=== PATIENT | female | born 1950 | race Caucasian/White ===

== ENCOUNTER → 2018-11-21 08:20 | Outpatient (CLI) | payer MEDICARE, SELFPAY ==
[2018-11-21 08:53] LABS: Influenza A and B by PCR Rapid Negative (Negative)
== END ==
PROVIDERS: Visit Provider Physician Assistant
DX: R68.89 Other general symptoms and signs (principal)
CPT/HCPCS: 87400

== ENCOUNTER → 2019-01-09 07:21 | Outpatient (CLI) | payer MEDICARE, SELFPAY ==
[2019-01-09 08:49] LABS: Blood Urea Nitrogen 15 mg/dL (7-17); Calcium 9.3 mg/dL (8.4-10.2); Carbon Dioxide 28 mmol/L (22-32); Chloride 103 mmol/L (98-107); Cholesterol 232 mg/dL (140-199); Estimated Glomerular Filt Rate > 60.0 mL/min (>60); Glucose 85 mg/dL (80-110); HDL Cholesterol 66 mg/dL (40-60); HEMOLYSIS < 15 (0-50); LDL Cholesterol Calculated 155 mg/dL (<100); Potassium 4.5 mmol/L (3.4-5.1); Sodium 138 mmol/L (137-145); Triglycerides 56 mg/dL (35-150)
== END ==
PROVIDERS: PCP Internal Medicine; Visit Provider Internal Medicine
DX: I10 Essential (primary) hypertension (principal); E78.5 Hyperlipidemia, unspecified
CPT/HCPCS: 36415; 80048; 80061

== ENCOUNTER → 2019-08-04 07:10 | Outpatient (CLI) | payer MEDICARE, SELFPAY ==
[2019-08-04 08:57] LABS: BUN Creatinine Ratio 17.1 (6-22); Blood Urea Nitrogen 12 mg/dL (7-17); Calcium 9.4 mg/dL (8.4-10.2); Carbon Dioxide 29 mmol/L (22-32); Chloride 104 mmol/L (98-107); Cholesterol 162 mg/dL (140-199); Estimated Glomerular Filt Rate > 60.0 mL/min (>60); Glucose 94 mg/dL (80-110); HDL Cholesterol 57 mg/dL (40-60); HEMOLYSIS < 15 (0-50); LDL Cholesterol Calculated 98 mg/dL (<100); Potassium 4.2 mmol/L (3.4-5.1); Sodium 140 mmol/L (137-145); Triglycerides 36 mg/dL (35-150)
== END ==
PROVIDERS: PCP Internal Medicine; Visit Provider Internal Medicine
DX: I10 Essential (primary) hypertension (principal); E78.5 Hyperlipidemia, unspecified
CPT/HCPCS: 36415; 80048; 80061

== ENCOUNTER → 2020-06-19 07:12 | Outpatient (CLI) | payer MEDICARE, SELFPAY ==
[2020-06-19 08:47] LABS: Alanine Aminotransferase 30 IU/L (<35); Albumin 3.9 g/dL (3.5-5.0); Albumin Globulin Ratio 1.7 (1.0-2.8); Alkaline Phosphatase 84 U/L (38-126); Aspartate Aminotransferase 30 IU/L (14-36); BUN Creatinine Ratio 25.4 (6-22); Bilirubin Total 0.7 mg/dL (0.2-1.3); Blood Urea Nitrogen 15 mg/dL (7-17); Calcium 9.2 mg/dL (8.4-10.2); Carbon Dioxide 29 mmol/L (22-32); Chloride 105 mmol/L (98-107); Cholesterol 172 mg/dL (140-199); Estimated Glomerular Filt Rate > 60.0 mL/min (>60); Globulin 2.3 g/dL (1.7-4.1); Glucose 88 mg/dL (80-110); HDL Cholesterol 60 mg/dL (40-60); HEMOLYSIS < 15 (0-50); LDL Cholesterol Calculated 99 mg/dL (<100); Potassium 4.4 mmol/L (3.4-5.1); Sodium 140 mmol/L (137-145); Total Protein 6.2 g/dL (6.3-8.2); Triglycerides 64 mg/dL (35-150)
== END ==
PROVIDERS: PCP Internal Medicine; Referring Provider Internal Medicine; Visit Provider Internal Medicine
DX: I10 Essential (primary) hypertension (principal); E78.5 Hyperlipidemia, unspecified
CPT/HCPCS: 36415; 80053; 80061

== ENCOUNTER → 2020-08-19 08:26 | Outpatient (CLI) | payer MEDICARE, SELFPAY ==
[2020-08-19 09:56] LABS: COVID19 -Nasal RAPID Negative (Negative)
== END ==
PROVIDERS: PCP Internal Medicine; Visit Provider Physician Assistant
DX: Z01.812 Encounter for preprocedural laboratory examination (principal); Z20.828 Contact with and (suspected) exposure to other viral communicable diseases
CPT/HCPCS: 87635; C9803

== ENCOUNTER 2020-08-21 07:49 | Day surgery (SDC) | payer MEDICARE, SELFPAY ==
--- NOTE | 2020-08-21 | PATH_ITS ---
[facility] Accession Number: [id number] . 01 Material submitted: . colon - RANDOM COLON . 02 Diagnosis: Random Colon, Biopsy: Lymphocytic colitis. Negative for granulomas, dysplasia or malignancy. MRV 08/26/2020 1215 Local . 02 Electronically signed: . Viviana Abreu MD, Pathologist NPI- [id number] . 01 Gross description: . RANDOM COLON: Received in formalin are 9 fragment(s) of millan, soft tissue measuring 0.2 x 0.2 x 0.1 cm to 0.1 x 0.1 x 0.1 cm submitted entirely in 1 cassette(s) /QBJ 08/22/2020 0814 Local . 02 Pathologist provided ICD-10: R19.7, K52.89 . 02 CPT . 675814 Performed at: 01 [facility] [address], [place], [place] [id number] MD Carl Hartman MD Phone: [phone] Performed at: 02 [facility] [address] [place], [place] [id number] MD Viviana Abreu MD Phone: [phone]
[2020-08-21] MEDS: SODIUM CHLORIDE 0.9% 1,000 ML 70 ML IV (08:10)
[2020-08-21 08:11] VITALS: BP 134/72; PULSE 71; RESP 16; TEMP 36.6; O2SAT 96; BMI 28.3
--- NOTE | 2020-08-21 09:09 | PM.HP.1 ---
History of Present Illness History of Present Illness Date Patient Seen: 08/21/20 Time Patient Seen: 09:05 Chief complaint: DX COLONOSCOPY Narrative: The patient is a very pleasant 69-year-old female who presented for colonoscopy. She was last evaluated by video visit on July 23, 2020 for diarrhea. Since that time her diarrhea has improved but she still has significant concerns with the cause of the diarrhea. Patient History Medical History Anxiety History of diarrhea Hyperlipidemia Hypertension Ovarian cyst Surgical History H/O ovarian cystectomy (~2007) H/O repair of rotator cuff (~2016) History of open reduction and internal fixation (ORIF) procedure (~2016) History of total hip arthroplasty (~2013) Family & Social History Social History: household members none Tobacco & Substance use: Smoking Status Never smoker alcohol intake current alcohol intake frequency 0-2 drinks per day Substance Use Type does not use Meds Home Medications and Allergies Home Medications Medication Instructions Recorded Confirmed Type amlodipine [Norvasc] 5 mg PO QDAY #0 11/08/16 08/21/20 History cholecalciferol (vitamin D3) 2,000 unit PO WEEKLY #0 11/08/16 08/21/20 History [Vitamin D3] atorvastatin 10 mg PO DAILY 08/21/20 08/21/20 History Allergies Allergy/AdvReac Type Severity Reaction Status Date / Time No Known Allergies Allergy Uncoded 08/21/20 08:19 Review of Systems Review of Systems ROS: Yes All systems reviewed with the patient and are negative except as otherwise documented Exam Vital Signs (past 8 hours): - 08/21/20 08:11 Temperature 97.8 F Pulse Rate 71 Respiratory Rate 16 Blood Pressure 134/72 Pulse Oximetry 96 Oxygen Delivery Method Room Air Const General: cooperative, healthy appearing, comfortable and well developed Nutritional Appearance: average body habitus HENMT Head: normocephalic and atraumatic Resp Effort & Inspection: normal respiratory effort and able to speak in complete sentences Auscultation: clear to auscultation bilaterally Cardio Rate: regular rate Rhythm: regular rhythm Heart Sounds: S1 normal and S2 normal GI Palpation: soft Auscultation: normal bowel sounds Extrem Right lower extremity: no edema Left lower extremity: no edema Assessment & Plan Assessment & Plan narrative: 1. Diarrhea 2. No prior colonosocpy Colonoscopy today, further recommendations to follow
[2020-08-21] MEDS: ONDANSETRON 4 MG/2 ML INJ IV (09:10)
[2020-08-21] MEDS: fentaNYL 250 MCG/5 ML INJ IV (09:17)
[2020-08-21] MEDS: MIDAZOLAM 5 MG/5 ML VIAL IV (09:17)
[2020-08-21 09:39] VITALS: BP 124/67; PULSE 71; RESP 16; TEMP 36.3; O2SAT 95
--- NOTE | 2020-08-21 09:40 | PM.OP.ENDO ---
Operative Date/Time/Diagnoses Date of procedure: 08/21/20 Time of procedure: 09:13 Procedure Notes Procedure in detail: Surgeon: Haylee Christianson DO Procedure: Colonoscopy with biopsy Preoperative diagnosis: 1. Diarrhea 2. No prior colonoscopy Postoperative diagnosis: 1. Normal-appearing colon mucosa, biopsy to rule out microscopic colitis 2. Normal-appearing terminal ileum 3. Scattered sigmoid diverticulosis 4. Grade 1 internal hemorrhoids Medications: Conscious sedation using 5 mg IV of Midazolam and 125 mcg IV of Fentanyl Preanesthesia Assessment An H and P was performed/updated and the Px?s ASA class is 2. The procedure was discussed in detail with the patient. The potential risks and complications including infection, bleeding, missed lesions, perforation, need for surgery in case of perforation, prolonged hospital stay, and were explained. A brief question and answer period was allotted and once all questions were answered, informed consent was obtained. The patient was brought back to the procedure room and placed on standard monitoring. The patient?s vital signs were monitored continuously throughout the entire procedure. Prior to starting, a timeout was performed to confirm the patient?s identity, allergies, medications, and procedure. Procedure in detail The patient was placed in left lateral decubitus position and once adequate sedation was obtained a DIOMEDES was performed. The digital rectal examination did not reveal any palpable lesions. The tip of the colonoscope was placed in the anal canal and advanced without difficulty all the way to the terminal ileum which was unremarkable. The cecum was identified by the appendiceal orifice and the ileocecal valve. Careful examination of all oliver of the colon was performed with irrigation of any residual stool. A 2nd pass in the ascending colon was completed. Colon mucosa was unremarkable, random biopsies were completed to rule out microscopic colitis Grade 1 internal hemorrhoids were noted on retroflexion The patient tolerated the procedure well and will be brought back to the recovery area to be discharged once criteria are met. The prep was judged to be adequate to identify polyps less than 5 mm. The withdrawal time was 9min. The total physician intraservice time was 18min. Complications There were no complications and estimated blood loss was minimal. Recommendations: Resume previous diet Continue outPx medications Follow up pathology results Repeat colonoscopy for screening in 10 years, however at that time age would be over 78 recommend office visit 1st to determine if surveillance is warranted. Office follow up if persistent symptoms An emergency contact number was given to the patient for any complications related to the procedure
[2020-08-21 09:44] VITALS: BP 124/70; PULSE 74; RESP 16; O2SAT 95
[2020-08-21 09:49] VITALS: BP 113/72; PULSE 72; RESP 12; O2SAT 97
[2020-08-21 09:54] VITALS: BP 113/61; PULSE 66; RESP 16; TEMP 36.2; O2SAT 97
== END 2020-08-21 10:08 | disposition home or self-care (01) ==
PROVIDERS: PCP Internal Medicine; Referring Provider Student in an Organized Health Care Education/Training Program; Visit Provider Student in an Organized Health Care Education/Training Program
PROC: 0DJD8ZZ Inspection of Lower Intestinal Tract, Via Natural or Artificial Opening Endoscopic (ICD-10-PCS; CPT 45378; principal; 2020-08-21 09:00)
DX: K52.832 Lymphocytic colitis (principal); K57.20 Diverticulitis of large intestine with perforation and abscess without bleeding; K64.0 First degree hemorrhoids; I10 Essential (primary) hypertension; E78.5 Hyperlipidemia, unspecified
CPT/HCPCS: 45380; J2250; J2405; J3010

== ENCOUNTER → 2020-09-10 10:15 | Outpatient (CLI) | payer OTHER, SELFPAY ==
--- NOTE | 2020-09-10 10:17 | DI.MRI.S_ITS ---
PROCEDURE: MR KNEE RT W CON INDICATIONS: INTERNAL DERANGEMENT OF RIGHT KNEE TECHNIQUE: After the administration of 50 mL of dilute intra-articular Gadolinium contrast, sagittal T1 spin echo with fat saturation and PD fast spin echo with fat saturation, coronal T1 spin echo with and without fat saturation, coronal T2 fast spin echo with fat saturation, axial PD fast spin echo with fat saturation through the knee. COMPARISON: [facility], RF, [place] KNEE INJECTION MR/CT RT, 09/10/2020, 11:29. [facility] [place], CR, XR KNEE ARTHRITIC SERIES RT, 08/26/2020, 9:23. FINDINGS: Image quality: Excellent. Menisci: The posterior horn and the body of the medial meniscus are truncated and demonstrate heterogeneous signal, consistent with prior meniscal tear and meniscectomy. The lateral meniscus demonstrates normal morphology and internal signal. The meniscal root ligaments appear intact. Cruciate ligaments: The anterior and posterior cruciate ligaments appear intact. Medial structures: The medial collateral ligament appears intact. The semimembranosus tendon insertions, oblique popliteal ligament, and meniscocapsular junction appear intact. Visualized portions of the pes anserinus tendons appear normal. No abnormal bursal fluid. Lateral structures: The lateral collateral ligament and the biceps femoris tendon appear intact. The popliteus tendon appears normal. Iliotibial band appears normal. Anterior structures: The quadriceps and patellar tendons appear intact. Patellar alignment is normal. No femoral trochlear dysplasia or ventral trochlear prominence. No edema in the infrapatellar fat pad. Bone and cartilage: No bone marrow contusions or fractures. There is chondral malacia, most pronounced in the medial femorotibial compartment. Joint space: A moderate to large sized Hollingsworth's cyst is noted. Normal appearing synovial plicae are incidentally noted. No intra-articular bodies. IMPRESSION: 1. The posterior horn and body of the medial meniscus are truncated and heterogeneous in signal consistent with prior meniscal injury and meniscectomy. 2. 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 3. A moderate to large-sized Hollingsworth's cyst. Dictated by: Amanda Gomez M.D. on 09/10/2020 at 12:54 Approved by: Amanda Gomez M.D. on 09/10/2020 at 13:02
--- NOTE | 2020-09-10 10:17 | DI.RAD.S_ITS ---
PROCEDURE: FL KNEE INJECTION MR/CT RT INDICATIONS: INTERNAL DERANGEMENT OF RIGHT KNEE COMPARISON: [facility] [place], CR, XR KNEE ARTHRITIC SERIES RT, 08/26/2020, 9:23. TECHNIQUE: The indications, alternatives, benefits, risks, and complications of the procedure were explained to the patient. Written informed consent was obtained and placed in the chart. The knee was examined fluoroscopically, and a site chosen for knee joint injection. The skin was prepped and draped in a sterile fashion, and 1% Lidocaine infiltrated from the skin down to the articular surface. A hypodermic needle was then introduced into the joint and iodinated contrast media was instilled to confirm the intra-articular needle tip placement. This was followed by approximately 50 mL dilute solution of a gadolinium containing MR contrast agent. The needle was removed and a bandage was applied. An Abram wrap was then applied around the knee joint to keep the contrast from collecting in the suprapatellar recess. The patient experienced no complications throughout the procedure and left the fluoroscopic suite in no apparent distress. FINDINGS: Single fluoroscopic spot image demonstrates intra-articular location to injected iodinated contrast. IMPRESSION: Successful fluoroscopically guided administration of dilute Gadolinium solution into the knee joint for MR arthrogram. Dictated by: Amanda Gomez M.D. on 09/10/2020 at 11:14 Approved by: Amanda Gomez M.D. on 09/10/2020 at 11:14
== END ==
PROVIDERS: PCP Internal Medicine; Referring Provider Orthopaedic Surgery; Visit Provider Orthopaedic Surgery
DX: M23.91 Unspecified internal derangement of right knee (principal); M71.21 Synovial cyst of popliteal space [Baker], right knee; M94.261 Chondromalacia, right knee
CPT/HCPCS: 27369; 73722; 77002

== ENCOUNTER 2021-03-21 07:18 | Emergency (ER) | payer OTHER, SELFPAY ==
[2021-03-21 07:30] VITALS: BP 141/89; PULSE 71; RESP 18; TEMP 36.8; O2SAT 96; BMI 28.8
--- NOTE | 2021-03-21 07:30 | DI.RAD.S_ITS ---
PROCEDURE: XR WRIST RT MIN 3V INDICATIONS: fall TECHNIQUE: 4 views of the wrist were acquired. COMPARISON: [facility], CR, XR HAND 3+ VIEWS RIGHT, 04/17/2020, 7:22. FINDINGS: Bones: There is a subtle minimally displaced intra-articular fracture at the distal radial aspect of the radius involving the radial styloid. No suspicious bony lesions. Degenerative changes are seen at the 1st metacarpophalangeal, 1st carpometacarpal, and triscaphe joints. Scaphoid view: Intact scaphoid. Soft tissues: No suspicious soft tissue calcifications. Soft tissue edema is seen surrounding the wrist. IMPRESSION: Minimally displaced intra-articular fracture of the radial styloid. Dictated by: Camron De Leon M.D. on 03/21/2021 at 8:53 Approved by: Camron De Leon M.D. on 03/21/2021 at 8:57
--- NOTE | 2021-03-21 07:39 | DI.RAD.S_ITS ---
PROCEDURE: XR RIBS RT MIN 3V W CXR 1V INDICATIONS: fall TECHNIQUE: 2 views of the right ribs were acquired, along with a single view chest. COMPARISON: None. FINDINGS: Surgical changes and devices: None. Bones and chest wall: Mild contour irregularity of the anterolateral aspect of the right 7th rib could represent a minimally displaced fracture. No suspicious bony lesions. Overlying soft tissues appear unremarkable. There is dextroconvex curvature of the thoracic spine with multilevel degenerative changes. Lungs and pleura: No pleural effusions or pneumothorax. Lungs appear clear. Mediastinum: Mediastinal contours appear normal. Heart size is normal. Mild aortic atherosclerotic calcifications. IMPRESSION: Mild cortical irregularity at the anterolateral aspect of the right 7th rib could represent a minimally displaced fracture. Recommend correlation with point tenderness. No pneumothorax. Dictated by: Camron De Leon M.D. on 03/21/2021 at 8:48 Approved by: Camron De Leon M.D. on 03/21/2021 at 8:53
--- NOTE | 2021-03-21 08:10 | ED.GENADULT ---
HPI - General Adult General Chief complaint: Extremity Injury, Upper Stated complaint: fell Wednesday and hurt right wrist, still painful Time Seen by Provider: 03/21/21 07:32 Source: patient Mode of arrival: Family Vehicle Limitations: no limitations History of Present Illness HPI narrative: Patient is a 70-year-old female who earlier this week was guiding a lawn cart down a hill when she states that it ?got away from me ?she tried to stop it and she tripped and fell on her right side. She did hit her head. There was no loss of consciousness. Sustained an abrasion to her right knee. Got her right arm caught under her. Has had swelling in her right arm since then. Has been taking ibuprofen and also icing the area however over the past 24 hours she has developed some bruising in increased discomfort. She also has some discomfort in her right ribs. No coughing. No problems breathing. No neck pain. On anticoagulation Related Data Home Medications Medication Instructions Recorded Confirmed amlodipine 5 mg tablet (Norvasc) 5 mg PO QDAY #0 11/08/16 08/21/20 cholecalciferol (vitamin D3) 50 2,000 unit PO WEEKLY #0 11/08/16 08/21/20 mcg (2,000 unit) capsule (Vitamin D3) atorvastatin 10 mg tablet 10 mg PO DAILY 08/21/20 08/21/20 Allergies Allergy/AdvReac Type Severity Reaction Status Date / Time No Known Allergies Allergy Uncoded 03/21/21 07:35 Review of Systems Constitutional Constitutional: Denies fever(s) and Denies headache(s) Eyes Eyes: Denies change in vision ENT Ears, Nose, Mouth, and Throat: Denies dental pain, Denies headache(s) and Denies sore throat Cardiovascular Cardiovascular: Denies chest pain and Denies dyspnea Respiratory Respiratory: Denies dyspnea Gastrointestinal Gastrointestinal: Denies abdominal pain Genitourinary Genitourinary: Reports system reviewed and no additional complaints, except as documented Musculoskeletal Musculoskeletal: Reports as per HPI Integumentary/Breasts Comments: Bruising to right wrist Neurologic Neurologic: Denies headache(s) Psychiatric Psychiatric: Reports system reviewed and no additional complaints, except as documented Endocrine Endocrine: Reports system reviewed and no additional complaints, except as documented Hematologic/Lymphatic On Anticoagulants: No Allergic/Immunologic Allergic/Immunologic: Reports system reviewed and no additional complaints, except as documented Patient History Medical History Anxiety History of diarrhea Hyperlipidemia Hypertension Ovarian cyst Surgical History H/O ovarian cystectomy (~2007) H/O repair of rotator cuff (~2016) History of open reduction and internal fixation (ORIF) procedure (~2016) History of total hip arthroplasty (~2013) Social History household members: none Smoking Status: Never smoker alcohol intake: current Smoking Status: Never smoker alcohol intake frequency: 0-2 drinks per day Alcohol type: wine Substance Use Type: does not use Exam Initial Vital Signs Initial Vital Signs: Vital Signs Temperature 98.2 F 03/21/21 07:30 Pulse Rate 71 03/21/21 07:30 Respiratory Rate 18 03/21/21 07:30 Blood Pressure 141/89 H 03/21/21 07:30 Pulse Oximetry 96 03/21/21 07:30 Const General: cooperative and comfortable HENMT Head: normal to inspection and normocephalic Mouth: oral mucosae normal Eyes General: appearance normal, both eyes and all related structures Chest Other: Tenderness to palpation right lower chest without crepitus Resp Effort & Inspection: normal respiratory effort Auscultation: clear to auscultation bilaterally Cardio Rate: regular rate GI Inspection: normal to inspection Palpation: soft and No tender Back/Spine/Pelvis Cervical Spine: No cervical spinal tenderness Thoracic/Lumbar Spine: No thoracic spinal tenderness and No lumbar spinal tenderness Skin Other: Bruising around right wrist. Superficial abrasion to right anterior knee. Neuro General: patient alert, patient awake, patient oriented x3 and moves all extremities Extrem Other: Bilateral lower extremities unremarkable. Shoulder is unremarkable. Elbows unremarkable. Does have discomfort with flexion extension and limited range of motion of her right wrist. Her right hand is unremarkable. Can pronate and supinate but has discomfort. Psych Appearance: grossly normal and well kempt Procedures Orthopedic Splinting/Casting Injury #1: Side: right Upper Extremity Injury Location: wrist Upper Extremity Immobilizer: sugar tong splint Post splinting neuro exam: no change Post splinting vascular exam: no change Placed by: Provider Course Orders Ordered: ED Orders 03/21/21 07:30 XR wrist RT min 3V Stat 03/21/21 07:39 XR ribs RT min 3V w CXR1V Stat Vital Signs Vital signs: Vital Signs - 8 hr 03/21/21 07:30 Temperature 98.2 F Pulse Rate 71 Respiratory Rate 18 Blood Pressure 141/89 H Pulse Oximetry 96 Medical Decision Making Imaging Data Rib x-ray: Radiologist's Impression: [address] [id number] ReportSigned Patient: Christi VargasR#: [id number]: 9Acct:[id number]/Sex: 70 / FDate of Service: 03/21/21Loc: EDAccession Number: [id number] Procedure: XR ribs RT min 3V w CXR1V Ordering Provider: Yoel Beckford D.O. PROCEDURE: XR RIBS RT MIN 3V W CXR 1V INDICATIONS: fall TECHNIQUE: 2 views of the right ribs were acquired, along with a single view chest. COMPARISON: None. FINDINGS: Surgical changes and devices: None. Bones and chest wall: Mild contour irregularity of the anterolateral aspect of the right 7th rib could represent a minimally displaced fracture. No suspicious bony lesions. Overlying soft tissues appear unremarkable. There is dextroconvex curvature of the thoracic spine with multilevel degenerative changes. Lungs and pleura: No pleural effusions or pneumothorax. Lungs appear clear. Mediastinum: Mediastinal contours appear normal. Heart size is normal. Mild aortic atherosclerotic calcifications. IMPRESSION: Mild cortical irregularity at the anterolateral aspect of the right 7th rib could represent a minimally displaced fracture. Recommend correlation with point tenderness. No pneumothorax. Dictated by: Camron De Leon M.D. on 03/21/2021 at 8:48 Approved by: Camron De Leon M.D. on 03/21/2021 at 8:53 Extremity x-ray #1: Radiologist's Impression: [address] [id number] ReportSigned Patient: Christi VargasIrvin#: [id number]: 9Acct:[id number]/Sex: 70 / FDate of Service: 03/21/21Loc: EDAccession Number: [id number] Procedure: XR wrist RT min 3V Ordering Provider: Yoel Beckford D.O. PROCEDURE: XR WRIST RT MIN 3V INDICATIONS: fall TECHNIQUE: 4 views of the wrist were acquired. COMPARISON: [facility], CR, XR HAND 3+ VIEWS RIGHT, 04/17/2020, 7:22. FINDINGS: Bones: There is a subtle minimally displaced intra-articular fracture at the distal radial aspect of the radius involving the radial styloid. No suspicious bony lesions. Degenerative changes are seen at the 1st metacarpophalangeal, 1st carpometacarpal, and triscaphe joints. Scaphoid view: Intact scaphoid. Soft tissues: No suspicious soft tissue calcifications. Soft tissue edema is seen surrounding the wrist. IMPRESSION: Minimally displaced intra-articular fracture of the radial styloid. Dictated by: Camron De Leon M.D. on 03/21/2021 at 8:53 Approved by: Camron De Leon M.D. on 03/21/2021 at 8:57 MDM Narrative Medical decision making narrative: This was a mechanical fall. X-rays do show a rib fracture over the area where she is most tender. She is not in respiratory distress. The underlying lung is unremarkable. I did discuss this with her. She was given incentive spirometry training she is given return precautions with regard to this. She expressed understanding. She also has a distal radius fracture. A splint was placed as described above. She was given care instructions and return precautions. She expressed understanding and agreement. Discharge Plan Departure Patient Disposition: Home Clinical Impression: Fracture of wrist, Closed rib fracture, Abrasion of skin, Fall Instructions: DI for Rib Fracture, DI for Wrist Fracture, How to Take Care of Your Splint Activity Restrictions/Additional Instructions: Please use the incentive spirometer like you were instructed today. If you start to develop fevers or shortness of breath please return to the emergency department. The splint needs to stay on and stay clean and stay dry. You need to treat it like a cast. Recommend that today you contact the [facility] group at [phone] for a follow-up next week. Also contact your primary provider for follow-up. Prescriptions: No Action amlodipine [Norvasc] 5 MG tablet 5 mg PO QDAY Qty: 0 RF: 0 cholecalciferol (vitamin D3) [Vitamin D3] 2,000 UNIT capsule 2,000 unit PO WEEKLY Qty: 0 RF: 0 atorvastatin 10 mg Tablet 10 mg PO DAILY RF: 0 Referrals: Yosvany Mejia MD [Physician] - Jessica Brooks MD [Primary Care Provider] -
[2021-03-21 09:35] VITALS: O2SAT 99
[2021-03-21 09:50] VITALS: BP 142/74; PULSE 64; RESP 16; O2SAT 95
== END 2021-03-21 09:50 | disposition home or self-care (01) ==
PROVIDERS: Emergency Provider Emergency Medicine; PCP Internal Medicine
DX: S52.501A Unspecified fracture of the lower end of right radius, initial encounter for closed fracture (principal); S22.31XA Fracture of one rib, right side, initial encounter for closed fracture; S80.211A Abrasion, right knee, initial encounter; W19.XXXA Unspecified fall, initial encounter
CPT/HCPCS: 29125; 71101; 73110; 99283

== ENCOUNTER → 2022-05-05 09:09 | Outpatient (CLI) | payer MEDICARE, SELFPAY ==
--- NOTE | 2022-05-05 09:58 | DI.MRI.S_ITS ---
PROCEDURE: MR KNEE RT WO CON INDICATIONS: Pain in right knee TECHNIQUE: Noncontrast sagittal PD fast spin echo and T2 fast spin echo with fat saturation, sagittal 3-D FLASH with fat saturation; coronal T1 spin echo and PD fast spin echo with fat saturation, and axial PD fast spin echo with fat saturation through the knee. COMPARISON: None. FINDINGS: Image quality: Excellent. Menisci: Complex tear involving posterior horn of medial meniscus is seen extending to both superior and inferior articulating surfaces with adjacent 5 mm Marine meniscal cyst. Lateral meniscus is intact. Peripheral displacement of medial meniscus bowing medial collateral ligament is also seen. The meniscal root ligaments appear intact. Cruciate ligaments: The anterior and posterior cruciate ligaments appear intact. Medial structures: There is low-grade medial collateral ligament sprain.. The posterior oblique ligament, semimembranosus tendon insertions, oblique popliteal ligament, and meniscocapsular junction appear intact. Visualized portions of the pes anserinus tendons appear normal. No abnormal bursal fluid. Lateral structures: The lateral collateral ligament, long and short heads of the biceps femoris tendon appear intact. The popliteus tendon appears normal; the popliteofibular ligament appears intact. Iliotibial band appears normal. Anterior structures: Distal quadriceps tendinosis and low-grade partial-thickness tear at its superior patellar insertion is seen. The patellar tendon appears intact. Patellar alignment is normal. No femoral trochlear dysplasia or ventral trochlear prominence. No edema in the infrapatellar fat pad. Bones and cartilage: No bone marrow contusions or fractures. [id number] tricompartmental osteoarthritis and chondromalacia is noted most prominent in medial femoral tibial compartment. Joint space: There is small knee joint fluid. No Hollingsworth's cyst. Normal appearing synovial plicae are incidentally noted. IMPRESSION: 1. [id number]-[id number] tricompartmental osteoarthritis and chondromalacia more prominent in medial femoral tibial compartment. Small joint effusion. No gross loose bodies. 2. Complex tear involving posterior horn of medial meniscus extending to both superior and inferior articulating surfaces with adjacent 5 mm Marine meniscal cyst. Lateral meniscus is intact. 3. Cruciate ligaments are intact. Low-grade MCL sprain. 4. Distal quadriceps tendinosis and low-grade partial-thickness tear. Patellar tendon is intact. Dictated by: Filemon Hawkins M.D. on 05/05/2022 at 10:56 Approved by: Filemon Hawkins M.D. on 05/05/2022 at 10:58
== END ==
PROVIDERS: PCP Internal Medicine; Referring Provider Student in an Organized Health Care Education/Training Program; Visit Provider Student in an Organized Health Care Education/Training Program
DX: S83.241A Other tear of medial meniscus, current injury, right knee, initial encounter (principal); M25.561 Pain in right knee; M17.11 Unilateral primary osteoarthritis, right knee; M94.261 Chondromalacia, right knee; S83.411A Sprain of medial collateral ligament of right knee, initial encounter; S76.111A Strain of right quadriceps muscle, fascia and tendon, initial encounter
CPT/HCPCS: 73721

== ENCOUNTER 2022-10-15 10:30 | Outpatient (RCR) | payer OTHER, SELFPAY ==
--- NOTE | 2022-07-21 11:15 | PT.OIE ---
Current Diagnoses Pain in right knee (07/21/22) Encounter for other preprocedural examination (07/21/22) Past Medical History (Last Reviewed 03/21/21 @ 08:12 by Yoel Beckford DO) Anxiety History of diarrhea Hyperlipidemia Hypertension Ovarian cyst Past Surgical History (Last Reviewed 08/21/20 @ 09:09 by Haylee Christianson DO) H/O ovarian cystectomy (~2007) H/O repair of rotator cuff (~2016) History of open reduction and internal fixation (ORIF) procedure (~2017) History of total hip arthroplasty (~2013) Visit Care Team Role Provider Type Jude Vann MD Family Provider Physician Primary Care Provider Specialty: Internal Medicine Address: [address] [place] [address], [id number] Email: Xavi Galvan MD Attending Provider Non-Staff Referring Provider Specialty: Orthopedic Surgery Address: [address] [place], [place] [address], [place], [address] Fax: Email: Physical Therapy Initial Evaluation PT-OP-A Visit Information Start: 07/21/22 08:57 Freq: Status: Active Protocol: Document 07/21/22 10:38 [facility] (Rec: 07/21/22 17:25 [facility] [id number]) Out-Patient Physical Therapy Visit Information Visit Information Visit Type Initial Evaluation Visit Start Time 10:35 Visit Stop Time 11:15 Total Visit Minutes 40 Visit Number 1 Evaluation Information Evaluation Date 07/21/22 PT-OP-B Current Condition Start: 07/21/22 08:57 Freq: Status: Active Protocol: Document 07/21/22 10:38 [facility] (Rec: 07/21/22 11:06 [facility] [id number]) Current Condition History of Current Condition Onset Date 2017 Current Complaints right knee pain in the distal lateral pole of the patella, pain is constant History of Current Condition pt had a fall in 2017 landing on her right knee on asphpalt 2 inches thick she tore her L rotator cuff and broke her left ankle. She also aggravated her right knee and has had pain since this time. She is scheduled for arthorscopic Surgery tomorrow 07/22/[address] [facility] Dr Galvan will be doing surgery. At this time she cant be on her feet for long on a hard surface, unable to garden due to pain. She does not have stairs at home and her son is taking her home. She does live alone. Prior Treatments and Tests hx of left hip replacement in 2014 Treatment Goals Patient/Caregiver Goals Goals are to eliminate knee pain and to be able to be active again she feels very limited in what she can do due to pain Prior Functional Status Baseline Function- ADL's Independent Baseline Function- Mobility Independent Current Functional Impairments (Reported) Functional Limitations- ADL's pain with anything that requires kneeling, pain with knee flexion activities Functional Limitations- Mobility/Gait pain walking on uneven ground and standing on hard surfaces PT-OP-C Subjective Start: 07/21/22 08:57 Freq: Status: Active Protocol: Document 07/21/22 10:35 [facility] (Rec: 07/22/22 09:35 [facility] [id number]) Patient Questionnaires Lower Extremity Functional Scale LEFS Score 42 LEFS Impairment 40 to 59% Impaired (Score 32- 47) OP-PT Pain Assessment Pain Assessment Grid Paper Pain Assessment Grid Completed Yes Location right knee Pain Location Details inferior pole of the patella on the lateral side Intensity 5 Scale Used Numeric (0 - 10) Description Aching Frequency Constant PT-OP-F Manual Assessment Start: 07/21/22 08:57 Freq: Status: Active Protocol: Document 07/21/22 10:35 [facility] (Rec: 07/22/22 09:35 [facility] [id number]) Manual Assessments Soft Tissue Assessment Soft Tissue Mobility Assessment tightness of the right ITB with tenderness up into her lateral hip Joint Mobility Assessment Joint Mobility Assessment able to mobilize the patella but point tenderness at the inferior pole lateral side of patella, as pt flexes her knee there is a visual pop on the lateral patella femoral side of the joint pt rests her knee in hyperextension PT-OP-G Mobility & Gait Start: 07/21/22 08:57 Freq: Status: Active Protocol: Document 07/21/22 10:35 [facility] (Rec: 07/22/22 09:35 [facility] [id number]) OP Gait Assessment Gait Gait Assistance Required: Independent Able to Maintain Weight Bearing Status Yes During Gait Assistive Devices Assistive Device None Orthotic/Prosthetic Devices or Brace: No Gait Deviations General Gait Pattern Antalgic,Decreased Stride Length Comments Gait Comments pt was trainined with SPC today but advised to supervisor fertilizer a walker for post surgery as she will be home alone PT-OP-J Posture/Palpation/Skin Start: 07/21/22 08:57 Freq: Status: Active Protocol: Document 07/21/22 10:35 [facility] (Rec: 07/22/22 09:35 [facility] [id number]) Palpation Assessment Location right patella Palpation Location pain at the inferior lateral pole of the patella Palpation Findings Tenderness PT-OP-K Range of Motion Start: 07/21/22 08:57 Freq: Status: Active Protocol: Document 07/21/22 10:35 [facility] (Rec: 07/22/22 09:35 [facility] [id number]) Knee Goniometric Range of Motion Knee Right Knee ROM WFL No Patient Position Supine Flexion Active (degrees) 122 Comments pt rests her knee in 2 degrees hyperextension B, she has increased pain with knee flexion Knee ROM Limitations Knee ROM Limitations Soft Tissue Tightness,Pain Comments pain with knee flexion PT-OP-M Strength Start: 07/21/22 08:57 Freq: Status: Active Protocol: Document 07/21/22 10:35 [facility] (Rec: 07/22/22 09:35 [facility] [id number]) Knee Strength Knee Manual Muscle Testing Right Flexion (S2) 4 Good Extension (L3) 4 Good Comments able to perform a quad set with towel under knee, pain with ASLR attempt PT-OP-Q Treatments Start: 07/21/22 08:57 Freq: Status: Active Protocol: Document 07/21/22 10:35 [facility] (Rec: 07/22/22 09:35 [facility] [id number]) Therapeutic Exercises Supine Exercises quad sets Reps/Minutes x 10 reps hold 5 sec 1-2 times per day Comments towel under right knee ankle pumps Reps/Minutes 2 x 10 2-3 times per day Comments pt advised to elevate her leg and perform ankle pumps post op supine heel slides Reps/Minutes 2 x 10 reps 2-3 xms per day PT-OP-T Assessment and Plan Start: 07/21/22 08:57 Freq: Status: Active Protocol: Document 07/21/22 10:35 [facility] (Rec: 07/22/22 09:35 [facility] [id number]) Physical Therapy Assessment Rehab Potential Rehabilitation Potential Excellent Evaluation Complexity Number of Personal Factors/Comorbidities 0 Number of Body Systems Impaired 1-2 Clinical Presentation at Evaluation Stable Impairments Impairments Activity Tolerance,Functional Activities,Functional Mobility ,Gait,ROM,Soft Tissue Mobility ,Strength,Tone Goals 3 Impairment pain in the right knee with gait and pt is limited in walking distance to more than a few blocks due to increased pain. 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/ 10 Care Home Goal (LTG) Shelley presents with improved walking distance without increased pain and her overall pain levels have dropped from 5/10 to 0-2/10 LTG Duration 12 weeks 2 Impairment Pain with R knee flexion and flexion limited to 122 Short Term Goal (STG) Shelley is able to return to full knee ROM without c/o pain STG Duration 6 weeks 1 Impairment pt lacks a home program for post arthroscopic Right knee surgery 07/22/22 Short Term Goal (STG) Shelley is educated on a HEP for post surgical prosedure STG Duration 1 day Assessment Summary Assessment Shelley is a 71 year old female who fell in 2017 landing on her right knee and tearing her rotator cuff on the left. She has had pain since this time but dealt with her other injury first. She undergoes arthroscopic surgery on 07/22/22 and is here today for her pre-op visit. Shelley feels very limited in her daily activities due to pain. Walking on hard surfance increases pain, she is limited in gardening and activities that require knee flexion. With exam today her pain is specifically at the inferior lateral pole of the patella. There is a visual and audible click when she flexes her knee and pain increases with knee flexion. She has 122 degrees knee flexion today and her knee rests in 2 degrees hyperextension. She was educated in knee ROM exercises post surgery and gait training was performed today with a cane. I did advise a fww for post surgery as she has a painful gait at this point and is limping. Her sone will be taking her home but she does live alone. She was educated on LE elevation and ice and has her ice packs ready at home to use. Shelley is set up for post surgery PT appointments. She is a good candidate for PT Physical Therapy Plan Frequency and Duration Frequency of Treatment 2x/Week Duration of treatment (weeks) 12 Plan of Care Start Date 07/21/22 Plan of Care End Date 10/21/22 Therapeutic Interventions Therapeutic Interventions Aquatic Therapy,Home Exercise Program,Manual Therapy, Neuromuscular Re-education, Patient/Caregiver Education, Self-Care/Home Management,Soft Tissue Mobilization, Therapeutic Exercises Modalities Cold Pack/Ice Massage Next Visit Focus/Plan Next Note Type Re-Evaluation Next Visit Plan re-eval post surgery and assess what was found during surgery, knee ROM and strength , gait training.
--- NOTE | 2022-07-22 09:36 | PT.OPPOC ---
Physical, Occupational & Speech Therapy At [facility] Current Diagnoses Pain in right knee (07/21/22) Encounter for other preprocedural examination (07/21/22) Visit Care Team Role Provider Type Jude Vann MD Family Provider Physician Primary Care Provider Specialty: Internal Medicine Address: [address] [place] [address], [id number] Email: Xavi Galvan MD Attending Provider Non-Staff Referring Provider Specialty: Orthopedic Surgery Address: [address] [place] [address] , [place], [address] Fax: Email: Plan Of Care PT-OP-T Assessment and Plan Start: 07/21/22 08:57 Freq: Status: Active Protocol: Document 07/21/22 10:35 [facility] (Rec: 07/22/22 09:35 [facility] [id number]) Physical Therapy Assessment Rehab Potential Rehabilitation Potential Excellent Evaluation Complexity Number of Personal Factors/Comorbidities 0 Number of Body Systems Impaired 1-2 Clinical Presentation at Evaluation Stable Impairments Impairments Activity Tolerance,Functional Activities,Functional Mobility ,Gait,ROM,Soft Tissue Mobility ,Strength,Tone Goals 3 Impairment pain in the right knee with gait and pt is limited in walking distance to more than a few blocks due to increased pain. 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/ 10 Care Home Goal (LTG) Shelley presents with improved walking distance without increased pain and her overall pain levels have dropped from 5/10 to 0-2/10 LTG Duration 12 weeks 2 Impairment Pain with R knee flexion and flexion limited to 122 Short Term Goal (STG) Shelley is able to return to full knee ROM without c/o pain STG Duration 6 weeks 1 Impairment pt lacks a home program for post arthroscopic Right knee surgery 07/22/22 Short Term Goal (STG) Shelley is educated on a HEP for post surgical procedure STG Duration 1 day Assessment Summary Assessment Shelley is a 71 year old female who fell in 2017 landing on her right knee and tearing her rotator cuff on the left. She has had pain since this time but dealt with her other injury first. She undergoes arthroscopic surgery on 07/22/22 and is here today for her pre-op visit. Shelley feels very limited in her daily activities due to pain. Walking on hard surface increases pain, she is limited in gardening and activities that require knee flexion. With exam today her pain is specifically at the inferior lateral pole of the patella. There is a visual and audible click when she flexes her knee and pain increases with knee flexion. She has 122 degrees knee flexion today and her knee rests in 2 degrees hyperextension. She was educated in knee ROM exercises post surgery and gait training was performed today with a cane. I did advise a fww for post surgery as she has a painful gait at this point and is limping. Her son will be taking her home but she does live alone. She was educated on LE elevation and ice and has her ice packs ready at home to use. Shelley is set up for post surgery PT appointments. She is a good candidate for PT Physical Therapy Plan Frequency and Duration Frequency of Treatment 2x/Week Duration of treatment (weeks) 12 Plan of Care Start Date 07/21/22 Plan of Care End Date 10/21/22 Therapeutic Interventions Therapeutic Interventions Aquatic Therapy,Home Exercise Program,Manual Therapy, Neuromuscular Re-education, Patient/Caregiver Education, Self-Care/Home Management,Soft Tissue Mobilization, Therapeutic Exercises Modalities Cold Pack/Ice Massage Next Visit Focus/Plan Next Note Type Re-Evaluation Next Visit Plan re-eval post surgery and assess what was found during surgery, knee ROM and strength , gait training. Plan of Care Dates Plan of Care Start Date 07/21/22 Plan of Care End Date 10/21/22 Electronically Signed by: May Bhatia, PT 07/22/22 0936 If you are in agreement with this Plan of Care, please return a signed and dated copy. I have reviewed this Plan of Care and certify that the skilled therapy services above are required to meet the patient?s needs. Physician Signature Date Printed Name and Credentials Clinical Instructor Signature Printed Name and Credentials
--- NOTE | 2022-07-28 17:28 | PT.OTRE ---
Current Diagnoses Pain in right knee (07/28/22) Encounter for other preprocedural examination (07/28/22) Past Medical History (Last Reviewed 03/21/21 @ 08:12 by Yoel Beckford DO) Anxiety History of diarrhea Hyperlipidemia Hypertension Ovarian cyst Surgical History (Last Reviewed 08/21/20 @ 09:09 by Haylee Christianson DO) H/O ovarian cystectomy (~2007) H/O repair of rotator cuff (~2017) History of open reduction and internal fixation (ORIF) procedure (~2017) History of total hip arthroplasty (~2013) Visit Care Team Role Provider Type Jude Vann MD Family Provider Physician Primary Care Provider Specialty: Internal Medicine Address: [address] [place] [address], [address] Email: Xavi Galvan MD Attending Provider Non-Staff Referring Provider Specialty: Orthopedic Surgery Address: [address] [place], [place] [address], [place], [address] Fax: Email: Physical Therapy Re-Evaluation PT-OP-A Visit Information Start: 07/21/22 08:57 Freq: Status: Active Protocol: Document 07/28/22 11:15 [facility] (Rec: 07/28/22 12:11 [facility] [id number]) Out-Patient Physical Therapy Visit Information Visit Information Visit Type Re-Evaluation Visit Start Time 11:15 Visit Stop Time 12:00 Total Visit Minutes 45 Visit Number 2 Evaluation Information Evaluation Date 07/21/22 PT-OP-B Current Condition Start: 07/21/22 08:57 Freq: Status: Active Protocol: Document 07/21/22 10:38 [facility] (Rec: 07/21/22 11:06 [facility] [id number]) Current Condition History of Current Condition Onset Date 2017 Current Complaints right knee pain in the distal lateral pole of the patella, pain is constant History of Current Condition pt had a fall in 2017 landing on her right knee on asphpalt 2 inches thick she tore her L rotator cuff and broke her left ankle. She also aggravated her right knee and has had pain since this time. She is scheduled for arthorscopic Surgery tomorrow 07/22/[address] [facility] Galvan will be doing surgery. At this time she cant be on her feet for long on a hard surface, unable to garden due to pain. She does not have stairs at home and her son is taking her home. She does live alone. Prior Treatments and Tests hx of left hip replacement in 2014 Treatment Goals Patient/Caregiver Goals Goals are to eliminate knee pain and to be able to be active again she feels very limited in what she can do due to pain Prior Functional Status Baseline Function- ADL's Independent Baseline Function- Mobility Independent Current Functional Impairments (Reported) Functional Limitations- ADL's pain with anything that requires kneeling, pain with knee flexion activities Functional Limitations- Mobility/Gait pain walking on uneven ground and standing on hard surfaces PT-OP-C Subjective Start: 07/21/22 08:57 Freq: Status: Active Protocol: Document 07/28/22 11:15 [facility] (Rec: 07/28/22 11:26 [facility] [id number]) OP-PT Subjective Patient Comments Patient Comments pt is post op arthroscpic knee surgery 07/22/22 her lateral meniscus was torn and scar tissue was built up from her 2019 meniscual repair of the medial meniscus repair . pt has a bandage on she is supposed to wear until she has her stitches out on . She comes into without a assistive device. She used crutches until Sat and then had a cane for a day. She uses her cane for longer distances. She has no complaints of pain and describes just a dull ache PT-OP-F Manual Assessment Start: 07/21/22 08:57 Freq: Status: Active Protocol: Document 07/21/22 10:35 [facility] (Rec: 07/22/22 09:35 [facility] [id number]) Manual Assessments Soft Tissue Assessment Soft Tissue Mobility Assessment tightness of the right ITB with tenderness up into her lateral hip Joint Mobility Assessment Joint Mobility Assessment able to mobilize the patella but point tenderness at the inferior pole lateral side of patella, as pt flexes her knee there is a visual pop on the lateral patella femoral side of the joint pt rests her knee in hyperextension PT-OP-G Mobility & Gait Start: 07/21/22 08:57 Freq: Status: Active Protocol: Document 07/21/22 10:35 [facility] (Rec: 07/22/22 09:35 [facility] [id number]) OP Gait Assessment Gait Gait Assistance Required: Independent Able to Maintain Weight Bearing Status Yes During Gait Assistive Devices Assistive Device None Orthotic/Prosthetic Devices or Brace: No Gait Deviations General Gait Pattern Antalgic,Decreased Stride Length Comments Gait Comments pt was trainined with SPC today but advised to tow picker a walker for post surgery as she will be home alone PT-OP-J Posture/Palpation/Skin Start: 07/21/22 08:57 Freq: Status: Active Protocol: Document 07/21/22 10:35 [facility] (Rec: 07/22/22 09:35 [facility] [id number]) Palpation Assessment Location right patella Palpation Location pain at the inferior lateral pole of the patella Palpation Findings Tenderness PT-OP-K Range of Motion Start: 07/21/22 08:57 Freq: Status: Active Protocol: Document 07/28/22 11:26 [facility] (Rec: 07/28/22 12:11 [facility] [id number]) Knee Goniometric Range of Motion Knee Measured in Degrees Right Knee ROM WFL No Patient Position Supine Flexion Active (degrees) 60 Extension Active (degrees) 0 Comments pt has instructions to keep her bandage on until this 07/30/22. ROM partially limited due to banadage and to c/o tightness Knee ROM Limitations Knee ROM Limitations Soft Tissue Tightness,Pain, Swelling Comments pt is limited with knee flexion due to s/p meniscus repair, bandages, and pain PT-OP-M Strength Start: 07/21/22 08:57 Freq: Status: Active Protocol: Document 07/21/22 10:35 [facility] (Rec: 07/22/22 09:35 [facility] [id number]) Knee Strength Knee Manual Muscle Testing Right Flexion (S2) 4 Good Extension (L3) 4 Good Comments able to perform a quad set with towel under knee, pain with ASLR attempt PT-OP-Q Treatments Start: 07/21/22 08:57 Freq: Status: Active Protocol: Document 07/28/22 11:15 [facility] (Rec: 07/28/22 12:13 [facility] [id number]) Cardio Equipment Recumbent Elliptical (BiodCuponomia) Duration (Minutes) 8 Resistance 0 Therapeutic Exercises Supine Exercises quad sets Reps/Minutes x 10 reps hold 5 sec 1-2 times per day Comments towel under right knee ankle pumps Reps/Minutes 2 x 10 2-3 times per day Comments pt advised to elevate her leg and perform ankle pumps post op supine heel slides Reps/Minutes 2 x 10 reps 2-3 xms per day PT-OP-T Assessment and Plan Start: 07/21/22 08:57 Freq: Status: Active Protocol: Document 07/28/22 11:15 [facility] (Rec: 07/28/22 12:11 [facility] [id number]) Physical Therapy Assessment Goals 3 Impairment pain in the right knee with gait and pt is limited in walking distance to more than a few blocks due to increased pain. 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/ 10 [facility] Goal (LTG) Shelley presents with improved walking distance without increased pain and her overall pain levels have dropped from 5/10 to 0-2/10 LTG Duration 12 weeks 2 Impairment Pain with R knee flexion and flexion limited to 122 Short Term Goal (STG) Shelley is able to return to full knee ROM without c/o pain STG Duration 6 weeks 1 Impairment pt lacks a home program for post arthroscopic Right knee surgery 07/22/22 Short Term Goal (STG) Shelley is educated on a HEP for post surgical prosedure STG Duration 1 day Assessment Summary Assessment Shelley returns to PT 6 days s /p right knee arthroscopic surgery with repair of the right lateral meniscus. She describes mild ache only at this point. Pt used crutches for the first few days post surgery and then a cane for a few days. She came today without a assistive device. I did encourage her to use her cane as she has a antalgic gait. She was instructed to leave her bandages on until this 07/30/22. Her knee ROM today was limited to 70 degrees AROM and full knee extension. She was able to perform a quad set with pillow under her knee. We started her on the biodex and she tolerated this well. Pt has been icing 2-3 times per day and I encouraged her to continue with this. I rewrapped her vu bandage today as it had come down to her ankles. She felt more secure with her vu wrap when she left and tolerated treatment well today. Physical Therapy Plan Frequency and Duration Frequency of Treatment 2x/Week Duration of treatment (weeks) 12 Plan of Care Start Date 07/28/22 Plan of Care End Date 10/28/21 Therapeutic Interventions Therapeutic Interventions Aquatic Therapy,Home Exercise Program,Manual Therapy, Neuromuscular Re-education, Patient/Caregiver Education, Self-Care/Home Management,Soft Tissue Mobilization, Therapeutic Exercises Modalities Cold Pack/Ice Massage Next Visit Focus/Plan Next Note Type Treatment Note Next Visit Plan begin with biodex for warm up, knee ROM exercises, isometric strengthening exercises, ice and IFC
--- NOTE | 2022-07-28 17:28 | PT.OPPOC ---
Physical, Occupational & Speech Therapy At [facility] Current Diagnoses Pain in right knee (07/28/22) Encounter for other preprocedural examination (07/28/22) Visit Care Team Role Provider Type Jude Vann MD Family Provider Physician Primary Care Provider Specialty: Internal Medicine Address: [address] [place] [address], [id number] Email: Xavi Galvan MD Attending Provider Non-Staff Referring Provider Specialty: Orthopedic Surgery Address: [address] [place] [address] , [place], [address] Fax: Email: Plan Of Care PT-OP-T Assessment and Plan Start: 07/21/22 08:57 Freq: Status: Active Protocol: Document 07/28/22 11:15 [facility] (Rec: 07/28/22 12:11 [facility] [id number]) Physical Therapy Assessment Goals 3 Impairment pain in the right knee with gait and pt is limited in walking distance to more than a few blocks due to increased pain. 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/ 10 Director Phone Goal (LTG) Shelley presents with improved walking distance without increased pain and her overall pain levels have dropped from 5/10 to 0-2/10 LTG Duration 12 weeks 2 Impairment Pain with R knee flexion and flexion limited to 122 Short Term Goal (STG) Shelley is able to return to full knee ROM without c/o pain STG Duration 6 weeks 1 Impairment pt lacks a home program for post arthroscopic Right knee surgery 07/22/22 Short Term Goal (STG) Shelley is educated on a HEP for post surgical procedure STG Duration 1 day Assessment Summary Assessment Shelley returns to PT 6 days s /p right knee arthroscopic surgery with repair of the right lateral meniscus. She describes mild ache only at this point. Pt used crutches for the first few days post surgery and then a cane for a few days. She came today without a assistive device. I did encourage her to use her cane as she has a antalgic gait. She was instructed to leave her bandages on until this 07/30/22. Her knee ROM today was limited to 70 degrees AROM and full knee extension. She was able to perform a quad set with pillow under her knee. We started her on the biodex and she tolerated this well. Pt has been icing 2-3 times per day and I encouraged her to continue with this. I rewrapped her vu bandage today as it had come down to her ankles. She felt more secure with her vu wrap when she left and tolerated treatment well today. Physical Therapy Plan Frequency and Duration Frequency of Treatment 2x/Week Duration of treatment (weeks) 12 Plan of Care Start Date 07/28/22 Plan of Care End Date 10/28/21 Therapeutic Interventions Therapeutic Interventions Aquatic Therapy,Home Exercise Program,Manual Therapy, Neuromuscular Re-education, Patient/Caregiver Education, Self-Care/Home Management,Soft Tissue Mobilization, Therapeutic Exercises Modalities Cold Pack/Ice Massage Next Visit Focus/Plan Next Note Type Treatment Note Next Visit Plan begin with biodex for warm up, knee ROM exercises, isometric strengthening exercises, ice and IFC Plan of Care Dates Plan of Care Start Date 07/28/22 Plan of Care End Date 10/28/21 Electronically Signed by: May Bhatia, PT 07/28/22 7975 If you are in agreement with this Plan of Care, please return a signed and dated copy. I have reviewed this Plan of Care and certify that the skilled therapy services above are required to meet the patient?s needs. Physician Signature Date Printed Name and Credentials Clinical Instructor Signature Printed Name and Credentials
--- NOTE | 2022-08-04 17:24 | PT.OTN ---
Current Diagnoses Pain in right knee (08/04/22) Encounter for other preprocedural examination (08/04/22) Physical Therapy Treatment Note PT-OP-A Visit Information Start: 07/21/22 08:57 Freq: Status: Active Protocol: Document 08/04/22 10:33 [facility] (Rec: 08/04/22 11:16 [facility] [id number]) Out-Patient Physical Therapy Visit Information Visit Information Visit Type Treatment Note Visit Start Time 10:33 Visit Stop Time 11:15 Total Visit Minutes 42 Visit Number 3 PT-OP-B Current Condition Start: 07/21/22 08:57 Freq: Status: Active Protocol: Document 07/21/22 10:38 [facility] (Rec: 07/21/22 11:06 [facility] [id number]) Current Condition History of Current Condition Onset Date 2016 Current Complaints right knee pain in the distal lateral pole of the patella, pain is constant History of Current Condition pt had a fall in 2016 landing on her right knee on asphpalt 2 inches thick she tore her L rotator cuff and broke her left ankle. She also aggravated her right knee and has had pain since this time. She is scheduled for arthorscopic Surgery tomorrow 07/22/[address] [facility]. Dr Galvan will be doing surgery. At this time she cant be on her feet for long on a hard surface, unable to garden due to pain. She does not have stairs at home and her son is taking her home. She does live alone. Prior Treatments and Tests hx of left hip replacement in 2013 Treatment Goals Patient/Caregiver Goals Goals are to eliminate knee pain and to be able to be active again she feels very limited in what she can do due to pain Prior Functional Status Baseline Function- ADL's Independent Baseline Function- Mobility Independent Current Functional Impairments (Reported) Functional Limitations- ADL's pain with anything that requires kneeling, pain with knee flexion activities Functional Limitations- Mobility/Gait pain walking on uneven ground and standing on hard surfaces PT-OP-C Subjective Start: 07/21/22 08:57 Freq: Status: Active Protocol: Document 08/04/22 10:33 [facility] (Rec: 08/04/22 11:16 [facility] [id number]) OP-PT Subjective Patient Comments Patient Comments pt was able to take off her bandage and shower on . She notes her knee is achey by the incision only. She gets her stitches out on wednesday Pt has been able to walk to her mailbox 2 times this past week and she is happy with her progress Patient Reported Progress Improving PT-OP-F Manual Assessment Start: 07/21/22 08:57 Freq: Status: Active Protocol: Document 07/21/22 10:35 [facility] (Rec: 07/22/22 09:35 [facility] [id number]) Manual Assessments Soft Tissue Assessment Soft Tissue Mobility Assessment tightness of the right ITB with tenderness up into her lateral hip Joint Mobility Assessment Joint Mobility Assessment able to mobilize the patella but point tenderness at the inferior pole lateral side of patella, as pt flexes her knee there is a visual pop on the lateral patella femoral side of the joint pt rests her knee in hyperextension PT-OP-G Mobility & Gait Start: 07/21/22 08:57 Freq: Status: Active Protocol: Document 07/21/22 10:35 [facility] (Rec: 07/22/22 09:35 [facility] [id number]) OP Gait Assessment Gait Gait Assistance Required: Independent Able to Maintain Weight Bearing Status Yes During Gait Assistive Devices Assistive Device None Orthotic/Prosthetic Devices or Brace: No Gait Deviations General Gait Pattern Antalgic,Decreased Stride Length Comments Gait Comments pt was trainined with SPC today but 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 post surgery as she will be home alone PT-OP-J Posture/Palpation/Skin Start: 07/21/22 08:57 Freq: Status: Active Protocol: Document 07/21/22 10:35 [facility] (Rec: 07/22/22 09:35 [facility] [id number]) Palpation Assessment Location right patella Palpation Location pain at the inferior lateral pole of the patella Palpation Findings Tenderness PT-OP-K Range of Motion Start: 07/21/22 08:57 Freq: Status: Active Protocol: Document 07/28/22 11:26 [facility] (Rec: 07/28/22 12:11 [facility] [id number]) Knee Goniometric Range of Motion Knee Right Knee ROM WFL No Patient Position Supine Flexion Active (degrees) 60 Extension Active (degrees) 0 Comments pt has instructions to keep her bandage on until this 07/30/22. ROM partially limited due to banadage and to c/o tightness Knee ROM Limitations Knee ROM Limitations Soft Tissue Tightness,Pain, Swelling Comments pt is limited with knee flexion due to s/p meniscus repair, bandages, and pain PT-OP-M Strength Start: 07/21/22 08:57 Freq: Status: Active Protocol: Document 07/21/22 10:35 [facility] (Rec: 07/22/22 09:35 [facility] [id number]) Knee Strength Knee Manual Muscle Testing Right Flexion (S2) 4 Good Extension (L3) 4 Good Comments able to perform a quad set with towel under knee, pain with ASLR attempt PT-OP-Q Treatments Start: 07/21/22 08:57 Freq: Status: Active Protocol: Document 08/04/22 10:33 [facility] (Rec: 08/04/22 11:16 [facility] [id number]) Cardio Equipment Recumbent Elliptical (uMentioned) Duration (Minutes) 8 Resistance 3 Gym Equipment Shuttle Recovery Bilateral Squats Resistance 32# Shuttle Recovery Platform Stable Reps/Time 3 x 10 reps Therapeutic Exercises Supine Exercises bridges Reps/Minutes x 15 reps supine SLR Reps/Minutes x 15 reps quad sets Reps/Minutes x 10 reps hold 5 sec 1-2 times per day Comments towel under right knee supine heel slides Reps/Minutes 2 x 10 reps 2-3 xms per day Standing Exercises standing squats Reps/Minutes x 10 Comments worked on picking up small balls off the floor to simulate pinecones sit-stand Reps/Minutes x 10 Comments pt is able to perform sit- stand without hand use Manual Therapy Treatment Soft Tissue Mobilization scar tissue massage Body Location distal patella, patella tendon , distal patella incisions Comments good tolerance for gentle scar tissue mobilization Joint Mobilizations patella mobilizations Joint patella Comments lateral and superior inferior patella mobs PT-OP-T Assessment and Plan Start: 07/21/22 08:57 Freq: Status: Active Protocol: Document 08/04/22 10:33 [facility] (Rec: 08/04/22 15:54 [facility] [id number]) Physical Therapy Assessment Goals 3 Impairment pain in the right knee with gait and pt is limited in walking distance to more than a few blocks due to increased pain. 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 Goal (LTG) Shelley presents with improved walking distance without increased pain and her overall pain levels have dropped from 5/10 to 0-2/10 LTG Duration 12 weeks 2 Impairment Pain with R knee flexion and flexion limited to 122 Short Term Goal (STG) Shelley is able to return to full knee ROM without c/o pain STG Duration 6 weeks 1 Impairment pt lacks a home program for post arthroscopic Right knee surgery 07/22/22 Short Term Goal (STG) Shelley is educated on a HEP for post surgical prosedure STG Duration 1 day Assessment Summary Assessment Shelley has been seen x 2 visits s/p her right knee arthroscopic repair of right lateral meniscus. She is walking with a SPC and has c/o acheyness only at the incisions. She is not currently taking any pain meds . Her ROM is doing better today with 115 degrees flexion today and full extension. She has been able to walk in her driveway 2 times to get her mail. She wanted to know if she was okay to squat to machine operator picker pinecones in her driveway which is flat. We worked on this today and she was able to maintain balance with a squat while picking up objects off the floor. Physical Therapy Plan Frequency and Duration Frequency of Treatment 2x/Week Duration of treatment (weeks) 12 Plan of Care Start Date 07/28/22 Plan of Care End Date 10/28/21 Therapeutic Interventions Therapeutic Interventions Aquatic Therapy,Home Exercise Program,Manual Therapy, Neuromuscular Re-education, Patient/Caregiver Education, Self-Care/Home Management,Soft Tissue Mobilization, Therapeutic Exercises Next Visit Focus/Plan Next Note Type Treatment Note Next Visit Plan continue with EasyPropertyex for warm up, R knee strengthening exercises, ROM ex, gait training, manual scar tissue work and patella mobs.
--- NOTE | 2022-08-11 11:36 | PT.OTN ---
Current Diagnoses Pain in right knee (08/11/22) Encounter for other preprocedural examination (08/11/22) Physical Therapy Treatment Note PT-OP-A Visit Information Start: 07/21/22 08:57 Freq: Status: Active Protocol: Document 08/11/22 10:32 [facility] (Rec: 08/11/22 11:17 [facility] [id number]) Out-Patient Physical Therapy Visit Information Visit Information Visit Type Treatment Note Visit Start Time 10:30 Visit Stop Time 11:15 Total Visit Minutes 45 Visit Number 4 PT-OP-B Current Condition Start: 07/21/22 08:57 Freq: Status: Active Protocol: Document 07/21/22 10:38 [facility] (Rec: 07/21/22 11:06 [facility] [id number]) Current Condition History of Current Condition Onset Date 2016 Current Complaints right knee pain in the distal lateral pole of the patella, pain is constant History of Current Condition pt had a fall in 2016 landing on her right knee on asphpalt 2 inches thick she tore her L rotator cuff and broke her left ankle. She also aggravated her right knee and has had pain since this time. She is scheduled for arthorscopic Surgery tomorrow 07/22/[address] [facility] Galvan will be doing surgery. At this time she cant be on her feet for long on a hard surface, unable to garden due to pain. She does not have stairs at home and her son is taking her home. She does live alone. Prior Treatments and Tests hx of left hip replacement in 2013 Treatment Goals Patient/Caregiver Goals Goals are to eliminate knee pain and to be able to be active again she feels very limited in what she can do due to pain Prior Functional Status Baseline Function- ADL's Independent Baseline Function- Mobility Independent Current Functional Impairments (Reported) Functional Limitations- ADL's pain with anything that requires kneeling, pain with knee flexion activities Functional Limitations- Mobility/Gait pain walking on uneven ground and standing on hard surfaces PT-OP-C Subjective Start: 07/21/22 08:57 Freq: Status: Active Protocol: Document 08/11/22 10:32 [facility] (Rec: 08/11/22 11:17 [facility] [id number]) OP-PT Subjective Patient Comments Patient Comments pt has been able to drive and had her dr appointment wednesday, her stitches were taken out. Shelley reports a dull ache only around the incision. She has been able to go to the grocery store and walk down her driveway picking up greenery. [place] and had to walk off up a incline. She was sore in the back of her legs but able to do it. Patient Reported Progress Improving PT-OP-F Manual Assessment Start: 07/21/22 08:57 Freq: Status: Active Protocol: Document 07/21/22 10:35 [facility] (Rec: 07/22/22 09:35 [facility] [id number]) Manual Assessments Soft Tissue Assessment Soft Tissue Mobility Assessment tightness of the right ITB with tenderness up into her lateral hip Joint Mobility Assessment Joint Mobility Assessment able to mobilize the patella but point tenderness at the inferior pole lateral side of patella, as pt flexes her knee there is a visual pop on the lateral patella femoral side of the joint pt rests her knee in hyperextension PT-OP-G Mobility & Gait Start: 07/21/22 08:57 Freq: Status: Active Protocol: Document 07/21/22 10:35 [facility] (Rec: 07/22/22 09:35 [facility] [id number]) OP Gait Assessment Gait Gait Assistance Required: Independent Able to Maintain Weight Bearing Status Yes During Gait Assistive Devices Assistive Device None Orthotic/Prosthetic Devices or Brace: No Gait Deviations General Gait Pattern Antalgic,Decreased Stride Length Comments Gait Comments pt was trainined with SPC today but advised to pick up man a walker for post surgery as she will be home alone PT-OP-J Posture/Palpation/Skin Start: 07/21/22 08:57 Freq: Status: Active Protocol: Document 07/21/22 10:35 [facility] (Rec: 07/22/22 09:35 [facility] [id number]) Palpation Assessment Location right patella Palpation Location pain at the inferior lateral pole of the patella Palpation Findings Tenderness PT-OP-K Range of Motion Start: 07/21/22 08:57 Freq: Status: Active Protocol: Document 07/28/22 11:26 [facility] (Rec: 07/28/22 12:11 [facility] [id number]) Knee Goniometric Range of Motion Knee Right Knee ROM WFL No Patient Position Supine Flexion Active (degrees) 60 Extension Active (degrees) 0 Comments pt has instructions to keep her bandage on until this 07/30/22. ROM partially limited due to banadage and to c/o tightness Knee ROM Limitations Knee ROM Limitations Soft Tissue Tightness,Pain, Swelling Comments pt is limited with knee flexion due to s/p meniscus repair, bandages, and pain PT-OP-M Strength Start: 07/21/22 08:57 Freq: Status: Active Protocol: Document 07/21/22 10:35 [facility] (Rec: 07/22/22 09:35 [facility] [id number]) Knee Strength Knee Manual Muscle Testing Right Flexion (S2) 4 Good Extension (L3) 4 Good Comments able to perform a quad set with towel under knee, pain with ASLR attempt PT-OP-Q Treatments Start: 07/21/22 08:57 Freq: Status: Active Protocol: Document 08/11/22 10:32 [facility] (Rec: 08/11/22 11:17 [facility] [id number]) Cardio Equipment Recumbent Elliptical (BiodVivoText) Duration (Minutes) 5 Resistance 4 Gym Equipment Shuttle Recovery Bilateral Squats Resistance 32# Shuttle Recovery Platform Stable Reps/Time 3 x 10 reps Therapeutic Exercises Supine Exercises supine TKE Reps/Minutes x 30 Comments bolster under the knee supine ball rolls Reps/Minutes x 20 bridges Reps/Minutes x 15 reps supine SLR Reps/Minutes x 15 reps quad sets Reps/Minutes x 10 reps hold 5 sec 1-2 times per day Comments towel under right knee supine heel slides Reps/Minutes 2 x 10 reps 2-3 xms per day Standing Exercises standing [id number] calf stretch Reps/Minutes calf stretch static hold then dynamic rocking PT-OP-R Modalities Start: 07/21/22 08:57 Freq: Status: Active Protocol: Document 08/11/22 10:32 [facility] (Rec: 08/11/22 11:35 [facility] [id number]) Hot Pack/Cold Pack Treatment Ice Massage Location distal patella over incisions/ patella tendon Patient Position Supine Treatment Duration (minutes) 4 Patient Tolerance Good PT-OP-T Assessment and Plan Start: 07/21/22 08:57 Freq: Status: Active Protocol: Document 08/11/22 10:32 [facility] (Rec: 08/11/22 11:17 [facility] [id number]) Physical Therapy Assessment Goals 3 Impairment pain in the right knee with gait and pt is limited in walking distance to more than a few blocks due to increased pain. 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 Her functional mobility is improving as she is now driving and able to go to the grocery store. She describes her pain as a dull ache. Knee ROM is 120 flexion and full knee extension now. Ice massage was used today at the patella tendon and pt shown how to ice massage at home Physical Therapy Plan Frequency and Duration Frequency of Treatment 2x/Week Duration of treatment (weeks) 12 Plan of Care Start Date 07/28/22 Plan of Care End Date 10/28/21 Therapeutic Interventions Therapeutic Interventions Aquatic Therapy,Home Exercise Program,Manual Therapy, Neuromuscular Re-education, Patient/Caregiver Education, Self-Care/Home Management,Soft Tissue Mobilization, Therapeutic Exercises Next Visit Focus/Plan Next Note Type Treatment Note Next Visit Plan try recumbent bike next visit as pt has one at home, R knee strengthening exercises, ROM ex, gait training, manual scar tissue work and patella mobs.
--- NOTE | 2022-08-18 18:06 | PT.OTN ---
Current Diagnoses Pain in right knee (08/18/22) Encounter for other preprocedural examination (08/18/22) Physical Therapy Treatment Note PT-OP-A Visit Information Start: 07/21/22 08:57 Freq: Status: Active Protocol: Document 08/18/22 13:48 [facility] (Rec: 08/18/22 14:32 [facility] [id number]) Out-Patient Physical Therapy Visit Information Visit Information Visit Type Treatment Note Visit Start Time 13:45 Visit Stop Time 14:30 Total Visit Minutes 45 Visit Number 5 PT-OP-B Current Condition Start: 07/21/22 08:57 Freq: Status: Active Protocol: Document 07/21/22 10:38 [facility] (Rec: 07/21/22 11:06 [facility] [id number]) Current Condition History of Current Condition Onset Date 2016 Current Complaints right knee pain in the distal lateral pole of the patella, pain is constant History of Current Condition pt had a fall in 2017 landing on her right knee on asphpalt 2 inches thick she tore her L rotator cuff and broke her left ankle. She also aggravated her right knee and has had pain since this time. She is scheduled for arthorscopic Surgery tomorrow 07/22/22 [address] [facility]. Dr Galvan will be doing surgery. At this time she cant be on her feet for long on a hard surface, unable to garden due to pain. She does not have stairs at home and her son is taking her home. She does live alone. Prior Treatments and Tests hx of left hip replacement in 2013 Treatment Goals Patient/Caregiver Goals Goals are to eliminate knee pain and to be able to be active again she feels very limited in what she can do due to pain Prior Functional Status Baseline Function- ADL's Independent Baseline Function- Mobility Independent Current Functional Impairments (Reported) Functional Limitations- ADL's pain with anything that requires kneeling, pain with knee flexion activities Functional Limitations- Mobility/Gait pain walking on uneven ground and standing on hard surfaces PT-OP-C Subjective Start: 07/21/22 08:57 Freq: Status: Active Protocol: Document 08/18/22 13:48 [facility] (Rec: 08/18/22 14:32 [facility] [id number]) OP-PT Subjective Patient Comments Patient Comments Shelley reports her knee is feeling better overall, she still has some aching where her incisions are, it feels good to elevate her leg. She was able to ride her recumbant bike 1 xm as well at home Patient Reported Progress Improving PT-OP-F Manual Assessment Start: 07/21/22 08:57 Freq: Status: Active Protocol: Document 07/21/22 10:35 [facility] (Rec: 07/22/22 09:35 [facility] [id number]) Manual Assessments Soft Tissue Assessment Soft Tissue Mobility Assessment tightness of the right ITB with tenderness up into her lateral hip Joint Mobility Assessment Joint Mobility Assessment able to mobilize the patella but point tenderness at the inferior pole lateral side of patella, as pt flexes her knee there is a visual pop on the lateral patella femoral side of the joint pt rests her knee in hyperextension PT-OP-G Mobility & Gait Start: 07/21/22 08:57 Freq: Status: Active Protocol: Document 07/21/22 10:35 [facility] (Rec: 07/22/22 09:35 [facility] [id number]) OP Gait Assessment Gait Gait Assistance Required: Independent Able to Maintain Weight Bearing Status Yes During Gait Assistive Devices Assistive Device None Orthotic/Prosthetic Devices or Brace: No Gait Deviations General Gait Pattern Antalgic,Decreased Stride Length Comments Gait Comments pt was trainined with SPC today but advised to cook pickled meat a walker for post surgery as she will be home alone PT-OP-J Posture/Palpation/Skin Start: 07/21/22 08:57 Freq: Status: Active Protocol: Document 07/21/22 10:35 [facility] (Rec: 07/22/22 09:35 [facility] [id number]) Palpation Assessment Location right patella Palpation Location pain at the inferior lateral pole of the patella Palpation Findings Tenderness PT-OP-K Range of Motion Start: 07/21/22 08:57 Freq: Status: Active Protocol: Document 07/28/22 11:26 [facility] (Rec: 07/28/22 12:11 [facility] [id number]) Knee Goniometric Range of Motion Knee Right Knee ROM WFL No Patient Position Supine Flexion Active (degrees) 60 Extension Active (degrees) 0 Comments pt has instructions to keep her bandage on until this 07/30/22. ROM partially limited due to banadage and to c/o tightness Knee ROM Limitations Knee ROM Limitations Soft Tissue Tightness,Pain, Swelling Comments pt is limited with knee flexion due to s/p meniscus repair, bandages, and pain PT-OP-M Strength Start: 07/21/22 08:57 Freq: Status: Active Protocol: Document 07/21/22 10:35 [facility] (Rec: 07/22/22 09:35 [facility] [id number]) Knee Strength Knee Manual Muscle Testing Right Flexion (S2) 4 Good Extension (L3) 4 Good Comments able to perform a quad set with towel under knee, pain with ASLR attempt PT-OP-Q Treatments Start: 07/21/22 08:57 Freq: Status: Active Protocol: Document 08/18/22 13:48 [facility] (Rec: 08/18/22 14:32 [facility] [id number]) Cardio Equipment Recumbent Elliptical ([email or web address]) Duration (Minutes) 7 Resistance 4 Gym Equipment Shuttle Recovery Bilateral Squats Resistance 50# Shuttle Recovery Platform Stable Reps/Time 3 x 10 reps Therapeutic Exercises Supine Exercises supine TKE Reps/Minutes x 30 Comments bolster under the knee supine ball rolls Reps/Minutes x 20 supine SLR Reps/Minutes x 20 reps Standing Exercises side steps Reps/Minutes x 2 min Comments left and right side steps single leg balance Reps/Minutes 30 sec x 4 each leg standing ZUHAIR calf stretch Reps/Minutes calf stretch static hold then dynamic rocking standing squats Reps/Minutes x 10 Comments worked on picking up small balls off the floor to simulate pinecones Manual Therapy Treatment Soft Tissue Mobilization scar tissue massage Body Location distal patella, patella tendon , distal patella incisions Comments good tolerance for gentle scar tissue mobilization Joint Mobilizations patella mobilizations Joint patella Comments lateral and superior inferior patella mobs PT-OP-R Modalities Start: 07/21/22 08:57 Freq: Status: Active Protocol: Document 08/11/22 10:32 [facility] (Rec: 08/11/22 11:35 [facility] [id number]) Hot Pack/Cold Pack Treatment Ice Massage Location distal patella over incisions/ patella tendon Patient Position Supine Treatment Duration (minutes) 4 Patient Tolerance Good PT-OP-T Assessment and Plan Start: 07/21/22 08:57 Freq: Status: Active Protocol: Document 08/18/22 13:48 [facility] (Rec: 08/18/22 14:32 [facility] [id number]) Physical Therapy Assessment Assessment Summary Assessment Shelley is making really good progress with PT s/p her menincus repair for her right knee. Her pain levels are decreased overall and she just has acheyness over her incisions. I started single leg balance and lateral sidesteps today. I did have her use one finger for support to avoid any twisting at her knee and she tolerated this well. Her knee ROM is now WFL . Her incisions are looking really good and patella mobility is improved Physical Therapy Plan Frequency and Duration Frequency of Treatment 2x/Week Duration of treatment (weeks) 12 Plan of Care Start Date 07/28/22 Plan of Care End Date 10/28/21 Therapeutic Interventions Therapeutic Interventions Aquatic Therapy,Home Exercise Program,Manual Therapy, Neuromuscular Re-education, Patient/Caregiver Education, Self-Care/Home Management,Soft Tissue Mobilization, Therapeutic Exercises Next Visit Focus/Plan Next Note Type Treatment Note Next Visit Plan try recumbent bike next visit as pt has one at home, R knee strengthening exercises, gait and balance training, manual scar tissue work and patella mobs.
--- NOTE | 2022-08-25 12:53 | PT-OP ANOTE ---
cancelled due to snow
--- NOTE | 2022-08-27 14:02 | PT.OTN ---
Current Diagnoses Pain in right knee (08/27/22) Encounter for other preprocedural examination (08/27/22) Physical Therapy Treatment Note PT-OP-A Visit Information Start: 07/21/22 08:57 Freq: Status: Active Protocol: Document 08/27/22 12:59 [facility] (Rec: 08/27/22 13:46 [facility] [id number]) Out-Patient Physical Therapy Visit Information Visit Information Visit Type Treatment Note Visit Start Time 13:00 Visit Stop Time 13:45 Total Visit Minutes 45 Visit Number 6 PT-OP-B Current Condition Start: 07/21/22 08:57 Freq: Status: Active Protocol: Document 07/21/22 10:38 [facility] (Rec: 07/21/22 11:06 [facility] [id number]) Current Condition History of Current Condition Onset Date 2016 Current Complaints right knee pain in the distal lateral pole of the patella, pain is constant History of Current Condition pt had a fall in 2017 landing on her right knee on asphpalt 2 inches thick she tore her L rotator cuff and broke her left ankle. She also aggravated her right knee and has had pain since this time. She is scheduled for arthorscopic Surgery tomorrow 07/22/22 at [facility]. Dr Galvan will be doing surgery. At this time she cant be on her feet for long on a hard surface, unable to garden due to pain. She does not have stairs at home and her son is taking her home. She does live alone. Prior Treatments and Tests hx of left hip replacement in 2013 Treatment Goals Patient/Caregiver Goals Goals are to eliminate knee pain and to be able to be active again she feels very limited in what she can do due to pain Prior Functional Status Baseline Function- ADL's Independent Baseline Function- Mobility Independent Current Functional Impairments (Reported) Functional Limitations- ADL's pain with anything that requires kneeling, pain with knee flexion activities Functional Limitations- Mobility/Gait pain walking on uneven ground and standing on hard surfaces PT-OP-C Subjective Start: 07/21/22 08:57 Freq: Status: Active Protocol: Document 08/27/22 12:59 [facility] (Rec: 08/27/22 13:46 [facility] [id number]) OP-PT Subjective Patient Comments Patient Comments Has used her recumbant ex bike at home 2x for 5 min, knee feels achy, has been icing 2x/ day Patient Reported Progress Improving PT-OP-F Manual Assessment Start: 07/21/22 08:57 Freq: Status: Active Protocol: Document 07/21/22 10:35 [facility] (Rec: 07/22/22 09:35 [facility] [id number]) Manual Assessments Soft Tissue Assessment Soft Tissue Mobility Assessment tightness of the right ITB with tenderness up into her lateral hip Joint Mobility Assessment Joint Mobility Assessment able to mobilize the patella but point tenderness at the inferior pole lateral side of patella, as pt flexes her knee there is a visual pop on the lateral patella femoral side of the joint pt rests her knee in hyperextension PT-OP-G Mobility & Gait Start: 07/21/22 08:57 Freq: Status: Active Protocol: Document 07/21/22 10:35 [facility] (Rec: 07/22/22 09:35 [facility] [id number]) OP Gait Assessment Gait Gait Assistance Required: Independent Able to Maintain Weight Bearing Status Yes During Gait Assistive Devices Assistive Device None Orthotic/Prosthetic Devices or Brace: No Gait Deviations General Gait Pattern Antalgic,Decreased Stride Length Comments Gait Comments pt was trainined with SPC today but 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 as she will be home alone PT-OP-J Posture/Palpation/Skin Start: 07/21/22 08:57 Freq: Status: Active Protocol: Document 07/21/22 10:35 [facility] (Rec: 07/22/22 09:35 [facility] [id number]) Palpation Assessment Location right patella Palpation Location pain at the inferior lateral pole of the patella Palpation Findings Tenderness PT-OP-K Range of Motion Start: 07/21/22 08:57 Freq: Status: Active Protocol: Document 07/28/22 11:26 [facility] (Rec: 07/28/22 12:11 [facility] [id number]) Knee Goniometric Range of Motion Knee Right Knee ROM WFL No Patient Position Supine Flexion Active (degrees) 60 Extension Active (degrees) 0 Comments pt has instructions to keep her bandage on until this 07/30/22. ROM partially limited due to banadage and to c/o tightness Knee ROM Limitations Knee ROM Limitations Soft Tissue Tightness,Pain, Swelling Comments pt is limited with knee flexion due to s/p meniscus repair, bandages, and pain PT-OP-M Strength Start: 07/21/22 08:57 Freq: Status: Active Protocol: Document 07/21/22 10:35 [facility] (Rec: 07/22/22 09:35 [facility] [id number]) Knee Strength Knee Manual Muscle Testing Right Flexion (S2) 4 Good Extension (L3) 4 Good Comments able to perform a quad set with towel under knee, pain with ASLR attempt PT-OP-Q Treatments Start: 07/21/22 08:57 Freq: Status: Active Protocol: Document 08/27/22 12:59 [facility] (Rec: 08/27/22 13:46 [facility] [id number]) Cardio Equipment Recumbent Bicycle Duration (Minutes) 8 Resistance 1 Seat Position 2 Gym Equipment Shuttle Recovery Unilateral Squats Resistance 25# Shuttle Recovery Platform Stable Reps/Time 2 x 10 Bilateral Squats Resistance 50# Shuttle Recovery Platform Stable Reps/Time 3 x 10 reps Therapeutic Exercises Supine Exercises supine TKE Resistance 1# Reps/Minutes x 30 Comments bolster under the knee supine ball rolls Reps/Minutes x 20 supine SLR Resistance 1# Reps/Minutes x 20 reps Standing Exercises side steps Reps/Minutes x 2 min Comments left and right side steps single leg balance Reps/Minutes 30 sec x 4 each leg standing ZUHAIR calf stretch Reps/Minutes calf stretch static hold then dynamic rocking Comments also foot against wall Gait Training Gait Activity 1 Description focus on dec compensation Device Used none Level of Assistance vc Surface firm Distance/Duration 10'x4 Treatment Focus symmetry, dec limp/ compensation Manual Therapy Treatment Soft Tissue Mobilization scar tissue massage Body Location distal patella, patella tendon , distal patella incisions Comments good tolerance for gentle scar tissue mobilization Joint Mobilizations patella mobilizations Joint patella Comments lateral and superior inferior patella mobs PT-OP-R Modalities Start: 07/21/22 08:57 Freq: Status: Active Protocol: Document 08/11/22 10:32 [facility] (Rec: 08/11/22 11:35 [facility] [id number]) Hot Pack/Cold Pack Treatment Ice Massage Location distal patella over incisions/ patella tendon Patient Position Supine Treatment Duration (minutes) 4 Patient Tolerance Good PT-OP-T Assessment and Plan Start: 07/21/22 08:57 Freq: Status: Active Protocol: Document 08/27/22 12:59 [facility] (Rec: 08/27/22 13:46 [facility] [id number]) Physical Therapy Assessment Goals 3 Impairment pain in the right knee with gait and pt is limited in walking distance to more than a few blocks due to increased pain. 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 Improved gait with use of mirror for visual feedback. Able to use recumbant ex at home 2x and at clinic today. Should be able to tolerate some resistance next session. Tolerated addition of 1# rosenda LE's for SAQ and SLR Physical Therapy Plan Frequency and Duration Frequency of Treatment 2x/Week Duration of treatment (weeks) 12 Plan of Care Start Date 07/28/22 Plan of Care End Date 10/28/21 Therapeutic Interventions Therapeutic Interventions Aquatic Therapy,Home Exercise Program,Manual Therapy, Neuromuscular Re-education, Patient/Caregiver Education, Self-Care/Home Management,Soft Tissue Mobilization, Therapeutic Exercises Next Visit Focus/Plan Next Note Type Treatment Note Next Visit Plan Add light resistance to recumbant ex bike, consider resistance for gait with either Sport Cord or bands around ankles.
--- NOTE | 2022-09-08 10:52 | PT.OTN ---
Current Diagnoses Pain in right knee (09/08/22) Encounter for other preprocedural examination (09/08/22) Physical Therapy Treatment Note PT-OP-A Visit Information Start: 07/21/22 08:57 Freq: Status: Active Protocol: Document 09/08/22 09:00 [facility] (Rec: 09/08/22 09:50 [facility] [id number]) Out-Patient Physical Therapy Visit Information Visit Information Visit Type Treatment Note Visit Start Time 09:00 Visit Stop Time 09:45 Total Visit Minutes 45 Visit Number 7 PT-OP-B Current Condition Start: 07/21/22 08:57 Freq: Status: Active Protocol: Document 07/21/22 10:38 [facility] (Rec: 07/21/22 11:06 [facility] [id number]) Current Condition History of Current Condition Onset Date 2016 Current Complaints right knee pain in the distal lateral pole of the patella, pain is constant History of Current Condition pt had a fall in 2017 landing on her right knee on asphpalt 2 inches thick she tore her L rotator cuff and broke her left ankle. She also aggravated her right knee and has had pain since this time. She is scheduled for arthorscopic Surgery tomorrow 07/22/22 at [facility]. Dr Galvan will be doing surgery. At this time she cant be on her feet for long on a hard surface, unable to garden due to pain. She does not have stairs at home and her son is taking her home. She does live alone. Prior Treatments and Tests hx of left hip replacement in 2013 Treatment Goals Patient/Caregiver Goals Goals are to eliminate knee pain and to be able to be active again she feels very limited in what she can do due to pain Prior Functional Status Baseline Function- ADL's Independent Baseline Function- Mobility Independent Current Functional Impairments (Reported) Functional Limitations- ADL's pain with anything that requires kneeling, pain with knee flexion activities Functional Limitations- Mobility/Gait pain walking on uneven ground and standing on hard surfaces PT-OP-C Subjective Start: 07/21/22 08:57 Freq: Status: Active Protocol: Document 09/08/22 09:00 [facility] (Rec: 09/08/22 09:50 [facility] [id number]) OP-PT Subjective Patient Comments Patient Comments pt notes she has been concentrating on not limping, she notes she has only been home x 2 days since Pk so hasn't had a chance to do all her exercises. She was able to work in her yard x 2 hours and it felt really good to be able to do that. She did notice tightness following and today feels a little soreness into her right hip and knee. She travels to [place] in Oct and wants to make sure she is strong before she goes Patient Reported Progress Improving PT-OP-F Manual Assessment Start: 07/21/22 08:57 Freq: Status: Active Protocol: Document 07/21/22 10:35 [facility] (Rec: 07/22/22 09:35 [facility] [id number]) Manual Assessments Soft Tissue Assessment Soft Tissue Mobility Assessment tightness of the right ITB with tenderness up into her lateral hip Joint Mobility Assessment Joint Mobility Assessment able to mobilize the patella but point tenderness at the inferior pole lateral side of patella, as pt flexes her knee there is a visual pop on the lateral patella femoral side of the joint pt rests her knee in hyperextension PT-OP-G Mobility & Gait Start: 07/21/22 08:57 Freq: Status: Active Protocol: Document 07/21/22 10:35 [facility] (Rec: 07/22/22 09:35 [facility] [id number]) OP Gait Assessment Gait Gait Assistance Required: Independent Able to Maintain Weight Bearing Status Yes During Gait Assistive Devices Assistive Device None Orthotic/Prosthetic Devices or Brace: No Gait Deviations General Gait Pattern Antalgic,Decreased Stride Length Comments Gait Comments pt was trainined with SPC today 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 PT-OP-J Posture/Palpation/Skin Start: 07/21/22 08:57 Freq: Status: Active Protocol: Document 07/21/22 10:35 [facility] (Rec: 07/22/22 09:35 [facility] [id number]) Palpation Assessment Location right patella Palpation Location pain at the inferior lateral pole of the patella Palpation Findings Tenderness PT-OP-K Range of Motion Start: 07/21/22 08:57 Freq: Status: Active Protocol: Document 07/28/22 11:26 [facility] (Rec: 07/28/22 12:11 [facility] [id number]) Knee Goniometric Range of Motion Knee Right Knee ROM WFL No Patient Position Supine Flexion Active (degrees) 60 Extension Active (degrees) 0 Comments pt has instructions to keep her bandage on until this 07/30/22. ROM partially limited due to banadage and to c/o tightness Knee ROM Limitations Knee ROM Limitations Soft Tissue Tightness,Pain, Swelling Comments pt is limited with knee flexion due to s/p meniscus repair, bandages, and pain PT-OP-M Strength Start: 07/21/22 08:57 Freq: Status: Active Protocol: Document 07/21/22 10:35 [facility] (Rec: 07/22/22 09:35 [facility] [id number]) Knee Strength Knee Manual Muscle Testing Right Flexion (S2) 4 Good Extension (L3) 4 Good Comments able to perform a quad set with towel under knee, pain with ASLR attempt PT-OP-Q Treatments Start: 07/21/22 08:57 Freq: Status: Active Protocol: Document 09/08/22 09:00 [facility] (Rec: 09/08/22 09:50 [facility] [id number]) Cardio Equipment Recumbent Bicycle Duration (Minutes) 8 Resistance 3 Seat Position 2 Gym Equipment Shuttle Recovery Unilateral Squats Resistance 25# Shuttle Recovery Platform Stable Reps/Time 2 x 10 Bilateral Squats Resistance 50# Shuttle Recovery Platform Stable Reps/Time 3 x 10 reps Therapeutic Exercises Supine Exercises supine ball rolls Reps/Minutes x 20 Manual Therapy Treatment Soft Tissue Mobilization scar tissue massage Body Location distal patella, patella tendon , distal patella incisions Comments good tolerance for gentle scar tissue mobilization Joint Mobilizations patella mobilizations Joint patella Comments lateral and superior inferior patella mobs Manual Techniques manual iliopsoas stretch Comments in cornel test position working on stretching the quads, pt was able to ease into the stretch but her quads are tight PT-OP-R Modalities Start: 07/21/22 08:57 Freq: Status: Active Protocol: Document 08/11/22 10:32 [facility] (Rec: 08/11/22 11:35 [facility] [id number]) Hot Pack/Cold Pack Treatment Ice Massage Location distal patella over incisions/ patella tendon Patient Position Supine Treatment Duration (minutes) 4 Patient Tolerance Good PT-OP-T Assessment and Plan Start: 07/21/22 08:57 Freq: Status: Active Protocol: Document 09/08/22 09:00 [facility] (Rec: 09/08/22 10:49 [facility] [id number]) Physical Therapy Assessment Assessment Summary Assessment pt is progressing well and has been able to work in her yard . She still has some residual pain and can get stiff into her hip. Her exercises were reviewed today and she will schedule one final recheck in 3-4 weeks for a follow up. Physical Therapy Plan Frequency and Duration Frequency of Treatment 2x/Week Duration of treatment (weeks) 12 Plan of Care Start Date 07/28/22 Plan of Care End Date 10/28/21 Therapeutic Interventions Therapeutic Interventions Aquatic Therapy,Home Exercise Program,Manual Therapy, Neuromuscular Re-education, Patient/Caregiver Education, Self-Care/Home Management,Soft Tissue Mobilization, Therapeutic Exercises Next Visit Focus/Plan Next Note Type Treatment Note Next Visit Plan review all established exercises and modify HEP if needed
--- NOTE | 2022-10-15 17:10 | PT.OTN ---
Current Diagnoses Pain in right knee (10/15/22) Encounter for other preprocedural examination (10/15/22) Physical Therapy Treatment Note PT-OP-A Visit Information Start: 07/21/22 08:57 Freq: Status: Active Protocol: Document 10/15/22 10:30 [facility] (Rec: 10/15/22 13:03 [facility] [id number]) Out-Patient Physical Therapy Visit Information Visit Information Visit Type Progress Note Visit Start Time 10:30 Visit Stop Time 11:15 Total Visit Minutes 45 Visit Number 8 PT-OP-B Current Condition Start: 07/21/22 08:57 Freq: Status: Active Protocol: Document 07/21/22 10:38 [facility] (Rec: 07/21/22 11:06 [facility] [id number]) Current Condition History of Current Condition Onset Date 2016 Current Complaints right knee pain in the distal lateral pole of the patella, pain is constant History of Current Condition pt had a fall in 2017 landing on her right knee on asphpalt 2 inches thick she tore her L rotator cuff and broke her left ankle. She also aggravated her right knee and has had pain since this time. She is scheduled for arthorscopic Surgery tomorrow 07/22/[facility] [address] [facility] Galvan will be doing surgery. At this time she cant be on her feet for long on a hard surface, unable to garden due to pain. She does not have stairs at home and her son is taking her home. She does live alone. Prior Treatments and Tests hx of left hip replacement in 2013 Treatment Goals Patient/Caregiver Goals Goals are to eliminate knee pain and to be able to be active again she feels very limited in what she can do due to pain Prior Functional Status Baseline Function- ADL's Independent Baseline Function- Mobility Independent Current Functional Impairments (Reported) Functional Limitations- ADL's pain with anything that requires kneeling, pain with knee flexion activities Functional Limitations- Mobility/Gait pain walking on uneven ground and standing on hard surfaces PT-OP-C Subjective Start: 07/21/22 08:57 Freq: Status: Active Protocol: Document 10/15/22 10:30 [facility] (Rec: 10/15/22 11:15 [facility] [id number]) OP-PT Subjective Patient Comments Patient Comments Shelley reports she has been really well. 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 She notes she is happy with progress but she still feels some discomfort with kneeling to garden. She does have a coushin but it is still really difficult Patient Reported Progress Improving PT-OP-F Manual Assessment Start: 07/21/22 08:57 Freq: Status: Active Protocol: Document 07/21/22 10:35 [facility] (Rec: 07/22/22 09:35 [facility] [id number]) Manual Assessments Soft Tissue Assessment Soft Tissue Mobility Assessment tightness of the right ITB with tenderness up into her lateral hip Joint Mobility Assessment Joint Mobility Assessment able to mobilize the patella but point tenderness at the inferior pole lateral side of patella, as pt flexes her knee there is a visual pop on the lateral patella femoral side of the joint pt rests her knee in hyperextension PT-OP-G Mobility & Gait Start: 07/21/22 08:57 Freq: Status: Active Protocol: Document 07/21/22 10:35 [facility] (Rec: 07/22/22 09:35 [facility] [id number]) OP Gait Assessment Gait Gait Assistance Required: Independent Able to Maintain Weight Bearing Status Yes During Gait Assistive Devices Assistive Device None Orthotic/Prosthetic Devices or Brace: No Gait Deviations General Gait Pattern Antalgic,Decreased Stride Length Comments Gait Comments pt was trainined with SPC today but advised to turkey picker a walker for post surgery as she will be home alone PT-OP-J Posture/Palpation/Skin Start: 07/21/22 08:57 Freq: Status: Active Protocol: Document 07/21/22 10:35 [facility] (Rec: 07/22/22 09:35 [facility] [id number]) Palpation Assessment Location right patella Palpation Location pain at the inferior lateral pole of the patella Palpation Findings Tenderness PT-OP-K Range of Motion Start: 07/21/22 08:57 Freq: Status: Active Protocol: Document 07/28/22 11:26 [facility] (Rec: 07/28/22 12:11 [facility] [id number]) Knee Goniometric Range of Motion Knee Right Knee ROM WFL No Patient Position Supine Flexion Active (degrees) 60 Extension Active (degrees) 0 Comments pt has instructions to keep her bandage on until this 07/30/22. ROM partially limited due to banadage and to c/o tightness Knee ROM Limitations Knee ROM Limitations Soft Tissue Tightness,Pain, Swelling Comments pt is limited with knee flexion due to s/p meniscus repair, bandages, and pain PT-OP-M Strength Start: 07/21/22 08:57 Freq: Status: Active Protocol: Document 07/21/22 10:35 [facility] (Rec: 07/22/22 09:35 [facility] [id number]) Knee Strength Knee Manual Muscle Testing Right Flexion (S2) 4 Good Extension (L3) 4 Good Comments able to perform a quad set with towel under knee, pain with ASLR attempt PT-OP-Q Treatments Start: 07/21/22 08:57 Freq: Status: Active Protocol: Document 10/15/22 10:30 [facility] (Rec: 10/15/22 13:05 [facility] [id number]) Cardio Equipment Recumbent Elliptical (Biodex) Duration (Minutes) 7 Resistance 4 Therapeutic Exercises Supine Exercises bridges Reps/Minutes x 15 reps Manual Therapy Treatment Joint Mobilizations patella mobilizations Joint patella Comments lateral and superior inferior patella mobs Manual Techniques manual quad MFR Comments quad MFR and cupping on the distal quad. Pt had good tolerance for cupping. self release with rolling pin Comments pt educated in self massage to her quadricep with rolling pin reassess ROM of the Right knee Comments 120 degrees R 125 deg L manual iliopsoas stretch Comments in cornel test position working on stretching the quads, pt was able to ease into the stretch but her quads are tight PT-OP-R Modalities Start: 07/21/22 08:57 Freq: Status: Active Protocol: Document 08/11/22 10:32 [facility] (Rec: 08/11/22 11:35 [facility] [id number]) Hot Pack/Cold Pack Treatment Ice Massage Location distal patella over incisions/ patella tendon Patient Position Supine Treatment Duration (minutes) 4 Patient Tolerance Good PT-OP-T Assessment and Plan Start: 07/21/22 08:57 Freq: Status: Active Protocol: Document 10/15/22 10:30 [facility] (Rec: 10/15/22 11:15 [facility] [id number]) Physical Therapy Assessment Goals 4 Impairment discomfort over the left knee with kneeling to garden Skilled Nursing Goal (LTG) Sulema is able to increase her knee ROM to 125 to assist with greater ease of kneeling LTG Duration 8 weeks 3 Impairment pain in the right knee with gait and pt is limited in walking distance to more than a few blocks due to increased pain. 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/ 10 Patient Accounts Specialist Goal (LTG) Shelley presents with improved walking distance without increased pain and her overall pain levels have dropped from 5/10 to 0-2/10 LTG Duration 12 weeks 2 Impairment Pain with R knee flexion and flexion limited to 122 Short Term Goal (STG) Shelley is able to return to full knee ROM without c/o pain Right knee 120 deg flexion left knee 125 deg flexion STG Duration 6 weeks 1 Impairment pt lacks a home program for post arthroscopic Right knee surgery 07/22/22 Short Term Goal (STG) Shelley is educated on a HEP for post surgical prosedure GOAL MET STG Duration 1 day Assessment Summary Assessment Shelley continues to demonstrate good progress with her knee. Circumference measurements are equal and she does not have tenderness to palpation at the medial knee now. Her ROM is knee flexion 120 R and 125 L. She is tight in her quadriceps so we reviewed her stretches and I added in self massage for her with rolling pin. She tolerated this well and will schedule another recheck after her trip to [place]. Physical Therapy Plan Frequency and Duration Frequency of Treatment Every Other Week Duration of treatment (weeks) 8 Plan of Care Start Date 10/15/22 Plan of Care End Date 12/10/22 Therapeutic Interventions Therapeutic Interventions Aquatic Therapy,Home Exercise Program,Manual Therapy, Neuromuscular Re-education, Patient/Caregiver Education, Self-Care/Home Management,Soft Tissue Mobilization, Therapeutic Exercises Next Visit Focus/Plan Next Note Type Treatment Note Next Visit Plan review all established exercises and modify HEP if needed. Measure knee ROM
--- NOTE | 2022-10-15 17:11 | PT.OPPOC ---
Physical, Occupational & Speech Therapy At [facility] Current Diagnoses Pain in right knee (10/15/22) Encounter for other preprocedural examination (10/15/22) Visit Care Team Role Provider Type Jude Vann MD Family Provider Physician Primary Care Provider Specialty: Internal Medicine Address: [address] [place] [address], [id number] Email: Xavi Galvan MD Attending Provider Non-Staff Referring Provider Specialty: Orthopedic Surgery Address: [address] [place] [address] , [place], [address] Fax: Email: Plan Of Care PT-OP-T Assessment and Plan Start: 07/21/22 08:57 Freq: Status: Active Protocol: Document 10/15/22 10:30 [facility] (Rec: 10/15/22 11:15 [facility] [id number]) Physical Therapy Assessment Goals 4 Impairment discomfort over the left knee with kneeling to [place] Mcc Goal (LTG) Sulema is able to increase her knee ROM to 125 to assist with greater ease of kneeling LTG Duration 8 weeks 3 Impairment pain in the right knee with gait and pt is limited in walking distance to more than a few blocks due to increased pain. 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/ 10 Mcc Goal (LTG) Shelley presents with improved walking distance without increased pain and her overall pain levels have dropped from 5/10 to 0-2/10 LTG Duration 12 weeks 2 Impairment Pain with R knee flexion and flexion limited to 122 Short Term Goal (STG) Shelley is able to return to full knee ROM without c/o pain Right knee 120 deg flexion left knee 125 deg flexion STG Duration 6 weeks 1 Impairment pt lacks a home program for post arthroscopic Right knee surgery 07/22/22 Short Term Goal (STG) Shelley is educated on a HEP for post surgical prosedure GOAL MET STG Duration 1 day Assessment Summary Assessment Shelley continues to demonstrate good progress with her knee. Circumference measurements are equal and she does not have tenderness to palpation at the medial knee now. Her ROM is knee flexion 120 R and 125 L. She is tight in her quadriceps so we reviewed her stretches and I added in self massage for her with rolling pin. She tolerated this well and will schedule another recheck after her trip to [place]. Physical Therapy Plan Frequency and Duration Frequency of Treatment Every Other Week Duration of treatment (weeks) 8 Plan of Care Start Date 10/15/22 Plan of Care End Date 12/10/22 Therapeutic Interventions Therapeutic Interventions Aquatic Therapy,Home Exercise Program,Manual Therapy, Neuromuscular Re-education, Patient/Caregiver Education, Self-Care/Home Management,Soft Tissue Mobilization, Therapeutic Exercises Next Visit Focus/Plan Next Note Type Treatment Note Next Visit Plan review all established exercises and modify HEP if needed. Measure knee ROM Plan of Care Dates Plan of Care Start Date 10/15/22 Plan of Care End Date 12/10/22 Electronically Signed by: May Bhatia, PT 10/15/22 3855 If you are in agreement with this Plan of Care, please return a signed and dated copy. I have reviewed this Plan of Care and certify that the skilled therapy services above are required to meet the patient?s needs. Physician Signature Date Printed Name and Credentials Clinical Instructor Signature Printed Name and Credentials
--- NOTE | 2022-12-15 09:20 | PT.OPDS ---
Current Diagnoses Pain in right knee (10/15/22) Encounter for other preprocedural examination (10/15/22) Visit Care Team Role Provider Type Jude Vann MD Family Provider Physician Primary Care Provider Specialty: Internal Medicine Address: [address] [place] [address], [address] Email: Xavi Galvan MD Attending Provider Non-Staff Referring Provider Specialty: Orthopedic Surgery Address: [address] [place] [address] , [place], [address] Fax: Email: Visit Number Visit Number 8 Discharge Summary PT-OP-B Current Condition Start: 07/21/22 08:57 Freq: Status: Active Protocol: Document 07/21/22 10:38 [facility] (Rec: 07/21/22 11:06 [facility] [id number]) Current Condition History of Current Condition Onset Date 2016 Current Complaints right knee pain in the distal lateral pole of the patella, pain is constant History of Current Condition pt had a fall in 2017 landing on her right knee on asphpalt 2 inches thick she tore her L rotator cuff and broke her left ankle. She also aggravated her right knee and has had pain since this time. She is scheduled for arthorscopic Surgery tomorrow 07/22/22 [address] [facility] Dr Galvan will be doing surgery. At this time she cant be on her feet for long on a hard surface, unable to garden due to pain. She does not have stairs at home and her son is taking her home. She does live alone. Prior Treatments and Tests hx of left hip replacement in 2013 Treatment Goals Patient/Caregiver Goals Goals are to eliminate knee pain and to be able to be active again she feels very limited in what she can do due to pain Prior Functional Status Baseline Function- ADL's Independent Baseline Function- Mobility Independent Current Functional Impairments (Reported) Functional Limitations- ADL's pain with anything that requires kneeling, pain with knee flexion activities Functional Limitations- Mobility/Gait pain walking on uneven ground and standing on hard surfaces PT-OP-C Subjective Start: 07/21/22 08:57 Freq: Status: Active Protocol: Document 10/15/22 10:30 [facility] (Rec: 10/15/22 11:15 [facility] [id number]) OP-PT Subjective Patient Comments Patient Comments Shelley reports she has been really well. 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 She notes she is happy with progress but she still feels some discomfort with kneeling to garden. She does have a coushin but it is still really difficult Patient Reported Progress Improving PT-OP-F Manual Assessment Start: 07/21/22 08:57 Freq: Status: Active Protocol: Document 07/21/22 10:35 [facility] (Rec: 07/22/22 09:35 [facility] [id number]) Manual Assessments Soft Tissue Assessment Soft Tissue Mobility Assessment tightness of the right ITB with tenderness up into her lateral hip Joint Mobility Assessment Joint Mobility Assessment able to mobilize the patella but point tenderness at the inferior pole lateral side of patella, as pt flexes her knee there is a visual pop on the lateral patella femoral side of the joint pt rests her knee in hyperextension PT-OP-G Mobility & Gait Start: 07/21/22 08:57 Freq: Status: Active Protocol: Document 07/21/22 10:35 [facility] (Rec: 07/22/22 09:35 [facility] [id number]) OP Gait Assessment Gait Gait Assistance Required: Independent Able to Maintain Weight Bearing Status Yes During Gait Assistive Devices Assistive Device None Orthotic/Prosthetic Devices or Brace: No Gait Deviations General Gait Pattern Antalgic,Decreased Stride Length Comments Gait Comments pt was trainined with SPC today but 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 pump 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 for post surgery as she will be home alone PT-OP-J Posture/Palpation/Skin Start: 07/21/22 08:57 Freq: Status: Active Protocol: Document 07/21/22 10:35 [facility] (Rec: 07/22/22 09:35 [facility] [id number]) Palpation Assessment Location right patella Palpation Location pain at the inferior lateral pole of the patella Palpation Findings Tenderness PT-OP-K Range of Motion Start: 07/21/22 08:57 Freq: Status: Active Protocol: Document 07/28/22 11:26 [facility] (Rec: 07/28/22 12:11 [facility] [id number]) Knee Goniometric Range of Motion Knee Right Knee ROM WFL No Patient Position Supine Flexion Active (degrees) 60 Extension Active (degrees) 0 Comments pt has instructions to keep her bandage on until this 07/30/22. ROM partially limited due to banadage and to c/o tightness Knee ROM Limitations Knee ROM Limitations Soft Tissue Tightness,Pain, Swelling Comments pt is limited with knee flexion due to s/p meniscus repair, bandages, and pain PT-OP-M Strength Start: 07/21/22 08:57 Freq: Status: Active Protocol: Document 07/21/22 10:35 [facility] (Rec: 07/22/22 09:35 [facility] [id number]) Knee Strength Knee Manual Muscle Testing Right Flexion (S2) 4 Good Extension (L3) 4 Good Comments able to perform a quad set with towel under knee, pain with ASLR attempt PT-OP-T Assessment and Plan Start: 07/21/22 08:57 Freq: Status: Active Protocol: Document 12/15/22 09:18 [facility] (Rec: 12/15/22 09:20 [facility] [id number]) Physical Therapy Assessment Goals 4 Impairment discomfort over the left knee with kneeling to [place] Engagement Specialist Goal (LTG) Sulema is able to increase her knee ROM to 125 to assist with greater ease of kneeling excellent progress LTG Duration 8 weeks 3 Impairment pain in the right knee with gait and pt is limited in walking distance to more than a few blocks due to increased pain. 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/ 10 Engagement Specialist Goal (LTG) Shelley presents with improved walking distance without increased pain and her overall pain levels have dropped from 5/10 to 0-2/10 GOAL MET LTG Duration 12 weeks 2 Impairment Pain with R knee flexion and flexion limited to 122 Short Term Goal (STG) Shelley is able to return to full knee ROM without c/o pain Right knee 120 deg flexion left knee 125 deg flexion excellent progress, was not present for last 2 visits to for measurements STG Duration 6 weeks 1 Impairment pt lacks a home program for post arthroscopic Right knee surgery 07/22/22 Short Term Goal (STG) Shelley is educated on a HEP for post surgical procedure GOAL MET STG Duration 1 day Assessment Summary Assessment Shelley has failed to show up for her last two PT appointments. At the time of her last appt she would doing better overall and continued to make good progress. At this point she will be discharged from PT Physical Therapy Plan Discharge Physical Therapy Discharge Reasons No Longer Attending PT
== END 2023-02-12 11:53 | disposition home or self-care (01) ==
LOC: PHYS 10:30
PROVIDERS: Absent Provider Internal Medicine; Family Provider Internal Medicine; PCP Internal Medicine; Referring Provider Student in an Organized Health Care Education/Training Program; Visit Provider Student in an Organized Health Care Education/Training Program
DX: Z01.818 Encounter for other preprocedural examination (principal); M25.561 Pain in right knee
CPT/HCPCS: 97110; 97140; 97161; 97164

== ENCOUNTER → 2022-11-20 14:46 | Outpatient (CLI) | payer OTHER, SELFPAY ==
--- NOTE | 2022-11-20 14:47 | DI.RAD.S_ITS ---
Bone Density Report Name: JASMINE MORENO Age: 72 Sex: Female Ethnicity: White Date of : 1950 Indication: postmenopausal; screening for osteoporosis; Referring Provider: MICKI RILEY Study: Bone densitometry was performed. Exam Date: November 20, 2022 Accession number: [id number] Bone Density: Region BMD T-score Z-score Classification AP Spine(L1-L4) 1.163 1.1 3.4 Normal Femoral Neck (Right) 0.784 -0.6 1.4 Normal Total Hip (Right) 0.849 -0.8 1.0 Normal Total Forearm (Left) 0.555 -0.4 1.9 Normal 1/3 Forearm (Left) 0.678 -0.3 2.2 Normal UD Forearm (Left) 0.423 -0.3 1.4 Normal World Health Organization criteria for BMD impression classify patients as: Normal (T-score at or above -1.0), Osteopenia (T-score between -1.0 and -2.5), or Osteoporosis (T-score at or below -2.5). 10-year Fracture Risk: FRAX not reported because: All T-scores for Spine Total, Hip Total, Femoral Neck at or above -1.0 Impression: The patient has normal bone mass. Discussion: BONE DENSITY IS ABOVE THE MINIMUM DESIRABLE LEVEL AT ALL SKELETAL SITES TESTED. This patient's bone mineral density is above the minimum desirable level (T-score -1.0 or better) at all sites measured. The patient should follow a healthful lifestyle (good nutrition with adequate calcium and vitamin D, and appropriate weight-bearing exercise). Follow-Up: Consider repeating this study in 5 years or sooner if there is some new clinical indication. Reported by: CHARLEE WICK M.D. on 11/20/2022 3:08:00 PM.
== END ==
PROVIDERS: Family Provider Internal Medicine; PCP Student in an Organized Health Care Education/Training Program; Referring Provider Student in an Organized Health Care Education/Training Program; Visit Provider Student in an Organized Health Care Education/Training Program
DX: Z78.0 Asymptomatic menopausal state (principal); Z13.820 Encounter for screening for osteoporosis
CPT/HCPCS: 77080

== ENCOUNTER → 2023-04-30 07:56 | Outpatient (CLI) | payer OTHER, SELFPAY ==
--- NOTE | 2023-04-30 | DI.ECHO.S_ITS ---
[facility]---------+ [facility] +---------+ : : [address] : : : : [id number] : : : : Phone: [phone]+ Echocardiogram Report + + :Name: JASMINE MORENO Study Date: 04/30/2023 Height: 64 in : :[facility] ReadingLocation: Weight: 165 lb : : Gender: Female BSA: 1.8 m2 : :: 1950 Age: 72 yrs BP: 139/84 mmHg: :Reason For Study: Follow-up Tortuous Aorta : :Ordering Physician: OSVALDO, : :MICKI Performed By: Shani Laws : :Referring: MICKI RILEY : + + Interpretation Summary The left ventricle is normal in size and wall thickness. The left ventricular ejection fraction is normal. The ejection fraction is estimated to be 60-65%. MV E/A: 1.1 Med Peak E' John: 6.1 cm/sec E/E' med: 17.9. Suspect elevated LV filling pressure. The right ventricle is normal in size and function. No significant valvular pathology seen. The IVC is of normal diameter and collapses greater than 50% with a sniff. This suggests a low right atrial pressure of 3 mm Hg. Procedure: A two-dimensional transthoracic echocardiogram with color flow and Doppler was performed. The study quality was technically adequate. There is no prior echocardiogram noted for this patient. The patient was in normal sinus rhythm during the exam. Left Ventricle: The left ventricle is normal in size and wall thickness. There is no thrombus. The left ventricular ejection fraction is normal. The ejection fraction is estimated to be 60-65%. There are no focal wall motion abnormalities. MV E/A: 1.1 Med Peak E' John: 6.1 cm/sec E/E' med: 17.9. Suspect elevated LV filling pressure. Right Ventricle: The right ventricle is normal in size and function. Atria: The left atrial size is normal. Right atrial size is normal. There is no Doppler evidence for an interatrial shunt. Mitral Valve: There is mild mitral annular calcification. There is no mitral valve stenosis. There is trace mitral regurgitation. Aortic Valve: The aortic valve is not well visualized. The aortic valve is grossly normal. There is no aortic valve stenosis. There is trace aortic regurgitation. Tricuspid Valve: The tricuspid valve is normal. There is no tricuspid stenosis. There is trace tricuspid regurgitation. The right ventricular systolic pressure is estimated to be at least 23 mmHg based on an estimated right atrial pressure of 3 mm Hg. Pulmonic Valve: The pulmonic valve is not well seen, but is grossly normal. There is trace pulmonic regurgitation. Great Vessels: The aortic root is normal size. The ascending aorta is normal in size. The pulmonary artery is normal size. The IVC is of normal diameter and collapses greater than 50% with a sniff. This suggests a low right atrial pressure of 3 mm Hg. Pericardium/ Pleura There is a trivial pericardial effusion noted. There are no echocardiographic indications of cardiac tamponade. There is no pleural effusion. MMode/2D Measurements & Calculations LVIDd: 4.6 cm LVOT diam: 1.9 cm LVIDs: 2.8 cm Ao root diam: 2.8 cm FS: 39.1 % asc Aorta Diam: 3.3 cm EPSS: 0.60 cm IVSd: 0.90 cm LVPWd: 0.90 cm LV roy. diameter/BSA (cm/m^2): 2.6 LV sys. diameter/BSA (cm/m^2): 1.6 LA A2 area: 17.4 cm2 RA long axis: 5.2 cm LA A4 area: 17.9 cm2 RA area: 15.0 cm2 LA length (vol): 5.6 cm RA vol: 37.0 ml LA vol: 47.5 ml RA : 20.5 ml/m2 LA vol index: 26.3 ml/m2 RVD1 (basal): 3.2 cm LVLs ap4: 6.8 cm LVLd ap2: 7.3 cm TAPSE_phl: 2.1 cm LVLs ap2: 6.5 cm Doppler Measurements & Calculations Ao V2 max: 119.8 cm/sec LVOT Max John: 98.8 cm/sec Ao V2 mean: 83.0 cm/sec LV V1 max P.9 mmHg Ao max P.0 mmHg LV V1 VTI: 22.7 cm Ao mean P.0 mmHg JAQUELINE(I,D): 2.2 cm2 Ao V2 VTI: 28.8 cm JAQUELINE(V,D): 2.3 cm2 sev ratio: 0.79 JAQUELINE indexed to BSA (cm^2/m^2): 1.2 MV E max john: 109.0 cm/sec TR max john: 225.5 cm/sec MV A max john: 98.1 cm/sec TR max P.3 mmHg MV E/A: 1.1 PA V2 max: 76.9 cm/sec Med Peak E' John: 6.1 cm/sec PA V2 mean: 55.6 cm/sec E/E' med: 17.9 PA mean P.0 mmHg Lat Peak E' John: 10.6 cm/sec PA pr(Accel): 16.0 mmHg E/E' lat: 10.3 E/e' average: 14.1 MV dec time: 0.19 sec SV(LVOT): 64.4 ml AV VR_phl: 0.82 JAQUELINE(VTI)/BSA_phl: 1.2 Reading Physician:11:32 AM
== END ==
PROVIDERS: Family Provider Internal Medicine; PCP Student in an Organized Health Care Education/Training Program; Referring Provider Student in an Organized Health Care Education/Training Program; Visit Provider Student in an Organized Health Care Education/Training Program
DX: I77.1 Stricture of artery (principal); I34.81 Nonrheumatic mitral (valve) annulus calcification
CPT/HCPCS: 93306

== ENCOUNTER → 2024-04-11 07:55 | Outpatient (CLI) | payer MEDICARE, SELFPAY ==
--- NOTE | 2024-04-11 07:56 | DI.MRI.S_ITS ---
PROCEDURE: MR WRIST LT WO/W CON INDICATIONS: SOFT TISSUE MASS, WRIST, LEFT TECHNIQUE: Noncontrast coronal proton density fast spin echo and T2 fast spin echo with fat saturation; coronal 3-D gradient echo, axial T1 spin echo and T2 fast spin echo with fat saturation, axial T1 spin echo with fat saturation, sagittal T1 spin echo through the wrist. Post-contrast axial, coronal, and sagittal T1 spin echo with fat saturation through the wrist. COMPARISON: [facility], CR, XR HAND 3+ VIEWS LEFT, 03/08/2024, 13:57. FINDINGS: Image quality: Excellent. Bones and cartilage: Multifocal degenerative change of the intercarpal joint in the carpometacarpal joints, most pronounced and severe at the triscaphe joint, where there is extensive subchondral cystic changes and associated marrow edema. Additional moderate degenerative change of the 1st carpometacarpal joint. No acute fracture. Moderate amount of fluid within the the intercarpal joint. 5 mm ganglion cyst volar to the base of the 2nd metacarpal, 7 mm ganglion cyst volar to the base of the 4th metacarpal. No suspicious enhancing mass. Carpal ligaments: The scapholunate and lunotriquetral ligaments appear intact. In the absence of intra-articular contrast, the extrinsic carpal ligaments are not well identified. On sagittal images, the pisohamate ligament appears intact. Triangular fibrocartilage complex: Central disc perforation (series 7, image 36). The foveal attachment in the ulnar styloid attachment is unremarkable. Tendons and soft tissues: No suspicious soft tissue enhancement. The carpal tunnel structures appear normal, including the median nerve. The ulnar nerve appears normal within Guyon's canal. All six extensor tendon compartments demonstrate normal morphology, without pathologic tendon sheath fluid. No soft tissue ganglion cysts. IMPRESSION: 1. 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 Additional moderate degenerative changes of the 1st carpometacarpal joint. 2. Two subcentimeter ganglion cysts volar to the base of the metacarpals. 3. Central disc perforation of the triangular fibrocartilage. 4. No suspicious enhancing mass. Dictated by: Shonna Clinton M.D. on 04/11/2024 at 12:16 Approved by: Shonna Clinton M.D. on 04/11/2024 at 12:27
== END ==
PROVIDERS: Family Provider Internal Medicine; PCP Student in an Organized Health Care Education/Training Program; Referring Provider Orthopaedic Surgery; Visit Provider Orthopaedic Surgery
DX: M18.12 Unilateral primary osteoarthritis of first carpometacarpal joint, left hand (principal); M19.032 Primary osteoarthritis, left wrist; R22.32 Localized swelling, mass and lump, left upper limb; M67.432 Ganglion, left wrist; M24.132 Other articular cartilage disorders, left wrist
CPT/HCPCS: 73223; A9579

== ENCOUNTER 2024-08-16 08:15 | Outpatient (RCR) | payer MEDICARE, SELFPAY ==
--- NOTE | 2024-05-19 16:47 | PT-OP ANOTE ---
PT called clinic to get clinic notes and protocol but unable to reach office >10 minutes. Will re-attempt Wednesday for pt evaluation
--- NOTE | 2024-05-22 15:50 | PT.OIE ---
Current Diagnoses Pain in right knee (05/22/24) Stiffness of right knee, not elsewhere classified (05/22/24) Other lack of coordination (05/22/24) Weakness (05/22/24) Past Medical History (Last Reviewed 03/21/21 @ 08:12 by Yoel Beckford DO) Anxiety History of diarrhea Hyperlipidemia Hypertension Ovarian cyst Past Surgical History (Last Reviewed 08/21/20 @ 09:09 by Haylee Christianson DO) H/O ovarian cystectomy (~2007) H/O repair of rotator cuff (~2016) History of open reduction and internal fixation (ORIF) procedure (~2016) History of total hip arthroplasty (~2013) Visit Care Team Role Provider Type Padmini Maharaj PA-C Primary Care Provider Physician 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 Director Specialty: Medical Address: [place], [address] Email: [email or web address] Jude Vann MD Family Provider Physician Specialty: Internal Medicine Address: [address] [place] [address], [id number] Email: Xavi Galvan MD Attending Provider Non-Staff Referring Provider Specialty: Orthopedic Surgery Address: [facility] [place], [address] Email: Physical Therapy Initial Evaluation PT-OP-A Visit Information Start: 05/22/24 11:16 Freq: Status: Active Protocol: Document 05/22/24 11:17 NM (Rec: 05/22/24 12:25 NM [id number]) Out-Patient Physical Therapy Visit Information Visit Information Visit Type Initial Evaluation Visit Start Time 11:18 Visit Stop Time 12:00 Visit Number 1 Evaluation Information Evaluation Date 05/22/24 Precautions Precautions s/p R knee arthroscopy ( meniscal repair) DOS 05/15/24 limit knee flex PT-OP-B Current Condition Start: 05/22/24 11:16 Freq: Status: Active Protocol: Document 05/22/24 11:17 NM (Rec: 05/22/24 12:25 NM [id number]) Current Condition History of Current Condition Onset Date DOS 05/15/24 Current Complaints pain, limited mobility, balance History of Current Condition Pt report that she had meniscus surgery on R knee 05/15 . Pt is not using any AD, states used crutches on Wednesday and a cane on Wednesday. She lives in a single story home. Reports no difficulty with balance. She gets her stitches out on 05/30. She saw Xavi Galvan MD. Pt reports no restrictions, no hot tub for a month. She reports that she was having pain in her leg since 2016 following a fall while walking and fell on her L side. She reports that she had a repair in 2022, then had another MRI after increased pain following 8 months leading to a new repair of the medial meniscus. Pt also reports that she was having lateral knee pain prior to surgery, reports that the ligament is soft. She also has arthritis. Pt also reports R hip and rump pain. No complications during surgery. Pt just removed bandages this morning; reports that she can shower now and reports that she is leaving her stitches uncovered. No stairs except to get into garage, rail; does not go in that way. Lives alone Prior Treatments and Tests PT Sep-December/2022 for same condition with good results Treatment Goals Patient/Caregiver Goals stronger, no pain or discomfort Prior Functional Status Baseline Function- Gait walk 3-5 mi day, 4x/week on unstable surface on her property Baseline Function- Other personal consultant every Wednesday (Ansley Araujo): gentle and balance, core Current Functional Impairments (Reported) Functional Limitations- Other personal consultant on hold right now PT-OP-C Subjective Start: 05/22/24 11:16 Freq: Status: Active Protocol: Document 05/22/24 11:17 NM (Rec: 05/22/24 12:25 NM [id number]) OP-PT Subjective Patient Comments Patient Comments pt agrees to participate in evaluation Patient Questionnaires Lower Extremity Functional Scale LEFS Score 40/80 OP-PT Pain Assessment Location R knee Pain Location Details joint line, LCL, subpatellar in dimple laterally Intensity 4 Scale Used Numeric (0 - 10) Description Aching,Dull Frequency Frequent Pain Aggravating Factors ADL's,Standing,Walking Pain Alleviating Factors Cold,Medication PT-OP-D Balance Start: 05/22/24 11:16 Freq: Status: Active Protocol: Document 05/22/24 11:17 NM (Rec: 05/22/24 12:25 NM [id number]) Balance Tests Romberg Romberg 30 sec Single Limb Standing Single Limb- Right 2 sec Single Limb- Left 10 sec Tandem Tandem Standing 8 sec PT-OP-E Functional Tests Start: 05/22/24 11:16 Freq: Status: Active Protocol: Document 05/22/24 11:17 NM (Rec: 05/22/24 12:25 NM [id number]) Functional Tests Five Times Sit to Stand Test Score 16 seconds Comments no pain; no UE assist PT-OP-F Manual Assessment Start: 05/22/24 11:16 Freq: Status: Active Protocol: Document 05/22/24 11:17 NM (Rec: 05/22/24 12:25 NM [id number]) Manual Assessments Soft Tissue Assessment Soft Tissue Mobility Assessment Tightness of R heel cords, hamstrings Joint Mobility Assessment Joint Mobility Assessment Mild R knee hyperextension, decreased ankle mobility PT-OP-G Mobility & Gait Start: 05/22/24 11:16 Freq: Status: Active Protocol: Document 05/22/24 11:17 NM (Rec: 05/22/24 12:25 NM [id number]) OP Gait Assessment Gait Gait Assistance Required: Standby Assistance Distance (Feet) 150 Assistive Devices Assistive Device None Gait Deviations General Gait Pattern Antalgic Factors Limiting Gait Function Factors Limiting Gait Function Decreased Activity Tolerance, Decreased Strength,Limited Range of Motion,Pain Comments Gait Comments Toe in at R hip. Demos decrease in quad strength with slight trunk/hip flex with R stance PT-OP-H Neuro Start: 05/22/24 11:16 Freq: Status: Active Protocol: Document 05/22/24 11:17 NM (Rec: 05/22/24 12:25 NM [id number]) Sensation Evaluation Comments Summary Comments BLE intact to light touch sensation; no numbness or decreased sensation reported PT-OP-J Posture/Palpation/Skin Start: 05/22/24 11:16 Freq: Status: Active Protocol: Document 05/22/24 11:17 NM (Rec: 05/22/24 12:25 NM [id number]) Posture Evaluation Position Standing Head/C-Spine Posture Forward Head T-Spine Posture Increased Kyphosis L-Spine Posture Fixed Scoliosis on (L) Hip Posture (L) Internally Rotated,(R) Internally Rotated Patellar Posture (L) Superior,(R) Superior Comments Posture Comments mild hyperextension of R knee Palpation Assessment Location R knee Palpation Details Tenderness along posterior knee near hamstrings, lateral joint line No tenderness along patella, quad, hip flexors, lateral hip , medial joint line Skin Assessment Circumference Measurement R knee Location patellar: 38 cm; calf 33 cm Incisional Assessment Incision Appearance/Comments Stitches intact. Over lateral incision, pt has small opening but no discharge or bleeding. Pt reports that was present when she took off wrappings this morning PT-OP-K Range of Motion Start: 05/22/24 11:16 Freq: Status: Active Protocol: Document 05/22/24 11:17 NM (Rec: 05/22/24 12:25 NM [id number]) Knee Goniometric Range of Motion Knee Right Flexion Active (degrees) 85 Extension Active (degrees) 1 Left Flexion Active (degrees) 123 Extension Active (degrees) 1 PT-OP-M Strength Start: 05/22/24 11:16 Freq: Status: Active Protocol: Document 05/22/24 11:17 NM (Rec: 05/22/24 12:25 NM [id number]) Hip Strength Hip Manual Muscle Testing Right Flexion (L2) 4- Good- Extension (S1) 3+ Fair+ Abduction 3+ Fair+ Adduction 4- Good- Left Flexion (L2) 4 Good Extension (S1) 4 Good Abduction 4 Good Adduction 4 Good Knee Strength Knee Manual Muscle Testing Right Flexion (S2) 3 Fair Extension (L3) 3 Fair Comments not formally tested due to surgical repair, but able to perform seated against gravity without resistance Left Flexion (S2) 4 Good Extension (L3) 4 Good Ankle/Foot Strength Ankle and Foot Manual Muscle Testing Right Dorsiflexion (L4) 4 Good Plantarflexion (S1) 4 Good Comments tested in sitting Left Dorsiflexion (L4) 4 Good Plantarflexion (S1) 4 Good Comments tested in sitting PT-OP-Q Treatments Start: 05/22/24 11:16 Freq: Status: Active Protocol: Document 05/22/24 11:17 NM (Rec: 05/22/24 12:25 NM [id number]) Therapeutic Exercises Supine Exercises ankle pumps Side right Reps/Minutes 10 Comments for swelling management and to prevent DVT SAQ Side right Equipment Used pillow under thigh Reps/Minutes 10 w/ 2 hold Comments small ROM; pain free quad set Side right Equipment Used towel roll under knee Reps/Minutes 15x3 Comments cued for form heel slides Side right Reps/Minutes 10 Comments mandrel puller stitches; cued pain free range Self-Care/Home Management Treatment Education Patient Education Joint Protection,Safety Other Education Educated to follow up with surgeon regarding incision. Educated on signs/symptoms of infection with clear education to go to ED and also alert surgeon if occurs. Recommended use of AD temporarily for community ambulation and safety until quad stronger PT-OP-T Assessment and Plan Start: 05/22/24 11:16 Freq: Status: Active Protocol: Document 05/22/24 11:17 NM (Rec: 05/22/24 12:25 NM [id number]) Physical Therapy Assessment Rehab Potential Rehabilitation Potential Good Evaluation Complexity Number of Personal Factors/Comorbidities 1-2 Number of Body Systems Impaired 1-2 Clinical Presentation at Evaluation Stable Impairments Impairments Activity Tolerance,Balance, Edema,Functional Activities, Functional Mobility,Gait, Integument,Pain,Posture,ROM, Sensation,Soft Tissue Mobility ,Strength,Transfers Other Concerns Barriers to Rehabilitation Pt has had similar surgery on same leg one year prior. PMH of L LAURE, arthritis Goals 5 Impairment currently not performing an HEP; will need to return to exercise w/ hop strainer Short Term Goal (STG) Pt will report compliance with HEP 3x/wk in order to maximize progression with PT and promote independence with exercise STG Duration 3 weeks Residential Goal (LTG) Pt will report compliance with HEP at least 3x/wk for maintenance program and/or will be able to return to weekly exercise with hop strainer if appropriate LTG Duration 12 weeks 4 Impairment LEFS 40/80 Residential Goal (LTG) Pt will improve LEFS >50/80 (1 MCID) in order to demonstrate improvements in symptom management and activity tolerance LTG Duration 12 weeks 3 Impairment ambulation Short Term Goal (STG) Pt will normalize gait mechanics for community distances during 6 MWT in order to demonstrate improvements in R knee/hip strength and ROM STG Duration 6 weeks [employer] Goal (LTG) Pt will report that she is able to ambulate on unstable surfaces around her property for at least 1 mile without increase in R knee pain in order to demonstrate improvements in gait, pain management and activity tolerance LTG Duration 12 weeks 2 Impairment strength R hip 3+ to 4-/5 and knee 3/5 Short Term Goal (STG) Pt will improve R hip and knee strength to at least 4/5 in order to demonstrate increased strength required for ambulation and ADLs STG Duration 8 weeks Residential Goal (LTG) Pt will improve R hip and knee strength to at least 4+/5 in order to demonstrate increased strength required for ambulation and ADLs LTG Duration 12 weeks 1 Impairment R knee flexion ROM 85 deg flex to 1 deg ext Short Term Goal (STG) Pt will improve R knee flexion AROM to at least 100 deg in order to demonstrate improved flexion ROM for gait, stairs, and transfers STG Duration 6 weeks Residential Goal (LTG) Pt will improve R knee flexion AROM to at least 120 deg and maintain 1 deg of extension or less in order to demonstrate improved ROM for gait, stairs, and transfers LTG Duration 12 weeks Assessment Summary Assessment Pt is a 73 y.o. female presenting 1 week s/p R knee arthroscopy with medial meniscus repair. She has Pt's pain is well managed. She is not using an AD for mobility currently and has not used one since day 3 post-op. Pt's R knee ROM is most limited, and she has full extension. She recently removed dressings prior to visit; pt stitches intact but slight opening at lateral scar. PT recommended pt get opening assessed by referring provider and educated on monitoring for infection. Pt's R knee strength not formally assessed due to precautions; however, she demonstrates good quad activation but lacks TKE. Right hip strength is more limited than L. Able to perform transfers with minimal limitations from elevated surface. PT educated pt on exam findings and plan of care , recommending continued use of AD temporarily for balance and safety during community ambulation. Pt would benefit from skilled PT for progressive R knee mobility and strengthening in order to improve functional mobility during gait and transfers, balance, and activity tolerance. Physical Therapy Plan Frequency and Duration Frequency of Treatment 1-2x/wk Duration of treatment (weeks) 12 Plan of Care Start Date 05/22/24 Plan of Care End Date 08/18/24 Therapeutic Interventions Therapeutic Interventions Balance Training,Gait Training ,Home Exercise Program,Joint Mobilizations,Manual Therapy, Neuromuscular Re-education, Orthotic/Prosthetic Management ,Patient/Caregiver Education, Self-Care/Home Management, Sensory Integration,Soft Tissue Mobilization,Taping, Therapeutic Activities, Therapeutic Exercises Modalities Cold Pack/Ice Massage,Electric Stimulation,Hot Packs, Ultrasound Next Visit Focus/Plan Next Note Type Treatment Note Next Visit Plan Review HEP. Heel slides w/i tolerance and precautions, quad set, SAQ > LAQ, gentle HS stretch, trial minisquat with hand support ( limit depth), clam vs sidelying abd Gait training w/ AD or w/o AD: hurdles, stance time, TKE
--- NOTE | 2024-05-23 08:40 | PT-OP ANOTE ---
PT called referring provider's office yesterday at 1600 to request clinic and surgical notes. Also informed assistant front office manager at referring provider's office that lateral incision possible open with stitches intact, present at start of evaluation since pt just removed dressing yesterday prior to visit. PT had informed pt to follow up with surgeon's office and to monitor for symptoms of infection at evaluation yesterday
--- NOTE | 2024-05-29 13:01 | PT.OTN ---
Current Diagnoses Pain in right knee (05/29/24) Stiffness of right knee, not elsewhere classified (05/29/24) Other lack of coordination (05/29/24) Weakness (05/29/24) Physical Therapy Treatment Note PT-OP-A Visit Information Start: 05/22/24 11:16 Freq: Status: Active Protocol: Document 05/29/24 08:07 AB (Rec: 05/29/24 10:20 AB [id number]) Out-Patient Physical Therapy Visit Information Visit Information Visit Type Treatment Note Visit Start Time 09:02 Visit Stop Time 09:48 Visit Number 2 Number of PATIENT COORDINATOR FRONT DESK Visits 1 Evaluation Information Evaluation Date 05/22/24 Precautions Precautions s/p R knee arthroscopy ( meniscal repair) DOS 05/15/24 limit knee flex PT-OP-B Current Condition Start: 05/22/24 11:16 Freq: Status: Active Protocol: Document 05/22/24 11:17 NM (Rec: 05/22/24 12:25 NM [id number]) Current Condition History of Current Condition Onset Date DOS 05/15/24 Current Complaints pain, limited mobility, balance History of Current Condition Pt report that she had meniscus surgery on R knee 05/15 . Pt is not using any AD, states used crutches on Wednesday and a cane on Wednesday. She lives in a single story home. Reports no difficulty with balance. She gets her stitches out on 05/30. She saw Xavi Galvan MD. Pt reports no restrictions, no hot tub for a month. She reports that she was having pain in her leg since 2016 following a fall while walking and fell on her L side. She reports that she had a repair in 2022, then had another MRI after increased pain following 8 months leading to a new repair of the medial meniscus. Pt also reports that she was having lateral knee pain prior to surgery, reports that the ligament is soft. She also has arthritis. Pt also reports R hip and rump pain. No complications during surgery. Pt just removed bandages this morning; reports that she can shower now and reports that she is leaving her stitches uncovered. No stairs except to get into garage, rail; does not go in that way. Lives alone Prior Treatments and Tests PT Sep-December/2022 for same condition with good results Treatment Goals Patient/Caregiver Goals stronger, no pain or discomfort Prior Functional Status Baseline Function- Gait walk 3-5 mi day, 4x/week on unstable surface on her property Baseline Function- Other personal computer specialist every Wednesday (Ansleycherry SanabriaGayle): gentle and balance, core Current Functional Impairments (Reported) Functional Limitations- Other personal computer specialist on hold right now PT-OP-C Subjective Start: 05/22/24 11:16 Freq: Status: Active Protocol: Document 05/29/24 08:07 AB (Rec: 05/29/24 10:20 AB [id number]) OP-PT Subjective Patient Comments Patient Comments Patient reports the knee is achy, not pain. Patient transfers sit to stand with adequate right knee flexion with UE use. Patient reports feeling sore post exercise, comments she hasn't done ( what she describes as the quad set ) Patient reports she only used the crutches one day , cane one day and is not taking pain medication. AROM right knee lacking 3 deg ext to 87 deg flexion start of session. PT-OP-D Balance Start: 05/22/24 11:16 Freq: Status: Active Protocol: Document 05/22/24 11:17 NM (Rec: 05/22/24 12:25 NM [id number]) Balance Tests Romberg Romberg 30 sec Single Limb Standing Single Limb- Right 2 sec Single Limb- Left 10 sec Tandem Tandem Standing 8 sec PT-OP-E Functional Tests Start: 05/22/24 11:16 Freq: Status: Active Protocol: Document 05/22/24 11:17 NM (Rec: 05/22/24 12:25 NM [id number]) Functional Tests Five Times Sit to Stand Test Score 16 seconds Comments no pain; no UE assist PT-OP-F Manual Assessment Start: 05/22/24 11:16 Freq: Status: Active Protocol: Document 05/22/24 11:17 NM (Rec: 05/22/24 12:25 NM [id number]) Manual Assessments Soft Tissue Assessment Soft Tissue Mobility Assessment Tightness of R heel cords, hamstrings Joint Mobility Assessment Joint Mobility Assessment Mild R knee hyperextension, decreased ankle mobility PT-OP-G Mobility & Gait Start: 05/22/24 11:16 Freq: Status: Active Protocol: Document 05/22/24 11:17 NM (Rec: 05/22/24 12:25 NM [id number]) OP Gait Assessment Gait Gait Assistance Required: Standby Assistance Distance (Feet) 150 Assistive Devices Assistive Device None Gait Deviations General Gait Pattern Antalgic Factors Limiting Gait Function Factors Limiting Gait Function Decreased Activity Tolerance, Decreased Strength,Limited Range of Motion,Pain Comments Gait Comments Toe in at R hip. Demos decrease in quad strength with slight trunk/hip flex with R stance PT-OP-H Neuro Start: 05/22/24 11:16 Freq: Status: Active Protocol: Document 05/22/24 11:17 NM (Rec: 05/22/24 12:25 NM [id number]) Sensation Evaluation Comments Summary Comments BLE intact to light touch sensation; no numbness or decreased sensation reported PT-OP-J Posture/Palpation/Skin Start: 05/22/24 11:16 Freq: Status: Active Protocol: Document 05/22/24 11:17 NM (Rec: 05/22/24 12:25 NM [id number]) Posture Evaluation Position Standing Head/C-Spine Posture Forward Head T-Spine Posture Increased Kyphosis L-Spine Posture Fixed Scoliosis on (L) Hip Posture (L) Internally Rotated,(R) Internally Rotated Patellar Posture (L) Superior,(R) Superior Comments Posture Comments mild hyperextension of R knee Palpation Assessment Location R knee Palpation Details Tenderness along posterior knee near hamstrings, lateral joint line No tenderness along patella, quad, hip flexors, lateral hip , medial joint line Skin Assessment Circumference Measurement R knee Location patellar: 38 cm; calf 33 cm Incisional Assessment Incision Appearance/Comments Stitches intact. Over lateral incision, pt has small opening but no discharge or bleeding. Pt reports that was present when she took off wrappings this morning PT-OP-K Range of Motion Start: 05/22/24 11:16 Freq: Status: Active Protocol: Document 05/22/24 11:17 NM (Rec: 05/22/24 12:25 NM [id number]) Knee Goniometric Range of Motion Knee Right Flexion Active (degrees) 85 Extension Active (degrees) 1 Left Flexion Active (degrees) 123 Extension Active (degrees) 1 PT-OP-M Strength Start: 05/22/24 11:16 Freq: Status: Active Protocol: Document 05/22/24 11:17 NM (Rec: 05/22/24 12:25 NM [id number]) Hip Strength Hip Manual Muscle Testing Right Flexion (L2) 4- Good- Extension (S1) 3+ Fair+ Abduction 3+ Fair+ Adduction 4- Good- Left Flexion (L2) 4 Good Extension (S1) 4 Good Abduction 4 Good Adduction 4 Good Knee Strength Knee Manual Muscle Testing Right Flexion (S2) 3 Fair Extension (L3) 3 Fair Comments not formally tested due to surgical repair, but able to perform seated against gravity without resistance Left Flexion (S2) 4 Good Extension (L3) 4 Good Ankle/Foot Strength Ankle and Foot Manual Muscle Testing Right Dorsiflexion (L4) 4 Good Plantarflexion (S1) 4 Good Comments tested in sitting Left Dorsiflexion (L4) 4 Good Plantarflexion (S1) 4 Good Comments tested in sitting PT-OP-Q Treatments Start: 05/22/24 11:16 Freq: Status: Active Protocol: Document 05/29/24 08:07 AB (Rec: 05/29/24 10:20 AB [id number]) Therapeutic Exercises Supine Exercises hamstring stretch Supine Exercise Name from hooklying Side right Reps/Minutes 60 sec X 2 Comments verbal cues SAQ Side right Equipment Used foam roller under LE Reps/Minutes 10 w/ 2 hold quad set Side right Equipment Used towel roll under knee Reps/Minutes X10 Comments post manual and HS stretch heel slides Side right Reps/Minutes 10 Comments machine puller over stitches; cued pain free range Sidelying Exercises clamshell Side right Reps/Minutes X10 X 2 Comments Verbal cues for trunk position , then to back to wall Sitting Exercises seated hip abduction with band Side bilateral Resistance level 3 [place] band Reps/Minutes one min X 1 seated quad set Reps/Minutes X10 Comments monitored for pain, verbal and visual cues Manual Therapy Treatment Consent Patient gave verbal consent for manual Yes treatment Soft Tissue Mobilization right knee Body Location HS, quad, med and lat knee areas of increased tissue density, dec tissue mo Mobilization Type Cross-Friction,Rolling,Other Intensity/Depth Moderate Body Position Hooklying PT-OP-T Assessment and Plan Start: 05/22/24 11:16 Freq: Status: Active Protocol: Document 05/29/24 08:07 AB (Rec: 05/29/24 10:20 AB [id number]) Physical Therapy Assessment Goals 5 Impairment currently not performing an HEP; will need to return to exercise w/ certified athletic trainer Short Term Goal (STG) Pt will report compliance with HEP 3x/wk in order to maximize progression with PT and promote independence with exercise STG Duration 3 weeks Jail Goal (LTG) Pt will report compliance with HEP at least 3x/wk for maintenance program and/or will be able to return to weekly exercise with certified athletic trainer if appropriate LTG Duration 12 weeks 4 Impairment LEFS 40/80 Impairment discomfort over the left knee with kneeling to garden Admissions Nurse Goal (LTG) Pt will improve LEFS >50/80 (1 MCID) in order to demonstrate improvements in symptom management and activity tolerance LTG Duration 12 weeks 3 Impairment ambulation Impairment pain in the right knee with gait and pt is limited in walking distance to more than a few blocks due to increased pain. 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/ 10 Short Term Goal (STG) Pt will normalize gait mechanics for community distances during 6 MWT in order to demonstrate improvements in R knee/hip strength and ROM STG Duration 6 weeks Admissions Nurse Goal (LTG) Pt will report that she is able to ambulate on unstable surfaces around her property for at least 1 mile without increase in R knee pain in order to demonstrate improvements in gait, pain management and activity tolerance LTG Duration 12 weeks 2 Impairment strength R hip 3+ to 4-/5 and knee 3/5 Impairment Pain with R knee flexion and flexion limited to 122 Short Term Goal (STG) Pt will improve R hip and knee strength to at least 4/5 in order to demonstrate increased strength required for ambulation and ADLs STG Duration 8 weeks Jail Goal (LTG) Pt will improve R hip and knee strength to at least 4+/5 in order to demonstrate increased strength required for ambulation and ADLs LTG Duration 12 weeks 1 Impairment R knee flexion ROM 85 deg flex to 1 deg ext Impairment pt lacks a home program for post arthroscopic Right knee surgery 07/22/22 Short Term Goal (STG) Pt will improve R knee flexion AROM to at least 100 deg in order to demonstrate improved flexion ROM for gait, stairs, and transfers STG Duration 6 weeks Jail Goal (LTG) Pt will improve R knee flexion AROM to at least 120 deg and maintain 1 deg of extension or less in order to demonstrate improved ROM for gait, stairs, and transfers LTG Duration 12 weeks Assessment Summary Assessment AROM 0 to 92 deg AROM right knee end of session, rating pain 6/10 end of session ambulating out of session without device Physical Therapy Plan Frequency and Duration Frequency of Treatment 1-2x/wk Duration of treatment (weeks) 12 Plan of Care Start Date 05/22/24 Plan of Care End Date 08/18/24 Next Visit Focus/Plan Next Note Type Treatment Note Next Visit Plan Review HEP. Heel slides w/i tolerance and precautions, quad set, SAQ > LAQ, trial minisquat with hand support (limit depth), Gait training w/ AD or w/o AD: hurdles, stance time, TKE, Focus on balance next session.
--- NOTE | 2024-06-02 09:03 | PT.OTN ---
Current Diagnoses Pain in right knee (06/02/24) Stiffness of right knee, not elsewhere classified (06/02/24) Other lack of coordination (06/02/24) Weakness (06/02/24) Physical Therapy Treatment Note PT-OP-A Visit Information Start: 05/22/24 11:16 Freq: Status: Active Protocol: Document 06/02/24 08:16 NM (Rec: 06/02/24 09:02 NM [id number]) Out-Patient Physical Therapy Visit Information Visit Information Visit Type Treatment Note Visit Start Time 08:18 Visit Stop Time 08:58 Visit Number 3 Evaluation Information Evaluation Date 05/22/24 Precautions Precautions s/p R knee arthroscopy ( meniscal repair) DOS 05/15/24 limit knee flex PT-OP-B Current Condition Start: 05/22/24 11:16 Freq: Status: Active Protocol: Document 05/22/24 11:17 NM (Rec: 05/22/24 12:25 NM [id number]) Current Condition History of Current Condition Onset Date DOS 05/15/24 Current Complaints pain, limited mobility, balance History of Current Condition Pt report that she had meniscus surgery on R knee 05/15 . Pt is not using any AD, states used crutches on Wednesday and a cane on Wednesday. She lives in a single story home. Reports no difficulty with balance. She gets her stitches out on 05/30. She saw Xavi Galvan MD. Pt reports no restrictions, no hot tub for a month. She reports that she was having pain in her leg since 2016 following a fall while walking and fell on her L side. She reports that she had a repair in 2022, then had another MRI after increased pain following 8 months leading to a new repair of the medial meniscus. Pt also reports that she was having lateral knee pain prior to surgery, reports that the ligament is soft. She also has arthritis. Pt also reports R hip and rump pain. No complications during surgery. Pt just removed bandages this morning; reports that she can shower now and reports that she is leaving her stitches uncovered. No stairs except to get into garage, rail; does not go in that way. Lives alone Prior Treatments and Tests PT Sep-December/2022 for same condition with good results Treatment Goals Patient/Caregiver Goals stronger, no pain or discomfort Prior Functional Status Baseline Function- Gait walk 3-5 mi day, 4x/week on unstable surface on her property Baseline Function- Other personal financial planner every Wednesday (Ansley Araujo): gentle and balance, core Current Functional Impairments (Reported) Functional Limitations- Other personal financial planner on hold right now PT-OP-C Subjective Start: 05/22/24 11:16 Freq: Status: Active Protocol: Document 06/02/24 08:16 NM (Rec: 06/02/24 09:02 NM [id number]) OP-PT Subjective Patient Comments Patient Comments Pt reports knee is achy but denies pain. States that exercises are going well and feel like everything is working. Reports that the do cause aching in anterior knee and lateral knee. She got her stitches out on Wednesday, reports that PA said everything looks good. [place] good after last session, especially with manual therapy . After evaluation, pt was sweeping her driveway, she felt a lot of pain following picking up her sweepings. States starting at 6/10 pain PT-OP-D Balance Start: 05/22/24 11:16 Freq: Status: Active Protocol: Document 05/22/24 11:17 NM (Rec: 05/22/24 12:25 NM [id number]) Balance Tests Romberg Romberg 30 sec Single Limb Standing Single Limb- Right 2 sec Single Limb- Left 10 sec Tandem Tandem Standing 8 sec PT-OP-E Functional Tests Start: 05/22/24 11:16 Freq: Status: Active Protocol: Document 05/22/24 11:17 NM (Rec: 05/22/24 12:25 NM [id number]) Functional Tests Five Times Sit to Stand Test Score 16 seconds Comments no pain; no UE assist PT-OP-F Manual Assessment Start: 05/22/24 11:16 Freq: Status: Active Protocol: Document 05/22/24 11:17 NM (Rec: 05/22/24 12:25 NM [id number]) Manual Assessments Soft Tissue Assessment Soft Tissue Mobility Assessment Tightness of R heel cords, hamstrings Joint Mobility Assessment Joint Mobility Assessment Mild R knee hyperextension, decreased ankle mobility PT-OP-G Mobility & Gait Start: 05/22/24 11:16 Freq: Status: Active Protocol: Document 05/22/24 11:17 NM (Rec: 05/22/24 12:25 NM [id number]) OP Gait Assessment Gait Gait Assistance Required: Standby Assistance Distance (Feet) 150 Assistive Devices Assistive Device None Gait Deviations General Gait Pattern Antalgic Factors Limiting Gait Function Factors Limiting Gait Function Decreased Activity Tolerance, Decreased Strength,Limited Range of Motion,Pain Comments Gait Comments Toe in at R hip. Demos decrease in quad strength with slight trunk/hip flex with R stance PT-OP-H Neuro Start: 05/22/24 11:16 Freq: Status: Active Protocol: Document 05/22/24 11:17 NM (Rec: 05/22/24 12:25 NM [id number]) Sensation Evaluation Comments Summary Comments BLE intact to light touch sensation; no numbness or decreased sensation reported PT-OP-J Posture/Palpation/Skin Start: 05/22/24 11:16 Freq: Status: Active Protocol: Document 05/22/24 11:17 NM (Rec: 05/22/24 12:25 NM [id number]) Posture Evaluation Position Standing Head/C-Spine Posture Forward Head T-Spine Posture Increased Kyphosis L-Spine Posture Fixed Scoliosis on (L) Hip Posture (L) Internally Rotated,(R) Internally Rotated Patellar Posture (L) Superior,(R) Superior Comments Posture Comments mild hyperextension of R knee Palpation Assessment Location R knee Palpation Details Tenderness along posterior knee near hamstrings, lateral joint line No tenderness along patella, quad, hip flexors, lateral hip , medial joint line Skin Assessment Circumference Measurement R knee Location patellar: 38 cm; calf 33 cm Incisional Assessment Incision Appearance/Comments Stitches intact. Over lateral incision, pt has small opening but no discharge or bleeding. Pt reports that was present when she took off wrappings this morning PT-OP-K Range of Motion Start: 05/22/24 11:16 Freq: Status: Active Protocol: Document 05/22/24 11:17 NM (Rec: 05/22/24 12:25 NM [id number]) Knee Goniometric Range of Motion Knee Right Flexion Active (degrees) 85 Extension Active (degrees) 1 Left Flexion Active (degrees) 123 Extension Active (degrees) 1 PT-OP-M Strength Start: 05/22/24 11:16 Freq: Status: Active Protocol: Document 05/22/24 11:17 NM (Rec: 05/22/24 12:25 NM [id number]) Hip Strength Hip Manual Muscle Testing Right Flexion (L2) 4- Good- Extension (S1) 3+ Fair+ Abduction 3+ Fair+ Adduction 4- Good- Left Flexion (L2) 4 Good Extension (S1) 4 Good Abduction 4 Good Adduction 4 Good Knee Strength Knee Manual Muscle Testing Right Flexion (S2) 3 Fair Extension (L3) 3 Fair Comments not formally tested due to surgical repair, but able to perform seated against gravity without resistance Left Flexion (S2) 4 Good Extension (L3) 4 Good Ankle/Foot Strength Ankle and Foot Manual Muscle Testing Right Dorsiflexion (L4) 4 Good Plantarflexion (S1) 4 Good Comments tested in sitting Left Dorsiflexion (L4) 4 Good Plantarflexion (S1) 4 Good Comments tested in sitting PT-OP-Q Treatments Start: 05/22/24 11:16 Freq: Status: Active Protocol: Document 06/02/24 08:16 NM (Rec: 06/02/24 09:02 NM [id number]) Therapeutic Exercises Supine Exercises SLR Supine Exercise Name trialed Side right Comments limited ROM; good quad act but challenging, small lag SAQ Side right Equipment Used foam roller under LE Reps/Minutes 15x2 hold Comments reports mild lateral knee ache over scar heel slides Supine Exercise Name on orange sammarinese ball Side right Equipment Used L assist R Reps/Minutes 10 Comments limited ROM, reports pulling over lateral incision Sidelying Exercises hip abduction Side right Reps/Minutes 2x10 Comments cued for for clamshell Side right Reps/Minutes 5 Comments challenged with maintaining neutral hip Sitting Exercises LAQ Side right Reps/Minutes 2x10 x2 Comments full ROM Standing Exercises squat Standing Exercise Name minisquat Side bilateral Equipment Used chair behind pt for target Reps/Minutes 2x10 Comments minimal depth to protect healing repair Manual Therapy Treatment Consent Patient gave verbal consent for manual Yes treatment Soft Tissue Mobilization right knee Body Location HS, quad, med and lat knee areas of increased tissue density, dec tissue mo Mobilization Type Cross-Friction,Rolling,Other Intensity/Depth Moderate Body Position Hooklying Comments Avoiding healing scar tissue. Tenderness along R lateral knee near incision but reduced with superficial mobilization along area. Moderate for all other locations, increased restriction of hamstrings PT-OP-T Assessment and Plan Start: 05/22/24 11:16 Freq: Status: Active Protocol: Document 06/02/24 08:16 NM (Rec: 06/02/24 09:02 NM [id number]) Physical Therapy Assessment Goals 5 Impairment currently not performing an HEP; will need to return to exercise w/ job trainer Short Term Goal (STG) Pt will report compliance with HEP 3x/wk in order to maximize progression with PT and promote independence with exercise STG Duration 3 weeks Penitentiary Goal (LTG) Pt will report compliance with HEP at least 3x/wk for maintenance program and/or will be able to return to weekly exercise with job trainer if appropriate LTG Duration 12 weeks 4 Impairment LEFS 40/80 Impairment . Penitentiary Goal (LTG) Pt will improve LEFS >50/80 (1 MCID) in order to demonstrate improvements in symptom management and activity tolerance LTG Duration 12 weeks 3 Impairment ambulation Impairment . Short Term Goal (STG) Pt will normalize gait mechanics for community distances during 6 MWT in order to demonstrate improvements in R knee/hip strength and ROM STG Duration 6 weeks Elevator Troubleshooter Goal (LTG) Pt will report that she is able to ambulate on unstable surfaces around her property for at least 1 mile without increase in R knee pain in order to demonstrate improvements in gait, pain management and activity tolerance LTG Duration 12 weeks 2 Impairment strength R hip 3+ to 4-/5 and knee 3/5 Impairment . Short Term Goal (STG) Pt will improve R hip and knee strength to at least 4/5 in order to demonstrate increased strength required for ambulation and ADLs STG Duration 8 weeks Elevator Troubleshooter Goal (LTG) Pt will improve R hip and knee strength to at least 4+/5 in order to demonstrate increased strength required for ambulation and ADLs LTG Duration 12 weeks 1 Impairment R knee flexion ROM 85 deg flex to 1 deg ext Impairment . Short Term Goal (STG) Pt will improve R knee flexion AROM to at least 100 deg in order to demonstrate improved flexion ROM for gait, stairs, and transfers STG Duration 6 weeks Elevator Troubleshooter Goal (LTG) Pt will improve R knee flexion AROM to at least 120 deg and maintain 1 deg of extension or less in order to demonstrate improved ROM for gait, stairs, and transfers LTG Duration 12 weeks Assessment Summary Assessment Pt is currently 2 weeks and 4 days post op. Her ROM is lacking lacking 2 deg extension and 103 deg flexion of R knee. Trialed SLR but pt still has small extensor lag. Able to progress to LAQ, full ROM without resistance; when pt sits more forward on plinth , she does not have any anterior knee pain by incision . Most limited in R knee flexion, partially due to precautions following repair. Limited for both heels slides on ball and with minisquats. Moderate cueing required for squats and hip abduction; pt requires fewer cues for form with hip abduction vs clams. Pt reports 3/10 R knee pain at end of session, a reduction from 6/10. Pt would benefit from skilled PT for R knee mobility and strengthening per protocol in order to improve gait, activity tolerance, and ability to perform ADLs. Physical Therapy Plan Frequency and Duration Frequency of Treatment 1-2x/wk Duration of treatment (weeks) 12 Plan of Care Start Date 05/22/24 Plan of Care End Date 08/18/24 Therapeutic Interventions Therapeutic Interventions Balance Training,Gait Training ,Home Exercise Program,Joint Mobilizations,Manual Therapy, Neuromuscular Re-education, Orthotic/Prosthetic Management ,Patient/Caregiver Education, Self-Care/Home Management, Sensory Integration,Soft Tissue Mobilization,Taping, Therapeutic Activities, Therapeutic Exercises Modalities Cold Pack/Ice Massage,Electric Stimulation,Hot Packs, Ultrasound Next Visit Focus/Plan Next Note Type Treatment Note Next Visit Plan Review HEP. Normalize gait mechanics. Heel slides w/i tolerance and precautions vs minisquat, LAQ. Retrial SLR, sidelying hip abduction vs clam, prone HSC. hurdles, stance time, TKE, Focus on balance next session.
--- NOTE | 2024-06-05 16:38 | PT.OTN ---
Current Diagnoses Pain in right knee (06/05/24) Stiffness of right knee, not elsewhere classified (06/05/24) Other lack of coordination (06/05/24) Weakness (06/05/24) Physical Therapy Treatment Note PT-OP-A Visit Information Start: 05/22/24 11:16 Freq: Status: Active Protocol: Document 06/05/24 08:10 AB (Rec: 06/05/24 09:02 AB [id number]) Out-Patient Physical Therapy Visit Information Visit Information Visit Type Treatment Note Visit Start Time 08:16 Visit Stop Time 09:00 Visit Number 4 Number of CARE MANAGEMENT ASSISTANT Visits 1 Evaluation Information Evaluation Date 05/22/24 Precautions Precautions s/p R knee arthroscopy ( meniscal repair) DOS 05/15/24 limit knee flex PT-OP-B Current Condition Start: 05/22/24 11:16 Freq: Status: Active Protocol: Document 05/22/24 11:17 NM (Rec: 05/22/24 12:25 NM [id number]) Current Condition History of Current Condition Onset Date DOS 05/15/24 Current Complaints pain, limited mobility, balance History of Current Condition Pt report that she had meniscus surgery on R knee 05/15 . Pt is not using any AD, states used crutches on Wednesday and a cane on Wednesday. She lives in a single story home. Reports no difficulty with balance. She gets her stitches out on 05/30. She saw Xavi Galvan MD. Pt reports no restrictions, no hot tub for a month. She reports that she was having pain in her leg since 2016 following a fall while walking and fell on her L side. She reports that she had a repair in 2022, then had another MRI after increased pain following 8 months leading to a new repair of the medial meniscus. Pt also reports that she was having lateral knee pain prior to surgery, reports that the ligament is soft. She also has arthritis. Pt also reports R hip and rump pain. No complications during surgery. Pt just removed bandages this morning; reports that she can shower now and reports that she is leaving her stitches uncovered. No stairs except to get into garage, rail; does not go in that way. Lives alone Prior Treatments and Tests PT Sep-December/2022 for same condition with good results Treatment Goals Patient/Caregiver Goals stronger, no pain or discomfort Prior Functional Status Baseline Function- Gait walk 3-5 mi day, 4x/week on unstable surface on her property Baseline Function- Other personal financial counselor every Wednesday (Ansley Araujo): gentle and balance, core Current Functional Impairments (Reported) Functional Limitations- Other personal financial counselor on hold right now PT-OP-C Subjective Start: 05/22/24 11:16 Freq: Status: Active Protocol: Document 06/05/24 08:10 AB (Rec: 06/05/24 09:02 AB [id number]) OP-PT Subjective Patient Comments Patient Comments Patient rates ache 4/10 [place]ilene patellar area right knee, ambulates into session without device antalgic pattern. Patient reports no pain with mini squat exercises at home. AROM 0 ( at rest with ankle supported) to 109 deg right knee. SLS right LE without UE use 6 sec PT-OP-D Balance Start: 05/22/24 11:16 Freq: Status: Active Protocol: Document 05/22/24 11:17 NM (Rec: 05/22/24 12:25 NM [id number]) Balance Tests Romberg Romberg 30 sec Single Limb Standing Single Limb- Right 2 sec Single Limb- Left 10 sec Tandem Tandem Standing 8 sec PT-OP-E Functional Tests Start: 05/22/24 11:16 Freq: Status: Active Protocol: Document 05/22/24 11:17 NM (Rec: 05/22/24 12:25 NM [id number]) Functional Tests Five Times Sit to Stand Test Score 16 seconds Comments no pain; no UE assist PT-OP-F Manual Assessment Start: 05/22/24 11:16 Freq: Status: Active Protocol: Document 05/22/24 11:17 NM (Rec: 05/22/24 12:25 NM [id number]) Manual Assessments Soft Tissue Assessment Soft Tissue Mobility Assessment Tightness of R heel cords, hamstrings Joint Mobility Assessment Joint Mobility Assessment Mild R knee hyperextension, decreased ankle mobility PT-OP-G Mobility & Gait Start: 05/22/24 11:16 Freq: Status: Active Protocol: Document 05/22/24 11:17 NM (Rec: 05/22/24 12:25 NM [id number]) OP Gait Assessment Gait Gait Assistance Required: Standby Assistance Distance (Feet) 150 Assistive Devices Assistive Device None Gait Deviations General Gait Pattern Antalgic Factors Limiting Gait Function Factors Limiting Gait Function Decreased Activity Tolerance, Decreased Strength,Limited Range of Motion,Pain Comments Gait Comments Toe in at R hip. Demos decrease in quad strength with slight trunk/hip flex with R stance PT-OP-H Neuro Start: 05/22/24 11:16 Freq: Status: Active Protocol: Document 05/22/24 11:17 NM (Rec: 05/22/24 12:25 NM [id number]) Sensation Evaluation Comments Summary Comments BLE intact to light touch sensation; no numbness or decreased sensation reported PT-OP-J Posture/Palpation/Skin Start: 05/22/24 11:16 Freq: Status: Active Protocol: Document 05/22/24 11:17 NM (Rec: 05/22/24 12:25 NM [id number]) Posture Evaluation Position Standing Head/C-Spine Posture Forward Head T-Spine Posture Increased Kyphosis L-Spine Posture Fixed Scoliosis on (L) Hip Posture (L) Internally Rotated,(R) Internally Rotated Patellar Posture (L) Superior,(R) Superior Comments Posture Comments mild hyperextension of R knee Palpation Assessment Location R knee Palpation Details Tenderness along posterior knee near hamstrings, lateral joint line No tenderness along patella, quad, hip flexors, lateral hip , medial joint line Skin Assessment Circumference Measurement R knee Location patellar: 38 cm; calf 33 cm Incisional Assessment Incision Appearance/Comments Stitches intact. Over lateral incision, pt has small opening but no discharge or bleeding. Pt reports that was present when she took off wrappings this morning PT-OP-K Range of Motion Start: 05/22/24 11:16 Freq: Status: Active Protocol: Document 05/22/24 11:17 NM (Rec: 05/22/24 12:25 NM [id number]) Knee Goniometric Range of Motion Knee Right Flexion Active (degrees) 85 Extension Active (degrees) 1 Left Flexion Active (degrees) 123 Extension Active (degrees) 1 PT-OP-M Strength Start: 05/22/24 11:16 Freq: Status: Active Protocol: Document 05/22/24 11:17 NM (Rec: 05/22/24 12:25 NM [id number]) Hip Strength Hip Manual Muscle Testing Right Flexion (L2) 4- Good- Extension (S1) 3+ Fair+ Abduction 3+ Fair+ Adduction 4- Good- Left Flexion (L2) 4 Good Extension (S1) 4 Good Abduction 4 Good Adduction 4 Good Knee Strength Knee Manual Muscle Testing Right Flexion (S2) 3 Fair Extension (L3) 3 Fair Comments not formally tested due to surgical repair, but able to perform seated against gravity without resistance Left Flexion (S2) 4 Good Extension (L3) 4 Good Ankle/Foot Strength Ankle and Foot Manual Muscle Testing Right Dorsiflexion (L4) 4 Good Plantarflexion (S1) 4 Good Comments tested in sitting Left Dorsiflexion (L4) 4 Good Plantarflexion (S1) 4 Good Comments tested in sitting PT-OP-Q Treatments Start: 05/22/24 11:16 Freq: Status: Active Protocol: Document 06/05/24 08:10 AB (Rec: 06/05/24 09:02 AB [id number]) Therapeutic Exercises Supine Exercises SLR Side right Reps/Minutes X10 Comments slight quad lag heel slides Supine Exercise Name 1. on green austrian ball 2.AROM HS Side right Reps/Minutes X2 min then X 10 AROM Comments VC to perform in pain free range Sidelying Exercises hip abduction Side right Reps/Minutes 2x10 Comments cued for for Sitting Exercises seated hip abduction with band Side bilateral Resistance level 4 blue band to HEP Reps/Minutes one min X 1 Standing Exercises squat Standing Exercise Name minisquat, VC and mirror to avoid hip add, estela for pain Side bilateral Equipment Used chair behind pt for target Reps/Minutes 2x10 Comments minimal depth to protect healing repair Manual Therapy Treatment Soft Tissue Mobilization right knee Body Location quad, lat and med knee, Mobilization Type Cross-Friction,Myofascial Release,Rolling,Other Body Position Hooklying Comments Avoiding healing scar tissue, also Superficial Neuro Re-Education Treatment Balance Activities step up taps Equipment from foam to 6 inch step Reps/Duration X10 Comments CGA hands above bars Tandem stepping Reps/Duration 10 ft X 6 CGA Comments hands above bars Hurdles Reps/Duration X3 10 feet Comments CGA SLS Details CGA right Reps/Duration X2 PT-OP-T Assessment and Plan Start: 05/22/24 11:16 Freq: Status: Active Protocol: Document 06/05/24 08:10 AB (Rec: 06/05/24 09:02 AB [id number]) Physical Therapy Assessment Goals 5 Impairment currently not performing an HEP; will need to return to exercise w/ sales trainer Short Term Goal (STG) Pt will report compliance with HEP 3x/wk in order to maximize progression with PT and promote independence with exercise STG Duration 3 weeks Care Home Goal (LTG) Pt will report compliance with HEP at least 3x/wk for maintenance program and/or will be able to return to weekly exercise with sales trainer if appropriate LTG Duration 12 weeks 4 Impairment LEFS 40/80 Impairment . Fire Safety Director Goal (LTG) Pt will improve LEFS >50/80 (1 MCID) in order to demonstrate improvements in symptom management and activity tolerance LTG Duration 12 weeks 3 Impairment ambulation Impairment . Short Term Goal (STG) Pt will normalize gait mechanics for community distances during 6 MWT in order to demonstrate improvements in R knee/hip strength and ROM STG Duration 6 weeks Care Home Goal (LTG) Pt will report that she is able to ambulate on unstable surfaces around her property for at least 1 mile without increase in R knee pain in order to demonstrate improvements in gait, pain management and activity tolerance LTG Duration 12 weeks 2 Impairment strength R hip 3+ to 4-/5 and knee 3/5 Impairment . Short Term Goal (STG) Pt will improve R hip and knee strength to at least 4/5 in order to demonstrate increased strength required for ambulation and ADLs STG Duration 8 weeks Fire Safety Director Goal (LTG) Pt will improve R hip and knee strength to at least 4+/5 in order to demonstrate increased strength required for ambulation and ADLs LTG Duration 12 weeks 1 Impairment R knee flexion ROM 85 deg flex to 1 deg ext Impairment . Short Term Goal (STG) Pt will improve R knee flexion AROM to at least 100 deg in order to demonstrate improved flexion ROM for gait, stairs, and transfers STG Duration 6 weeks Care Home Goal (LTG) Pt will improve R knee flexion AROM to at least 120 deg and maintain 1 deg of extension or less in order to demonstrate improved ROM for gait, stairs, and transfers LTG Duration 12 weeks Assessment Summary Assessment SLS right LE 15 seconds without UE use post glute med activation. Patient rates pain 3-4/10 end of session right knee. AROM right knee 108 deg post heel slide and manual therapy. Physical Therapy Plan Frequency and Duration Frequency of Treatment 1-2x/wk Duration of treatment (weeks) 12 Plan of Care Start Date 05/22/24 Plan of Care End Date 08/18/24 Therapeutic Interventions Therapeutic Interventions Balance Training,Gait Training ,Home Exercise Program,Joint Mobilizations,Manual Therapy, Neuromuscular Re-education, Orthotic/Prosthetic Management ,Patient/Caregiver Education, Self-Care/Home Management, Sensory Integration,Soft Tissue Mobilization,Taping, Therapeutic Activities, Therapeutic Exercises Modalities Cold Pack/Ice Massage,Electric Stimulation,Hot Packs, Ultrasound Next Visit Focus/Plan Next Note Type Treatment Note Next Visit Plan Review HEP. Normalize gait mechanics. Heel slides w/i tolerance and precautions vs minisquat, LAQ. Retrial sidelying hip abduction vs clam, prone HSC. hurdles, stance time, TKE, Focus on balance next session.
--- NOTE | 2024-06-09 10:27 | PT.OTN ---
Current Diagnoses Pain in right knee (06/09/24) Stiffness of right knee, not elsewhere classified (06/09/24) Other lack of coordination (06/09/24) Weakness (06/09/24) Physical Therapy Treatment Note PT-OP-A Visit Information Start: 05/22/24 11:16 Freq: Status: Active Protocol: Document 06/09/24 08:10 NM (Rec: 06/09/24 09:02 NM [id number]) Out-Patient Physical Therapy Visit Information Visit Information Visit Type Treatment Note Visit Start Time 08:17 Visit Stop Time 09:00 Visit Number 5 Evaluation Information Evaluation Date 05/22/24 Precautions Precautions s/p R knee arthroscopy ( meniscal repair) DOS 05/15/24 limit knee flex PT-OP-B Current Condition Start: 05/22/24 11:16 Freq: Status: Active Protocol: Document 05/22/24 11:17 NM (Rec: 05/22/24 12:25 NM [id number]) Current Condition History of Current Condition Onset Date DOS 05/15/24 Current Complaints pain, limited mobility, balance History of Current Condition Pt report that she had meniscus surgery on R knee 05/15 . Pt is not using any AD, states used crutches on Wednesday and a cane on Wednesday. She lives in a single story home. Reports no difficulty with balance. She gets her stitches out on 05/30. She saw Xavi Galvan MD. Pt reports no restrictions, no hot tub for a month. She reports that she was having pain in her leg since 2016 following a fall while walking and fell on her L side. She reports that she had a repair in 2022, then had another MRI after increased pain following 8 months leading to a new repair of the medial meniscus. Pt also reports that she was having lateral knee pain prior to surgery, reports that the ligament is soft. She also has arthritis. Pt also reports R hip and rump pain. No complications during surgery. Pt just removed bandages this morning; reports that she can shower now and reports that she is leaving her stitches uncovered. No stairs except to get into garage, rail; does not go in that way. Lives alone Prior Treatments and Tests PT Sep-December/2022 for same condition with good results Treatment Goals Patient/Caregiver Goals stronger, no pain or discomfort Prior Functional Status Baseline Function- Gait walk 3-5 mi day, 4x/week on unstable surface on her property Baseline Function- Other personal banking assistant every Wednesday (Ansley Araujo): gentle and balance, core Current Functional Impairments (Reported) Functional Limitations- Other personal banking assistant on hold right now PT-OP-C Subjective Start: 05/22/24 11:16 Freq: Status: Active Protocol: Document 06/09/24 08:10 NM (Rec: 06/09/24 09:02 NM [id number]) OP-PT Subjective Patient Comments Patient Comments Pt reports 5/10 R knee pain, per-patellar and subpatellar discomfort, especially along outside. 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 PT-OP-D Balance Start: 05/22/24 11:16 Freq: Status: Active Protocol: Document 05/22/24 11:17 NM (Rec: 05/22/24 12:25 NM [id number]) Balance Tests Romberg Romberg 30 sec Single Limb Standing Single Limb- Right 2 sec Single Limb- Left 10 sec Tandem Tandem Standing 8 sec PT-OP-E Functional Tests Start: 05/22/24 11:16 Freq: Status: Active Protocol: Document 05/22/24 11:17 NM (Rec: 05/22/24 12:25 NM [id number]) Functional Tests Five Times Sit to Stand Test Score 16 seconds Comments no pain; no UE assist PT-OP-F Manual Assessment Start: 05/22/24 11:16 Freq: Status: Active Protocol: Document 05/22/24 11:17 NM (Rec: 05/22/24 12:25 NM [id number]) Manual Assessments Soft Tissue Assessment Soft Tissue Mobility Assessment Tightness of R heel cords, hamstrings Joint Mobility Assessment Joint Mobility Assessment Mild R knee hyperextension, decreased ankle mobility PT-OP-G Mobility & Gait Start: 05/22/24 11:16 Freq: Status: Active Protocol: Document 05/22/24 11:17 NM (Rec: 05/22/24 12:25 NM [id number]) OP Gait Assessment Gait Gait Assistance Required: Standby Assistance Distance (Feet) 150 Assistive Devices Assistive Device None Gait Deviations General Gait Pattern Antalgic Factors Limiting Gait Function Factors Limiting Gait Function Decreased Activity Tolerance, Decreased Strength,Limited Range of Motion,Pain Comments Gait Comments Toe in at R hip. Demos decrease in quad strength with slight trunk/hip flex with R stance PT-OP-H Neuro Start: 05/22/24 11:16 Freq: Status: Active Protocol: Document 05/22/24 11:17 NM (Rec: 05/22/24 12:25 NM [id number]) Sensation Evaluation Comments Summary Comments BLE intact to light touch sensation; no numbness or decreased sensation reported PT-OP-J Posture/Palpation/Skin Start: 05/22/24 11:16 Freq: Status: Active Protocol: Document 05/22/24 11:17 NM (Rec: 05/22/24 12:25 NM [id number]) Posture Evaluation Position Standing Head/C-Spine Posture Forward Head T-Spine Posture Increased Kyphosis L-Spine Posture Fixed Scoliosis on (L) Hip Posture (L) Internally Rotated,(R) Internally Rotated Patellar Posture (L) Superior,(R) Superior Comments Posture Comments mild hyperextension of R knee Palpation Assessment Location R knee Palpation Details Tenderness along posterior knee near hamstrings, lateral joint line No tenderness along patella, quad, hip flexors, lateral hip , medial joint line Skin Assessment Circumference Measurement R knee Location patellar: 38 cm; calf 33 cm Incisional Assessment Incision Appearance/Comments Stitches intact. Over lateral incision, pt has small opening but no discharge or bleeding. Pt reports that was present when she took off wrappings this morning PT-OP-K Range of Motion Start: 05/22/24 11:16 Freq: Status: Active Protocol: Document 05/22/24 11:17 NM (Rec: 05/22/24 12:25 NM [id number]) Knee Goniometric Range of Motion Knee Right Flexion Active (degrees) 85 Extension Active (degrees) 1 Left Flexion Active (degrees) 123 Extension Active (degrees) 1 PT-OP-M Strength Start: 05/22/24 11:16 Freq: Status: Active Protocol: Document 05/22/24 11:17 NM (Rec: 05/22/24 12:25 NM [id number]) Hip Strength Hip Manual Muscle Testing Right Flexion (L2) 4- Good- Extension (S1) 3+ Fair+ Abduction 3+ Fair+ Adduction 4- Good- Left Flexion (L2) 4 Good Extension (S1) 4 Good Abduction 4 Good Adduction 4 Good Knee Strength Knee Manual Muscle Testing Right Flexion (S2) 3 Fair Extension (L3) 3 Fair Comments not formally tested due to surgical repair, but able to perform seated against gravity without resistance Left Flexion (S2) 4 Good Extension (L3) 4 Good Ankle/Foot Strength Ankle and Foot Manual Muscle Testing Right Dorsiflexion (L4) 4 Good Plantarflexion (S1) 4 Good Comments tested in sitting Left Dorsiflexion (L4) 4 Good Plantarflexion (S1) 4 Good Comments tested in sitting PT-OP-Q Treatments Start: 05/22/24 11:16 Freq: Status: Active Protocol: Document 06/09/24 08:10 NM (Rec: 06/09/24 09:02 NM [id number]) Therapeutic Exercises Supine Exercises SLR Side right Reps/Minutes 2x10 Comments slight quad lag w/ return until cue to hold until rest; improved ROM heel slides Supine Exercise Name AROM HS Side right Reps/Minutes 10 Comments post manual Sitting Exercises LAQ Side right Reps/Minutes 2x10 x2 Comments full ROM Standing Exercises heel raise Side bilateral Equipment Used B hand support Reps/Minutes 30 step up Standing Exercise Name 4 step Side right Equipment Used no hand support Reps/Minutes 10 ea Comments cued for form initially, pelvic stability squat Standing Exercise Name minisquat, VC and mirror to avoid hip add, estela for pain Side bilateral Resistance level 2 band at thighs Equipment Used chair behind pt for target Reps/Minutes 2x10 Comments minimal depth to protect healing repair; cued hip hinge Gait Training Gait Activity gait mechanics Device Used none Level of Assistance close SBA Treatment Focus normalize mechanics, heel>toe, TKE, knee flex w/ swing Comments Demos stiffness with heel strike, still has shorter L stance phase but more equal with mirror for feedback. Hits with L midfoot, cued to trial heel toe pattern which reduces overal antalgic patterning. demos knee flex but min hip flex with swing, cued DF for foot clearance x180 ft w/ verbal feedback 4x25 ft w/ visual and verbal feedback hurdles Device Used none Level of Assistance close SBA with prn CGA Surface stable Treatment Focus mechanics, heel > toe, propulsion, WB, stance and TKE , knee/hip flex swing Comments 1. fwd R stepping over 1 juan ramon for knee flex/heel strike 2. fwd R stepping 1st 3 sets x 6 hurdles for knee flex/heel strike/TKE 3. fwd reciprocal pattern Manual Therapy Treatment Consent Patient gave verbal consent for manual Yes treatment Soft Tissue Mobilization right knee Body Location quad, lat and med knee, HS Mobilization Type Cross-Friction,Myofascial Release,Rolling,Other Body Position Hooklying Comments Tightness of hamstring, more restricted than quad, also tender. Monitored for pain Pre-mob: 0 deg ext, 103 deg> 115 deg post manual Joint Mobilizations R knee Joint tibiofemoral, patellar Direction AP, sup/inf/lat/med Grade II Body Position Supine Reps/Duration 10 ea Comments Monitored for pain, tightness reported at anterior knee. For pain reduction, not improved mobility although demos pain relief PT-OP-T Assessment and Plan Start: 05/22/24 11:16 Freq: Status: Active Protocol: Document 06/09/24 08:10 NM (Rec: 06/09/24 09:02 NM [id number]) Physical Therapy Assessment Goals 5 Impairment currently not performing an HEP; will need to return to exercise w/ resident athletic trainer Short Term Goal (STG) Pt will report compliance with HEP 3x/wk in order to maximize progression with PT and promote independence with exercise STG Duration 3 weeks Half-Way Goal (LTG) Pt will report compliance with HEP at least 3x/wk for maintenance program and/or will be able to return to weekly exercise with resident athletic trainer if appropriate LTG Duration 12 weeks 4 Impairment LEFS 40/80 Impairment . Railroad Detective Goal (LTG) Pt will improve LEFS >50/80 (1 MCID) in order to demonstrate improvements in symptom management and activity tolerance LTG Duration 12 weeks 3 Impairment ambulation Impairment . Short Term Goal (STG) Pt will normalize gait mechanics for community distances during 6 MWT in order to demonstrate improvements in R knee/hip strength and ROM 06/09/24: progressing with gait mechanics on hurdles and on level surfaces STG Duration 6 weeks Railroad Detective Goal (LTG) Pt will report that she is able to ambulate on unstable surfaces around her property for at least 1 mile without increase in R knee pain in order to demonstrate improvements in gait, pain management and activity tolerance LTG Duration 12 weeks 2 Impairment strength R hip 3+ to 4-/5 and knee 3/5 Impairment . Short Term Goal (STG) Pt will improve R hip and knee strength to at least 4/5 in order to demonstrate increased strength required for ambulation and ADLs STG Duration 8 weeks Half-Way Goal (LTG) Pt will improve R hip and knee strength to at least 4+/5 in order to demonstrate increased strength required for ambulation and ADLs LTG Duration 12 weeks 1 Impairment R knee flexion ROM 85 deg flex to 1 deg ext Impairment . Short Term Goal (STG) Pt will improve R knee flexion AROM to at least 100 deg in order to demonstrate improved flexion ROM for gait, stairs, and transfers 06/09/24: 103 deg flexion pre manual , 115 deg post manual STG Duration 6 weeks PROGRESSING Railroad Detective Goal (LTG) Pt will improve R knee flexion AROM to at least 120 deg and maintain 1 deg of extension or less in order to demonstrate improved ROM for gait, stairs, and transfers LTG Duration 12 weeks Assessment Summary Assessment Pt is currently 3 weeks post op s/p R meniscectomy. She has 0 deg R knee extension; R knee flexion 103 deg at start of session 115 deg at end of session. Emphasis on normalizing gait mechanics and reducing antalgic gait. Pt demos longer R stance time toward end of session; however , still has decreased hip/knee flexion during swing phase and decreased TKE during stance. Improved with visual and verbal cues. Trialed step ups on 4 step, no knee pain; cued for knee alignment. Band added to minisquat to improved abductor activation and promote more equal WB. Cued midline to limit L trunk lean and for hip hinge to promote more glute/limit max knee flexion. Pt would benefit from skilled PT for R knee flexibility and strengthening in order to improve gait, balance, and ability to participate in ADLs without limitation. Physical Therapy Plan Frequency and Duration Frequency of Treatment 1-2x/wk Duration of treatment (weeks) 12 Plan of Care Start Date 05/22/24 Plan of Care End Date 08/18/24 Therapeutic Interventions Therapeutic Interventions Balance Training,Gait Training ,Home Exercise Program,Joint Mobilizations,Manual Therapy, Neuromuscular Re-education, Orthotic/Prosthetic Management ,Patient/Caregiver Education, Self-Care/Home Management, Sensory Integration,Soft Tissue Mobilization,Taping, Therapeutic Activities, Therapeutic Exercises Modalities Cold Pack/Ice Massage,Electric Stimulation,Hot Packs, Ultrasound Next Visit Focus/Plan Next Note Type Treatment Note Next Visit Plan Normalize gait mechanics with hurdles, stance time Heel slides w/i tolerance. Cont add step up 4>6 depending on tolerance, Trial leg press over minisquat, add wt to LAQ if tole. cont sidelying hip abduction vs side step if not knee twist, prone HSC.. hurdles, stance time, TKE. Manual therapy to improve knee flex Balance and proprioception
--- NOTE | 2024-06-12 10:34 | PT.OTN ---
Current Diagnoses Pain in right knee (06/12/24) Stiffness of right knee, not elsewhere classified (06/12/24) Other lack of coordination (06/12/24) Weakness (06/12/24) Physical Therapy Treatment Note PT-OP-A Visit Information Start: 05/22/24 11:16 Freq: Status: Active Protocol: Document 06/12/24 08:53 AB (Rec: 06/12/24 10:33 AB [id number]) Out-Patient Physical Therapy Visit Information Visit Information Visit Type Treatment Note Visit Note Access Code [email or web address] Visit Start Time 09:46 Visit Stop Time 10:30 Visit Number 6 Number of TOUR ACTOR Visits 1 Evaluation Information Evaluation Date 05/22/24 Precautions Precautions s/p R knee arthroscopy ( meniscal repair) DOS 05/15/24 limit knee flex PT-OP-B Current Condition Start: 05/22/24 11:16 Freq: Status: Active Protocol: Document 05/22/24 11:17 NM (Rec: 05/22/24 12:25 NM [id number]) Current Condition History of Current Condition Onset Date DOS 05/15/24 Current Complaints pain, limited mobility, balance History of Current Condition Pt report that she had meniscus surgery on R knee 05/15 . Pt is not using any AD, states used crutches on Wednesday and a cane on Wednesday. She lives in a single story home. Reports no difficulty with balance. She gets her stitches out on 05/30. She saw Xavi Galvan MD. Pt reports no restrictions, no hot tub for a month. She reports that she was having pain in her leg since 2016 following a fall while walking and fell on her L side. She reports that she had a repair in 2022, then had another MRI after increased pain following 8 months leading to a new repair of the medial meniscus. Pt also reports that she was having lateral knee pain prior to surgery, reports that the ligament is soft. She also has arthritis. Pt also reports R hip and rump pain. No complications during surgery. Pt just removed bandages this morning; reports that she can shower now and reports that she is leaving her stitches uncovered. No stairs except to get into garage, rail; does not go in that way. Lives alone Prior Treatments and Tests PT Sep-December/2022 for same condition with good results Treatment Goals Patient/Caregiver Goals stronger, no pain or discomfort Prior Functional Status Baseline Function- Gait walk 3-5 mi day, 4x/week on unstable surface on her property Baseline Function- Other personal banking assistant every Wednesday (Ansley Gayle): gentle and balance, core Current Functional Impairments (Reported) Functional Limitations- Other personal banking assistant on hold right now PT-OP-C Subjective Start: 05/22/24 11:16 Freq: Status: Active Protocol: Document 06/12/24 08:53 AB (Rec: 06/12/24 10:33 AB [id number]) OP-PT Subjective Patient Comments Patient Comments Paitent rates knee pain an ache 2-310 ambulating into session without device. AROM right knee 0 to 109 flexion. PT-OP-D Balance Start: 05/22/24 11:16 Freq: Status: Active Protocol: Document 05/22/24 11:17 NM (Rec: 05/22/24 12:25 NM [id number]) Balance Tests Romberg Romberg 30 sec Single Limb Standing Single Limb- Right 2 sec Single Limb- Left 10 sec Tandem Tandem Standing 8 sec PT-OP-E Functional Tests Start: 05/22/24 11:16 Freq: Status: Active Protocol: Document 05/22/24 11:17 NM (Rec: 05/22/24 12:25 NM [id number]) Functional Tests Five Times Sit to Stand Test Score 16 seconds Comments no pain; no UE assist PT-OP-F Manual Assessment Start: 05/22/24 11:16 Freq: Status: Active Protocol: Document 05/22/24 11:17 NM (Rec: 05/22/24 12:25 NM [id number]) Manual Assessments Soft Tissue Assessment Soft Tissue Mobility Assessment Tightness of R heel cords, hamstrings Joint Mobility Assessment Joint Mobility Assessment Mild R knee hyperextension, decreased ankle mobility PT-OP-G Mobility & Gait Start: 05/22/24 11:16 Freq: Status: Active Protocol: Document 05/22/24 11:17 NM (Rec: 05/22/24 12:25 NM [id number]) OP Gait Assessment Gait Gait Assistance Required: Standby Assistance Distance (Feet) 150 Assistive Devices Assistive Device None Gait Deviations General Gait Pattern Antalgic Factors Limiting Gait Function Factors Limiting Gait Function Decreased Activity Tolerance, Decreased Strength,Limited Range of Motion,Pain Comments Gait Comments Toe in at R hip. Demos decrease in quad strength with slight trunk/hip flex with R stance PT-OP-H Neuro Start: 05/22/24 11:16 Freq: Status: Active Protocol: Document 05/22/24 11:17 NM (Rec: 05/22/24 12:25 NM [id number]) Sensation Evaluation Comments Summary Comments BLE intact to light touch sensation; no numbness or decreased sensation reported PT-OP-J Posture/Palpation/Skin Start: 05/22/24 11:16 Freq: Status: Active Protocol: Document 05/22/24 11:17 NM (Rec: 05/22/24 12:25 NM [id number]) Posture Evaluation Position Standing Head/C-Spine Posture Forward Head T-Spine Posture Increased Kyphosis L-Spine Posture Fixed Scoliosis on (L) Hip Posture (L) Internally Rotated,(R) Internally Rotated Patellar Posture (L) Superior,(R) Superior Comments Posture Comments mild hyperextension of R knee Palpation Assessment Location R knee Palpation Details Tenderness along posterior knee near hamstrings, lateral joint line No tenderness along patella, quad, hip flexors, lateral hip , medial joint line Skin Assessment Circumference Measurement R knee Location patellar: 38 cm; calf 33 cm Incisional Assessment Incision Appearance/Comments Stitches intact. Over lateral incision, pt has small opening but no discharge or bleeding. Pt reports that was present when she took off wrappings this morning PT-OP-K Range of Motion Start: 05/22/24 11:16 Freq: Status: Active Protocol: Document 05/22/24 11:17 NM (Rec: 05/22/24 12:25 NM [id number]) Knee Goniometric Range of Motion Knee Right Flexion Active (degrees) 85 Extension Active (degrees) 1 Left Flexion Active (degrees) 123 Extension Active (degrees) 1 PT-OP-M Strength Start: 05/22/24 11:16 Freq: Status: Active Protocol: Document 05/22/24 11:17 NM (Rec: 05/22/24 12:25 NM [id number]) Hip Strength Hip Manual Muscle Testing Right Flexion (L2) 4- Good- Extension (S1) 3+ Fair+ Abduction 3+ Fair+ Adduction 4- Good- Left Flexion (L2) 4 Good Extension (S1) 4 Good Abduction 4 Good Adduction 4 Good Knee Strength Knee Manual Muscle Testing Right Flexion (S2) 3 Fair Extension (L3) 3 Fair Comments not formally tested due to surgical repair, but able to perform seated against gravity without resistance Left Flexion (S2) 4 Good Extension (L3) 4 Good Ankle/Foot Strength Ankle and Foot Manual Muscle Testing Right Dorsiflexion (L4) 4 Good Plantarflexion (S1) 4 Good Comments tested in sitting Left Dorsiflexion (L4) 4 Good Plantarflexion (S1) 4 Good Comments tested in sitting PT-OP-Q Treatments Start: 05/22/24 11:16 Freq: Status: Active Protocol: Document 06/12/24 08:53 AB (Rec: 06/12/24 10:33 AB [id number]) Gym Equipment Shuttle Recovery Bilateral Squats Resistance 50# Shuttle Recovery Platform Stable Reps/Time 3 x 10 reps Therapeutic Exercises Supine Exercises SLR Side right Reps/Minutes X15 Comments Verbal cues to rest a moment between reps heel slides Supine Exercise Name 1. on green kenyan ball 2. AROM HS Side bilateral Comments 1. 2 min 2. X15 Sidelying Exercises clamshell Side right Resistance level one light blue band (HEP ) Reps/Minutes 10 Comments challenged with maintaining neutral hip Sitting Exercises LAQ Sitting Exercise Name HEP Side right Resistance light blue band Reps/Minutes X15X 2 Comments full ROM seated hip abduction with band Side bilateral Resistance level 4 blue band to HEP Reps/Minutes one min X 1 Standing Exercises HS curl Standing Exercise Name HEP Side bilateral Resistance level one band Reps/Minutes x15 Comments verbal and visual cues Manual Therapy Treatment Consent Patient gave verbal consent for manual Yes treatment Soft Tissue Mobilization right knee Body Location quad, lat and med knee Mobilization Type Cross-Friction,Myofascial Release,Rolling,Other Body Position Hooklying Comments areas of increased tissue density lateral knee and quad, decreased but not eliminated with manual therapy PT-OP-T Assessment and Plan Start: 05/22/24 11:16 Freq: Status: Active Protocol: Document 06/12/24 08:53 AB (Rec: 06/12/24 10:33 AB [id number]) Physical Therapy Assessment Goals 5 Impairment currently not performing an HEP; will need to return to exercise w/ whale trainer Short Term Goal (STG) Pt will report compliance with HEP 3x/wk in order to maximize progression with PT and promote independence with exercise STG Duration 3 weeks Detention Goal (LTG) Pt will report compliance with HEP at least 3x/wk for maintenance program and/or will be able to return to weekly exercise with whale trainer if appropriate LTG Duration 12 weeks 4 Impairment LEFS 40/80 Impairment . Detention Goal (LTG) Pt will improve LEFS >50/80 (1 MCID) in order to demonstrate improvements in symptom management and activity tolerance LTG Duration 12 weeks 3 Impairment ambulation Impairment . Short Term Goal (STG) Pt will normalize gait mechanics for community distances during 6 MWT in order to demonstrate improvements in R knee/hip strength and ROM 06/09/24: progressing with gait mechanics on hurdles and on level surfaces STG Duration 6 weeks Detention Goal (LTG) Pt will report that she is able to ambulate on unstable surfaces around her property for at least 1 mile without increase in R knee pain in order to demonstrate improvements in gait, pain management and activity tolerance LTG Duration 12 weeks 2 Impairment strength R hip 3+ to 4-/5 and knee 3/5 Impairment . Short Term Goal (STG) Pt will improve R hip and knee strength to at least 4/5 in order to demonstrate increased strength required for ambulation and ADLs STG Duration 8 weeks Fur Glosser Goal (LTG) Pt will improve R hip and knee strength to at least 4+/5 in order to demonstrate increased strength required for ambulation and ADLs LTG Duration 12 weeks 1 Impairment R knee flexion ROM 85 deg flex to 1 deg ext Impairment . Short Term Goal (STG) Pt will improve R knee flexion AROM to at least 100 deg in order to demonstrate improved flexion ROM for gait, stairs, and transfers 06/09/24: 103 deg flexion pre manual , 115 deg post manual STG Duration 6 weeks PROGRESSING Detention Goal (LTG) Pt will improve R knee flexion AROM to at least 120 deg and maintain 1 deg of extension or less in order to demonstrate improved ROM for gait, stairs, and transfers LTG Duration 12 weeks Assessment Summary Assessment 122 deg AROM right knee flexion post manual therapy and exercise. Patient comments she can feel it in the hip end of session. Physical Therapy Plan Frequency and Duration Frequency of Treatment 1-2x/wk Duration of treatment (weeks) 12 Plan of Care Start Date 05/22/24 Plan of Care End Date 08/18/24 Next Visit Focus/Plan Next Note Type Treatment Note Next Visit Plan Next session: recumbent bike Normalize gait mechanics with hurdles, stance time Heel slides w/i tolerance. Cont add step up 4>6 depending on tolerance, Trial leg press over minisquat, cont sidelying hip abduction vs side step if not knee twist, prone HSC.. hurdles, stance time, TKE. Manual therapy to improve knee flex Balance and proprioception
--- NOTE | 2024-06-12 15:34 | PT-OP ANOTE ---
PT called referring provider and asked for clarification regarding any knee flexion ROM precautions related to surgery as PT has not received any protocol or clarification from surgeon's office other than discharge information
--- NOTE | 2024-06-14 10:36 | PT.OTN ---
Current Diagnoses Pain in right knee (06/14/24) Stiffness of right knee, not elsewhere classified (06/14/24) Other lack of coordination (06/14/24) Weakness (06/14/24) Physical Therapy Treatment Note PT-OP-A Visit Information Start: 05/22/24 11:16 Freq: Status: Active Protocol: Document 06/14/24 08:04 AB (Rec: 06/14/24 10:35 AB [id number]) Out-Patient Physical Therapy Visit Information Visit Information Visit Type Treatment Note Visit Note Access Code [id number] Visit Start Time 09:46 Visit Stop Time 10:30 Visit Number 7 Number of PATTERN KEEPER Visits 1 Evaluation Information Evaluation Date 05/22/24 Precautions Precautions s/p R knee arthroscopy ( meniscal repair) DOS 05/15/24 limit knee flex PT-OP-B Current Condition Start: 05/22/24 11:16 Freq: Status: Active Protocol: Document 05/22/24 11:17 NM (Rec: 05/22/24 12:25 NM [id number]) Current Condition History of Current Condition Onset Date DOS 05/15/24 Current Complaints pain, limited mobility, balance History of Current Condition Pt report that she had meniscus surgery on R knee 05/15 . Pt is not using any AD, states used crutches on Wednesday and a cane on Wednesday. She lives in a single story home. Reports no difficulty with balance. She gets her stitches out on 05/30. She saw Xavi Galvan MD. Pt reports no restrictions, no hot tub for a month. She reports that she was having pain in her leg since 2016 following a fall while walking and fell on her L side. She reports that she had a repair in 2022, then had another MRI after increased pain following 8 months leading to a new repair of the medial meniscus. Pt also reports that she was having lateral knee pain prior to surgery, reports that the ligament is soft. She also has arthritis. Pt also reports R hip and rump pain. No complications during surgery. Pt just removed bandages this morning; reports that she can shower now and reports that she is leaving her stitches uncovered. No stairs except to get into garage, rail; does not go in that way. Lives alone Prior Treatments and Tests PT Sep-December/2022 for same condition with good results Treatment Goals Patient/Caregiver Goals stronger, no pain or discomfort Prior Functional Status Baseline Function- Gait walk 3-5 mi day, 4x/week on unstable surface on her property Baseline Function- Other net trainer every Wednesday (Ansley Araujo): gentle and balance, core Current Functional Impairments (Reported) Functional Limitations- Other net trainer on hold right now PT-OP-C Subjective Start: 05/22/24 11:16 Freq: Status: Active Protocol: Document 06/14/24 08:04 AB (Rec: 06/14/24 10:35 AB [id number]) OP-PT Subjective Patient Comments Patient Comments Pt rates right knee pain 0/10 end of session. AROM right knee 0 to 120. Patient report she was too busy to do all exercises due to houseguests. PT-OP-D Balance Start: 05/22/24 11:16 Freq: Status: Active Protocol: Document 05/22/24 11:17 NM (Rec: 05/22/24 12:25 NM [id number]) Balance Tests Romberg Romberg 30 sec Single Limb Standing Single Limb- Right 2 sec Single Limb- Left 10 sec Tandem Tandem Standing 8 sec PT-OP-E Functional Tests Start: 05/22/24 11:16 Freq: Status: Active Protocol: Document 05/22/24 11:17 NM (Rec: 05/22/24 12:25 NM [id number]) Functional Tests Five Times Sit to Stand Test Score 16 seconds Comments no pain; no UE assist PT-OP-F Manual Assessment Start: 05/22/24 11:16 Freq: Status: Active Protocol: Document 05/22/24 11:17 NM (Rec: 05/22/24 12:25 NM [id number]) Manual Assessments Soft Tissue Assessment Soft Tissue Mobility Assessment Tightness of R heel cords, hamstrings Joint Mobility Assessment Joint Mobility Assessment Mild R knee hyperextension, decreased ankle mobility PT-OP-G Mobility & Gait Start: 05/22/24 11:16 Freq: Status: Active Protocol: Document 05/22/24 11:17 NM (Rec: 05/22/24 12:25 NM [id number]) OP Gait Assessment Gait Gait Assistance Required: Standby Assistance Distance (Feet) 150 Assistive Devices Assistive Device None Gait Deviations General Gait Pattern Antalgic Factors Limiting Gait Function Factors Limiting Gait Function Decreased Activity Tolerance, Decreased Strength,Limited Range of Motion,Pain Comments Gait Comments Toe in at R hip. Demos decrease in quad strength with slight trunk/hip flex with R stance PT-OP-H Neuro Start: 05/22/24 11:16 Freq: Status: Active Protocol: Document 05/22/24 11:17 NM (Rec: 05/22/24 12:25 NM [id number]) Sensation Evaluation Comments Summary Comments BLE intact to light touch sensation; no numbness or decreased sensation reported PT-OP-J Posture/Palpation/Skin Start: 05/22/24 11:16 Freq: Status: Active Protocol: Document 05/22/24 11:17 NM (Rec: 05/22/24 12:25 NM [id number]) Posture Evaluation Position Standing Head/C-Spine Posture Forward Head T-Spine Posture Increased Kyphosis L-Spine Posture Fixed Scoliosis on (L) Hip Posture (L) Internally Rotated,(R) Internally Rotated Patellar Posture (L) Superior,(R) Superior Comments Posture Comments mild hyperextension of R knee Palpation Assessment Location R knee Palpation Details Tenderness along posterior knee near hamstrings, lateral joint line No tenderness along patella, quad, hip flexors, lateral hip , medial joint line Skin Assessment Circumference Measurement R knee Location patellar: 38 cm; calf 33 cm Incisional Assessment Incision Appearance/Comments Stitches intact. Over lateral incision, pt has small opening but no discharge or bleeding. Pt reports that was present when she took off wrappings this morning PT-OP-K Range of Motion Start: 05/22/24 11:16 Freq: Status: Active Protocol: Document 05/22/24 11:17 NM (Rec: 05/22/24 12:25 NM [id number]) Knee Goniometric Range of Motion Knee Right Flexion Active (degrees) 85 Extension Active (degrees) 1 Left Flexion Active (degrees) 123 Extension Active (degrees) 1 PT-OP-M Strength Start: 05/22/24 11:16 Freq: Status: Active Protocol: Document 05/22/24 11:17 NM (Rec: 05/22/24 12:25 NM [id number]) Hip Strength Hip Manual Muscle Testing Right Flexion (L2) 4- Good- Extension (S1) 3+ Fair+ Abduction 3+ Fair+ Adduction 4- Good- Left Flexion (L2) 4 Good Extension (S1) 4 Good Abduction 4 Good Adduction 4 Good Knee Strength Knee Manual Muscle Testing Right Flexion (S2) 3 Fair Extension (L3) 3 Fair Comments not formally tested due to surgical repair, but able to perform seated against gravity without resistance Left Flexion (S2) 4 Good Extension (L3) 4 Good Ankle/Foot Strength Ankle and Foot Manual Muscle Testing Right Dorsiflexion (L4) 4 Good Plantarflexion (S1) 4 Good Comments tested in sitting Left Dorsiflexion (L4) 4 Good Plantarflexion (S1) 4 Good Comments tested in sitting PT-OP-Q Treatments Start: 05/22/24 11:16 Freq: Status: Active Protocol: Document 06/14/24 08:04 AB (Rec: 06/14/24 10:35 AB [id number]) Cardio Equipment Recumbent Bicycle Duration (Minutes) 5 Resistance 0 Seat Position 2 Gym Equipment Shuttle Balance red Details normal LETICIA, stagger Reps/Duration 3 min Comments with and without visual scanning and head turns CGA Sport Cord green Exercise Details CGA amb without device Cord/Resistance green Reps/Duration X6 each fwd retro side step right Comments left side stepping limited to X 2 due to pain lateral right knee Therapeutic Exercises Supine Exercises heel slides Supine Exercise Name 1. on green ecuadorean ball 2. AROM HS Side bilateral Comments 1. 2 min 2. X15 Sidelying Exercises clamshell Side right Resistance level one light blue band (HEP ) Reps/Minutes 10 Comments challenged with maintaining neutral hip Sitting Exercises seated hip abduction with band Side bilateral Resistance level 4 blue band to HEP Reps/Minutes one min X 1 Manual Therapy Treatment Soft Tissue Mobilization right knee Body Location quad, lat and med knee Mobilization Type Cross-Friction,Myofascial Release,Rolling,Other Body Position Hooklying Comments areas of increased tissue density lateral knee and quad, decreased but not eliminated with manual therapy Neuro Re-Education Treatment Balance Activities SLS Details CGA right Surface floor and air ex Reps/Duration X7 PT-OP-T Assessment and Plan Start: 05/22/24 11:16 Freq: Status: Active Protocol: Document 06/14/24 08:04 AB (Rec: 06/14/24 10:35 AB [id number]) Physical Therapy Assessment Goals 5 Impairment currently not performing an HEP; will need to return to exercise w/ marine mammal trainer Short Term Goal (STG) Pt will report compliance with HEP 3x/wk in order to maximize progression with PT and promote independence with exercise STG Duration 3 weeks Half-Way Goal (LTG) Pt will report compliance with HEP at least 3x/wk for maintenance program and/or will be able to return to weekly exercise with marine mammal trainer if appropriate LTG Duration 12 weeks 4 Impairment LEFS 40/80 Impairment . Half-Way Goal (LTG) Pt will improve LEFS >50/80 (1 MCID) in order to demonstrate improvements in symptom management and activity tolerance LTG Duration 12 weeks 3 Impairment ambulation Impairment . Short Term Goal (STG) Pt will normalize gait mechanics for community distances during 6 MWT in order to demonstrate improvements in R knee/hip strength and ROM 06/09/24: progressing with gait mechanics on hurdles and on level surfaces STG Duration 6 weeks Half-Way Goal (LTG) Pt will report that she is able to ambulate on unstable surfaces around her property for at least 1 mile without increase in R knee pain in order to demonstrate improvements in gait, pain management and activity tolerance LTG Duration 12 weeks 2 Impairment strength R hip 3+ to 4-/5 and knee 3/5 Impairment . Short Term Goal (STG) Pt will improve R hip and knee strength to at least 4/5 in order to demonstrate increased strength required for ambulation and ADLs STG Duration 8 weeks Half-Way Goal (LTG) Pt will improve R hip and knee strength to at least 4+/5 in order to demonstrate increased strength required for ambulation and ADLs LTG Duration 12 weeks 1 Impairment R knee flexion ROM 85 deg flex to 1 deg ext Impairment . Short Term Goal (STG) Pt will improve R knee flexion AROM to at least 100 deg in order to demonstrate improved flexion ROM for gait, stairs, and transfers 06/09/24: 103 deg flexion pre manual , 115 deg post manual STG Duration 6 weeks PROGRESSING Half-Way Goal (LTG) Pt will improve R knee flexion AROM to at least 120 deg and maintain 1 deg of extension or less in order to demonstrate improved ROM for gait, stairs, and transfers LTG Duration 12 weeks Assessment Summary Assessment Patient rates right knee pain 09/15 end of session, side stepping left (band on right ) limited by pain. SLS 7 seconds without UE use right LE pre and post glute med activation. Physical Therapy Plan Frequency and Duration Frequency of Treatment 1-2x/wk Duration of treatment (weeks) 12 Plan of Care Start Date 05/22/24 Plan of Care End Date 08/18/24 Next Visit Focus/Plan Next Note Type Progress Note Next Visit Plan Next session: recumbent bike Normalize gait mechanics with hurdles, stance time Heel slides w/i tolerance. Cont add step up 4>6 depending on tolerance, Trial leg press over minisquat, cont sidelying hip abduction vs side step if not knee twist, prone HSC.. hurdles, stance time, TKE. Manual therapy to improve knee flex Balance and proprioception
--- NOTE | 2024-06-19 12:53 | PT.OTN ---
Current Diagnoses Pain in right knee (06/19/24) Stiffness of right knee, not elsewhere classified (06/19/24) Other lack of coordination (06/19/24) Weakness (06/19/24) Physical Therapy Treatment Note PT-OP-A Visit Information Start: 05/22/24 11:16 Freq: Status: Active Protocol: Document 06/19/24 08:19 NM (Rec: 06/19/24 09:04 NM [id number]) Out-Patient Physical Therapy Visit Information Visit Information Visit Type Progress Note Visit Start Time 08:19 Visit Stop Time 08:59 Visit Number 8 Evaluation Information Evaluation Date 05/22/24 Precautions Precautions s/p R knee arthroscopy ( meniscal repair) DOS 05/15/24 limit knee flex PT-OP-B Current Condition Start: 05/22/24 11:16 Freq: Status: Active Protocol: Document 05/22/24 11:17 NM (Rec: 05/22/24 12:25 NM [id number]) Current Condition History of Current Condition Onset Date DOS 05/15/24 Current Complaints pain, limited mobility, balance History of Current Condition Pt report that she had meniscus surgery on R knee 05/15 . Pt is not using any AD, states used crutches on Wednesday and a cane on Wednesday. She lives in a single story home. Reports no difficulty with balance. She gets her stitches out on 05/30. She saw Xavi Galvan MD. Pt reports no restrictions, no hot tub for a month. She reports that she was having pain in her leg since 2016 following a fall while walking and fell on her L side. She reports that she had a repair in 2022, then had another MRI after increased pain following 8 months leading to a new repair of the medial meniscus. Pt also reports that she was having lateral knee pain prior to surgery, reports that the ligament is soft. She also has arthritis. Pt also reports R hip and rump pain. No complications during surgery. Pt just removed bandages this morning; reports that she can shower now and reports that she is leaving her stitches uncovered. No stairs except to get into garage, rail; does not go in that way. Lives alone Prior Treatments and Tests PT Sep-December/2022 for same condition with good results Treatment Goals Patient/Caregiver Goals stronger, no pain or discomfort Prior Functional Status Baseline Function- Gait walk 3-5 mi day, 4x/week on unstable surface on her property Baseline Function- Other personalized living manager every Wednesday (Ansley Araujo): gentle and balance, core Current Functional Impairments (Reported) Functional Limitations- Other personalized living manager on hold right now PT-OP-C Subjective Start: 05/22/24 11:16 Freq: Status: Active Protocol: Document 06/19/24 08:19 NM (Rec: 06/19/24 09:04 NM [id number]) OP-PT Subjective Patient Comments Patient Comments Pt planning on going out of town over rest of June. Reports that her R knee very sore after last session due to manual, reports that lasted until Wednesday. Had to ice several times to feel better. States that exercises are slow, reports does not do all due to pain. Today, states that she had R sided buttock pain when woke up, no hx of back pain. States 4/10 R knee pain. Reports that has improved since starting PT. However, still lacking strength, pain with ambulation . PT-OP-D Balance Start: 05/22/24 11:16 Freq: Status: Active Protocol: Document 05/22/24 11:17 NM (Rec: 05/22/24 12:25 NM [id number]) Balance Tests Romberg Romberg 30 sec Single Limb Standing Single Limb- Right 2 sec Single Limb- Left 10 sec Tandem Tandem Standing 8 sec PT-OP-E Functional Tests Start: 05/22/24 11:16 Freq: Status: Active Protocol: Document 05/22/24 11:17 NM (Rec: 05/22/24 12:25 NM [id number]) Functional Tests Five Times Sit to Stand Test Score 16 seconds Comments no pain; no UE assist PT-OP-F Manual Assessment Start: 05/22/24 11:16 Freq: Status: Active Protocol: Document 05/22/24 11:17 NM (Rec: 05/22/24 12:25 NM [id number]) Manual Assessments Soft Tissue Assessment Soft Tissue Mobility Assessment Tightness of R heel cords, hamstrings Joint Mobility Assessment Joint Mobility Assessment Mild R knee hyperextension, decreased ankle mobility PT-OP-G Mobility & Gait Start: 05/22/24 11:16 Freq: Status: Active Protocol: Document 05/22/24 11:17 NM (Rec: 05/22/24 12:25 NM [id number]) OP Gait Assessment Gait Gait Assistance Required: Standby Assistance Distance (Feet) 150 Assistive Devices Assistive Device None Gait Deviations General Gait Pattern Antalgic Factors Limiting Gait Function Factors Limiting Gait Function Decreased Activity Tolerance, Decreased Strength,Limited Range of Motion,Pain Comments Gait Comments Toe in at R hip. Demos decrease in quad strength with slight trunk/hip flex with R stance PT-OP-H Neuro Start: 05/22/24 11:16 Freq: Status: Active Protocol: Document 05/22/24 11:17 NM (Rec: 05/22/24 12:25 NM [id number]) Sensation Evaluation Comments Summary Comments BLE intact to light touch sensation; no numbness or decreased sensation reported PT-OP-J Posture/Palpation/Skin Start: 05/22/24 11:16 Freq: Status: Active Protocol: Document 05/22/24 11:17 NM (Rec: 05/22/24 12:25 NM [id number]) Posture Evaluation Position Standing Head/C-Spine Posture Forward Head T-Spine Posture Increased Kyphosis L-Spine Posture Fixed Scoliosis on (L) Hip Posture (L) Internally Rotated,(R) Internally Rotated Patellar Posture (L) Superior,(R) Superior Comments Posture Comments mild hyperextension of R knee Palpation Assessment Location R knee Palpation Details Tenderness along posterior knee near hamstrings, lateral joint line No tenderness along patella, quad, hip flexors, lateral hip , medial joint line Skin Assessment Circumference Measurement R knee Location patellar: 38 cm; calf 33 cm Incisional Assessment Incision Appearance/Comments Stitches intact. Over lateral incision, pt has small opening but no discharge or bleeding. Pt reports that was present when she took off wrappings this morning PT-OP-K Range of Motion Start: 05/22/24 11:16 Freq: Status: Active Protocol: Document 06/19/24 08:19 NM (Rec: 06/19/24 09:04 NM [id number]) Knee Goniometric Range of Motion Knee Right Flexion Active (degrees) 117 Extension Active (degrees) 0 Comments IE: 85 deg flex to 1 deg ext 06/19/23: 117 deg flex, 0 deg ext PT-OP-M Strength Start: 05/22/24 11:16 Freq: Status: Active Protocol: Document 06/19/24 08:19 NM (Rec: 06/19/24 09:04 NM [id number]) Hip Strength Hip Manual Muscle Testing Right Flexion (L2) 4 Good Extension (S1) 4- Good- Abduction 4- Good- Adduction 4 Good Left Flexion (L2) 4 Good Extension (S1) 4 Good Abduction 4 Good Adduction 4 Good Knee Strength Knee Manual Muscle Testing Right Flexion (S2) 4- Good- Extension (L3) 4- Good- Comments not formally tested due to surgical repair, but able to perform seated against gravity without resistance\ 06/19/24: 06/19/24: 4-/5 knee flex/ext; pain free Left Flexion (S2) 4 Good Extension (L3) 4 Good PT-OP-Q Treatments Start: 05/22/24 11:16 Freq: Status: Active Protocol: Document 06/19/24 08:19 NM (Rec: 06/19/24 09:04 NM [id number]) Therapeutic Exercises Supine Exercises bridge Supine Exercise Name d/t hip pain Side bilateral Resistance level 2 band at thighs Reps/Minutes 20 Sidelying Exercises clamshell Side right Resistance level two band (HEP review) Reps/Minutes 2x10 Comments better neutral hip Sitting Exercises sit to stand Sitting Exercise Name buttock taps Side bilateral Resistance level 2 band at thighs Reps/Minutes 10 Comments cued weight over mid foot LAQ Sitting Exercise Name HEP review Side right Resistance light blue band at ankles > Reps/Minutes 15 Comments full ROM Standing Exercises HS curl Standing Exercise Name HEP review Side bilateral Resistance level one band Reps/Minutes 2x15 ea Comments verbal and visual cues Gait Training Gait Activity gait mechanics Surface stable Distance/Duration 500 ft Treatment Focus normalized mechanics Comments Unable to complete 6 MWT due to R hip pain/SIJ pain Demos more antalgic gait as fatigues, related both to R knee achiness and R hip pain. Improved heel strike and toe off but demos mild fwd trunk lean with R stance due to quad weakness and decreased weight acceptance hurdles Device Used none Level of Assistance close SBA with prn CGA Surface stable Treatment Focus mechanics, heel > toe, propulsion, WB, stance and TKE , knee/hip flex swing Comments 1. fwd R stepping over 1 juan ramon for knee flex/heel strike 2. fwd R stepping 1st 3 sets x 6 hurdles for knee flex/heel strike/TKE 3. fwd reciprocal pattern Manual Therapy Treatment Consent Patient gave verbal consent for manual Yes treatment Soft Tissue Mobilization right knee Body Location quad, lat and med knee, TFL, distal HS Mobilization Type Cross-Friction,Myofascial Release,Rolling,Other Body Position Hooklying Comments Tenderness over TFL and quad, reduced with soft tissue mobilization. Areas of increased tissue density lateral knee and quad, decreased but not eliminated with manual therapy PT-OP-T Assessment and Plan Start: 05/22/24 11:16 Freq: Status: Active Protocol: Document 06/19/24 08:19 NM (Rec: 06/19/24 09:04 NM [id number]) Physical Therapy Assessment Goals 5 Impairment currently not performing an HEP; will need to return to exercise w/ senior trainer Short Term Goal (STG) Pt will report compliance with HEP 3x/wk in order to maximize progression with PT and promote independence with exercise 06/19/24: perfroming HEP everyday STG Duration 3 weeks Sample Prep Technician Goal (LTG) Pt will report compliance with HEP at least 3x/wk for maintenance program and/or will be able to return to weekly exercise with senior trainer if appropriate LTG Duration 12 weeks 4 Impairment LEFS 40/80 Impairment . Sample Prep Technician Goal (LTG) Pt will improve LEFS >50/80 (1 MCID) in order to demonstrate improvements in symptom management and activity tolerance LTG Duration 12 weeks 3 Impairment ambulation Impairment . Short Term Goal (STG) Pt will normalize gait mechanics for community distances during 6 MWT in order to demonstrate improvements in R knee/hip strength and ROM 06/09/24: progressing with gait mechanics on hurdles and on level surfaces 06/19/24: unable to complete 6 MWT due to R hip pain, ambulates 500 ft; still demos antalgic gait pattern, less stance on R foot STG Duration 6 weeks PROGRESSING Retirement Goal (LTG) Pt will report that she is able to ambulate on unstable surfaces around her property for at least 1 mile without increase in R knee pain in order to demonstrate improvements in gait, pain management and activity tolerance LTG Duration 12 weeks 2 Impairment strength R hip 3+ to 4-/5 and knee 3/5 Impairment . Short Term Goal (STG) Pt will improve R hip and knee strength to at least 4/5 in order to demonstrate increased strength required for ambulation and ADLs 06/19/24: 4-/5 knee flex/ext, 4/5 hip flex/add and 4-/5 hip ext/abd STG Duration 8 weeks PROGRESSING Retirement Goal (LTG) Pt will improve R hip and knee strength to at least 4+/5 in order to demonstrate increased strength required for ambulation and ADLs LTG Duration 12 weeks 1 Impairment R knee flexion ROM 85 deg flex to 1 deg ext Impairment . Short Term Goal (STG) Pt will improve R knee flexion AROM to at least 100 deg in order to demonstrate improved flexion ROM for gait, stairs, and transfers 06/09/24: 103 deg flexion pre manual , 115 deg post manual 06/19/24: 117 deg flexion pre manual STG Duration 6 weeks MET Sample Prep Technician Goal (LTG) Pt will improve R knee flexion AROM to at least 120 deg and maintain 1 deg of extension or less in order to demonstrate improved ROM for gait, stairs, and transfers LTG Duration 12 weeks Progress Towards Goals Progress Towards Goals Progressing Toward Goals Assessment Summary Assessment Pt tolerated session fair, decreased tolerance for standing activities today due to R posterior hip/SIJ pain. Pt continues to have increased soft tissue restrictions at R lateral knee near scar, likely scar tissue. PT educated pt on gentle soft tissue mobilization of scar area to reduce tenderness and decrease adhesions. Attempted 6 MWT but stopped due to R hip pain. Pt still demos antalgic gait, worse with fatigue and decreased R stance time with mild trunk lean with R stance. Remainder of session emphasizing quad/hamstring strength and promoting more normalized gait mechanics. Physical Therapy Plan Frequency and Duration Frequency of Treatment 1-2x/wk Duration of treatment (weeks) 12 Plan of Care Start Date 05/22/24 Plan of Care End Date 08/18/24 Therapeutic Interventions Therapeutic Interventions Balance Training,Gait Training ,Home Exercise Program,Joint Mobilizations,Manual Therapy, Neuromuscular Re-education, Orthotic/Prosthetic Management ,Patient/Caregiver Education, Self-Care/Home Management, Sensory Integration,Soft Tissue Mobilization,Taping, Therapeutic Activities, Therapeutic Exercises Modalities Cold Pack/Ice Massage,Electric Stimulation,Hot Packs, Ultrasound Next Visit Focus/Plan Next Note Type Treatment Note Next Visit Plan Next session: recumbent bike for flexion prn, Normalize gait mechanics with hurdles, stance time and quad strength leg press, step up 4>6 depending on tolerance, Trial leg press over minisquat, sidelying hip abduction vs side step if not knee twist, standing HSC, progress LAQ; add hip 3 way, heel raise, calf stretch. update HEP Manual therapy to improve knee flex, scar tissue along lateral knee Balance and proprioception
--- NOTE | 2024-06-26 11:27 | PT.OTN ---
Current Diagnoses Pain in right knee (06/26/24) Stiffness of right knee, not elsewhere classified (06/26/24) Other lack of coordination (06/26/24) Weakness (06/26/24) Physical Therapy Treatment Note PT-OP-A Visit Information Start: 05/22/24 11:16 Freq: Status: Active Protocol: Document 06/26/24 10:47 SP (Rec: 06/26/24 11:33 SP [id number]) Out-Patient Physical Therapy Visit Information Visit Information Visit Type Treatment Note Visit Note 10/16 after PN Visit Start Time 10:47 Visit Stop Time 11:27 Visit Number 9 Number of FOUNDATION RELATIONS DIRECTOR Visits 1 Evaluation Information Evaluation Date 05/22/24 Precautions Precautions s/p R knee arthroscopy ( meniscal repair) DOS 05/15/24 limit knee flex PT-OP-B Current Condition Start: 05/22/24 11:16 Freq: Status: Active Protocol: Document 05/22/24 11:17 NM (Rec: 05/22/24 12:25 NM [id number]) Current Condition History of Current Condition Onset Date DOS 05/15/24 Current Complaints pain, limited mobility, balance History of Current Condition Pt report that she had meniscus surgery on R knee 05/15 . Pt is not using any AD, states used crutches on Wednesday and a cane on Wednesday. She lives in a single story home. Reports no difficulty with balance. She gets her stitches out on 05/30. She saw Xavi Galvan MD. Pt reports no restrictions, no hot tub for a month. She reports that she was having pain in her leg since 2016 following a fall while walking and fell on her L side. She reports that she had a repair in 2022, then had another MRI after increased pain following 8 months leading to a new repair of the medial meniscus. Pt also reports that she was having lateral knee pain prior to surgery, reports that the ligament is soft. She also has arthritis. Pt also reports R hip and rump pain. No complications during surgery. Pt just removed bandages this morning; reports that she can shower now and reports that she is leaving her stitches uncovered. No stairs except to get into garage, rail; does not go in that way. Lives alone Prior Treatments and Tests PT Sep-December/2022 for same condition with good results Treatment Goals Patient/Caregiver Goals stronger, no pain or discomfort Prior Functional Status Baseline Function- Gait walk 3-5 mi day, 4x/week on unstable surface on her property Baseline Function- Other personal care attendant every Wednesday (Ansley Araujo): gentle and balance, core Current Functional Impairments (Reported) Functional Limitations- Other personal care attendant on hold right now PT-OP-C Subjective Start: 05/22/24 11:16 Freq: Status: Active Protocol: Document 06/26/24 10:47 SP (Rec: 06/26/24 11:33 SP [id number]) OP-PT Subjective Patient Comments Patient Comments Pt reports her R knee is achy most of the time 2-11/13 just to letting her know it's there , is self massaging as instructed and then is sore distal ITB/lateral knee jt line where indentation is. PT-OP-D Balance Start: 05/22/24 11:16 Freq: Status: Active Protocol: Document 05/22/24 11:17 NM (Rec: 05/22/24 12:25 NM [id number]) Balance Tests Romberg Romberg 30 sec Single Limb Standing Single Limb- Right 2 sec Single Limb- Left 10 sec Tandem Tandem Standing 8 sec PT-OP-E Functional Tests Start: 05/22/24 11:16 Freq: Status: Active Protocol: Document 05/22/24 11:17 NM (Rec: 05/22/24 12:25 NM [id number]) Functional Tests Five Times Sit to Stand Test Score 16 seconds Comments no pain; no UE assist PT-OP-F Manual Assessment Start: 05/22/24 11:16 Freq: Status: Active Protocol: Document 05/22/24 11:17 NM (Rec: 05/22/24 12:25 NM [id number]) Manual Assessments Soft Tissue Assessment Soft Tissue Mobility Assessment Tightness of R heel cords, hamstrings Joint Mobility Assessment Joint Mobility Assessment Mild R knee hyperextension, decreased ankle mobility PT-OP-G Mobility & Gait Start: 05/22/24 11:16 Freq: Status: Active Protocol: Document 05/22/24 11:17 NM (Rec: 05/22/24 12:25 NM [id number]) OP Gait Assessment Gait Gait Assistance Required: Standby Assistance Distance (Feet) 150 Assistive Devices Assistive Device None Gait Deviations General Gait Pattern Antalgic Factors Limiting Gait Function Factors Limiting Gait Function Decreased Activity Tolerance, Decreased Strength,Limited Range of Motion,Pain Comments Gait Comments Toe in at R hip. Demos decrease in quad strength with slight trunk/hip flex with R stance PT-OP-H Neuro Start: 05/22/24 11:16 Freq: Status: Active Protocol: Document 05/22/24 11:17 NM (Rec: 05/22/24 12:25 NM [id number]) Sensation Evaluation Comments Summary Comments BLE intact to light touch sensation; no numbness or decreased sensation reported PT-OP-J Posture/Palpation/Skin Start: 05/22/24 11:16 Freq: Status: Active Protocol: Document 05/22/24 11:17 NM (Rec: 05/22/24 12:25 NM [id number]) Posture Evaluation Position Standing Head/C-Spine Posture Forward Head T-Spine Posture Increased Kyphosis L-Spine Posture Fixed Scoliosis on (L) Hip Posture (L) Internally Rotated,(R) Internally Rotated Patellar Posture (L) Superior,(R) Superior Comments Posture Comments mild hyperextension of R knee Palpation Assessment Location R knee Palpation Details Tenderness along posterior knee near hamstrings, lateral joint line No tenderness along patella, quad, hip flexors, lateral hip , medial joint line Skin Assessment Circumference Measurement R knee Location patellar: 38 cm; calf 33 cm Incisional Assessment Incision Appearance/Comments Stitches intact. Over lateral incision, pt has small opening but no discharge or bleeding. Pt reports that was present when she took off wrappings this morning PT-OP-K Range of Motion Start: 05/22/24 11:16 Freq: Status: Active Protocol: Document 06/26/24 10:47 SP (Rec: 06/26/24 11:33 SP [id number]) Knee Goniometric Range of Motion Knee Right Flexion Active (degrees) 135 Extension Active (degrees) 0 Comments IE: 85 deg flex to 1 deg ext 06/19/23: 117 deg flex- 18 deg gain AROM R knee flexion AROM 135 deg 06/26/24 PT-OP-M Strength Start: 05/22/24 11:16 Freq: Status: Active Protocol: Document 06/19/24 08:19 NM (Rec: 06/19/24 09:04 NM [id number]) Hip Strength Hip Manual Muscle Testing Right Flexion (L2) 4 Good Extension (S1) 4- Good- Abduction 4- Good- Adduction 4 Good Left Flexion (L2) 4 Good Extension (S1) 4 Good Abduction 4 Good Adduction 4 Good Knee Strength Knee Manual Muscle Testing Right Flexion (S2) 4- Good- Extension (L3) 4- Good- Comments not formally tested due to surgical repair, but able to perform seated against gravity without resistance\ 06/19/24: 06/19/24: 4-/5 knee flex/ext; pain free Left Flexion (S2) 4 Good Extension (L3) 4 Good PT-OP-Q Treatments Start: 05/22/24 11:16 Freq: Status: Active Protocol: Document 06/26/24 10:47 SP (Rec: 06/26/24 11:33 SP [id number]) Gym Equipment Shuttle Recovery Unilateral Squats Details R Resistance 37# (1 navWOWash) Shuttle Recovery Platform Stable Reps/Time 2x15 Therapeutic Exercises Sidelying Exercises clamshell Side right Resistance level two band (HEP review) Reps/Minutes 2x10 Comments better neutral hip Sitting Exercises LAQ Sitting Exercise Name HEP review Side right Resistance light blue band at ankles & under opp foot Reps/Minutes 2x 15 Comments full ROM, good tiring Quad Standing Exercises HS curl Standing Exercise Name HEP review Side bilateral Resistance level one band over ankle R, under L foot Equipment Used contact counter bal support Reps/Minutes 2x15 ea Comments verbal and visual cues step up Standing Exercise Name 6 step- declined HO for home HEP Side right Equipment Used light to no UE support Reps/Minutes 15 ea Comments cued for slower ascend/descend - light finger if needed for stability Manual Therapy Treatment Consent Patient gave verbal consent for manual Yes treatment Soft Tissue Mobilization right knee Body Location quad, lat and med knee, TFL, distal HS Mobilization Type Cross-Friction,Myofascial Release,Rolling,Other Body Position Hooklying Comments Tenderness over Vastue Lateralis, ITB reduced with soft tissue mobilization. Areas of increased tissue density lateral knee and quad, decreased but not eliminated with manual therapy Joint Mobilizations R knee Joint tibiofemoral, patellar, tibfib proximal Direction AP, sup/inf/lat/med Grade II Body Position Supine Reps/Duration 10 ea Comments Monitored for pain, tightness reported at lateral R knee. no pain Neuro Re-Education Treatment Balance Activities uneven obstacle course Details pods, foam, disc /c mat over, 4 hurdles on top Reps/Duration 3 laps Comments CG-5%A as needed Hurdles Details receiprocal stepping Equipment 6 hurdles, foam, pods Reps/Duration X3 10 feet Comments CGA PT-OP-T Assessment and Plan Start: 05/22/24 11:16 Freq: Status: Active Protocol: Document 06/26/24 10:47 SP (Rec: 06/26/24 11:33 SP [id number]) Physical Therapy Assessment Goals 5 Impairment currently not performing an HEP; will need to return to exercise w/ technology trainer Short Term Goal (STG) Pt will report compliance with HEP 3x/wk in order to maximize progression with PT and promote independence with exercise 06/19/24: perfroming HEP everyday STG Duration 3 weeks Measurement Department Chief Clerk Goal (LTG) Pt will report compliance with HEP at least 3x/wk for maintenance program and/or will be able to return to weekly exercise with technology trainer if appropriate LTG Duration 12 weeks 4 Impairment LEFS 40/80 Impairment . Halfway Goal (LTG) Pt will improve LEFS >50/80 (1 MCID) in order to demonstrate improvements in symptom management and activity tolerance LTG Duration 12 weeks 3 Impairment ambulation Impairment . Short Term Goal (STG) Pt will normalize gait mechanics for community distances during 6 MWT in order to demonstrate improvements in R knee/hip strength and ROM 06/09/24: progressing with gait mechanics on hurdles and on level surfaces 06/19/24: unable to complete 6 MWT due to R hip pain, ambulates 500 ft; still demos antalgic gait pattern, less stance on R foot STG Duration 6 weeks PROGRESSING Halfway Goal (LTG) Pt will report that she is able to ambulate on unstable surfaces around her property for at least 1 mile without increase in R knee pain in order to demonstrate improvements in gait, pain management and activity tolerance LTG Duration 12 weeks 2 Impairment strength R hip 3+ to 4-/5 and knee 3/5 Impairment . Short Term Goal (STG) Pt will improve R hip and knee strength to at least 4/5 in order to demonstrate increased strength required for ambulation and ADLs 06/19/24: 4-/5 knee flex/ext, 4/5 hip flex/add and 4-/5 hip ext/abd STG Duration 8 weeks PROGRESSING Halfway Goal (LTG) Pt will improve R hip and knee strength to at least 4+/5 in order to demonstrate increased strength required for ambulation and ADLs LTG Duration 12 weeks 1 Impairment R knee flexion ROM 85 deg flex to 1 deg ext Impairment . Short Term Goal (STG) Pt will improve R knee flexion AROM to at least 100 deg in order to demonstrate improved flexion ROM for gait, stairs, and transfers 06/09/24: 103 deg flexion pre manual , 115 deg post manual 06/19/24: 117 deg flexion pre manual STG Duration 6 weeks MET Halfway Goal (LTG) Pt will improve R knee flexion AROM to at least 120 deg and maintain 1 deg of extension or less in order to demonstrate improved ROM for gait, stairs, and transfers 06/26/24: GOAL MET 135 deg AROM R knee flexion, 0 deg ext . LTG Duration 12 weeks GOAL MET 06/26/24 Progress Towards Goals Progress Towards Goals Progressing Toward Goals Progress Comments MET LTG #1 IE: 85 deg flex to 1 deg ext 06/19/23: 117 deg flex- 18 deg gain AROM R knee flexion AROM 135 deg 06/26/24 Assessment Summary Assessment Pt improved R knee AROM 135 deg post manual, pnfree. Progressed Le strengthening shuttle recovery tolerated increased resistance end of tx . She was able to perform repeated steps for HEP light rail contact for stability support needed, cues lessen momentum. Good tolerance to increased sets of resisted ther ex today with no adverse affects. Was ableto progress uneven stepping hurdles with no UE support and uneven obstacle course, cues for slower pacing for LE clearance and trunk wt shift midline corrections, CG 5%A x2 instances for safety recovery, activity to return to PLOF walking trails. Lack of time will progress use of recumbent bike next tx. Physical Therapy Plan Frequency and Duration Frequency of Treatment 1-2x/wk Duration of treatment (weeks) 12 Plan of Care Start Date 05/22/24 Plan of Care End Date 08/18/24 Therapeutic Interventions Therapeutic Interventions Balance Training,Gait Training ,Home Exercise Program,Joint Mobilizations,Manual Therapy, Neuromuscular Re-education, Orthotic/Prosthetic Management ,Patient/Caregiver Education, Self-Care/Home Management, Sensory Integration,Soft Tissue Mobilization,Taping, Therapeutic Activities, Therapeutic Exercises Modalities Cold Pack/Ice Massage,Electric Stimulation,Hot Packs, Ultrasound Next Visit Focus/Plan Next Note Type Treatment Note Next Visit Plan Next session: recumbent bike for flexion prn, Normalize gait mechanics with hurdles, stance time and quad strength leg press, Add lateral step up 6 depending on tolerance, Trial leg press over minisquat , sidelying hip abduction vs side step if not knee twist, standing HSC, progress LAQ; add hip 3 way, heel raise, calf stretch. update HEP Manual therapy to improve knee flex, scar tissue along lateral knee Balance and proprioception
--- NOTE | 2024-07-11 11:52 | PT.OTN ---
Current Diagnoses Pain in right knee (07/11/24) Stiffness of right knee, not elsewhere classified (07/11/24) Other lack of coordination (07/11/24) Weakness (07/11/24) Physical Therapy Treatment Note PT-OP-A Visit Information Start: 05/22/24 11:16 Freq: Status: Active Protocol: Document 07/11/24 08:09 AB (Rec: 07/11/24 11:50 AB [id number]) Out-Patient Physical Therapy Visit Information Visit Information Visit Type Treatment Note Visit Note 11/13 after PN Visit Start Time 08:17 Visit Stop Time 09:00 Visit Number 10 Number of OUTPATIENT PSYCHIATRIST Visits 2 Evaluation Information Evaluation Date 05/22/24 Precautions Precautions s/p R knee arthroscopy ( meniscal repair) DOS 05/15/24 limit knee flex PT-OP-B Current Condition Start: 05/22/24 11:16 Freq: Status: Active Protocol: Document 05/22/24 11:17 NM (Rec: 05/22/24 12:25 NM [id number]) Current Condition History of Current Condition Onset Date DOS 05/15/24 Current Complaints pain, limited mobility, balance History of Current Condition Pt report that she had meniscus surgery on R knee 05/15 . Pt is not using any AD, states used crutches on Wednesday and a cane on Wednesday. She lives in a single story home. Reports no difficulty with balance. She gets her stitches out on 05/30. She saw Xavi Galvan MD. Pt reports no restrictions, no hot tub for a month. She reports that she was having pain in her leg since 2016 following a fall while walking and fell on her L side. She reports that she had a repair in 2022, then had another MRI after increased pain following 8 months leading to a new repair of the medial meniscus. Pt also reports that she was having lateral knee pain prior to surgery, reports that the ligament is soft. She also has arthritis. Pt also reports R hip and rump pain. No complications during surgery. Pt just removed bandages this morning; reports that she can shower now and reports that she is leaving her stitches uncovered. No stairs except to get into garage, rail; does not go in that way. Lives alone Prior Treatments and Tests PT Sep-December/2022 for same condition with good results Treatment Goals Patient/Caregiver Goals stronger, no pain or discomfort Prior Functional Status Baseline Function- Gait walk 3-5 mi day, 4x/week on unstable surface on her property Baseline Function- Other personal financial advisor every Wednesday (Ansley Araujo): gentle and balance, core Current Functional Impairments (Reported) Functional Limitations- Other personal financial advisor on hold right now PT-OP-C Subjective Start: 05/22/24 11:16 Freq: Status: Active Protocol: Document 07/11/24 08:09 AB (Rec: 07/11/24 11:50 AB [id number]) OP-PT Subjective Patient Comments Patient Comments Patient reports pain 5/10 right knee start of session, attributes on to walking on concrete into session. Patient reports she saw MD last week and he cannot take out any more meniscus without arthritis being impacted negatively, and the she thinks was tendon is soft where it should be taught. 0 to 127 deg right knee AROM start of session. great toe 4.5cm from wall with knee to wall PT-OP-D Balance Start: 05/22/24 11:16 Freq: Status: Active Protocol: Document 05/22/24 11:17 NM (Rec: 05/22/24 12:25 NM [id number]) Balance Tests Romberg Romberg 30 sec Single Limb Standing Single Limb- Right 2 sec Single Limb- Left 10 sec Tandem Tandem Standing 8 sec PT-OP-E Functional Tests Start: 05/22/24 11:16 Freq: Status: Active Protocol: Document 05/22/24 11:17 NM (Rec: 05/22/24 12:25 NM [id number]) Functional Tests Five Times Sit to Stand Test Score 16 seconds Comments no pain; no UE assist PT-OP-F Manual Assessment Start: 05/22/24 11:16 Freq: Status: Active Protocol: Document 05/22/24 11:17 NM (Rec: 05/22/24 12:25 NM [id number]) Manual Assessments Soft Tissue Assessment Soft Tissue Mobility Assessment Tightness of R heel cords, hamstrings Joint Mobility Assessment Joint Mobility Assessment Mild R knee hyperextension, decreased ankle mobility PT-OP-G Mobility & Gait Start: 05/22/24 11:16 Freq: Status: Active Protocol: Document 05/22/24 11:17 NM (Rec: 05/22/24 12:25 NM [id number]) OP Gait Assessment Gait Gait Assistance Required: Standby Assistance Distance (Feet) 150 Assistive Devices Assistive Device None Gait Deviations General Gait Pattern Antalgic Factors Limiting Gait Function Factors Limiting Gait Function Decreased Activity Tolerance, Decreased Strength,Limited Range of Motion,Pain Comments Gait Comments Toe in at R hip. Demos decrease in quad strength with slight trunk/hip flex with R stance PT-OP-H Neuro Start: 05/22/24 11:16 Freq: Status: Active Protocol: Document 05/22/24 11:17 NM (Rec: 05/22/24 12:25 NM [id number]) Sensation Evaluation Comments Summary Comments BLE intact to light touch sensation; no numbness or decreased sensation reported PT-OP-J Posture/Palpation/Skin Start: 05/22/24 11:16 Freq: Status: Active Protocol: Document 05/22/24 11:17 NM (Rec: 05/22/24 12:25 NM [id number]) Posture Evaluation Position Standing Head/C-Spine Posture Forward Head T-Spine Posture Increased Kyphosis L-Spine Posture Fixed Scoliosis on (L) Hip Posture (L) Internally Rotated,(R) Internally Rotated Patellar Posture (L) Superior,(R) Superior Comments Posture Comments mild hyperextension of R knee Palpation Assessment Location R knee Palpation Details Tenderness along posterior knee near hamstrings, lateral joint line No tenderness along patella, quad, hip flexors, lateral hip , medial joint line Skin Assessment Circumference Measurement R knee Location patellar: 38 cm; calf 33 cm Incisional Assessment Incision Appearance/Comments Stitches intact. Over lateral incision, pt has small opening but no discharge or bleeding. Pt reports that was present when she took off wrappings this morning PT-OP-K Range of Motion Start: 05/22/24 11:16 Freq: Status: Active Protocol: Document 06/26/24 10:47 SP (Rec: 06/26/24 11:33 SP [id number]) Knee Goniometric Range of Motion Knee Right Flexion Active (degrees) 135 Extension Active (degrees) 0 Comments IE: 85 deg flex to 1 deg ext 06/19/23: 117 deg flex- 18 deg gain AROM R knee flexion AROM 135 deg 06/26/24 PT-OP-M Strength Start: 05/22/24 11:16 Freq: Status: Active Protocol: Document 06/19/24 08:19 NM (Rec: 06/19/24 09:04 NM [id number]) Hip Strength Hip Manual Muscle Testing Right Flexion (L2) 4 Good Extension (S1) 4- Good- Abduction 4- Good- Adduction 4 Good Left Flexion (L2) 4 Good Extension (S1) 4 Good Abduction 4 Good Adduction 4 Good Knee Strength Knee Manual Muscle Testing Right Flexion (S2) 4- Good- Extension (L3) 4- Good- Comments not formally tested due to surgical repair, but able to perform seated against gravity without resistance\ 06/19/24: 06/19/24: 4-/5 knee flex/ext; pain free Left Flexion (S2) 4 Good Extension (L3) 4 Good PT-OP-Q Treatments Start: 05/22/24 11:16 Freq: Status: Active Protocol: Document 07/11/24 08:09 AB (Rec: 07/11/24 11:50 AB [id number]) Therapeutic Exercises Sitting Exercises seated DF AROM Sitting Exercise Name AROM bilateral post calf stretch HEP Equipment Used HEP Reps/Minutes 1-2 min seated hip abduction with band Sitting Exercise Name HEP Side bilateral Resistance level 5 blue band to HEP Reps/Minutes one min X 1 Standing Exercises sit to stand with band Standing Exercise Name HEP Side bilateral Resistance level 5 band Reps/Minutes X3 then 2 X10 Comments Verbal cues for hip hinge/self tactile cues calf stretches Standing Exercise Name 1. at wall 2. on stairs HEP Equipment Used HEP on stairs Reps/Minutes 1. X 1 limited by knee pain 2. X 2 ruth and soleus Manual Therapy Treatment Consent Patient gave verbal consent for manual Yes treatment Soft Tissue Mobilization right knee Body Location Qaud and for swelling Mobilization Type Cross-Friction,Rolling, Strumming Body Position Hooklying Comments areas of increased tissue density, decreased tissue mobility distal quad Taping right knee Body Location I strep peripatella stretch super one med one lat and one I strip lat to me Treatment Focus unload fat pad and improve tracking medially Type of Tape kinesio Skin Inspection WNL Comments Patient ed to remove tape in 3 -5 days or immediately if skin irritation occurs PT-OP-T Assessment and Plan Start: 05/22/24 11:16 Freq: Status: Active Protocol: Document 07/11/24 08:09 AB (Rec: 07/11/24 11:50 AB [id number]) Physical Therapy Assessment Goals 5 Impairment currently not performing an HEP; will need to return to exercise w/ sharepoint trainer Short Term Goal (STG) Pt will report compliance with HEP 3x/wk in order to maximize progression with PT and promote independence with exercise 06/19/24: perfroming HEP everyday STG Duration 3 weeks News Specialist Goal (LTG) Pt will report compliance with HEP at least 3x/wk for maintenance program and/or will be able to return to weekly exercise with sharepoint trainer if appropriate LTG Duration 12 weeks 4 Impairment LEFS 40/80 Impairment . Jail Goal (LTG) Pt will improve LEFS >50/80 (1 MCID) in order to demonstrate improvements in symptom management and activity tolerance LTG Duration 12 weeks 3 Impairment ambulation Impairment . Short Term Goal (STG) Pt will normalize gait mechanics for community distances during 6 MWT in order to demonstrate improvements in R knee/hip strength and ROM 06/09/24: progressing with gait mechanics on hurdles and on level surfaces 06/19/24: unable to complete 6 MWT due to R hip pain, ambulates 500 ft; still demos antalgic gait pattern, less stance on R foot STG Duration 6 weeks PROGRESSING News Specialist Goal (LTG) Pt will report that she is able to ambulate on unstable surfaces around her property for at least 1 mile without increase in R knee pain in order to demonstrate improvements in gait, pain management and activity tolerance LTG Duration 12 weeks 2 Impairment strength R hip 3+ to 4-/5 and knee 3/5 Impairment . Short Term Goal (STG) Pt will improve R hip and knee strength to at least 4/5 in order to demonstrate increased strength required for ambulation and ADLs 06/19/24: 4-/5 knee flex/ext, 4/5 hip flex/add and 4-/5 hip ext/abd STG Duration 8 weeks PROGRESSING Jail Goal (LTG) Pt will improve R hip and knee strength to at least 4+/5 in order to demonstrate increased strength required for ambulation and ADLs LTG Duration 12 weeks Assessment Summary Assessment Shelley rates right knee pain 1-2/10 ambulating with a less antalgic pattern without device end of session. Physical Therapy Plan Frequency and Duration Frequency of Treatment 1-2x/wk Duration of treatment (weeks) 12 Plan of Care Start Date 05/22/24 Plan of Care End Date 08/18/24 Next Visit Focus/Plan Next Note Type Treatment Note Next Visit Plan Next session: recumbent bike for flexion prn, Normalize gait mechanics with hurdles, stance time and quad strength leg press, Add lateral step up 6 depending on tolerance, Trial leg press over minisquat , sidelying hip abduction vs side step if not knee twist, standing HSC, progress LAQ; add hip 3 way, heel raise, calf stretch. update HEP Manual therapy to improve knee flex, scar tissue along lateral knee Balance and proprioception
--- NOTE | 2024-07-17 10:43 | PT.OTN ---
Current Diagnoses Pain in right knee (07/17/24) Stiffness of right knee, not elsewhere classified (07/17/24) Other lack of coordination (07/17/24) Weakness (07/17/24) Physical Therapy Treatment Note PT-OP-A Visit Information Start: 05/22/24 11:16 Freq: Status: Active Protocol: Document 07/17/24 08:16 AB (Rec: 07/17/24 10:43 AB [id number]) Out-Patient Physical Therapy Visit Information Visit Information Visit Type Treatment Note Visit Note 12/14 Visit Start Time 08:16 Visit Stop Time 09:01 Visit Number 11 Number of SLIPMAN Visits 3 Evaluation Information Evaluation Date 05/22/24 PT-OP-B Current Condition Start: 05/22/24 11:16 Freq: Status: Active Protocol: Document 05/22/24 11:17 NM (Rec: 05/22/24 12:25 NM [id number]) Current Condition History of Current Condition Onset Date DOS 05/15/24 Current Complaints pain, limited mobility, balance History of Current Condition Pt report that she had meniscus surgery on R knee 05/15 . Pt is not using any AD, states used crutches on Wednesday and a cane on Wednesday. She lives in a single story home. Reports no difficulty with balance. She gets her stitches out on 05/30. She saw Xavi Galvan MD. Pt reports no restrictions, no hot tub for a month. She reports that she was having pain in her leg since 2016 following a fall while walking and fell on her L side. She reports that she had a repair in 2022, then had another MRI after increased pain following 8 months leading to a new repair of the medial meniscus. Pt also reports that she was having lateral knee pain prior to surgery, reports that the ligament is soft. She also has arthritis. Pt also reports R hip and rump pain. No complications during surgery. Pt just removed bandages this morning; reports that she can shower now and reports that she is leaving her stitches uncovered. No stairs except to get into garage, rail; does not go in that way. Lives alone Prior Treatments and Tests PT Sep-December/2022 for same condition with good results Treatment Goals Patient/Caregiver Goals stronger, no pain or discomfort Prior Functional Status Baseline Function- Gait walk 3-5 mi day, 4x/week on unstable surface on her property Baseline Function- Other representative personal service every Wednesday (Ansley Araujo): gentle and balance, core Current Functional Impairments (Reported) Functional Limitations- Other representative personal service on hold right now PT-OP-C Subjective Start: 05/22/24 11:16 Freq: Status: Active Protocol: Document 07/17/24 08:16 AB (Rec: 07/17/24 10:43 AB [id number]) OP-PT Subjective Patient Comments Patient Comments Patient reports pain right knee 2-3/[address]. Patient reports she slept good last night but not Wednesday night. AROM right knee lacking 1 deg ext to 127 deg flexion start of session. SLS right LE 4 sec pre glute med act (w/o UE use) 15+ seconds post glute med activation PT-OP-D Balance Start: 05/22/24 11:16 Freq: Status: Active Protocol: Document 05/22/24 11:17 NM (Rec: 05/22/24 12:25 NM [id number]) Balance Tests Romberg Romberg 30 sec Single Limb Standing Single Limb- Right 2 sec Single Limb- Left 10 sec Tandem Tandem Standing 8 sec PT-OP-E Functional Tests Start: 05/22/24 11:16 Freq: Status: Active Protocol: Document 05/22/24 11:17 NM (Rec: 05/22/24 12:25 NM [id number]) Functional Tests Five Times Sit to Stand Test Score 16 seconds Comments no pain; no UE assist PT-OP-F Manual Assessment Start: 05/22/24 11:16 Freq: Status: Active Protocol: Document 05/22/24 11:17 NM (Rec: 05/22/24 12:25 NM [id number]) Manual Assessments Soft Tissue Assessment Soft Tissue Mobility Assessment Tightness of R heel cords, hamstrings Joint Mobility Assessment Joint Mobility Assessment Mild R knee hyperextension, decreased ankle mobility PT-OP-G Mobility & Gait Start: 05/22/24 11:16 Freq: Status: Active Protocol: Document 05/22/24 11:17 NM (Rec: 05/22/24 12:25 NM [id number]) OP Gait Assessment Gait Gait Assistance Required: Standby Assistance Distance (Feet) 150 Assistive Devices Assistive Device None Gait Deviations General Gait Pattern Antalgic Factors Limiting Gait Function Factors Limiting Gait Function Decreased Activity Tolerance, Decreased Strength,Limited Range of Motion,Pain Comments Gait Comments Toe in at R hip. Demos decrease in quad strength with slight trunk/hip flex with R stance PT-OP-H Neuro Start: 05/22/24 11:16 Freq: Status: Active Protocol: Document 05/22/24 11:17 NM (Rec: 05/22/24 12:25 NM [id number]) Sensation Evaluation Comments Summary Comments BLE intact to light touch sensation; no numbness or decreased sensation reported PT-OP-J Posture/Palpation/Skin Start: 05/22/24 11:16 Freq: Status: Active Protocol: Document 05/22/24 11:17 NM (Rec: 05/22/24 12:25 NM [id number]) Posture Evaluation Position Standing Head/C-Spine Posture Forward Head T-Spine Posture Increased Kyphosis L-Spine Posture Fixed Scoliosis on (L) Hip Posture (L) Internally Rotated,(R) Internally Rotated Patellar Posture (L) Superior,(R) Superior Comments Posture Comments mild hyperextension of R knee Palpation Assessment Location R knee Palpation Details Tenderness along posterior knee near hamstrings, lateral joint line No tenderness along patella, quad, hip flexors, lateral hip , medial joint line Skin Assessment Circumference Measurement R knee Location patellar: 38 cm; calf 33 cm Incisional Assessment Incision Appearance/Comments Stitches intact. Over lateral incision, pt has small opening but no discharge or bleeding. Pt reports that was present when she took off wrappings this morning PT-OP-K Range of Motion Start: 05/22/24 11:16 Freq: Status: Active Protocol: Document 06/26/24 10:47 SP (Rec: 06/26/24 11:33 SP [id number]) Knee Goniometric Range of Motion Knee Right Flexion Active (degrees) 135 Extension Active (degrees) 0 Comments IE: 85 deg flex to 1 deg ext 06/19/23: 117 deg flex- 18 deg gain AROM R knee flexion AROM 135 deg 06/26/24 PT-OP-M Strength Start: 05/22/24 11:16 Freq: Status: Active Protocol: Document 06/19/24 08:19 NM (Rec: 06/19/24 09:04 NM [id number]) Hip Strength Hip Manual Muscle Testing Right Flexion (L2) 4 Good Extension (S1) 4- Good- Abduction 4- Good- Adduction 4 Good Left Flexion (L2) 4 Good Extension (S1) 4 Good Abduction 4 Good Adduction 4 Good Knee Strength Knee Manual Muscle Testing Right Flexion (S2) 4- Good- Extension (L3) 4- Good- Comments not formally tested due to surgical repair, but able to perform seated against gravity without resistance\ 06/19/24: 06/19/24: 4-/5 knee flex/ext; pain free Left Flexion (S2) 4 Good Extension (L3) 4 Good PT-OP-Q Treatments Start: 05/22/24 11:16 Freq: Status: Active Protocol: Document 07/17/24 08:16 AB (Rec: 07/17/24 10:43 AB [id number]) Cardio Equipment Recumbent Bicycle Duration (Minutes) 5 Resistance 0 Seat Position 1 Gym Equipment Shuttle Recovery Bilateral Squats Resistance 50# Shuttle Recovery Platform Stable Reps/Time X15 Therapeutic Exercises Supine Exercises SLR Side right Reps/Minutes X15 Comments Verbal cues to rest a moment between reps hamstring stretch Supine Exercise Name from hooklying Side right Reps/Minutes 60 sec X 2 Comments verbal cues heel slides Supine Exercise Name AROM HS Side bilateral Comments X15 Sitting Exercises seated hip abduction with band Sitting Exercise Name HEP Side bilateral Resistance level 5 blue band to HEP Reps/Minutes one min X 1 Comments prior to hurdles Standing Exercises calf stretches Standing Exercise Name on stairs Equipment Used HEP Reps/Minutes Prior to hurdles step up Standing Exercise Name 4 inch step without UE support Side right Equipment Used light to no UE support Reps/Minutes X2 Comments cued for slower ascend/descend - light finger if needed for stability Manual Therapy Treatment Soft Tissue Mobilization right knee Body Location Quad and HS/prox calf muscles and for swelling Mobilization Type Cross-Friction,Rolling, Strumming Intensity/Depth Superficial Body Position Hooklying Comments superficial and hamstring Joint Mobilizations R knee Joint tibiofemoral, patellar, tibfib PA and AP Direction AP, sup/inf/lat/med Grade II Body Position Supine Reps/Duration X5 X 3 each Comments Monitored for pain, tightness reported at lateral R knee. no pain Neuro Re-Education Treatment Balance Activities step up taps Equipment from foam to 6 inch step Reps/Duration X10 Comments supervisionhands above bars Tandem stepping Reps/Duration 10 ft X 4 Supervision Comments hands above bars Hurdles Details receiprocal stepping Equipment 6 hurdles, foam, pods Reps/Duration X3 10 feet Comments supers PT-OP-T Assessment and Plan Start: 05/22/24 11:16 Freq: Status: Active Protocol: Document 07/17/24 08:16 AB (Rec: 07/17/24 10:43 AB [id number]) Physical Therapy Assessment Goals 5 Impairment currently not performing an HEP; will need to return to exercise w/ head athletic trainer Short Term Goal (STG) Pt will report compliance with HEP 3x/wk in order to maximize progression with PT and promote independence with exercise 06/19/24: perfroming HEP everyday STG Duration 3 weeks Penitentiary Goal (LTG) Pt will report compliance with HEP at least 3x/wk for maintenance program and/or will be able to return to weekly exercise with head athletic trainer if appropriate LTG Duration 12 weeks 4 Impairment LEFS 40/80 Impairment . Core Placer Goal (LTG) Pt will improve LEFS >50/80 (1 MCID) in order to demonstrate improvements in symptom management and activity tolerance LTG Duration 12 weeks 3 Impairment ambulation Impairment . Short Term Goal (STG) Pt will normalize gait mechanics for community distances during 6 MWT in order to demonstrate improvements in R knee/hip strength and ROM 06/09/24: progressing with gait mechanics on hurdles and on level surfaces 06/19/24: unable to complete 6 MWT due to R hip pain, ambulates 500 ft; still demos antalgic gait pattern, less stance on R foot STG Duration 6 weeks PROGRESSING Core Placer Goal (LTG) Pt will report that she is able to ambulate on unstable surfaces around her property for at least 1 mile without increase in R knee pain in order to demonstrate improvements in gait, pain management and activity tolerance LTG Duration 12 weeks 2 Impairment strength R hip 3+ to 4-/5 and knee 3/5 Impairment . Short Term Goal (STG) Pt will improve R hip and knee strength to at least 4/5 in order to demonstrate increased strength required for ambulation and ADLs 06/19/24: 4-/5 knee flex/ext, 4/5 hip flex/add and 4-/5 hip ext/abd STG Duration 8 weeks PROGRESSING Core Placer Goal (LTG) Pt will improve R hip and knee strength to at least 4+/5 in order to demonstrate increased strength required for ambulation and ADLs LTG Duration 12 weeks Assessment Summary Assessment AROM right knee 130 deg flexion post manual therapy and exercise. Shelley rates pain 2-3/10 right knee end of session. Patient now performs balance ex with supervision vs CGA. 4 inch step ups right LE continue to be painful with pain increasing from 2/10 to 3 /10. Physical Therapy Plan Frequency and Duration Frequency of Treatment 1-2x/wk Duration of treatment (weeks) 12 Plan of Care Start Date 05/22/24 Plan of Care End Date 08/18/24 Next Visit Focus/Plan Next Note Type Treatment Note Next Visit Plan Next session: recumbent bike for flexion prn, Normalize gait mechanics with hurdles, stance time and quad strength leg press, Add lateral step up 6 depending on tolerance, Trial leg press over minisquat , sidelying hip abduction vs side step if not knee twist, standing HSC, progress LAQ; add hip 3 way, heel raise, calf stretch. update HEP Manual therapy to improve knee flex, scar tissue along lateral knee Balance and proprioception
--- NOTE | 2024-07-19 09:02 | PT.OTN ---
Current Diagnoses Pain in right knee (07/19/24) Stiffness of right knee, not elsewhere classified (07/19/24) Other lack of coordination (07/19/24) Weakness (07/19/24) Physical Therapy Treatment Note PT-OP-A Visit Information Start: 05/22/24 11:16 Freq: Status: Active Protocol: Document 07/19/24 08:10 AB (Rec: 07/19/24 09:01 AB [id number]) Out-Patient Physical Therapy Visit Information Visit Information Visit Type Treatment Note Visit Note 01/13 Visit Start Time 08:16 Visit Stop Time 09:00 Visit Number 12 Number of RECREATIONAL THERAPY AIDE Visits 4 Evaluation Information Evaluation Date 05/22/24 Precautions Precautions s/p R knee arthroscopy ( meniscal repair) DOS 05/15/24 limit knee flex PT-OP-B Current Condition Start: 05/22/24 11:16 Freq: Status: Active Protocol: Document 05/22/24 11:17 NM (Rec: 05/22/24 12:25 NM [id number]) Current Condition History of Current Condition Onset Date DOS 05/15/24 Current Complaints pain, limited mobility, balance History of Current Condition Pt report that she had meniscus surgery on R knee 05/15 . Pt is not using any AD, states used crutches on Wednesday and a cane on Wednesday. She lives in a single story home. Reports no difficulty with balance. She gets her stitches out on 05/30. She saw Xavi Galvan MD. Pt reports no restrictions, no hot tub for a month. She reports that she was having pain in her leg since 2016 following a fall while walking and fell on her L side. She reports that she had a repair in 2022, then had another MRI after increased pain following 8 months leading to a new repair of the medial meniscus. Pt also reports that she was having lateral knee pain prior to surgery, reports that the ligament is soft. She also has arthritis. Pt also reports R hip and rump pain. No complications during surgery. Pt just removed bandages this morning; reports that she can shower now and reports that she is leaving her stitches uncovered. No stairs except to get into garage, rail; does not go in that way. Lives alone Prior Treatments and Tests PT Sep-December/2022 for same condition with good results Treatment Goals Patient/Caregiver Goals stronger, no pain or discomfort Prior Functional Status Baseline Function- Gait walk 3-5 mi day, 4x/week on unstable surface on her property Baseline Function- Other personal investment adviser every Wednesday (Ansley Sanabriaman): gentle and balance, core Current Functional Impairments (Reported) Functional Limitations- Other personal investment adviser on hold right now PT-OP-C Subjective Start: 05/22/24 11:16 Freq: Status: Active Protocol: Document 07/19/24 08:10 AB (Rec: 07/19/24 09:01 AB [id number]) OP-PT Subjective Patient Comments Patient Comments Patient ambulates into session reporting having no pain, just an ache lateral right knee. Patient reports feeling better post treatment previous session. 0-126 AROM right knee start of session. PT-OP-D Balance Start: 05/22/24 11:16 Freq: Status: Active Protocol: Document 05/22/24 11:17 NM (Rec: 05/22/24 12:25 NM [id number]) Balance Tests Romberg Romberg 30 sec Single Limb Standing Single Limb- Right 2 sec Single Limb- Left 10 sec Tandem Tandem Standing 8 sec PT-OP-E Functional Tests Start: 05/22/24 11:16 Freq: Status: Active Protocol: Document 05/22/24 11:17 NM (Rec: 05/22/24 12:25 NM [id number]) Functional Tests Five Times Sit to Stand Test Score 16 seconds Comments no pain; no UE assist PT-OP-F Manual Assessment Start: 05/22/24 11:16 Freq: Status: Active Protocol: Document 05/22/24 11:17 NM (Rec: 05/22/24 12:25 NM [id number]) Manual Assessments Soft Tissue Assessment Soft Tissue Mobility Assessment Tightness of R heel cords, hamstrings Joint Mobility Assessment Joint Mobility Assessment Mild R knee hyperextension, decreased ankle mobility PT-OP-G Mobility & Gait Start: 05/22/24 11:16 Freq: Status: Active Protocol: Document 05/22/24 11:17 NM (Rec: 05/22/24 12:25 NM [id number]) OP Gait Assessment Gait Gait Assistance Required: Standby Assistance Distance (Feet) 150 Assistive Devices Assistive Device None Gait Deviations General Gait Pattern Antalgic Factors Limiting Gait Function Factors Limiting Gait Function Decreased Activity Tolerance, Decreased Strength,Limited Range of Motion,Pain Comments Gait Comments Toe in at R hip. Demos decrease in quad strength with slight trunk/hip flex with R stance PT-OP-H Neuro Start: 05/22/24 11:16 Freq: Status: Active Protocol: Document 05/22/24 11:17 NM (Rec: 05/22/24 12:25 NM [id number]) Sensation Evaluation Comments Summary Comments BLE intact to light touch sensation; no numbness or decreased sensation reported PT-OP-J Posture/Palpation/Skin Start: 05/22/24 11:16 Freq: Status: Active Protocol: Document 05/22/24 11:17 NM (Rec: 05/22/24 12:25 NM [id number]) Posture Evaluation Position Standing Head/C-Spine Posture Forward Head T-Spine Posture Increased Kyphosis L-Spine Posture Fixed Scoliosis on (L) Hip Posture (L) Internally Rotated,(R) Internally Rotated Patellar Posture (L) Superior,(R) Superior Comments Posture Comments mild hyperextension of R knee Palpation Assessment Location R knee Palpation Details Tenderness along posterior knee near hamstrings, lateral joint line No tenderness along patella, quad, hip flexors, lateral hip , medial joint line Skin Assessment Circumference Measurement R knee Location patellar: 38 cm; calf 33 cm Incisional Assessment Incision Appearance/Comments Stitches intact. Over lateral incision, pt has small opening but no discharge or bleeding. Pt reports that was present when she took off wrappings this morning PT-OP-K Range of Motion Start: 05/22/24 11:16 Freq: Status: Active Protocol: Document 06/26/24 10:47 SP (Rec: 06/26/24 11:33 SP [id number]) Knee Goniometric Range of Motion Knee Right Flexion Active (degrees) 135 Extension Active (degrees) 0 Comments IE: 85 deg flex to 1 deg ext 06/19/23: 117 deg flex- 18 deg gain AROM R knee flexion AROM 135 deg 06/26/24 PT-OP-M Strength Start: 05/22/24 11:16 Freq: Status: Active Protocol: Document 06/19/24 08:19 NM (Rec: 06/19/24 09:04 NM [id number]) Hip Strength Hip Manual Muscle Testing Right Flexion (L2) 4 Good Extension (S1) 4- Good- Abduction 4- Good- Adduction 4 Good Left Flexion (L2) 4 Good Extension (S1) 4 Good Abduction 4 Good Adduction 4 Good Knee Strength Knee Manual Muscle Testing Right Flexion (S2) 4- Good- Extension (L3) 4- Good- Comments not formally tested due to surgical repair, but able to perform seated against gravity without resistance\ 06/19/24: 06/19/24: 4-/5 knee flex/ext; pain free Left Flexion (S2) 4 Good Extension (L3) 4 Good PT-OP-Q Treatments Start: 05/22/24 11:16 Freq: Status: Active Protocol: Document 07/19/24 08:10 AB (Rec: 07/19/24 09:01 AB [id number]) Cardio Equipment Recumbent Bicycle Duration (Minutes) 3 Resistance 0 Seat Position 1 Other limited by right knee pain wtih increased flexion. Therapeutic Exercises Supine Exercises heel slides Supine Exercise Name AROM HS Side right Comments X10 X 2 Sidelying Exercises hip abduction Side bilateral Reps/Minutes x15 Comments cued for for clamshell Side bilateral Resistance level two band then level 3 band Reps/Minutes X16 then X 15 with level 3 band Comments better neutral hip Standing Exercises glute med isometric Standing Exercise Name standing at wall Side bilateral Reps/Minutes 60 sec each LE Comments Verbal and visual cues calf stretches Standing Exercise Name on stairs, soleus and gastroc Equipment Used HEP Reps/Minutes 60 sec X 2 each stretch heel raise Standing Exercise Name on step Side bilateral Equipment Used B hand support Reps/Minutes X15 with knee straight x 8 with knees bent Comments reports incre Manual Therapy Treatment Consent Patient gave verbal consent for manual Yes treatment Soft Tissue Mobilization right knee Body Location Quad and HS/prox calf muscles and for swelling Mobilization Type Cross-Friction,Rolling, Strumming Intensity/Depth Superficial Body Position Hooklying Comments and moderate and hamstring Joint Mobilizations R knee Joint tibiofemoral, patellar, tibfib PA and AP Direction AP, sup/inf/lat/med Grade II Body Position Supine Reps/Duration X10 X 2each Comments Monitored for pain, tightness reported at lateral R knee. no pain PT-OP-T Assessment and Plan Start: 05/22/24 11:16 Freq: Status: Active Protocol: Document 07/19/24 08:10 AB (Rec: 07/19/24 09:01 AB [id number]) Physical Therapy Assessment Goals 5 Impairment currently not performing an HEP; will need to return to exercise w/ program trainer Short Term Goal (STG) Pt will report compliance with HEP 3x/wk in order to maximize progression with PT and promote independence with exercise 06/19/24: perfroming HEP everyday STG Duration 3 weeks Prison Goal (LTG) Pt will report compliance with HEP at least 3x/wk for maintenance program and/or will be able to return to weekly exercise with program trainer if appropriate LTG Duration 12 weeks 4 Impairment LEFS 40/80 Impairment . General Office Clerk Goal (LTG) Pt will improve LEFS >50/80 (1 MCID) in order to demonstrate improvements in symptom management and activity tolerance LTG Duration 12 weeks 3 Impairment ambulation Impairment . Short Term Goal (STG) Pt will normalize gait mechanics for community distances during 6 MWT in order to demonstrate improvements in R knee/hip strength and ROM 06/09/24: progressing with gait mechanics on hurdles and on level surfaces 06/19/24: unable to complete 6 MWT due to R hip pain, ambulates 500 ft; still demos antalgic gait pattern, less stance on R foot STG Duration 6 weeks PROGRESSING General Office Clerk Goal (LTG) Pt will report that she is able to ambulate on unstable surfaces around her property for at least 1 mile without increase in R knee pain in order to demonstrate improvements in gait, pain management and activity tolerance LTG Duration 12 weeks 2 Impairment strength R hip 3+ to 4-/5 and knee 3/5 Impairment . Short Term Goal (STG) Pt will improve R hip and knee strength to at least 4/5 in order to demonstrate increased strength required for ambulation and ADLs 06/19/24: 4-/5 knee flex/ext, 4/5 hip flex/add and 4-/5 hip ext/abd STG Duration 8 weeks PROGRESSING Prison Goal (LTG) Pt will improve R hip and knee strength to at least 4+/5 in order to demonstrate increased strength required for ambulation and ADLs LTG Duration 12 weeks Assessment Summary Assessment AROM right knee flexion 131 deg post manual therapy and heel slides. 3/10 pain right knee end of session. Physical Therapy Plan Frequency and Duration Frequency of Treatment 1-2x/wk Duration of treatment (weeks) 12 Plan of Care Start Date 05/22/24 Plan of Care End Date 08/18/24 Next Visit Focus/Plan Next Note Type Treatment Note Next Visit Plan Next session: recumbent bike for flexion prn, Normalize gait mechanics with hurdles, stance time and quad strength leg press, Add lateral step up 6 depending on tolerance, Trial leg press over minisquat , side step with band if not knee twist, standing HSC, progress LAQ; add hip 3 way, heel raise, calf stretch. update HEP Manual therapy to improve knee flex, scar tissue along lateral knee Balance and proprioception
--- NOTE | 2024-07-24 10:31 | PT.OTN ---
Current Diagnoses Pain in right knee (07/24/24) Stiffness of right knee, not elsewhere classified (07/24/24) Other lack of coordination (07/24/24) Weakness (07/24/24) Physical Therapy Treatment Note PT-OP-A Visit Information Start: 05/22/24 11:16 Freq: Status: Active Protocol: Document 07/24/24 08:13 NM (Rec: 07/24/24 09:01 NM [id number]) Out-Patient Physical Therapy Visit Information Visit Information Visit Type Treatment Note Visit Note 02/13 Visit Start Time 08:15 Visit Stop Time 09:00 Visit Number 13 Evaluation Information Evaluation Date 05/22/24 Precautions Precautions s/p R knee arthroscopy ( meniscal repair) DOS 05/15/24 limit knee flex PT-OP-B Current Condition Start: 05/22/24 11:16 Freq: Status: Active Protocol: Document 05/22/24 11:17 NM (Rec: 05/22/24 12:25 NM [id number]) Current Condition History of Current Condition Onset Date DOS 05/15/24 Current Complaints pain, limited mobility, balance History of Current Condition Pt report that she had meniscus surgery on R knee 05/15 . Pt is not using any AD, states used crutches on Wednesday and a cane on Wednesday. She lives in a single story home. Reports no difficulty with balance. She gets her stitches out on 05/30. She saw Xavi Galvan MD. Pt reports no restrictions, no hot tub for a month. She reports that she was having pain in her leg since 2016 following a fall while walking and fell on her L side. She reports that she had a repair in 2022, then had another MRI after increased pain following 8 months leading to a new repair of the medial meniscus. Pt also reports that she was having lateral knee pain prior to surgery, reports that the ligament is soft. She also has arthritis. Pt also reports R hip and rump pain. No complications during surgery. Pt just removed bandages this morning; reports that she can shower now and reports that she is leaving her stitches uncovered. No stairs except to get into garage, rail; does not go in that way. Lives alone Prior Treatments and Tests PT Sep-December/2022 for same condition with good results Treatment Goals Patient/Caregiver Goals stronger, no pain or discomfort Prior Functional Status Baseline Function- Gait walk 3-5 mi day, 4x/week on unstable surface on her property Baseline Function- Other personal security specialist every Wednesday (Ansley Sanabriaman): gentle and balance, core Current Functional Impairments (Reported) Functional Limitations- Other personal security specialist on hold right now PT-OP-C Subjective Start: 05/22/24 11:16 Freq: Status: Active Protocol: Document 07/24/24 08:13 NM (Rec: 07/24/24 09:01 NM [id number]) OP-PT Subjective Patient Comments Patient Comments Pt saw several weeks ago, reports needs to work on strengthening. Pt still has antalgic gait. Reports improvement in 40-50% since IE ; states overall improvement in pain and management with exercise. Still icing for pain . Reports calf is shortened so stretching helps. Pt reports still unable to don sock (in hip ER), reports pulling at incision site. Did 5 min on bike Wednesday before got pain in knee. Reports 3/10 pain in R knee today PT-OP-D Balance Start: 05/22/24 11:16 Freq: Status: Active Protocol: Document 05/22/24 11:17 NM (Rec: 05/22/24 12:25 NM [id number]) Balance Tests Romberg Romberg 30 sec Single Limb Standing Single Limb- Right 2 sec Single Limb- Left 10 sec Tandem Tandem Standing 8 sec PT-OP-E Functional Tests Start: 05/22/24 11:16 Freq: Status: Active Protocol: Document 05/22/24 11:17 NM (Rec: 05/22/24 12:25 NM [id number]) Functional Tests Five Times Sit to Stand Test Score 16 seconds Comments no pain; no UE assist PT-OP-F Manual Assessment Start: 05/22/24 11:16 Freq: Status: Active Protocol: Document 05/22/24 11:17 NM (Rec: 05/22/24 12:25 NM [id number]) Manual Assessments Soft Tissue Assessment Soft Tissue Mobility Assessment Tightness of R heel cords, hamstrings Joint Mobility Assessment Joint Mobility Assessment Mild R knee hyperextension, decreased ankle mobility PT-OP-G Mobility & Gait Start: 05/22/24 11:16 Freq: Status: Active Protocol: Document 05/22/24 11:17 NM (Rec: 05/22/24 12:25 NM [id number]) OP Gait Assessment Gait Gait Assistance Required: Standby Assistance Distance (Feet) 150 Assistive Devices Assistive Device None Gait Deviations General Gait Pattern Antalgic Factors Limiting Gait Function Factors Limiting Gait Function Decreased Activity Tolerance, Decreased Strength,Limited Range of Motion,Pain Comments Gait Comments Toe in at R hip. Demos decrease in quad strength with slight trunk/hip flex with R stance PT-OP-H Neuro Start: 05/22/24 11:16 Freq: Status: Active Protocol: Document 05/22/24 11:17 NM (Rec: 05/22/24 12:25 NM [id number]) Sensation Evaluation Comments Summary Comments BLE intact to light touch sensation; no numbness or decreased sensation reported PT-OP-J Posture/Palpation/Skin Start: 05/22/24 11:16 Freq: Status: Active Protocol: Document 05/22/24 11:17 NM (Rec: 05/22/24 12:25 NM [id number]) Posture Evaluation Position Standing Head/C-Spine Posture Forward Head T-Spine Posture Increased Kyphosis L-Spine Posture Fixed Scoliosis on (L) Hip Posture (L) Internally Rotated,(R) Internally Rotated Patellar Posture (L) Superior,(R) Superior Comments Posture Comments mild hyperextension of R knee Palpation Assessment Location R knee Palpation Details Tenderness along posterior knee near hamstrings, lateral joint line No tenderness along patella, quad, hip flexors, lateral hip , medial joint line Skin Assessment Circumference Measurement R knee Location patellar: 38 cm; calf 33 cm Incisional Assessment Incision Appearance/Comments Stitches intact. Over lateral incision, pt has small opening but no discharge or bleeding. Pt reports that was present when she took off wrappings this morning PT-OP-K Range of Motion Start: 05/22/24 11:16 Freq: Status: Active Protocol: Document 07/24/24 08:13 NM (Rec: 07/24/24 09:01 NM [id number]) Knee Goniometric Range of Motion Knee Right Flexion Active (degrees) 135 Extension Active (degrees) 0 Comments IE: 85 deg flex to 1 deg ext 06/19/23: 117 deg flex- 18 deg gain AROM R knee flexion AROM 135 deg 06/26/24 07/24/24: Left Flexion Active (degrees) 123 Extension Active (degrees) 1 PT-OP-M Strength Start: 05/22/24 11:16 Freq: Status: Active Protocol: Document 07/24/24 08:13 NM (Rec: 07/24/24 09:01 NM [id number]) Hip Strength Hip Manual Muscle Testing Right Flexion (L2) 4 Good Extension (S1) 4 Good Abduction 4 Good Adduction 4 Good Comments 07/24/24: 4/5 for all Left Flexion (L2) 4 Good Extension (S1) 4 Good Abduction 4 Good Adduction 4 Good Knee Strength Knee Manual Muscle Testing Right Flexion (S2) 4 Good Extension (L3) 4 Good Comments not formally tested due to surgical repair, but able to perform seated against gravity without resistance\ 06/19/24: 06/19/24: 4-/5 knee flex/ext; pain free 07/24/24: 4/5 Left Flexion (S2) 4 Good Extension (L3) 4 Good PT-OP-Q Treatments Start: 05/22/24 11:16 Freq: Status: Active Protocol: Document 07/24/24 08:13 NM (Rec: 07/24/24 09:01 NM [id number]) Gym Equipment Shuttle Recovery Unilateral Squats Details R Resistance 50# (1 navy)- challenging 1 set, 37# 2nd set Shuttle Recovery Platform Stable Reps/Time 10 50#, 2x15 Therapeutic Exercises Supine Exercises piriformis stretch Supine Exercise Name cross body stretch Side bilateral Equipment Used towel assist Reps/Minutes 60 ea Comments pain free; reports good stretch Standing Exercises hip 3 way Standing Exercise Name hip flex, abd, ext Side bilateral Resistance level 2 band at thighs Equipment Used 1 hand support for balance Reps/Minutes 10 ea leg Comments cued not to lean on bar glute med isometric Standing Exercise Name standing at wall Side bilateral Reps/Minutes 60 sec each LE Comments Verbal and visual cues matthieu to limit trunk comp step up Standing Exercise Name HEP 6 Side right Equipment Used light to no UE support Reps/Minutes 2x10 Comments cued for slower ascend/descend - light finger if needed for stability Manual Therapy Treatment Consent Patient gave verbal consent for manual Yes treatment Soft Tissue Mobilization right knee Body Location Quad and HS/prox calf muscles and for swelling Mobilization Type Cross-Friction,Rolling, Strumming Intensity/Depth Superficial Body Position Hooklying Comments and moderate and hamstring Joint Mobilizations R knee Joint tibiofemoral, patellar, tibfib PA and AP Direction AP, sup/inf/lat/med Grade II Body Position Supine Reps/Duration 2x30 ea Comments Monitored for pain, tightness reported at lateral R knee. no pain PT-OP-T Assessment and Plan Start: 05/22/24 11:16 Freq: Status: Active Protocol: Document 07/24/24 08:13 NM (Rec: 07/24/24 09:01 NM [id number]) Physical Therapy Assessment Goals 5 Impairment currently not performing an HEP; will need to return to exercise w/ residential solar sales consultant Short Term Goal (STG) Pt will report compliance with HEP 3x/wk in order to maximize progression with PT and promote independence with exercise 06/19/24: perfroming HEP everyday STG Duration 3 weeks Half-Way Goal (LTG) Pt will report compliance with HEP at least 3x/wk for maintenance program and/or will be able to return to weekly exercise with residential solar sales consultant if appropriate 07/24/24: does every other day LTG Duration 12 weeks 4 Impairment LEFS 40/80 Impairment . Half-Way Goal (LTG) Pt will improve LEFS >50/80 (1 MCID) in order to demonstrate improvements in symptom management and activity tolerance 07/24/24: LTG Duration 12 weeks 3 Impairment ambulation Impairment . Short Term Goal (STG) Pt will normalize gait mechanics for community distances during 6 MWT in order to demonstrate improvements in R knee/hip strength and ROM 06/09/24: progressing with gait mechanics on hurdles and on level surfaces 06/19/24: unable to complete 6 MWT due to R hip pain, ambulates 500 ft; still demos antalgic gait pattern, less stance on R foot 07/24/24: following sitting, pt still demos antalgic gait STG Duration 6 weeks PROGRESSING Half-Way Goal (LTG) Pt will report that she is able to ambulate on unstable surfaces around her property for at least 1 mile without increase in R knee pain in order to demonstrate improvements in gait, pain management and activity tolerance 07/24/24: pt can ambulate for 1/4 mi on level surfaces several times ea day LTG Duration 12 weeks 2 Impairment strength R hip 3+ to 4-/5 and knee 3/5 Impairment . Short Term Goal (STG) Pt will improve R hip and knee strength to at least 4/5 in order to demonstrate increased strength required for ambulation and ADLs 06/19/24: 4-/5 knee flex/ext, 4/5 hip flex/add and 4-/5 hip ext/abd 07/24/24: 4/5 for al hip and knee strength STG Duration 8 weeks MET Half-Way Goal (LTG) Pt will improve R hip and knee strength to at least 4+/5 in order to demonstrate increased strength required for ambulation and ADLs LTG Duration 12 weeks Progress Towards Goals Progress Towards Goals Progressing Toward Goals,Slow Progress due to Activity Tolerance,Goals Met Progress Comments Pt limited by achiness/pain Assessment Summary Assessment Pt improved R knee flexion AROM from 127 deg to 135 deg at end of session. Progressed resistance on single leg squat to 50# for limited reps; very challenging for pt and moderate cueing for knee alignment to prevent valgus. Initiated hip strengthenging and single leg stability for improved stability during gait . Pt still antalgic gait but deviations decrease significantly with moderate cueing for heel-toe pattern. Intermittent cues for control with step ups on 6 step; initiated for carryover at home with single leg quad/ glute strength. Pt would continue to benefit from skilled PT for progressive R knee flexibility and strengthening in order to improve functional mobility and ADL tolerance. Pt has been seen x12 visits since evaluation s/p R meniscectomy and repair in May 2024. Pt is progressing slowly toward goals. Has R knee flexion >125 deg consistently and 0 deg ext. Pt's R knee and hip strength are slowly improving. She is limited with progression by activity tolerance and achiness/pain. Overall, pt reports significant reduction in pain levels, but still has stiffness in morning or following sitting. Pt has been compliant with HEP. Gait is still slightly antalgic. She will follow up with surgeon in August 2024. Pt would continue to benefit from skilled PT for progressive R knee flexibility and strengthening in order to improve functional mobility and ADL tolerance. Physical Therapy Plan Frequency and Duration Frequency of Treatment 1-2x/wk Duration of treatment (weeks) 12 Plan of Care Start Date 05/22/24 Plan of Care End Date 08/18/24 Therapeutic Interventions Therapeutic Interventions Balance Training,Gait Training ,Home Exercise Program,Joint Mobilizations,Manual Therapy, Neuromuscular Re-education, Orthotic/Prosthetic Management ,Patient/Caregiver Education, Self-Care/Home Management, Sensory Integration,Soft Tissue Mobilization,Taping, Therapeutic Activities, Therapeutic Exercises Modalities Cold Pack/Ice Massage,Electric Stimulation,Hot Packs, Ultrasound Next Visit Focus/Plan Next Note Type Treatment Note Next Visit Plan Trial figure 4 stretch if janiya for sock don/doff. Cont with hip matthieu glute and knee strength, 4 step up w/o hand; trial lateral step up. hip 3 way Normal flex ROM and gait mechanics. recumbent bike for flexion prn , Normalize gait mechanics with hurdles, stance time and quad strength Manual therapy to improve knee flex, scar tissue along lateral knee Balance and proprioception
--- NOTE | 2024-07-24 10:33 | PT.OTN ---
Current Diagnoses Pain in right knee (07/24/24) Stiffness of right knee, not elsewhere classified (07/24/24) Other lack of coordination (07/24/24) Weakness (07/24/24) Physical Therapy Treatment Note PT-OP-A Visit Information Start: 05/22/24 11:16 Freq: Status: Active Protocol: Document 07/24/24 08:13 NM (Rec: 07/24/24 09:01 NM [id number]) Out-Patient Physical Therapy Visit Information Visit Information Visit Type Progress Note Visit Start Time 08:15 Visit Stop Time 09:00 Visit Number 13 Evaluation Information Evaluation Date 05/22/24 Precautions Precautions s/p R knee arthroscopy ( meniscal repair) DOS 05/15/24 limit knee flex PT-OP-B Current Condition Start: 05/22/24 11:16 Freq: Status: Active Protocol: Document 05/22/24 11:17 NM (Rec: 05/22/24 12:25 NM [id number]) Current Condition History of Current Condition Onset Date DOS 05/15/24 Current Complaints pain, limited mobility, balance History of Current Condition Pt report that she had meniscus surgery on R knee 05/15 . Pt is not using any AD, states used crutches on Wednesday and a cane on Wednesday. She lives in a single story home. Reports no difficulty with balance. She gets her stitches out on 05/30. She saw Xavi Galvan MD. Pt reports no restrictions, no hot tub for a month. She reports that she was having pain in her leg since 2016 following a fall while walking and fell on her L side. She reports that she had a repair in 2022, then had another MRI after increased pain following 8 months leading to a new repair of the medial meniscus. Pt also reports that she was having lateral knee pain prior to surgery, reports that the ligament is soft. She also has arthritis. Pt also reports R hip and rump pain. No complications during surgery. Pt just removed bandages this morning; reports that she can shower now and reports that she is leaving her stitches uncovered. No stairs except to get into garage, rail; does not go in that way. Lives alone Prior Treatments and Tests PT Sep-December/2022 for same condition with good results Treatment Goals Patient/Caregiver Goals stronger, no pain or discomfort Prior Functional Status Baseline Function- Gait walk 3-5 mi day, 4x/week on unstable surface on her property Baseline Function- Other personal attendant every Wednesday (Ansley Araujo): gentle and balance, core Current Functional Impairments (Reported) Functional Limitations- Other personal attendant on hold right now PT-OP-C Subjective Start: 05/22/24 11:16 Freq: Status: Active Protocol: Document 07/24/24 08:13 NM (Rec: 07/24/24 09:01 NM [id number]) OP-PT Subjective Patient Comments Patient Comments Pt saw several weeks ago, reports needs to work on strengthening. Pt still has antalgic gait. Reports improvement in 40-50% since IE ; states overall improvement in pain and management with exercise. Still icing for pain . Reports calf is shortened so stretching helps. Pt reports still unable to don sock (in hip ER), reports pulling at incision site. Did 5 min on bike Wednesday before got pain in knee. Reports 3/10 pain in R knee today PT-OP-D Balance Start: 05/22/24 11:16 Freq: Status: Active Protocol: Document 05/22/24 11:17 NM (Rec: 05/22/24 12:25 NM [id number]) Balance Tests Romberg Romberg 30 sec Single Limb Standing Single Limb- Right 2 sec Single Limb- Left 10 sec Tandem Tandem Standing 8 sec PT-OP-E Functional Tests Start: 05/22/24 11:16 Freq: Status: Active Protocol: Document 05/22/24 11:17 NM (Rec: 05/22/24 12:25 NM [id number]) Functional Tests Five Times Sit to Stand Test Score 16 seconds Comments no pain; no UE assist PT-OP-F Manual Assessment Start: 05/22/24 11:16 Freq: Status: Active Protocol: Document 05/22/24 11:17 NM (Rec: 05/22/24 12:25 NM [id number]) Manual Assessments Soft Tissue Assessment Soft Tissue Mobility Assessment Tightness of R heel cords, hamstrings Joint Mobility Assessment Joint Mobility Assessment Mild R knee hyperextension, decreased ankle mobility PT-OP-G Mobility & Gait Start: 05/22/24 11:16 Freq: Status: Active Protocol: Document 05/22/24 11:17 NM (Rec: 05/22/24 12:25 NM [id number]) OP Gait Assessment Gait Gait Assistance Required: Standby Assistance Distance (Feet) 150 Assistive Devices Assistive Device None Gait Deviations General Gait Pattern Antalgic Factors Limiting Gait Function Factors Limiting Gait Function Decreased Activity Tolerance, Decreased Strength,Limited Range of Motion,Pain Comments Gait Comments Toe in at R hip. Demos decrease in quad strength with slight trunk/hip flex with R stance PT-OP-H Neuro Start: 05/22/24 11:16 Freq: Status: Active Protocol: Document 05/22/24 11:17 NM (Rec: 05/22/24 12:25 NM [id number]) Sensation Evaluation Comments Summary Comments BLE intact to light touch sensation; no numbness or decreased sensation reported PT-OP-J Posture/Palpation/Skin Start: 05/22/24 11:16 Freq: Status: Active Protocol: Document 05/22/24 11:17 NM (Rec: 05/22/24 12:25 NM [id number]) Posture Evaluation Position Standing Head/C-Spine Posture Forward Head T-Spine Posture Increased Kyphosis L-Spine Posture Fixed Scoliosis on (L) Hip Posture (L) Internally Rotated,(R) Internally Rotated Patellar Posture (L) Superior,(R) Superior Comments Posture Comments mild hyperextension of R knee Palpation Assessment Location R knee Palpation Details Tenderness along posterior knee near hamstrings, lateral joint line No tenderness along patella, quad, hip flexors, lateral hip , medial joint line Skin Assessment Circumference Measurement R knee Location patellar: 38 cm; calf 33 cm Incisional Assessment Incision Appearance/Comments Stitches intact. Over lateral incision, pt has small opening but no discharge or bleeding. Pt reports that was present when she took off wrappings this morning PT-OP-K Range of Motion Start: 05/22/24 11:16 Freq: Status: Active Protocol: Document 07/24/24 08:13 NM (Rec: 07/24/24 09:01 NM [id number]) Knee Goniometric Range of Motion Knee Right Flexion Active (degrees) 135 Extension Active (degrees) 0 Comments IE: 85 deg flex to 1 deg ext 06/19/23: 117 deg flex- 18 deg gain AROM R knee flexion AROM 135 deg 06/26/24 07/24/24: Left Flexion Active (degrees) 123 Extension Active (degrees) 1 PT-OP-M Strength Start: 05/22/24 11:16 Freq: Status: Active Protocol: Document 07/24/24 08:13 NM (Rec: 07/24/24 09:01 NM [id number]) Hip Strength Hip Manual Muscle Testing Right Flexion (L2) 4 Good Extension (S1) 4 Good Abduction 4 Good Adduction 4 Good Comments 07/24/24: 4/5 for all Left Flexion (L2) 4 Good Extension (S1) 4 Good Abduction 4 Good Adduction 4 Good Knee Strength Knee Manual Muscle Testing Right Flexion (S2) 4 Good Extension (L3) 4 Good Comments not formally tested due to surgical repair, but able to perform seated against gravity without resistance\ 06/19/24: 06/19/24: 4-/5 knee flex/ext; pain free 07/24/24: 4/5 Left Flexion (S2) 4 Good Extension (L3) 4 Good PT-OP-Q Treatments Start: 05/22/24 11:16 Freq: Status: Active Protocol: Document 07/24/24 08:13 NM (Rec: 07/24/24 09:01 NM [id number]) Gym Equipment Shuttle Recovery Unilateral Squats Details R Resistance 50# (1 navy)- challenging 1 set, 37# 2nd set Shuttle Recovery Platform Stable Reps/Time 10 50#, 2x15 Therapeutic Exercises Supine Exercises piriformis stretch Supine Exercise Name cross body stretch Side bilateral Equipment Used towel assist Reps/Minutes 60 ea Comments pain free; reports good stretch Standing Exercises hip 3 way Standing Exercise Name hip flex, abd, ext Side bilateral Resistance level 2 band at thighs Equipment Used 1 hand support for balance Reps/Minutes 10 ea leg Comments cued not to lean on bar glute med isometric Standing Exercise Name standing at wall Side bilateral Reps/Minutes 60 sec each LE Comments Verbal and visual cues matthieu to limit trunk comp step up Standing Exercise Name HEP 6 Side right Equipment Used light to no UE support Reps/Minutes 2x10 Comments cued for slower ascend/descend - light finger if needed for stability Manual Therapy Treatment Consent Patient gave verbal consent for manual Yes treatment Soft Tissue Mobilization right knee Body Location Quad and HS/prox calf muscles and for swelling Mobilization Type Cross-Friction,Rolling, Strumming Intensity/Depth Superficial Body Position Hooklying Comments and moderate and hamstring Joint Mobilizations R knee Joint tibiofemoral, patellar, tibfib PA and AP Direction AP, sup/inf/lat/med Grade II Body Position Supine Reps/Duration 2x30 ea Comments Monitored for pain, tightness reported at lateral R knee. no pain PT-OP-T Assessment and Plan Start: 05/22/24 11:16 Freq: Status: Active Protocol: Document 07/24/24 08:13 NM (Rec: 07/24/24 09:01 NM [id number]) Physical Therapy Assessment Goals 5 Impairment currently not performing an HEP; will need to return to exercise w/ business trainer Short Term Goal (STG) Pt will report compliance with HEP 3x/wk in order to maximize progression with PT and promote independence with exercise 06/19/24: perfroming HEP everyday STG Duration 3 weeks Change Director Goal (LTG) Pt will report compliance with HEP at least 3x/wk for maintenance program and/or will be able to return to weekly exercise with business trainer if appropriate 07/24/24: does every other day LTG Duration 12 weeks 4 Impairment LEFS 40/80 Impairment . Mcfp Goal (LTG) Pt will improve LEFS >50/80 (1 MCID) in order to demonstrate improvements in symptom management and activity tolerance 07/24/24: 38/80 LTG Duration 12 weeks 3 Impairment ambulation Impairment . Short Term Goal (STG) Pt will normalize gait mechanics for community distances during 6 MWT in order to demonstrate improvements in R knee/hip strength and ROM 06/09/24: progressing with gait mechanics on hurdles and on level surfaces 06/19/24: unable to complete 6 MWT due to R hip pain, ambulates 500 ft; still demos antalgic gait pattern, less stance on R foot 07/24/24: following sitting, pt still demos antalgic gait STG Duration 6 weeks PROGRESSING Change Director Goal (LTG) Pt will report that she is able to ambulate on unstable surfaces around her property for at least 1 mile without increase in R knee pain in order to demonstrate improvements in gait, pain management and activity tolerance 07/24/24: pt can ambulate for 1/4 mi on level surfaces several times ea day LTG Duration 12 weeks 2 Impairment strength R hip 3+ to 4-/5 and knee 3/5 Impairment . Short Term Goal (STG) Pt will improve R hip and knee strength to at least 4/5 in order to demonstrate increased strength required for ambulation and ADLs 06/19/24: 4-/5 knee flex/ext, 4/5 hip flex/add and 4-/5 hip ext/abd 07/24/24: 4/5 for al hip and knee strength STG Duration 8 weeks MET Mcfp Goal (LTG) Pt will improve R hip and knee strength to at least 4+/5 in order to demonstrate increased strength required for ambulation and ADLs LTG Duration 12 weeks Progress Towards Goals Progress Towards Goals Progressing Toward Goals,Slow Progress due to Activity Tolerance,Goals Met Progress Comments Pt limited by achiness/pain Assessment Summary Assessment Pt improved R knee flexion AROM from 127 deg to 135 deg at end of session. Progressed resistance on single leg squat to 50# for limited reps; very challenging for pt and moderate cueing for knee alignment to prevent valgus. Initiated hip strengthenging and single leg stability for improved stability during gait . Pt still antalgic gait but deviations decrease significantly with moderate cueing for heel-toe pattern. Intermittent cues for control with step ups on 6 step; initiated for carryover at home with single leg quad/ glute strength. Pt would continue to benefit from skilled PT for progressive R knee flexibility and strengthening in order to improve functional mobility and ADL tolerance. Physical Therapy Plan Frequency and Duration Frequency of Treatment 1-2x/wk Duration of treatment (weeks) 12 Plan of Care Start Date 05/22/24 Plan of Care End Date 08/18/24 Therapeutic Interventions Therapeutic Interventions Balance Training,Gait Training ,Home Exercise Program,Joint Mobilizations,Manual Therapy, Neuromuscular Re-education, Orthotic/Prosthetic Management ,Patient/Caregiver Education, Self-Care/Home Management, Sensory Integration,Soft Tissue Mobilization,Taping, Therapeutic Activities, Therapeutic Exercises Modalities Cold Pack/Ice Massage,Electric Stimulation,Hot Packs, Ultrasound Next Visit Focus/Plan Next Note Type Treatment Note Next Visit Plan Trial figure 4 stretch if janiya for sock don/doff. Cont with hip matthieu glute and knee strength, 4 step up w/o hand; trial lateral step up. hip 3 way Normal flex ROM and gait mechanics. recumbent bike for flexion prn , Normalize gait mechanics with hurdles, stance time and quad strength Manual therapy to improve knee flex, scar tissue along lateral knee Balance and proprioception
--- NOTE | 2024-07-31 10:45 | PT.OTN ---
Current Diagnoses Pain in right knee (07/31/24) Stiffness of right knee, not elsewhere classified (07/31/24) Other lack of coordination (07/31/24) Weakness (07/31/24) Physical Therapy Treatment Note PT-OP-A Visit Information Start: 05/22/24 11:16 Freq: Status: Active Protocol: Document 07/31/24 08:08 AB (Rec: 07/31/24 10:43 AB [id number]) Out-Patient Physical Therapy Visit Information Visit Information Visit Type Treatment Note Visit Start Time 08:16 Visit Stop Time 08:48 Visit Number 14 Number of TOURS HOSTESS Visits 1 Evaluation Information Evaluation Date 05/22/24 Precautions Precautions s/p R knee arthroscopy ( meniscal repair) DOS 05/15/24 limit knee flex PT-OP-B Current Condition Start: 05/22/24 11:16 Freq: Status: Active Protocol: Document 05/22/24 11:17 NM (Rec: 05/22/24 12:25 NM [id number]) Current Condition History of Current Condition Onset Date DOS 05/15/24 Current Complaints pain, limited mobility, balance History of Current Condition Pt report that she had meniscus surgery on R knee 05/15 . Pt is not using any AD, states used crutches on Wednesday and a cane on Wednesday. She lives in a single story home. Reports no difficulty with balance. She gets her stitches out on 05/30. She saw Xavi Galvan MD. Pt reports no restrictions, no hot tub for a month. She reports that she was having pain in her leg since 2016 following a fall while walking and fell on her L side. She reports that she had a repair in 2022, then had another MRI after increased pain following 8 months leading to a new repair of the medial meniscus. Pt also reports that she was having lateral knee pain prior to surgery, reports that the ligament is soft. She also has arthritis. Pt also reports R hip and rump pain. No complications during surgery. Pt just removed bandages this morning; reports that she can shower now and reports that she is leaving her stitches uncovered. No stairs except to get into garage, rail; does not go in that way. Lives alone Prior Treatments and Tests PT Sep-December/2022 for same condition with good results Treatment Goals Patient/Caregiver Goals stronger, no pain or discomfort Prior Functional Status Baseline Function- Gait walk 3-5 mi day, 4x/week on unstable surface on her property Baseline Function- Other personal banking assistant every Wednesday (Ansley Araujo): gentle and balance, core Current Functional Impairments (Reported) Functional Limitations- Other personal banking assistant on hold right now PT-OP-C Subjective Start: 05/22/24 11:16 Freq: Status: Active Protocol: Document 07/31/24 08:08 AB (Rec: 07/31/24 10:43 AB [id number]) OP-PT Subjective Patient Comments Patient Comments Patient reports the knee is better, but hasn't been doing much, shopping or walking her property. Patient rates pain start of session. PT-OP-D Balance Start: 05/22/24 11:16 Freq: Status: Active Protocol: Document 05/22/24 11:17 NM (Rec: 05/22/24 12:25 NM [id number]) Balance Tests Romberg Romberg 30 sec Single Limb Standing Single Limb- Right 2 sec Single Limb- Left 10 sec Tandem Tandem Standing 8 sec PT-OP-E Functional Tests Start: 05/22/24 11:16 Freq: Status: Active Protocol: Document 05/22/24 11:17 NM (Rec: 05/22/24 12:25 NM [id number]) Functional Tests Five Times Sit to Stand Test Score 16 seconds Comments no pain; no UE assist PT-OP-F Manual Assessment Start: 05/22/24 11:16 Freq: Status: Active Protocol: Document 05/22/24 11:17 NM (Rec: 05/22/24 12:25 NM [id number]) Manual Assessments Soft Tissue Assessment Soft Tissue Mobility Assessment Tightness of R heel cords, hamstrings Joint Mobility Assessment Joint Mobility Assessment Mild R knee hyperextension, decreased ankle mobility PT-OP-G Mobility & Gait Start: 05/22/24 11:16 Freq: Status: Active Protocol: Document 05/22/24 11:17 NM (Rec: 05/22/24 12:25 NM [id number]) OP Gait Assessment Gait Gait Assistance Required: Standby Assistance Distance (Feet) 150 Assistive Devices Assistive Device None Gait Deviations General Gait Pattern Antalgic Factors Limiting Gait Function Factors Limiting Gait Function Decreased Activity Tolerance, Decreased Strength,Limited Range of Motion,Pain Comments Gait Comments Toe in at R hip. Demos decrease in quad strength with slight trunk/hip flex with R stance PT-OP-H Neuro Start: 05/22/24 11:16 Freq: Status: Active Protocol: Document 05/22/24 11:17 NM (Rec: 05/22/24 12:25 NM [id number]) Sensation Evaluation Comments Summary Comments BLE intact to light touch sensation; no numbness or decreased sensation reported PT-OP-J Posture/Palpation/Skin Start: 05/22/24 11:16 Freq: Status: Active Protocol: Document 05/22/24 11:17 NM (Rec: 05/22/24 12:25 NM [id number]) Posture Evaluation Position Standing Head/C-Spine Posture Forward Head T-Spine Posture Increased Kyphosis L-Spine Posture Fixed Scoliosis on (L) Hip Posture (L) Internally Rotated,(R) Internally Rotated Patellar Posture (L) Superior,(R) Superior Comments Posture Comments mild hyperextension of R knee Palpation Assessment Location R knee Palpation Details Tenderness along posterior knee near hamstrings, lateral joint line No tenderness along patella, quad, hip flexors, lateral hip , medial joint line Skin Assessment Circumference Measurement R knee Location patellar: 38 cm; calf 33 cm Incisional Assessment Incision Appearance/Comments Stitches intact. Over lateral incision, pt has small opening but no discharge or bleeding. Pt reports that was present when she took off wrappings this morning PT-OP-K Range of Motion Start: 05/22/24 11:16 Freq: Status: Active Protocol: Document 07/24/24 08:13 NM (Rec: 07/24/24 09:01 NM [id number]) Knee Goniometric Range of Motion Knee Right Flexion Active (degrees) 135 Extension Active (degrees) 0 Comments IE: 85 deg flex to 1 deg ext 06/19/23: 117 deg flex- 18 deg gain AROM R knee flexion AROM 135 deg 06/26/24 07/24/24: Left Flexion Active (degrees) 123 Extension Active (degrees) 1 PT-OP-M Strength Start: 05/22/24 11:16 Freq: Status: Active Protocol: Document 07/24/24 08:13 NM (Rec: 07/24/24 09:01 NM [id number]) Hip Strength Hip Manual Muscle Testing Right Flexion (L2) 4 Good Extension (S1) 4 Good Abduction 4 Good Adduction 4 Good Comments 07/24/24: 4/5 for all Left Flexion (L2) 4 Good Extension (S1) 4 Good Abduction 4 Good Adduction 4 Good Knee Strength Knee Manual Muscle Testing Right Flexion (S2) 4 Good Extension (L3) 4 Good Comments not formally tested due to surgical repair, but able to perform seated against gravity without resistance\ 06/19/24: 06/19/24: 4-/5 knee flex/ext; pain free 07/24/24: 4/5 Left Flexion (S2) 4 Good Extension (L3) 4 Good PT-OP-Q Treatments Start: 05/22/24 11:16 Freq: Status: Active Protocol: Document 07/31/24 08:08 AB (Rec: 07/31/24 10:43 AB [id number]) Cardio Equipment Recumbent Bicycle Duration (Minutes) 5 Resistance 0 Seat Position 1 Therapeutic Exercises Supine Exercises Figure 4 stretch Supine Exercise Name initiated seated unable Side bilateral Reps/Minutes 60 sec X 2 right X 1 left Comments verbal and tactile cues piriformis stretch Supine Exercise Name cross body stretch Side bilateral Equipment Used towel assist Reps/Minutes 60 X2 right X 1 left Comments pain free; reports good stretch Sitting Exercises seated hip abduction with band Sitting Exercise Name HEP Side bilateral Resistance level 5 blue band to HEP Reps/Minutes one min X 21 Standing Exercises ambulating with weight overhead Standing Exercise Name to decrease ipsilateral trunk sidebend during ambulation Side bilateral Resistance 2 lb each UE Reps/Minutes one min Manual Therapy Treatment Consent Patient gave verbal consent for manual Yes treatment Soft Tissue Mobilization right knee Body Location Quad and HS/prox s and for swelling Mobilization Type Cross-Friction,Rolling, Strumming Intensity/Depth Superficial Body Position Hooklying Comments and moderate and hamstring PT-OP-T Assessment and Plan Start: 05/22/24 11:16 Freq: Status: Active Protocol: Document 07/31/24 08:08 AB (Rec: 07/31/24 10:43 AB [id number]) Physical Therapy Assessment Goals 5 Impairment currently not performing an HEP; will need to return to exercise w/ assistive technology trainer Short Term Goal (STG) Pt will report compliance with HEP 3x/wk in order to maximize progression with PT and promote independence with exercise 06/19/24: perfroming HEP everyday STG Duration 3 weeks Jail Goal (LTG) Pt will report compliance with HEP at least 3x/wk for maintenance program and/or will be able to return to weekly exercise with assistive technology trainer if appropriate 07/24/24: does every other day LTG Duration 12 weeks 4 Impairment LEFS 40/80 Impairment . Jail Goal (LTG) Pt will improve LEFS >50/80 (1 MCID) in order to demonstrate improvements in symptom management and activity tolerance 07/24/24: 38/80 LTG Duration 12 weeks 3 Impairment ambulation Impairment . Short Term Goal (STG) Pt will normalize gait mechanics for community distances during 6 MWT in order to demonstrate improvements in R knee/hip strength and ROM 06/09/24: progressing with gait mechanics on hurdles and on level surfaces 06/19/24: unable to complete 6 MWT due to R hip pain, ambulates 500 ft; still demos antalgic gait pattern, less stance on R foot 07/24/24: following sitting, pt still demos antalgic gait STG Duration 6 weeks PROGRESSING Machine Plug Shaper Goal (LTG) Pt will report that she is able to ambulate on unstable surfaces around her property for at least 1 mile without increase in R knee pain in order to demonstrate improvements in gait, pain management and activity tolerance 07/24/24: pt can ambulate for 1/4 mi on level surfaces several times ea day LTG Duration 12 weeks 2 Impairment strength R hip 3+ to 4-/5 and knee 3/5 Impairment . Short Term Goal (STG) Pt will improve R hip and knee strength to at least 4/5 in order to demonstrate increased strength required for ambulation and ADLs 06/19/24: 4-/5 knee flex/ext, 4/5 hip flex/add and 4-/5 hip ext/abd 07/24/24: 4/5 for al hip and knee strength STG Duration 8 weeks MET Machine Plug Shaper Goal (LTG) Pt will improve R hip and knee strength to at least 4+/5 in order to demonstrate increased strength required for ambulation and ADLs LTG Duration 12 weeks Assessment Summary Assessment Patient reports no pain ambulating with 1 lb overhead and visible decrease with Ipsilateral trunk side bend during this exercise. Patient into session with continued gait deviations and right knee pain. Physical Therapy Plan Frequency and Duration Frequency of Treatment 1-2x/wk Duration of treatment (weeks) 12 Plan of Care Start Date 05/22/24 Plan of Care End Date 12/13/24 Next Visit Focus/Plan Next Note Type Treatment Note Next Visit Plan Assess janiya to figure 4 stretch if janiya for sock don/doff. Cont with hip matthieu glute and knee strength, 4 step up w/o hand; trial lateral step up. hip 3 way Normal flex ROM and gait mechanics. recumbent bike for flexion prn , Normalize gait mechanics with hurdles, stance time and quad strength Manual therapy to improve knee flex, scar tissue along lateral knee Balance and proprioception
--- NOTE | 2024-08-02 09:56 | PT.OTN ---
Current Diagnoses Pain in right knee (08/02/24) Stiffness of right knee, not elsewhere classified (08/02/24) Other lack of coordination (08/02/24) Weakness (08/02/24) Physical Therapy Treatment Note PT-OP-A Visit Information Start: 05/22/24 11:16 Freq: Status: Active Protocol: Document 08/02/24 08:16 NM (Rec: 08/02/24 09:03 NM [id number]) Out-Patient Physical Therapy Visit Information Visit Information Visit Type Treatment Note Visit Start Time 08:17 Visit Stop Time 09:00 Visit Number 15 Evaluation Information Evaluation Date 05/22/24 Precautions Precautions s/p R knee arthroscopy ( meniscal repair) DOS 05/15/24 limit knee flex PT-OP-B Current Condition Start: 05/22/24 11:16 Freq: Status: Active Protocol: Document 05/22/24 11:17 NM (Rec: 05/22/24 12:25 NM [id number]) Current Condition History of Current Condition Onset Date DOS 05/15/24 Current Complaints pain, limited mobility, balance History of Current Condition Pt report that she had meniscus surgery on R knee 05/15 . Pt is not using any AD, states used crutches on Wednesday and a cane on Wednesday. She lives in a single story home. Reports no difficulty with balance. She gets her stitches out on 05/30. She saw Xavi Galvan MD. Pt reports no restrictions, no hot tub for a month. She reports that she was having pain in her leg since 2016 following a fall while walking and fell on her L side. She reports that she had a repair in 2022, then had another MRI after increased pain following 8 months leading to a new repair of the medial meniscus. Pt also reports that she was having lateral knee pain prior to surgery, reports that the ligament is soft. She also has arthritis. Pt also reports R hip and rump pain. No complications during surgery. Pt just removed bandages this morning; reports that she can shower now and reports that she is leaving her stitches uncovered. No stairs except to get into garage, rail; does not go in that way. Lives alone Prior Treatments and Tests PT Sep-December/2022 for same condition with good results Treatment Goals Patient/Caregiver Goals stronger, no pain or discomfort Prior Functional Status Baseline Function- Gait walk 3-5 mi day, 4x/week on unstable surface on her property Baseline Function- Other personal care assistant every Wednesday (Ansley Araujo): gentle and balance, core Current Functional Impairments (Reported) Functional Limitations- Other personal care assistant on hold right now PT-OP-C Subjective Start: 05/22/24 11:16 Freq: Status: Active Protocol: Document 08/02/24 08:16 NM (Rec: 08/02/24 09:03 NM [id number]) OP-PT Subjective Patient Comments Patient Comments Pt reports 2/10 knee pain. Sore after last session with PT but not after last session with STRE[employer] DEPARTMENT DISPATCHER. She reports that her knee feels good or bad depending on how much she walks on concrete or other. Still has noticable gait deviations in R stance, states pain goes up to her hip. She goes back to surgeon on . Wants personal care assistant to come 08/16 to watch and progress. PT-OP-D Balance Start: 05/22/24 11:16 Freq: Status: Active Protocol: Document 05/22/24 11:17 NM (Rec: 05/22/24 12:25 NM [id number]) Balance Tests Romberg Romberg 30 sec Single Limb Standing Single Limb- Right 2 sec Single Limb- Left 10 sec Tandem Tandem Standing 8 sec PT-OP-E Functional Tests Start: 05/22/24 11:16 Freq: Status: Active Protocol: Document 05/22/24 11:17 NM (Rec: 05/22/24 12:25 NM [id number]) Functional Tests Five Times Sit to Stand Test Score 16 seconds Comments no pain; no UE assist PT-OP-F Manual Assessment Start: 05/22/24 11:16 Freq: Status: Active Protocol: Document 05/22/24 11:17 NM (Rec: 05/22/24 12:25 NM [id number]) Manual Assessments Soft Tissue Assessment Soft Tissue Mobility Assessment Tightness of R heel cords, hamstrings Joint Mobility Assessment Joint Mobility Assessment Mild R knee hyperextension, decreased ankle mobility PT-OP-G Mobility & Gait Start: 05/22/24 11:16 Freq: Status: Active Protocol: Document 05/22/24 11:17 NM (Rec: 05/22/24 12:25 NM [id number]) OP Gait Assessment Gait Gait Assistance Required: Standby Assistance Distance (Feet) 150 Assistive Devices Assistive Device None Gait Deviations General Gait Pattern Antalgic Factors Limiting Gait Function Factors Limiting Gait Function Decreased Activity Tolerance, Decreased Strength,Limited Range of Motion,Pain Comments Gait Comments Toe in at R hip. Demos decrease in quad strength with slight trunk/hip flex with R stance PT-OP-H Neuro Start: 05/22/24 11:16 Freq: Status: Active Protocol: Document 05/22/24 11:17 NM (Rec: 05/22/24 12:25 NM [id number]) Sensation Evaluation Comments Summary Comments BLE intact to light touch sensation; no numbness or decreased sensation reported PT-OP-J Posture/Palpation/Skin Start: 05/22/24 11:16 Freq: Status: Active Protocol: Document 05/22/24 11:17 NM (Rec: 05/22/24 12:25 NM [id number]) Posture Evaluation Position Standing Head/C-Spine Posture Forward Head T-Spine Posture Increased Kyphosis L-Spine Posture Fixed Scoliosis on (L) Hip Posture (L) Internally Rotated,(R) Internally Rotated Patellar Posture (L) Superior,(R) Superior Comments Posture Comments mild hyperextension of R knee Palpation Assessment Location R knee Palpation Details Tenderness along posterior knee near hamstrings, lateral joint line No tenderness along patella, quad, hip flexors, lateral hip , medial joint line Skin Assessment Circumference Measurement R knee Location patellar: 38 cm; calf 33 cm Incisional Assessment Incision Appearance/Comments Stitches intact. Over lateral incision, pt has small opening but no discharge or bleeding. Pt reports that was present when she took off wrappings this morning PT-OP-K Range of Motion Start: 05/22/24 11:16 Freq: Status: Active Protocol: Document 07/24/24 08:13 NM (Rec: 07/24/24 09:01 NM [id number]) Knee Goniometric Range of Motion Knee Right Flexion Active (degrees) 135 Extension Active (degrees) 0 Comments IE: 85 deg flex to 1 deg ext 06/19/23: 117 deg flex- 18 deg gain AROM R knee flexion AROM 135 deg 06/26/24 07/24/24: Left Flexion Active (degrees) 123 Extension Active (degrees) 1 PT-OP-M Strength Start: 05/22/24 11:16 Freq: Status: Active Protocol: Document 07/24/24 08:13 NM (Rec: 07/24/24 09:01 NM [id number]) Hip Strength Hip Manual Muscle Testing Right Flexion (L2) 4 Good Extension (S1) 4 Good Abduction 4 Good Adduction 4 Good Comments 07/24/24: 4/5 for all Left Flexion (L2) 4 Good Extension (S1) 4 Good Abduction 4 Good Adduction 4 Good Knee Strength Knee Manual Muscle Testing Right Flexion (S2) 4 Good Extension (L3) 4 Good Comments not formally tested due to surgical repair, but able to perform seated against gravity without resistance\ 06/19/24: 06/19/24: 4-/5 knee flex/ext; pain free 07/24/24: 4/5 Left Flexion (S2) 4 Good Extension (L3) 4 Good PT-OP-Q Treatments Start: 05/22/24 11:16 Freq: Status: Active Protocol: Document 08/02/24 08:16 NM (Rec: 08/02/24 09:03 NM [id number]) Therapeutic Exercises Supine Exercises TFL stretch Supine Exercise Name for ITB Side bilateral Equipment Used with strap at foot Reps/Minutes 20 deep breaths Figure 4 stretch Side bilateral Reps/Minutes 60 ea Comments verbal and tactile cues; edu to trial sliding heel on mcdonald before placement piriformis stretch Supine Exercise Name cross body stretch Side bilateral Equipment Used towel assist Reps/Minutes 60 ea Comments pain free; reports good stretch SLR Side bilateral Reps/Minutes 2x8 Sitting Exercises LAQ Sitting Exercise Name HEP review Side right Resistance lvl 2 band at ankles Reps/Minutes 10 Comments full ROM, good tiring Quad; reports pain at lateral knee Standing Exercises hip 3 way Standing Exercise Name hip abduction w/ squat HEP Side bilateral Resistance lvl 2 band at thigh Equipment Used slider under foot Reps/Minutes 10 ea Comments cued form Neuro Re-Education Treatment Balance Activities step ups Details 4 + foam Surface on foam, unstable Equipment prn hand support for balance Reps/Duration 10 ea Comments close SBA; more challenging w/ ecc control on RLE, step up on RLE step up taps Comments 1. step taps while standing on foam pad with double tap ( exaggerated hip flex) onto 4 step, no hand support, 10 ea 2. lateral single taps on foam , 10 ea close SBA SLS Details close SBA Comments 1. for time with prn finger support for balance on //bars, 3x20 ea side demos unsteadiness, cued TKE 2. on foam with 1 finger support for balance on //bars, 2x20 ea side PT-OP-T Assessment and Plan Start: 05/22/24 11:16 Freq: Status: Active Protocol: Document 08/02/24 08:16 NM (Rec: 08/02/24 09:03 NM [id number]) Physical Therapy Assessment Goals 5 Impairment currently not performing an HEP; will need to return to exercise w/ systems trainer Short Term Goal (STG) Pt will report compliance with HEP 3x/wk in order to maximize progression with PT and promote independence with exercise 06/19/24: perfroming HEP everyday STG Duration 3 weeks Embedded Systems Engineer Goal (LTG) Pt will report compliance with HEP at least 3x/wk for maintenance program and/or will be able to return to weekly exercise with systems trainer if appropriate 07/24/24: does every other day LTG Duration 12 weeks 4 Impairment LEFS 40/80 Impairment . Skilled Nursing Goal (LTG) Pt will improve LEFS >50/80 (1 MCID) in order to demonstrate improvements in symptom management and activity tolerance 07/24/24: 38/80 LTG Duration 12 weeks 3 Impairment ambulation Impairment . Short Term Goal (STG) Pt will normalize gait mechanics for community distances during 6 MWT in order to demonstrate improvements in R knee/hip strength and ROM 06/09/24: progressing with gait mechanics on hurdles and on level surfaces 06/19/24: unable to complete 6 MWT due to R hip pain, ambulates 500 ft; still demos antalgic gait pattern, less stance on R foot 07/24/24: following sitting, pt still demos antalgic gait STG Duration 6 weeks PROGRESSING Skilled Nursing Goal (LTG) Pt will report that she is able to ambulate on unstable surfaces around her property for at least 1 mile without increase in R knee pain in order to demonstrate improvements in gait, pain management and activity tolerance 07/24/24: pt can ambulate for 1/4 mi on level surfaces several times ea day LTG Duration 12 weeks 2 Impairment strength R hip 3+ to 4-/5 and knee 3/5 Impairment . Short Term Goal (STG) Pt will improve R hip and knee strength to at least 4/5 in order to demonstrate increased strength required for ambulation and ADLs 06/19/24: 4-/5 knee flex/ext, 4/5 hip flex/add and 4-/5 hip ext/abd 07/24/24: 4/5 for al hip and knee strength STG Duration 8 weeks MET Skilled Nursing Goal (LTG) Pt will improve R hip and knee strength to at least 4+/5 in order to demonstrate increased strength required for ambulation and ADLs LTG Duration 12 weeks Assessment Summary Assessment Pt has 128 deg R knee flex at start of session. Continues to report 2/10 knee pain at end of session. Emphasis on hip mobility and balance training on unstable surfaces during session. RLE demos quad weakness with SLS and step ups , especially with fatigue; affects pt's gait. Unstable surfaces challenging for pt but no increased knee pain during session. Continued with quad and glute strengthening. Cueing needed for correct execution and to facilitate better glute/quad activation for improved control. Trialed progression with banded LAQ but pt has increased pain at knee. Pt would continue to benefit from skilled PT for progressive strengthening and balance to improve gait, functional mobility, and pain management. Physical Therapy Plan Frequency and Duration Frequency of Treatment 1-2x/wk Duration of treatment (weeks) 12 Plan of Care Start Date 05/22/24 Plan of Care End Date 08/18/24 Therapeutic Interventions Therapeutic Interventions Balance Training,Gait Training ,Home Exercise Program,Joint Mobilizations,Manual Therapy, Neuromuscular Re-education, Orthotic/Prosthetic Management ,Patient/Caregiver Education, Self-Care/Home Management, Sensory Integration,Soft Tissue Mobilization,Taping, Therapeutic Activities, Therapeutic Exercises Modalities Cold Pack/Ice Massage,Electric Stimulation,Hot Packs, Ultrasound Next Visit Focus/Plan Next Note Type Treatment Note Next Visit Plan Assess janiya to squat with slider, unstable surfaces.Have pt schedule out 1x/wk for rest of dec. Cont figure 4 stretch if janiya for sock don/ doff, progress to sitting when able. Normalize flex ROM and gait mechanics. Emphasize quad strength: leg press, LAQ, squat with slider, step downs fwd and lateral and reverse Balance and proprioception, matthieu on unstable surfaces- gait , picking up objects etc Manual therapy to improve knee flex, scar tissue along lateral knee if needed
--- NOTE | 2024-08-09 12:15 | PT.OTN ---
Current Diagnoses Pain in right knee (08/09/24) Stiffness of right knee, not elsewhere classified (08/09/24) Other lack of coordination (08/09/24) Weakness (08/09/24) Physical Therapy Treatment Note PT-OP-A Visit Information Start: 05/22/24 11:16 Freq: Status: Active Protocol: Document 08/09/24 08:12 AB (Rec: 08/09/24 12:14 AB [id number]) Out-Patient Physical Therapy Visit Information Visit Information Visit Type Treatment Note Visit Start Time 08:16 Visit Stop Time 09:01 Visit Number 16 Number of SUBSCRIPTION CLERK Visits 1 Evaluation Information Evaluation Date 05/22/24 Precautions Precautions s/p R knee arthroscopy ( meniscal repair) DOS 05/15/24 limit knee flex PT-OP-B Current Condition Start: 05/22/24 11:16 Freq: Status: Active Protocol: Document 05/22/24 11:17 NM (Rec: 05/22/24 12:25 NM [id number]) Current Condition History of Current Condition Onset Date DOS 05/15/24 Current Complaints pain, limited mobility, balance History of Current Condition Pt report that she had meniscus surgery on R knee 05/15 . Pt is not using any AD, states used crutches on Wednesday and a cane on Wednesday. She lives in a single story home. Reports no difficulty with balance. She gets her stitches out on 05/30. She saw Xavi Galvan MD. Pt reports no restrictions, no hot tub for a month. She reports that she was having pain in her leg since 2016 following a fall while walking and fell on her L side. She reports that she had a repair in 2022, then had another MRI after increased pain following 8 months leading to a new repair of the medial meniscus. Pt also reports that she was having lateral knee pain prior to surgery, reports that the ligament is soft. She also has arthritis. Pt also reports R hip and rump pain. No complications during surgery. Pt just removed bandages this morning; reports that she can shower now and reports that she is leaving her stitches uncovered. No stairs except to get into garage, rail; does not go in that way. Lives alone Prior Treatments and Tests PT Sep-December/2022 for same condition with good results Treatment Goals Patient/Caregiver Goals stronger, no pain or discomfort Prior Functional Status Baseline Function- Gait walk 3-5 mi day, 4x/week on unstable surface on her property Baseline Function- Other technology trainer every Wednesday (Ansley Araujo): gentle and balance, core Current Functional Impairments (Reported) Functional Limitations- Other technology trainer on hold right now PT-OP-C Subjective Start: 05/22/24 11:16 Freq: Status: Active Protocol: Document 08/09/24 08:12 AB (Rec: 08/09/24 12:14 AB [id number]) OP-PT Subjective Patient Comments Patient Comments Patient rates knee pain 12/14, comments she did too much working in the yard, estimates 45 minutes to an hour of yard work, into session with antalgic gait. AROM right knee 0 to 123 deg. PT-OP-D Balance Start: 05/22/24 11:16 Freq: Status: Active Protocol: Document 05/22/24 11:17 NM (Rec: 05/22/24 12:25 NM [id number]) Balance Tests Romberg Romberg 30 sec Single Limb Standing Single Limb- Right 2 sec Single Limb- Left 10 sec Tandem Tandem Standing 8 sec PT-OP-E Functional Tests Start: 05/22/24 11:16 Freq: Status: Active Protocol: Document 05/22/24 11:17 NM (Rec: 05/22/24 12:25 NM [id number]) Functional Tests Five Times Sit to Stand Test Score 16 seconds Comments no pain; no UE assist PT-OP-F Manual Assessment Start: 05/22/24 11:16 Freq: Status: Active Protocol: Document 05/22/24 11:17 NM (Rec: 05/22/24 12:25 NM [id number]) Manual Assessments Soft Tissue Assessment Soft Tissue Mobility Assessment Tightness of R heel cords, hamstrings Joint Mobility Assessment Joint Mobility Assessment Mild R knee hyperextension, decreased ankle mobility PT-OP-G Mobility & Gait Start: 05/22/24 11:16 Freq: Status: Active Protocol: Document 05/22/24 11:17 NM (Rec: 05/22/24 12:25 NM [id number]) OP Gait Assessment Gait Gait Assistance Required: Standby Assistance Distance (Feet) 150 Assistive Devices Assistive Device None Gait Deviations General Gait Pattern Antalgic Factors Limiting Gait Function Factors Limiting Gait Function Decreased Activity Tolerance, Decreased Strength,Limited Range of Motion,Pain Comments Gait Comments Toe in at R hip. Demos decrease in quad strength with slight trunk/hip flex with R stance PT-OP-H Neuro Start: 05/22/24 11:16 Freq: Status: Active Protocol: Document 05/22/24 11:17 NM (Rec: 05/22/24 12:25 NM [id number]) Sensation Evaluation Comments Summary Comments BLE intact to light touch sensation; no numbness or decreased sensation reported PT-OP-J Posture/Palpation/Skin Start: 05/22/24 11:16 Freq: Status: Active Protocol: Document 05/22/24 11:17 NM (Rec: 05/22/24 12:25 NM [id number]) Posture Evaluation Position Standing Head/C-Spine Posture Forward Head T-Spine Posture Increased Kyphosis L-Spine Posture Fixed Scoliosis on (L) Hip Posture (L) Internally Rotated,(R) Internally Rotated Patellar Posture (L) Superior,(R) Superior Comments Posture Comments mild hyperextension of R knee Palpation Assessment Location R knee Palpation Details Tenderness along posterior knee near hamstrings, lateral joint line No tenderness along patella, quad, hip flexors, lateral hip , medial joint line Skin Assessment Circumference Measurement R knee Location patellar: 38 cm; calf 33 cm Incisional Assessment Incision Appearance/Comments Stitches intact. Over lateral incision, pt has small opening but no discharge or bleeding. Pt reports that was present when she took off wrappings this morning PT-OP-K Range of Motion Start: 05/22/24 11:16 Freq: Status: Active Protocol: Document 07/24/24 08:13 NM (Rec: 07/24/24 09:01 NM [id number]) Knee Goniometric Range of Motion Knee Right Flexion Active (degrees) 135 Extension Active (degrees) 0 Comments IE: 85 deg flex to 1 deg ext 06/19/23: 117 deg flex- 18 deg gain AROM R knee flexion AROM 135 deg 06/26/24 07/24/24: Left Flexion Active (degrees) 123 Extension Active (degrees) 1 PT-OP-M Strength Start: 05/22/24 11:16 Freq: Status: Active Protocol: Document 07/24/24 08:13 NM (Rec: 07/24/24 09:01 NM [id number]) Hip Strength Hip Manual Muscle Testing Right Flexion (L2) 4 Good Extension (S1) 4 Good Abduction 4 Good Adduction 4 Good Comments 07/24/24: 4/5 for all Left Flexion (L2) 4 Good Extension (S1) 4 Good Abduction 4 Good Adduction 4 Good Knee Strength Knee Manual Muscle Testing Right Flexion (S2) 4 Good Extension (L3) 4 Good Comments not formally tested due to surgical repair, but able to perform seated against gravity without resistance\ 06/19/24: 06/19/24: 4-/5 knee flex/ext; pain free 07/24/24: 4/5 Left Flexion (S2) 4 Good Extension (L3) 4 Good PT-OP-Q Treatments Start: 05/22/24 11:16 Freq: Status: Active Protocol: Document 08/09/24 08:12 AB (Rec: 08/09/24 12:14 AB [id number]) Therapeutic Exercises Supine Exercises Figure 4 stretch Side bilateral Reps/Minutes 60 ea Comments verbal and tactile cues; edu to trial sliding heel on mcdonald before placement piriformis stretch Supine Exercise Name cross body stretch Side bilateral Equipment Used towel assist Reps/Minutes 60 ea Comments pain free; reports good stretch Sitting Exercises seated hip abduction with band Sitting Exercise Name HEP Side bilateral Resistance level 5 blue band to HEP Reps/Minutes one min X 21 Standing Exercises hip [address] way Standing Exercise Name facing mirror Side right Resistance X5 with level 2 band Reps/Minutes X10 without band and with UE support X5 with band glute med isometric Standing Exercise Name standing at wall Side bilateral Reps/Minutes 60 sec each LE Comments Verbal and visual cues matthieu to limit trunk comp calf stretches Standing Exercise Name at wall Side right Equipment Used HEP Reps/Minutes 60 sec X 1each stretch heel raise Standing Exercise Name on step Side bilateral Equipment Used B hand support Reps/Minutes X15 with knee straight Manual Therapy Treatment Soft Tissue Mobilization right knee Body Location Quad and HS/prox s and for swelling Mobilization Type Cross-Friction,Rolling, Strumming Intensity/Depth Superficial Body Position Hooklying Comments and moderate and hamstring PT-OP-T Assessment and Plan Start: 05/22/24 11:16 Freq: Status: Active Protocol: Document 08/09/24 08:12 AB (Rec: 08/09/24 12:14 AB [id number]) Physical Therapy Assessment Goals 5 Impairment currently not performing an HEP; will need to return to exercise w/ technology trainer Short Term Goal (STG) Pt will report compliance with HEP 3x/wk in order to maximize progression with PT and promote independence with exercise 06/19/24: perfroming HEP everyday STG Duration 3 weeks Fdc Goal (LTG) Pt will report compliance with HEP at least 3x/wk for maintenance program and/or will be able to return to weekly exercise with technology trainer if appropriate 07/24/24: does every other day LTG Duration 12 weeks 4 Impairment LEFS 40/80 Impairment . School Examiner Goal (LTG) Pt will improve LEFS >50/80 (1 MCID) in order to demonstrate improvements in symptom management and activity tolerance 07/24/24: 38/80 LTG Duration 12 weeks 3 Impairment ambulation Impairment . Short Term Goal (STG) Pt will normalize gait mechanics for community distances during 6 MWT in order to demonstrate improvements in R knee/hip strength and ROM 06/09/24: progressing with gait mechanics on hurdles and on level surfaces 06/19/24: unable to complete 6 MWT due to R hip pain, ambulates 500 ft; still demos antalgic gait pattern, less stance on R foot 07/24/24: following sitting, pt still demos antalgic gait STG Duration 6 weeks PROGRESSING Fdc Goal (LTG) Pt will report that she is able to ambulate on unstable surfaces around her property for at least 1 mile without increase in R knee pain in order to demonstrate improvements in gait, pain management and activity tolerance 07/24/24: pt can ambulate for 1/4 mi on level surfaces several times ea day LTG Duration 12 weeks 2 Impairment strength R hip 3+ to 4-/5 and knee 3/5 Impairment . Short Term Goal (STG) Pt will improve R hip and knee strength to at least 4/5 in order to demonstrate increased strength required for ambulation and ADLs 06/19/24: 4-/5 knee flex/ext, 4/5 hip flex/add and 4-/5 hip ext/abd 07/24/24: 4/5 for al hip and knee strength STG Duration 8 weeks MET Fdc Goal (LTG) Pt will improve R hip and knee strength to at least 4+/5 in order to demonstrate increased strength required for ambulation and ADLs LTG Duration 12 weeks Assessment Summary Assessment Shelley rates right knee pain 2-3/10 hip 5/10 end of session . Increased difficulty and increased reports of hip pain post 3 way with slider exercise. Physical Therapy Plan Frequency and Duration Frequency of Treatment 1-2x/wk Duration of treatment (weeks) 12 Plan of Care Start Date 05/22/24 Plan of Care End Date 08/18/24 Next Visit Focus/Plan Next Note Type Treatment Note Next Visit Plan Assess janiya to squat with slider, unstable surfaces.Have pt schedule out 1x/wk for rest of dec. Cont figure 4 stretch if janiya for sock don/ doff, progress to sitting when able. Normalize flex ROM and gait mechanics. Emphasize quad strength: leg press, LAQ, squat with slider, step downs fwd and lateral and reverse Balance and proprioception, matthieu on unstable surfaces- gait , picking up objects etc Manual therapy to improve knee flex, scar tissue along lateral knee if needed
--- NOTE | 2024-08-14 10:40 | PT.OTN ---
Current Diagnoses Pain in right knee (08/14/24) Stiffness of right knee, not elsewhere classified (08/14/24) Other lack of coordination (08/14/24) Weakness (08/14/24) Physical Therapy Treatment Note PT-OP-A Visit Information Start: 05/22/24 11:16 Freq: Status: Active Protocol: Document 08/14/24 08:19 NM (Rec: 08/14/24 09:02 NM [id number]) Out-Patient Physical Therapy Visit Information Visit Information Visit Type Progress Note Visit Start Time 08:20 Visit Stop Time 09:00 Visit Number 17 PT-OP-B Current Condition Start: 05/22/24 11:16 Freq: Status: Active Protocol: Document 05/22/24 11:17 NM (Rec: 05/22/24 12:25 NM [id number]) Current Condition History of Current Condition Onset Date DOS 05/15/24 Current Complaints pain, limited mobility, balance History of Current Condition Pt report that she had meniscus surgery on R knee 05/15 . Pt is not using any AD, states used crutches on Wednesday and a cane on Wednesday. She lives in a single story home. Reports no difficulty with balance. She gets her stitches out on 05/30. She saw Xavi Galvan MD. Pt reports no restrictions, no hot tub for a month. She reports that she was having pain in her leg since 2016 following a fall while walking and fell on her L side. She reports that she had a repair in 2022, then had another MRI after increased pain following 8 months leading to a new repair of the medial meniscus. Pt also reports that she was having lateral knee pain prior to surgery, reports that the ligament is soft. She also has arthritis. Pt also reports R hip and rump pain. No complications during surgery. Pt just removed bandages this morning; reports that she can shower now and reports that she is leaving her stitches uncovered. No stairs except to get into garage, rail; does not go in that way. Lives alone Prior Treatments and Tests PT Sep-December/2022 for same condition with good results Treatment Goals Patient/Caregiver Goals stronger, no pain or discomfort Prior Functional Status Baseline Function- Gait walk 3-5 mi day, 4x/week on unstable surface on her property Baseline Function- Other personal injury litigation paralegal every Wednesday (Ansley Araujo): gentle and balance, core Current Functional Impairments (Reported) Functional Limitations- Other personal injury litigation paralegal on hold right now PT-OP-C Subjective Start: 05/22/24 11:16 Freq: Status: Active Protocol: Document 08/14/24 08:19 NM (Rec: 08/14/24 09:02 NM [id number]) OP-PT Subjective Patient Comments Patient Comments Pt presents with antalgic gait still. She has follow up with doctor on 08/24. She reports 2/10 pain, overall good. She has been using bike in her house, which helps. No difficulty with HEP. She is planning on having cataract surgery in upcoming weeks and going out of town. She still reports difficulty donning socks. PT-OP-D Balance Start: 05/22/24 11:16 Freq: Status: Active Protocol: Document 05/22/24 11:17 NM (Rec: 05/22/24 12:25 NM [id number]) Balance Tests Romberg Romberg 30 sec Single Limb Standing Single Limb- Right 2 sec Single Limb- Left 10 sec Tandem Tandem Standing 8 sec PT-OP-E Functional Tests Start: 05/22/24 11:16 Freq: Status: Active Protocol: Document 05/22/24 11:17 NM (Rec: 05/22/24 12:25 NM [id number]) Functional Tests Five Times Sit to Stand Test Score 16 seconds Comments no pain; no UE assist PT-OP-F Manual Assessment Start: 05/22/24 11:16 Freq: Status: Active Protocol: Document 05/22/24 11:17 NM (Rec: 05/22/24 12:25 NM [id number]) Manual Assessments Soft Tissue Assessment Soft Tissue Mobility Assessment Tightness of R heel cords, hamstrings Joint Mobility Assessment Joint Mobility Assessment Mild R knee hyperextension, decreased ankle mobility PT-OP-G Mobility & Gait Start: 05/22/24 11:16 Freq: Status: Active Protocol: Document 05/22/24 11:17 NM (Rec: 05/22/24 12:25 NM [id number]) OP Gait Assessment Gait Gait Assistance Required: Standby Assistance Distance (Feet) 150 Assistive Devices Assistive Device None Gait Deviations General Gait Pattern Antalgic Factors Limiting Gait Function Factors Limiting Gait Function Decreased Activity Tolerance, Decreased Strength,Limited Range of Motion,Pain Comments Gait Comments Toe in at R hip. Demos decrease in quad strength with slight trunk/hip flex with R stance PT-OP-H Neuro Start: 05/22/24 11:16 Freq: Status: Active Protocol: Document 05/22/24 11:17 NM (Rec: 05/22/24 12:25 NM [id number]) Sensation Evaluation Comments Summary Comments BLE intact to light touch sensation; no numbness or decreased sensation reported PT-OP-J Posture/Palpation/Skin Start: 05/22/24 11:16 Freq: Status: Active Protocol: Document 05/22/24 11:17 NM (Rec: 05/22/24 12:25 NM [id number]) Posture Evaluation Position Standing Head/C-Spine Posture Forward Head T-Spine Posture Increased Kyphosis L-Spine Posture Fixed Scoliosis on (L) Hip Posture (L) Internally Rotated,(R) Internally Rotated Patellar Posture (L) Superior,(R) Superior Comments Posture Comments mild hyperextension of R knee Palpation Assessment Location R knee Palpation Details Tenderness along posterior knee near hamstrings, lateral joint line No tenderness along patella, quad, hip flexors, lateral hip , medial joint line Skin Assessment Circumference Measurement R knee Location patellar: 38 cm; calf 33 cm Incisional Assessment Incision Appearance/Comments Stitches intact. Over lateral incision, pt has small opening but no discharge or bleeding. Pt reports that was present when she took off wrappings this morning PT-OP-K Range of Motion Start: 05/22/24 11:16 Freq: Status: Active Protocol: Document 08/14/24 08:19 NM (Rec: 08/14/24 09:02 NM [id number]) Knee Goniometric Range of Motion Knee Right Flexion Active (degrees) 135 Extension Active (degrees) 0 Comments IE: 85 deg flex to 1 deg ext 06/19/23: 117 deg flex- 18 deg gain AROM R knee flexion AROM 135 deg 06/26/24 Left Flexion Active (degrees) 123 Extension Active (degrees) 1 PT-OP-M Strength Start: 05/22/24 11:16 Freq: Status: Active Protocol: Document 08/14/24 08:19 NM (Rec: 08/14/24 09:02 NM [id number]) Hip Strength Hip Manual Muscle Testing Right Flexion (L2) 4+ Good+ Extension (S1) 4+ Good+ Abduction 4+ Good+ Adduction 4+ Good+ Comments 07/24/24: 4/5 for all 08/14/24: 4+/5 for all Left Flexion (L2) 4 Good Extension (S1) 4 Good Abduction 4 Good Adduction 4 Good Knee Strength Knee Manual Muscle Testing Right Flexion (S2) 4+ Good+ Extension (L3) 4+ Good+ Comments not formally tested due to surgical repair, but able to perform seated against gravity without resistance\ 06/19/24: 06/19/24: 4-/5 knee flex/ext; pain free 07/24/24: 4/5 08/14/24: 4+/5 Left Flexion (S2) 4 Good Extension (L3) 4 Good PT-OP-Q Treatments Start: 05/22/24 11:16 Freq: Status: Active Protocol: Document 08/14/24 08:19 NM (Rec: 08/14/24 09:02 NM [id number]) Therapeutic Exercises Supine Exercises Figure 4 stretch Side bilateral Reps/Minutes 60 ea Comments verbal and tactile cues; edu to trial sliding heel on mcdonald before placement piriformis stretch Supine Exercise Name cross body stretch Side bilateral Equipment Used towel assist Reps/Minutes 60 ea Comments pain free; reports good stretch Sitting Exercises hip ER Sitting Exercise Name 1. mcdonald slides, 2. figure 4 stretch Side right Reps/Minutes 1. 10 Comments unable to do in sitting Standing Exercises lunge Standing Exercise Name 1. forward stepping, 2. lateral Side bilateral Equipment Used 1 hand support for balance Reps/Minutes 15 ea Comments cued form, pain free step down Standing Exercise Name 1. lateral touch down, 2. step back Side bilateral Equipment Used 1 hand support on rail; 6 Reps/Minutes 10 Comments cued hip hinge, limited depth on squat calf stretches Standing Exercise Name 1. gastrocnemius, 2. soleus Side bilateral Equipment Used on stairs, B hand support Reps/Minutes 60 Other Exercises 6 MWT Reps/Minutes 1084 ft Comments demos antalgic gait with inc time MWM Other Exercise Name piriformis hip flex + ER Side right Reps/Minutes 10 ea Comments mcdonald slides, PT-OP-T Assessment and Plan Start: 05/22/24 11:16 Freq: Status: Active Protocol: Document 08/14/24 08:19 NM (Rec: 08/14/24 09:02 NM [id number]) Physical Therapy Assessment Goals 5 Impairment currently not performing an HEP; will need to return to exercise w/ head animal trainer Short Term Goal (STG) Pt will report compliance with HEP 3x/wk in order to maximize progression with PT and promote independence with exercise 06/19/24: perfroming HEP everyday STG Duration 3 weeks Mechanical Striper Goal (LTG) Pt will report compliance with HEP at least 3x/wk for maintenance program and/or will be able to return to weekly exercise with head animal trainer if appropriate 07/24/24: does every other day LTG Duration 12 weeks MET 4 Impairment LEFS 40/80 Impairment . Mechanical Striper Goal (LTG) Pt will improve LEFS >50/80 (1 MCID) in order to demonstrate improvements in symptom management and activity tolerance 07/24/24: 38/80 08/14/24: 55/80 LTG Duration 12 weeks MET 3 Impairment ambulation Impairment . Short Term Goal (STG) Pt will normalize gait mechanics for community distances during 6 MWT in order to demonstrate improvements in R knee/hip strength and ROM 06/09/24: progressing with gait mechanics on hurdles and on level surfaces 06/19/24: unable to complete 6 MWT due to R hip pain, ambulates 500 ft; still demos antalgic gait pattern, less stance on R foot 07/24/24: following sitting, pt still demos antalgic gait STG Duration 6 weeks PROGRESSING Shelter Goal (LTG) Pt will report that she is able to ambulate on unstable surfaces around her property for at least 1 mile without increase in R knee pain in order to demonstrate improvements in gait, pain management and activity tolerance 07/24/24: pt can ambulate for 1/4 mi on level surfaces several times ea day 08/14/24: can ambulate 1/2 mi; stops due to aching in knee LTG Duration 12 weeks NOT MET 2 Impairment strength R hip 3+ to 4-/5 and knee 3/5 Impairment . Short Term Goal (STG) Pt will improve R hip and knee strength to at least 4/5 in order to demonstrate increased strength required for ambulation and ADLs 06/19/24: 4-/5 knee flex/ext, 4/5 hip flex/add and 4-/5 hip ext/abd 07/24/24: 4/5 for al hip and knee strength STG Duration 8 weeks MET Mechanical Striper Goal (LTG) Pt will improve R hip and knee strength to at least 4+/5 in order to demonstrate increased strength required for ambulation and ADLs 08/14/24: 4+/5 for all LTG Duration 12 weeks MET Progress Towards Goals Progress Towards Goals Progressing Toward Goals,Goals Met Progress Comments All goals met except ambulation goal Assessment Summary Assessment Pt tolerated session well. Trialed mobilization with movement to address muscle restrictions with hip ER. Limited at R hip joint for hip ER. Progressed to lateral step down on 6, cueing needed for correct execution in addition to hip hinge. Good tolerance for lunges today, able to maintain hip and ankle alignment. Still demos mild weakness in quad and glutes, antalgic gait with transition from sitting to standing. Ambulated 1084 ft with 6 MWT, demos more antalgic gait and reports R hip discomfort at end of session. Physical Therapy Plan Frequency and Duration Frequency of Treatment 1-2x/wk Duration of treatment (weeks) 12 Plan of Care Start Date 05/22/24 Plan of Care End Date 08/18/24 Therapeutic Interventions Therapeutic Interventions Balance Training,Gait Training ,Home Exercise Program,Joint Mobilizations,Manual Therapy, Neuromuscular Re-education, Orthotic/Prosthetic Management ,Patient/Caregiver Education, Self-Care/Home Management, Sensory Integration,Soft Tissue Mobilization,Taping, Therapeutic Activities, Therapeutic Exercises Modalities Cold Pack/Ice Massage,Electric Stimulation,Hot Packs, Ultrasound Next Visit Focus/Plan Next Note Type Discharge Summary Next Visit Plan Hip 3 way, step downs, lunges. Ambulation program. Emphasize quad strength: leg press, LAQ, squat with slider, step downs fwd and lateral and reverse Balance and proprioception, matthieu on unstable surfaces- gait , picking up objects etc Manual therapy to improve knee flex, scar tissue along lateral knee if needed
--- NOTE | 2024-08-16 10:45 | PT.OTN ---
Current Diagnoses Pain in right knee (08/16/24) Stiffness of right knee, not elsewhere classified (08/16/24) Other lack of coordination (08/16/24) Weakness (08/16/24) Physical Therapy Treatment Note PT-OP-A Visit Information Start: 05/22/24 11:16 Freq: Status: Active Protocol: Document 08/16/24 08:17 NM (Rec: 08/16/24 09:03 NM [id number]) Out-Patient Physical Therapy Visit Information Visit Information Visit Type Discharge Summary Visit Start Time 08:18 Visit Stop Time 09:00 Visit Number 18 Evaluation Information Evaluation Date 05/22/24 Precautions Precautions s/p R knee arthroscopy ( meniscal repair) DOS 05/15/24 limit knee flex PT-OP-B Current Condition Start: 05/22/24 11:16 Freq: Status: Active Protocol: Document 05/22/24 11:17 NM (Rec: 05/22/24 12:25 NM [id number]) Current Condition History of Current Condition Onset Date DOS 05/15/24 Current Complaints pain, limited mobility, balance History of Current Condition Pt report that she had meniscus surgery on R knee 05/15 . Pt is not using any AD, states used crutches on Wednesday and a cane on Wednesday. She lives in a single story home. Reports no difficulty with balance. She gets her stitches out on 05/30. She saw Xavi Galvan MD. Pt reports no restrictions, no hot tub for a month. She reports that she was having pain in her leg since 2016 following a fall while walking and fell on her L side. She reports that she had a repair in 2022, then had another MRI after increased pain following 8 months leading to a new repair of the medial meniscus. Pt also reports that she was having lateral knee pain prior to surgery, reports that the ligament is soft. She also has arthritis. Pt also reports R hip and rump pain. No complications during surgery. Pt just removed bandages this morning; reports that she can shower now and reports that she is leaving her stitches uncovered. No stairs except to get into garage, rail; does not go in that way. Lives alone Prior Treatments and Tests PT Sep-December/2022 for same condition with good results Treatment Goals Patient/Caregiver Goals stronger, no pain or discomfort Prior Functional Status Baseline Function- Gait walk 3-5 mi day, 4x/week on unstable surface on her property Baseline Function- Other personal clothing laundry aide every Wednesday (Ansley Araujo): gentle and balance, core Current Functional Impairments (Reported) Functional Limitations- Other personal clothing laundry aide on hold right now PT-OP-C Subjective Start: 05/22/24 11:16 Freq: Status: Active Protocol: Document 08/16/24 08:17 NM (Rec: 08/16/24 09:03 NM [id number]) OP-PT Subjective Patient Comments Patient Comments Pt reports doing well, states a little achy this am. [place] good after last session. Requesting to d/c today. Brought personal clothing laundry aide Ansley Araujo to session, present throughout PT-OP-D Balance Start: 05/22/24 11:16 Freq: Status: Active Protocol: Document 05/22/24 11:17 NM (Rec: 05/22/24 12:25 NM [id number]) Balance Tests Romberg Romberg 30 sec Single Limb Standing Single Limb- Right 2 sec Single Limb- Left 10 sec Tandem Tandem Standing 8 sec PT-OP-E Functional Tests Start: 05/22/24 11:16 Freq: Status: Active Protocol: Document 05/22/24 11:17 NM (Rec: 05/22/24 12:25 NM [id number]) Functional Tests Five Times Sit to Stand Test Score 16 seconds Comments no pain; no UE assist PT-OP-F Manual Assessment Start: 05/22/24 11:16 Freq: Status: Active Protocol: Document 05/22/24 11:17 NM (Rec: 05/22/24 12:25 NM [id number]) Manual Assessments Soft Tissue Assessment Soft Tissue Mobility Assessment Tightness of R heel cords, hamstrings Joint Mobility Assessment Joint Mobility Assessment Mild R knee hyperextension, decreased ankle mobility PT-OP-G Mobility & Gait Start: 05/22/24 11:16 Freq: Status: Active Protocol: Document 05/22/24 11:17 NM (Rec: 05/22/24 12:25 NM [id number]) OP Gait Assessment Gait Gait Assistance Required: Standby Assistance Distance (Feet) 150 Assistive Devices Assistive Device None Gait Deviations General Gait Pattern Antalgic Factors Limiting Gait Function Factors Limiting Gait Function Decreased Activity Tolerance, Decreased Strength,Limited Range of Motion,Pain Comments Gait Comments Toe in at R hip. Demos decrease in quad strength with slight trunk/hip flex with R stance PT-OP-H Neuro Start: 05/22/24 11:16 Freq: Status: Active Protocol: Document 05/22/24 11:17 NM (Rec: 05/22/24 12:25 NM [id number]) Sensation Evaluation Comments Summary Comments BLE intact to light touch sensation; no numbness or decreased sensation reported PT-OP-J Posture/Palpation/Skin Start: 05/22/24 11:16 Freq: Status: Active Protocol: Document 05/22/24 11:17 NM (Rec: 05/22/24 12:25 NM [id number]) Posture Evaluation Position Standing Head/C-Spine Posture Forward Head T-Spine Posture Increased Kyphosis L-Spine Posture Fixed Scoliosis on (L) Hip Posture (L) Internally Rotated,(R) Internally Rotated Patellar Posture (L) Superior,(R) Superior Comments Posture Comments mild hyperextension of R knee Palpation Assessment Location R knee Palpation Details Tenderness along posterior knee near hamstrings, lateral joint line No tenderness along patella, quad, hip flexors, lateral hip , medial joint line Skin Assessment Circumference Measurement R knee Location patellar: 38 cm; calf 33 cm Incisional Assessment Incision Appearance/Comments Stitches intact. Over lateral incision, pt has small opening but no discharge or bleeding. Pt reports that was present when she took off wrappings this morning PT-OP-K Range of Motion Start: 05/22/24 11:16 Freq: Status: Active Protocol: Document 08/14/24 08:19 NM (Rec: 08/14/24 09:02 NM [id number]) Knee Goniometric Range of Motion Knee Right Flexion Active (degrees) 135 Extension Active (degrees) 0 Comments IE: 85 deg flex to 1 deg ext 06/19/23: 117 deg flex- 18 deg gain AROM R knee flexion AROM 135 deg 06/26/24 Left Flexion Active (degrees) 123 Extension Active (degrees) 1 PT-OP-M Strength Start: 05/22/24 11:16 Freq: Status: Active Protocol: Document 08/14/24 08:19 NM (Rec: 08/14/24 09:02 NM [id number]) Hip Strength Hip Manual Muscle Testing Right Flexion (L2) 4+ Good+ Extension (S1) 4+ Good+ Abduction 4+ Good+ Adduction 4+ Good+ Comments 07/24/24: 4/5 for all 08/14/24: 4+/5 for all Left Flexion (L2) 4 Good Extension (S1) 4 Good Abduction 4 Good Adduction 4 Good Knee Strength Knee Manual Muscle Testing Right Flexion (S2) 4+ Good+ Extension (L3) 4+ Good+ Comments not formally tested due to surgical repair, but able to perform seated against gravity without resistance\ 06/19/24: 06/19/24: 4-/5 knee flex/ext; pain free 07/24/24: 4/5 08/14/24: 4+/5 Left Flexion (S2) 4 Good Extension (L3) 4 Good PT-OP-Q Treatments Start: 05/22/24 11:16 Freq: Status: Active Protocol: Document 08/16/24 08:17 NM (Rec: 08/16/24 09:03 NM [id number]) Therapeutic Exercises Supine Exercises cornel stretch Supine Exercise Name HEP Side bilateral Reps/Minutes 60 ea Figure 4 stretch Side bilateral Reps/Minutes 60 ea Comments less hip flex on R side Sitting Exercises sit to stand Sitting Exercise Name buttock taps Side bilateral Resistance level 3 band at thighs Equipment Used 5# db for 2nd set Reps/Minutes 15, 15 w/ wt Comments no pain but feels in quad Standing Exercises resisted stepping Standing Exercise Name lateral stepping Side bilateral Resistance level 2 > level 3 band (above knees) Reps/Minutes 3x15 ft Comments trialed resistance below knee but > buckling so d/c lunge Standing Exercise Name minilunge Side bilateral Equipment Used 1 hand support for balance Reps/Minutes 2x8 Comments cued form, pain free; trialed full stepping lunge but hip flex weak calf stretches Standing Exercise Name 1. gastrocnemius, 2. soleus Side bilateral Equipment Used at wall, staggered stance Reps/Minutes 60 ea Other Exercises 6 MWT Reps/Minutes 1125 ft Comments demos antalgic gait with inc time, 1 instance stumble w/o LOB PT-OP-T Assessment and Plan Start: 05/22/24 11:16 Freq: Status: Active Protocol: Document 08/16/24 08:17 NM (Rec: 08/16/24 09:03 NM [id number]) Physical Therapy Assessment Goals 5 Impairment currently not performing an HEP; will need to return to exercise w/ crew trainer Short Term Goal (STG) Pt will report compliance with HEP 3x/wk in order to maximize progression with PT and promote independence with exercise 06/19/24: perfroming HEP everyday STG Duration 3 weeks Hydraulic Lift Driver Goal (LTG) Pt will report compliance with HEP at least 3x/wk for maintenance program and/or will be able to return to weekly exercise with crew trainer if appropriate 07/24/24: does every other day LTG Duration 12 weeks MET 4 Impairment LEFS 40/80 Impairment . Hydraulic Lift Driver Goal (LTG) Pt will improve LEFS >50/80 (1 MCID) in order to demonstrate improvements in symptom management and activity tolerance 07/24/24: 38/80 08/14/24: 55/80 LTG Duration 12 weeks MET 3 Impairment ambulation Impairment . Short Term Goal (STG) Pt will normalize gait mechanics for community distances during 6 MWT in order to demonstrate improvements in R knee/hip strength and ROM 06/09/24: progressing with gait mechanics on hurdles and on level surfaces 06/19/24: unable to complete 6 MWT due to R hip pain, ambulates 500 ft; still demos antalgic gait pattern, less stance on R foot 07/24/24: following sitting, pt still demos antalgic gait STG Duration 6 weeks PROGRESSING Hydraulic Lift Driver Goal (LTG) Pt will report that she is able to ambulate on unstable surfaces around her property for at least 1 mile without increase in R knee pain in order to demonstrate improvements in gait, pain management and activity tolerance 07/24/24: pt can ambulate for 1/4 mi on level surfaces several times ea day 08/14/24: can ambulate 1/2 mi; stops due to aching in knee LTG Duration 12 weeks NOT MET 2 Impairment strength R hip 3+ to 4-/5 and knee 3/5 Impairment . Short Term Goal (STG) Pt will improve R hip and knee strength to at least 4/5 in order to demonstrate increased strength required for ambulation and ADLs 06/19/24: 4-/5 knee flex/ext, 4/5 hip flex/add and 4-/5 hip ext/abd 07/24/24: 4/5 for al hip and knee strength STG Duration 8 weeks MET Hydraulic Lift Driver Goal (LTG) Pt will improve R hip and knee strength to at least 4+/5 in order to demonstrate increased strength required for ambulation and ADLs 08/14/24: 4+/5 for all LTG Duration 12 weeks MET Progress Towards Goals Progress Towards Goals Progressing Toward Goals,Goals Met Progress Comments All goals met except ambulation goal Assessment Summary Assessment Pt demos improvement in 6 MWT distance, now 1125 ft. Educated on gradually starting ambulation program on flat surface, progressing distance or time gradually. Pt has 1 instance of stumble without fall. R hip discomfort post gait reduced with stretching. Progressed resistance and reps for squat taps to chair, resisted stepping and lunges. Pt reports feeling like R hip is weak with standard lunges, 1 instance of near buckle without fall; no pain or weakness. Not present with decreased depth with lunges. Trialed resisted lateral stepping, band remaining above knees to maintain stability and integrity of post-op knee. Physical Therapy Plan Frequency and Duration Frequency of Treatment 1-2x/wk Duration of treatment (weeks) 12 Plan of Care Start Date 05/22/24 Plan of Care End Date 08/18/24 Therapeutic Interventions Therapeutic Interventions Balance Training,Gait Training ,Home Exercise Program,Joint Mobilizations,Manual Therapy, Neuromuscular Re-education, Orthotic/Prosthetic Management ,Patient/Caregiver Education, Self-Care/Home Management, Sensory Integration,Soft Tissue Mobilization,Taping, Therapeutic Activities, Therapeutic Exercises Modalities Cold Pack/Ice Massage,Electric Stimulation,Hot Packs, Ultrasound Discharge Physical Therapy Discharge Reasons Patient Request Discharge Comments Pt has met 3/4 goals, has not met ambulation goal. Pt planning on having several upcoming surgeries and vacations, unable to attend PT further. Pt and PT discussed discharge to maintenance program for continued strengthening, 3x/wk for at least 6 months. Pt also working with personal clothing laundry aide who attended last session with pt, planning to assist pt with maintenance strengthening and ambulation. PT educated pt on following up with referring surgeon if R knee symptoms return, change, worsen, or if instability noted in R knee. Pt verbalizes understanding and will be discharged to maintenance program. Next Visit Focus/Plan Next Note Type Discharge Summary Next Visit Plan discharge from PT
== END 2024-08-23 15:25 | disposition home or self-care (01) ==
LOC: PHYS 08:15
PROVIDERS: Family Provider Internal Medicine; PCP Student in an Organized Health Care Education/Training Program; Referring Provider Student in an Organized Health Care Education/Training Program; Visit Provider Student in an Organized Health Care Education/Training Program
DX: M25.561 Pain in right knee (principal); M25.661 Stiffness of right knee, not elsewhere classified; R53.1 Weakness; R27.8 Other lack of coordination
CPT/HCPCS: 97110; 97112; 97116; 97140; 97161

== ENCOUNTER → 2024-08-22 09:10 | Outpatient (CLI) | payer MEDICARE, SELFPAY ==
[2024-08-22 10:21] LABS: Add Manual Diff / Slide Review NO; Basophils Absolute Auto 0 /uL (0-100); Basophils Percent Auto 0.4 % (0-2); Eosinophils Absolute Auto 0 /uL (0-450); Eosinophils Percent Auto 0.7 % (2-4); Hematocrit 40.3 % (36-46); Hemoglobin 13.4 g/dL (12.0-16.0); Lymphocytes Absolute Auto 1800 /uL (1100-4500); Lymphocytes Percent Auto 24.4 % (25-40); Mean Corpuscular HGB Conc 33.3 % (30-36); Mean Corpuscular Hemoglobin 30.5 PG (26-34); Mean Corpuscular Volume 91.7 fL (80-100); Monocytes Absolute Auto 600 /uL (0-900); Monocytes Percent Auto 7.8 % (3-14); Neutrophils Absolute Auto 4900 /uL (1500-7000); Neutrophils Percent Auto 66.7 % (50-75); Platelet Count 268 X10^3/uL (150-400); Red Cell Distribution Width 14.5 % (11.6-14.8); White Blood Cell Count 7.4 X10^3/uL (4.5-11.0)
[2024-08-22 10:43] LABS: Alanine Aminotransferase 21 IU/L (<35); Albumin Globulin Ratio 1.8 (1.0-2.8); Alkaline Phosphatase 82 U/L (38-126); Aspartate Aminotransferase 24 IU/L (14-36); BUN Creatinine Ratio 21.9 (6-22); Bilirubin Total 0.9 mg/dL (0.2-1.3); Blood Urea Nitrogen 14 mg/dL (7-17); C-Reactive Protein Quant 0.5 mg/dL (<1.0); Calcium 9.2 mg/dL (8.4-10.2); Carbon Dioxide 28 mmol/L (22-32); Chloride 104 mmol/L (98-107); Estimated Glomerular Filt Rate > 60 mL/min (>60); Globulin 2.2 g/dL (1.7-4.1); Glucose 109 mg/dL (80-110); HEMOLYSIS < 15 (0-50); Potassium 3.9 mmol/L (3.4-5.1); Sodium 137 mmol/L (137-145); Total Protein 6.2 g/dL (6.3-8.2)
[2024-08-22 11:05] LABS: Thyroid Stimulating Hormone 2.13 uIU/mL (0.47-4.68)
== END ==
PROVIDERS: Family Provider Internal Medicine; PCP Student in an Organized Health Care Education/Training Program; Referring Provider Nurse Practitioner Family; Visit Provider Nurse Practitioner Family
DX: K52.9 Noninfective gastroenteritis and colitis, unspecified (principal)
CPT/HCPCS: 36415; 80053; 84443; 85025; 86140

== ENCOUNTER 2024-09-17 11:38 | Observation (INO) | payer MEDICARE, SELFPAY ==
[2024-09-17] VITALS (10 sets, daily range): BP systolic 123–173; BP diastolic 68–88; PULSE 81–97; RESP 14–19; TEMP 36.3–37.1; O2SAT 94–99; BMI 27.8
--- NOTE | 2024-09-17 11:52 | ED_ITS ---
HPI - General Adult General Chief complaint: Altered Mental Status Stated complaint: confused, weak Time Seen by Provider: 09/17/24 11:41 History of Present Illness HPI narrative: 73-year-old woman with a history of hypertension hyperlipidemia returning from a short trip to [place] with her cousin early this morning, presumably flying much of the evening. She reportedly got on the airport or about 830 this morning without assistance or concern and seemed to be normal. 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 The friends that picked her up in [place] noted that she was significantly confused, did not recognize them, where she was, what was going on. She was able to speak and walk without any difficulties she does not recognize any abnormalities but is quite confused. Complete review of systems is challenging due to her confusion. Related Data Home Medications Medication Instructions Recorded Confirmed amlodipine 5 mg tablet (Norvasc) 5 mg PO QDAY ##0 11/08/16 09/17/24 cholecalciferol (vitamin D3) 50 2,000 unit PO DAILY ##0 11/08/16 09/17/24 mcg (2,000 unit) capsule (Vitamin D3) atorvastatin 10 mg tablet 10 mg PO DAILY 08/21/20 09/17/24 Allergies Allergy/AdvReac Type Severity Reaction Status Date / Time No Known Drug Allergies Allergy Verified 09/17/24 12:00 Review of Systems Review of Systems ROS Unobtainable: Unobtainable due to mental status/LOC Patient History Medical History Anxiety History of diarrhea Hyperlipidemia Hypertension Ovarian cyst Surgical History H/O ovarian cystectomy (~2007) H/O repair of rotator cuff (~2016) History of open reduction and internal fixation (ORIF) procedure (~2016) History of total hip arthroplasty (~2013) Social History household members: none Smoking Status: Never smoker alcohol intake: current Smoking Status: Never smoker alcohol intake frequency: 0-2 drinks per day Alcohol type: wine Exam Initial Vital Signs Initial Vital Signs: Vital Signs Pulse Rate 97 H 09/17/24 11:48 Blood Pressure 163/79 H 09/17/24 11:48 Pulse Oximetry 97 09/17/24 11:48 General: Healthy appearing, confused but able to speak in full sentences HEENT: Moist mucous membranes, normal sclera with reactive pupils, Respiratory: Lungs are clear to auscultation, no wheezing no rales no rhonchi. Full and symmetrical air movement Cardiac: Regular rate and rhythm no murmurs no bruits Abdomen: Soft, nontender, good bowel tones, no flank pain Skin: Warm and dry, no rashes Neurologic: She is confused about details and events. Is able to move all extremities. With minimal prompting she is able to follow commands. NIH score is 0 Extremities: No trauma, well perfused Psych: Cooperative, confused Course Orders Ordered: ED Orders 09/17/24 11:56 Complete Blood Count AUTO DIFF Stat Comprehensive Metabolic Panel Stat Ethanol (ETOH) Stat PTT Partial Thromboplastin Justino Stat Prothrombin Time INR Stat Troponin & CK Cardiac Panel Stat 09/17/24 11:[address] angio head and neck Stat EKG-12 Lead Stat 09/17/24 12:12 Urinalysis and Microscopic Stat Urine Culture Stat Urine Drug Screen, Rapid Stat Acetaminophen (Acetaminophen 325 Mg Tablet) 650 mg PO Q6H PRN PRN Reason: Fever/Mild Pain (1-3) Last Admin: 09/17/24 15:31 Dose: 650 mg Documented By: LESIA Amlodipine Besylate (Amlodipine 5 Mg Tablet) 5 mg PO DAILY YAEL Atorvastatin Calcium (Atorvastatin 20 Mg Tablet) 10 mg PO DAILY YAEL Naloxone HCl (Naloxone 0.4 Mg/Ml Vial) 0.2 mg IV Q2MIN PRN PRN Reason: Opiate Reversal Discontinued Medications Potassium Chloride (Potassium Chloride 20 Meq Tab) 40 meq PO NOW ONE Stop: 09/17/24 18:20 Last Admin: 09/17/24 18:29 Dose: 40 meq Documented By: LESIA Vital Signs Vital signs: Vital Signs - 8 hr 09/17/24 11:48 09/17/24 11:48 09/17/24 12:00 Temperature Pulse Rate 97 H 92 H Respiratory Rate Blood Pressure 163/79 H Pulse Oximetry 97 97 Oxygen Delivery Method 09/17/24 12:10 09/17/24 12:30 09/17/24 12:30 Temperature 97.7 F Pulse Rate 94 H 84 Respiratory Rate 18 14 Blood Pressure 163/79 H 141/75 H Pulse Oximetry 98 97 Oxygen Delivery Method Room Air 09/17/24 13:00 09/17/24 13:00 Temperature Pulse Rate 83 Respiratory Rate Blood Pressure 145/74 H Pulse Oximetry 98 Oxygen Delivery Method Medical Decision Making Lab Data 09/17/24 11:56 09/17/24 11:56 Labs: Lab Results 09/17/24 09/17/24 09/17/24 Range/Units 11:56 12:12 12:12 WBC 9.3 (4.5-11.0) X10^3/uL RBC 4.66 (4.0-5.2) X10^6/uL Hgb 14.3 (12.0-16.0) g/dL Hct 42.1 (36-46) % MCV 90.2 (80-100) fL MCH 30.6 (26-34) PG MCHC 33.9 (30-36) % RDW 14.5 (11.6-14.8) % Plt Count 272 (150-400) X10^3/uL Neut % (Auto) 73.4 (50-75) % Lymph % (Auto) 19.2 L (25-40) % [place] % (Auto) 6.2 (3-14) % Eos % (Auto) 0.6 L (2-4) % Baso % (Auto) 0.6 (0-2) % Neut # (Auto) 6800 (9667-6108) /uL Lymph # (Auto) 1800 (6250-7539) /uL [place] # (Auto) 600 (0-900) /uL Eos # (Auto) 100 (0-450) /uL Baso # (Auto) 100 (0-100) /uL PT 11.4 (9.4-12.5) SECONDS INR 1.0 (0.9-1.3) APTT 31 (25.1-36.5) SECONDS Sodium 137 (137-145) mmol/L Potassium 3.2 L (3.4-5.1) mmol/L Chloride 103 (98-107) mmol/L Carbon Dioxide 27 (22-32) mmol/L BUN 11 (7-17) mg/dL Creatinine 0.51 L (0.52-1.04) mg/dL Estimated GFR > 60 (>60) mL/min BUN/Creatinine Ratio 21.6 (6-22) Glucose 106 (80-110) mg/dL Calcium 9.1 (8.4-10.2) mg/dL Total Bilirubin 1.1 (0.2-1.3) mg/dL AST 30 (14-36) IU/L ALT 25 (<35) IU/L Alkaline Phosphatase 113 (38-126) U/L Total Creatine Kinase 137 H (30-135) U/L Troponin I < 0.012 (0.01-0.034) ng/mL Total Protein 7.0 (6.3-8.2) g/dL Albumin 4.5 (3.5-5.0) g/dL Globulin 2.5 (1.7-4.1) g/dL Albumin/Globulin Ratio 1.8 (1.0-2.8) Urine Color Yellow Urine Appearance Clear Urine pH 6.5 Normal (4.5-8.0) Ur Specific [place] 1.010 (1.000-1.035) Urine Protein 1+ H (Negative) Urine Glucose (UA) Negative (Negative) g/dL Urine Ketones 1+ H (NEGATIVE) Urine Occult Blood 1+ H (Negative) Urine Nitrate Negative (Negative) Urine Bilirubin Negative (NEGATIVE) Urine Urobilinogen 0.2 (0.2) E.U./dL Ur Leukocyte Esterase 1+ H (NEGATIVE) Urine RBC 1-5/hpf (0-5/HPF) Urine WBC 5-10/hpf H (0-5/HPF) Ur Squamous Epith Cells None seen (0-5/HPF) Urine Bacteria Few (2-10) H (None) Ur Culture Indicated? Specimen cultured Vol Urine Centrifuged 10ml (spun) U Opiates 300ng/mL cut Negative (Negative) Ur Oxycodone Screen Negative (Negative) Urine Methadone Screen Negative (Negative) Ur Barbiturates Screen Negative (Negative) U Tricyclic Antidepress Negative (Negative) Ur Phencyclidine Scrn Negative (Negative) Ur Amphetamines Screen Negative (Negative) U Methamphetamines Scrn Negative (Negative) Ur MDMA Scrn (Ecstasy) Negative (Negative) U Benzodiazepines Scrn Negative (Negative) Urine Cocaine Screen Negative (Negative) U Marijuana (THC) Screen Negative (Negative) Urine Specific [place] Normal (Normal) Ethyl Alcohol < 10 ( - 10) mg/dL Ur Creatinine Normal (Normal) SARS-CoV-2 (PCR) Influenza A (RT-PCR) (NEGATIVE) Influenza B (RT-PCR) (NEGATIVE) RSV (PCR) (Negative) 09/17/24 09/17/24 Range/Units 12:17 12:17 WBC (4.5-11.0) X10^3/uL RBC (4.0-5.2) X10^6/uL Hgb (12.0-16.0) g/dL Hct (36-46) % MCV (80-100) fL MCH (26-34) PG MCHC (30-36) % RDW (11.6-14.8) % Plt Count (150-400) X10^3/uL Neut % (Auto) (50-75) % Lymph % (Auto) (25-40) % [place] % (Auto) (3-14) % Eos % (Auto) (2-4) % Baso % (Auto) (0-2) % Neut # (Auto) (4258-0909) /uL Lymph # (Auto) (3513-2323) /uL [place] # (Auto) (0-900) /uL Eos # (Auto) (0-450) /uL Baso # (Auto) (0-100) /uL PT (9.4-12.5) SECONDS INR (0.9-1.3) APTT (25.1-36.5) SECONDS Sodium (137-145) mmol/L Potassium (3.4-5.1) mmol/L Chloride (98-107) mmol/L Carbon Dioxide (22-32) mmol/L BUN (7-17) mg/dL Creatinine (0.52-1.04) mg/dL Estimated GFR (>60) mL/min BUN/Creatinine Ratio (6-22) Glucose (80-110) mg/dL Calcium (8.4-10.2) mg/dL Total Bilirubin (0.2-1.3) mg/dL AST (14-36) IU/L ALT (<35) IU/L Alkaline Phosphatase (38-126) U/L Total Creatine Kinase (30-135) U/L Troponin I (0.01-0.034) ng/mL Total Protein (6.3-8.2) g/dL Albumin (3.5-5.0) g/dL Globulin (1.7-4.1) g/dL Albumin/Globulin Ratio (1.0-2.8) Urine Color Urine Appearance Urine pH (4.5-8.0) Ur Specific [place] (1.000-1.035) Urine Protein (Negative) Urine Glucose (UA) (Negative) g/dL Urine Ketones (NEGATIVE) Urine Occult Blood (Negative) Urine Nitrate (Negative) Urine Bilirubin (NEGATIVE) Urine Urobilinogen (0.2) E.U./dL Ur Leukocyte Esterase (NEGATIVE) Urine RBC (0-5/HPF) Urine WBC (0-5/HPF) Ur Squamous Epith Cells (0-5/HPF) Urine Bacteria (None) Ur Culture Indicated? Vol Urine Centrifuged U Opiates 300ng/mL cut (Negative) Ur Oxycodone Screen (Negative) Urine Methadone Screen (Negative) Ur Barbiturates Screen (Negative) U Tricyclic Antidepress (Negative) Ur Phencyclidine Scrn (Negative) Ur Amphetamines Screen (Negative) U Methamphetamines Scrn (Negative) Ur MDMA Scrn (Ecstasy) (Negative) U Benzodiazepines Scrn (Negative) Urine Cocaine Screen (Negative) U Marijuana (THC) Screen (Negative) Urine Specific [place] (Normal) Ethyl Alcohol ( - 10) mg/dL Ur Creatinine (Normal) SARS-CoV-2 (PCR) Cancelled Negative Influenza A (RT-PCR) Flu a negative (NEGATIVE) Influenza B (RT-PCR) Flu b negative (NEGATIVE) RSV (PCR) Negative (Negative) Point of Care Testing Glucose POC 130 Point of care testing: Point of Care Testing Glucose POC [address] angio head and neck: Radiologist's Impression: PROCEDURE: CT ANGIO HEAD AND NECK INDICATIONS: Acute stroke suspected TECHNIQUE: After the administration of intravenous contrast, 1 mm thick sections acquired from the aortic arch through the [place] of [place]. 3-dimensional gsojjix-aaxujaniu-pahqzpolht (MIP) and/or volume rendering reformats were acquired of the central intracranial vasculature and neck separately. For radiation dose reduction, the following was used: automated exposure control, adjustment of mA and/or kV according to patient size. COMPARISON: [facility], CT, CT STROKE, 09/17/2024, 12:02. FINDINGS: Image quality: Diagnostic. BRAIN: See separately dictated CT head report of 09/17/[address] ANGIOGRAPHY: Anterior circulation: Intracranial internal carotid arteries are normal in size and flow. The flow within the paired anterior cerebral arteries is normal and symmetric. The flow within the middle cerebral arteries is normal and symmetric. The anterior communicating artery is seen. No aneurysms are seen. Posterior circulation: Left vertebral artery dominance. Visualized portions of the vertebral arteries demonstrate normal caliber, and join to form a normal appearing basilar artery. Flow within the posterior cerebral arteries is normal and symmetric. No aneurysms are seen. NECK CT ANGIOGRAPHY: Carotid system: The great vessels demonstrate a conventional anatomy as they arise from the aortic arch. The origins of the common carotid arteries appear patent. The common carotid arteries demonstrate normal caliber and courses. The bifurcation regions are both widely patent. The internal carotid arteries demonstrate normal calibers and courses. Posterior circulation: The origins of the vertebral arteries both appear widely patent. The more superior extracranial portions of both vertebral arteries also demonstrate normal courses and calibers. They join to form a normal appearing basilar artery. Soft tissues: Visualized portions of the upper mediastinum demonstrate enlarged lymph nodes the largest measuring 1.7 cm in short axis in the AP window. Bones: No suspicious bony lesions. Visualized cervical spine appears normally aligned. IMPRESSION: No significant intracranial arterial abnormality is seen. No significant abnormality is seen within the arteries of the neck. Visualized upper mediastinum demonstrates adenopathy of uncertain etiology. Any quantitative measurements of stenosis were performed using NASCET criteria. Dictated by: Aliya Donohue M.D. on 09/17/2024 at 12:23 MDM Narrative Medical decision making narrative: CC: Acute confusion, last known well 830 this morning. Complicating co-morbidities: Hypertension hyperlipidemia Data collected from: patient Social determinants of health that may influence the patients condition: Patient just returned from [place] and was independently able to manage getting onto her flight off of her flight into the airport are without difficulty this morning Differential considered: transient global amnesia, significant fatigue, doubt intoxication, stroke Exam documented above, pertinent findings include: Aside from her confusion exam is otherwise entirely benign Lab Test results independently reviewed as above. Pertinent findings: Chemistries are unremarkable CBC is unremarkable Urine has ketones occult blood leukocyte esterase white blood cells no squamous cells occasional bacteria. She is completely asymptomatic. Given the fact that she is slightly dehydrated, has been traveling evening we will wait for culture prior to calling this a urinary tract infection or treating it Independently reviewed EKG: Sinus rhythm at a rate of 88. No acute ischemic changes Imaging studies independently reviewed: CT scan of the head is ordered as a tPA steady. He is unremarkable. Reviewed with radiologist in real-time CT angiogram of the head and neck does not show large vessel occlusion Consultations: [address] [place] Treatments: TNK is not indicated, stroke is not most likely diagnosis Re-evaluations: 1234 exam is unchanged Discussion: Given the negative scans unremarkable blood work in the fact that she does remember her recent trip, it is just events of this morning that are off, the most likely diagnosis at this point is transient global amnesia. Patient lives independently and is not safe for discharge home. Neurology recommendation was observation admit and if symptoms are persisting greater than 24 hours considering MRI. If symptoms resolve prior to that she will be safe for discharge home Discharge Plan Departure Patient Disposition: Admitted as Observation Clinical Impression: Amnesia, global, transient Admit Date/Time: 09/17/24 13:19 Admit Provider: Bucky Connolly V
--- NOTE | 2024-09-17 11:59 | DI.CT.S_ITS ---
PROCEDURE: CT ANGIO HEAD AND NECK INDICATIONS: Acute stroke suspected TECHNIQUE: After the administration of intravenous contrast, 1 mm thick sections acquired from the aortic arch through the [place] of [place]. 3-dimensional drgxilm-pqnanonta-wcnrwjscig (MIP) and/or volume rendering reformats were acquired of the central intracranial vasculature and neck separately. For radiation dose reduction, the following was used: automated exposure control, adjustment of mA and/or kV according to patient size. COMPARISON: [facility], CT, CT STROKE, 09/17/2024, 12:02. FINDINGS: Image quality: Diagnostic. BRAIN: See separately dictated CT head report of 09/17/[address] ANGIOGRAPHY: Anterior circulation: Intracranial internal carotid arteries are normal in size and flow. The flow within the paired anterior cerebral arteries is normal and symmetric. The flow within the middle cerebral arteries is normal and symmetric. The anterior communicating artery is seen. No aneurysms are seen. Posterior circulation: Left vertebral artery dominance. Visualized portions of the vertebral arteries demonstrate normal caliber, and join to form a normal appearing basilar artery. Flow within the posterior cerebral arteries is normal and symmetric. No aneurysms are seen. NECK CT ANGIOGRAPHY: Carotid system: The great vessels demonstrate a conventional anatomy as they arise from the aortic arch. The origins of the common carotid arteries appear patent. The common carotid arteries demonstrate normal caliber and courses. The bifurcation regions are both widely patent. The internal carotid arteries demonstrate normal calibers and courses. Posterior circulation: The origins of the vertebral arteries both appear widely patent. The more superior extracranial portions of both vertebral arteries also demonstrate normal courses and calibers. They join to form a normal appearing basilar artery. Soft tissues: Visualized portions of the upper mediastinum demonstrate enlarged lymph nodes the largest measuring 1.7 cm in short axis in the AP window. Bones: No suspicious bony lesions. Visualized cervical spine appears normally aligned. IMPRESSION: No significant intracranial arterial abnormality is seen. No significant abnormality is seen within the arteries of the neck. Visualized upper mediastinum demonstrates adenopathy of uncertain etiology. Any quantitative measurements of stenosis were performed using NASCET criteria. Dictated by: Aliya Donohue M.D. on 09/17/2024 at 12:23 Approved by: Aliya Donohue M.D. on 09/17/2024 at 12:29
--- NOTE | 2024-09-17 11:59 | DI.CT.S_ITS ---
PROCEDURE: CT STROKE INDICATIONS: Acute stroke suspected TECHNIQUE: Noncontrast 4.5 mm thick angled axial sections acquired from the foramen magnum to the vertex, with coronal reformats. For radiation dose reduction, the following was used: automated exposure control, adjustment of mA and/or kV according to patient size. COMPARISON: [facility], CT, CT ANGIO HEAD AND NECK, 09/17/2024, 12:02. FINDINGS: Image quality: Diagnostic. CSF spaces: Basal cisterns are patent. No extra-axial fluid collections. The ventricles are symmetric in size and shape. Brain: No intracranial bleeds or masses. There is cerebral volume loss for age, with resultant ventricular and sulcal prominence. There are periventricular and deep white matter chronic small vessel ischemic changes. There is intracranial internal carotid artery atherosclerosis. Skull and face: Calvarium and visualized facial bones appear intact, without suspicious lesions. Sinuses: Visualized sinuses and mastoids are clear. IMPRESSION: 1. No acute intracranial process. 2. Mild to moderate atrophy and chronic microvascular ischemic changes. The above findings were discussed with Dr. Salome Yap on 09/17/2024 at 12:21 p.m.. This study fulfills neurological imaging criteria for inclusion or exclusion of acute stroke therapies based on available published neurological guidelines. Dictated by: Aliya Donohue M.D. on 09/17/2024 at 12:21 Approved by: Aliya Donohue M.D. on 09/17/2024 at 12:22
[2024-09-17 12:06] LABS: Add Manual Diff / Slide Review NO; Basophils Absolute Auto 100 /uL (0-100); Basophils Percent Auto 0.6 % (0-2); Eosinophils Absolute Auto 100 /uL (0-450); Eosinophils Percent Auto 0.6 % (2-4); Hematocrit 42.1 % (36-46); Hemoglobin 14.3 g/dL (12.0-16.0); Lymphocytes Absolute Auto 1800 /uL (1100-4500); Lymphocytes Percent Auto 19.2 % (25-40); Mean Corpuscular HGB Conc 33.9 % (30-36); Mean Corpuscular Hemoglobin 30.6 PG (26-34); Mean Corpuscular Volume 90.2 fL (80-100); Monocytes Absolute Auto 600 /uL (0-900); Monocytes Percent Auto 6.2 % (3-14); Neutrophils Absolute Auto 6800 /uL (1500-7000); Neutrophils Percent Auto 73.4 % (50-75); Platelet Count 272 X10^3/uL (150-400); Red Blood Cell Count 4.66 X10^6/uL (4.0-5.2); Red Cell Distribution Width 14.5 % (11.6-14.8); White Blood Cell Count 9.3 X10^3/uL (4.5-11.0)
[2024-09-17 12:14] LABS: Prothrombin Time 11.4 SECONDS (9.4-12.5)
[2024-09-17 12:17] LABS: PTT Partial Thromboplastin Tim 31 SECONDS (25.1-36.5)
[2024-09-17 12:18] LABS: Alanine Aminotransferase 25 IU/L (<35); Albumin 4.5 g/dL (3.5-5.0); Albumin Globulin Ratio 1.8 (1.0-2.8); Alkaline Phosphatase 113 U/L (38-126); Aspartate Aminotransferase 30 IU/L (14-36); BUN Creatinine Ratio 21.6 (6-22); Bilirubin Total 1.1 mg/dL (0.2-1.3); Blood Urea Nitrogen 11 mg/dL (7-17); Calcium 9.1 mg/dL (8.4-10.2); Carbon Dioxide 27 mmol/L (22-32); Chloride 103 mmol/L (98-107); Creatine Kinase 137 U/L (30-135); Estimated Glomerular Filt Rate > 60 mL/min (>60); Ethanol (ETOH) < 10 mg/dL; Globulin 2.5 g/dL (1.7-4.1); Glucose 106 mg/dL (80-110); HEMOLYSIS 23 (0-50); Potassium 3.2 mmol/L (3.4-5.1); Sodium 137 mmol/L (137-145)
[2024-09-17 12:19] LABS: Appearance Urine UA CLEAR; Bilirubin Urine UA NEGATIVE (NEGATIVE); Color Urine UA YELLOW; Glucose Urine UA NEGATIVE (Negative); Ketones Urine UA 1+ (NEGATIVE); Leukocyte Esterase Urine UA 1+ (NEGATIVE); Nitrite Urine UA NEGATIVE (Negative); Occult Blood Urine UA 1+ (Negative); Protein Urine UA 1+ (Negative); Ur Creatinine Normal (Normal); Ur Specific Gravity Normal (Normal); Urine pH Normal (Normal); Urobilinogen Urine UA 0.2 E.U./dL (0.2)
[2024-09-17 12:20] LABS: Urine Amphetamines Negative (Negative); Urine Barbiturates Negative (Negative); Urine Benzodiazepines Negative (Negative); Urine Cocaine Negative (Negative); Urine MDMA Negative (Negative); Urine Methadone Negative (Negative); Urine Methamphetamines Negative (Negative); Urine Opiates Negative (Negative); Urine Oxycodone Negative (Negative); Urine Phencyclidine Negative (Negative); Urine THC Negative (Negative); Urine Tricyclic Antidepressant Negative (Negative); Urine Volume 10mL (spun); pH Urine UA 6.5 (4.5-8.0)
[2024-09-17 12:22] LABS: Bacteria Urine Few (2-10); Culture Indicated Urine Specimen Cultured; RBC Urine 1-5/HPF (0-5/HPF); Squamous Epithelial Cell Urine None Seen (0-5/HPF); WBC Urine 5-10/HPF (0-5/HPF)
--- NOTE | 2024-09-17 12:22 | EKG_ITS ---
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
[2024-09-17 12:30] LABS: Troponin I < 0.012 ng/mL (0.01-0.034)
--- NOTE | 2024-09-17 13:44 | PC.NURSE ---
Pt now a/ox4. Able to give me details about her recent trip with names and dates. Pt also able to state she was brought in by her neighbors due to concerns for acute confusion.
--- NOTE | 2024-09-17 13:57 | PC.NURSE ---
Spoke with pt's neighbor, [place], per pt consent and updated on patient status. Neighbors can reached at: [place] [phone] [place] [phone]
--- NOTE | 2024-09-17 13:59 | PM.HP.1 ---
History of Present Illness History of Present Illness Date Patient Seen: 09/17/24 Time Patient Seen: 14:15 Date of Onset of Symptoms: 09/17/24 Chief complaint: confused, weak Narrative: 73-year-old woman under the primary care of Padmini Maharaj PA-C returned alone from a 6 day trip to [place] with her cousin last night, and while being transported on the shuttle was noted by tank wagon driver's to be mildly confused. When she arrived at her destination she did not recognize the neighbor who was there to pick her up, nor where she was or what was going on. There were no speech or motor problems noted. She was brought to the emergency department where she underwent an unremarkable head and neck CT/CTA and admitted for further management and evaluation. Patient provides much of this history, appearing to have cleared considerably, and feeling that she is essentially back to baseline within about 3 hours of initial presentation. Her daughter Ronaldo corroborates much of this history by phone after hearing it from her mother's neighbors. [facility] Medical History Anxiety History of diarrhea Hyperlipidemia Hypertension Ovarian cyst Surgical History H/O ovarian cystectomy (~2007) H/O repair of rotator cuff (~2016) History of open reduction and internal fixation (ORIF) procedure (~2016) History of total hip arthroplasty (~2013) Social History household members: none Smoking Status: Never smoker alcohol intake: current Meds Home Medications and Allergies Home Medications Medication Instructions Recorded Confirmed Type amlodipine 5 mg tablet (Norvasc) 5 mg PO QDAY ##0 11/08/16 08/21/20 History cholecalciferol (vitamin D3) 50 2,000 unit PO WEEKLY ##0 11/08/16 08/21/20 History mcg (2,000 unit) capsule (Vitamin D3) atorvastatin 10 mg tablet 10 mg PO DAILY 08/21/20 08/21/20 History Allergies Allergy/AdvReac Type Severity Reaction Status Date / Time No Known Drug Allergies Allergy Verified 09/17/24 12:00 Review of Systems Review of Systems ROS: Yes All systems reviewed with the patient and are negative except as otherwise documented Exam Vital Signs (past 8 hours): - 09/17/24 11:48 09/17/24 11:48 09/17/24 12:00 Temperature Pulse Rate 97 H 92 H Respiratory Rate Blood Pressure 163/79 H Pulse Oximetry 97 97 Oxygen Delivery Method 09/17/24 12:10 09/17/24 12:30 09/17/24 12:30 Temperature 97.7 F Pulse Rate 94 H 84 Respiratory Rate 18 14 Blood Pressure 163/79 H 141/75 H Pulse Oximetry 98 97 Oxygen Delivery Method Room Air 09/17/24 13:00 09/17/24 13:00 09/17/24 13:30 Temperature Pulse Rate 83 92 H Respiratory Rate 18 Blood Pressure 145/74 H Pulse Oximetry 98 99 Oxygen Delivery Method 09/17/24 13:39 09/17/24 13:39 Temperature Pulse Rate 90 Respiratory Rate 19 Blood Pressure 173/88 H Pulse Oximetry 97 Oxygen Delivery Method Oxygen Delivery Method Room Air Narrative Exam Narrative: GENERAL: This is a well-nourished, well-developed patient, in no apparent distress. HEAD: Atraumatic. Normocephalic. No temporal or scalp tenderness. EYES: Pupils equal round and reactive. Extraocular motions intact. No scleral icterus. No injection or drainage. ENT: Mucous membranes pink and moist. NECK: Trachea midline. No JVD, bruits or lymphadenopathy. Supple, nontender, no meningeal signs. CARDIOVASCULAR: Regular rate and rhythm without murmurs, gallops, or rubs. RESPIRATORY: Clear to auscultation. GASTROINTESTINAL: Abdomen soft, non-tender, nondistended. EXTREMITIES: No clubbing, cyanosis, or edema. BACK: Nontender without deformity or crepitance. No flank tenderness. NEUROLOGIC: Alert, oriented, speech fluent, full upper and lower motor strength, no focal deficits evident. DERMATOLOGIC: No rashes or skin lesions. Objective ECG Impression: Normal sinus rhythm at 88bpm, no ischemic changes. Imaging CT scan - head: Radiologist's impression: 1. No acute intracranial process. 2. Mild to moderate atrophy and chronic microvascular ischemic changes. Head/neck CTA:: Radiologist's impression: No significant intracranial arterial abnormality is seen. No significant abnormality is seen within the arteries of the neck. Visualized upper mediastinum demonstrates adenopathy of uncertain etiology. Labs 09/17/24 11:56 09/17/24 11:56 Labs: Laboratory Results - last 24 hr 09/17/24 09/17/24 09/17/24 11:56 12:12 12:12 WBC 9.3 RBC 4.66 Hgb 14.3 Hct 42.1 MCV 90.2 MCH 30.6 MCHC 33.9 RDW 14.5 Plt Count 272 Neut % (Auto) 73.4 Lymph % (Auto) 19.2 L [place] % (Auto) 6.2 Eos % (Auto) 0.6 L Baso % (Auto) 0.6 Neut # (Auto) 6800 Lymph # (Auto) 1800 [place] # (Auto) 600 Eos # (Auto) 100 Baso # (Auto) 100 PT 11.4 INR 1.0 APTT 31 Sodium 137 Potassium 3.2 L Chloride 103 Carbon Dioxide 27 BUN 11 Creatinine 0.51 L Estimated GFR > 60 BUN/Creatinine Ratio 21.6 Glucose 106 Calcium 9.1 Total Bilirubin 1.1 AST 30 ALT 25 Alkaline Phosphatase 113 Total Creatine Kinase 137 H Troponin I < 0.012 Total Protein 7.0 Albumin 4.5 Globulin 2.5 Albumin/Globulin Ratio 1.8 Urine Color Yellow Urine Appearance Clear Urine pH 6.5 Normal Ur Specific [place] 1.010 Urine Protein 1+ H Urine Glucose (UA) Negative Urine Ketones 1+ H Urine Occult Blood 1+ H Urine Nitrate Negative Urine Bilirubin Negative Urine Urobilinogen 0.2 Ur Leukocyte Esterase 1+ H Urine RBC 1-5/hpf Urine WBC 5-10/hpf H Ur Squamous Epith Cells None seen Urine Bacteria Few (2-10) H Ur Culture Indicated? Specimen cultured Vol Urine Centrifuged 10ml (spun) U Opiates 300ng/mL cut Negative Ur Oxycodone Screen Negative Urine Methadone Screen Negative Ur Barbiturates Screen Negative U Tricyclic Antidepress Negative Ur Phencyclidine Scrn Negative Ur Amphetamines Screen Negative U Methamphetamines Scrn Negative Ur MDMA Scrn (Ecstasy) Negative U Benzodiazepines Scrn Negative Urine Cocaine Screen Negative U Marijuana (THC) Screen Negative Urine Specific [place] Normal Ethyl Alcohol < 10 Ur Creatinine Normal SARS-CoV-2 (PCR) 09/17/24 12:17 WBC RBC Hgb Hct MCV MCH MCHC RDW Plt Count Neut % (Auto) Lymph % (Auto) [place] % (Auto) Eos % (Auto) Baso % (Auto) Neut # (Auto) Lymph # (Auto) [place] # (Auto) Eos # (Auto) Baso # (Auto) PT INR APTT Sodium Potassium Chloride Carbon Dioxide BUN Creatinine Estimated GFR BUN/Creatinine Ratio Glucose Calcium Total Bilirubin AST ALT Alkaline Phosphatase Total Creatine Kinase Troponin I Total Protein Albumin Globulin Albumin/Globulin Ratio Urine Color Urine Appearance Urine pH Ur Specific [place] Urine Protein Urine Glucose (UA) Urine Ketones Urine Occult Blood Urine Nitrate Urine Bilirubin Urine Urobilinogen Ur Leukocyte Esterase Urine RBC Urine WBC Ur Squamous Epith Cells Urine Bacteria Ur Culture Indicated? Vol Urine Centrifuged U Opiates 300ng/mL cut Ur Oxycodone Screen Urine Methadone Screen Ur Barbiturates Screen U Tricyclic Antidepress Ur Phencyclidine Scrn Ur Amphetamines Screen U Methamphetamines Scrn Ur MDMA Scrn (Ecstasy) U Benzodiazepines Scrn Urine Cocaine Screen U Marijuana (THC) Screen Urine Specific [place] Ethyl Alcohol Ur Creatinine SARS-CoV-2 (PCR) Cancelled Assessment & Plan Assessment & Plan narrative: 1. Transient global amnesia. No evidence of stroke or worrisome process. Admit for observation, monitor serial neurologic exams, and likely discharge home tomorrow if clinically stable and doing well. 2. Hypertension. Continue routine amlodipine. Blood pressure is mildly elevated and we will continue to monitor. 3. Hyperlipidemia. Continue routine statin therapy. 4. DVT prophylaxis: Low risk. Encourage ambulation. 5. Code status: Full code. The patient states she has advanced directives regarding further wishes. Plan: -observation -serial neurologic exams -resume routine home medications -likely discharge home tomorrow if doing well [facility] Charge Codes Initial inpatient/observation care: 16467
[2024-09-17 14:05] LABS: COVID-19 CEPHEID 4-PLEX PCR Negative (Negative); Influenza A - CEPHEID Flu A NEGATIVE (NEGATIVE); Influenza B - CEPHEID Flu B NEGATIVE (NEGATIVE); Respiratory Syncytial Virus Negative (Negative)
[2024-09-17] MEDS: ACETAMINOPHEN 325 MG TABLET 650 MG PO (15:31)
[2024-09-17] MEDS: POTASSIUM CHLORIDE 20 MEQ TAB 40 MEQ PO (18:29)
[2024-09-18] VITALS: BP 108/65; PULSE 63; TEMP 36.7; O2SAT 98
[2024-09-18 04:00] VITALS: BP 110/69; PULSE 75; RESP 12; TEMP 36.4; O2SAT 97
--- NOTE | 2024-09-18 07:41 | PM.PN.1 ---
Subjective Subjective Date Patient Seen: 09/18/24 Exam Vital Signs (past 8 hours): - 09/18/24 00:00 09/18/24 04:00 Temperature 98.0 F 97.6 F Pulse Rate 63 75 Respiratory Rate 12 Blood Pressure 108/65 110/69 Pulse Oximetry 98 97 Oxygen Flow Rate 0 0 Oxygen Delivery Method Room Air Oxygen Flow Rate 0 Objective Labs 09/17/24 11:56 09/17/24 11:56 Labs: Laboratory Results - last 24 hr 09/17/24 09/17/24 09/17/24 11:56 12:12 12:12 WBC 9.3 RBC 4.66 Hgb 14.3 Hct 42.1 MCV 90.2 MCH 30.6 MCHC 33.9 RDW 14.5 Plt Count 272 Neut % (Auto) 73.4 Lymph % (Auto) 19.2 L [place] % (Auto) 6.2 Eos % (Auto) 0.6 L Baso % (Auto) 0.6 Neut # (Auto) 6800 Lymph # (Auto) 1800 [place] # (Auto) 600 Eos # (Auto) 100 Baso # (Auto) 100 PT 11.4 INR 1.0 APTT 31 Sodium 137 Potassium 3.2 L Chloride 103 Carbon Dioxide 27 BUN 11 Creatinine 0.51 L Estimated GFR > 60 BUN/Creatinine Ratio 21.6 Glucose 106 Calcium 9.1 Total Bilirubin 1.1 AST 30 ALT 25 Alkaline Phosphatase 113 Total Creatine Kinase 137 H Troponin I < 0.012 Total Protein 7.0 Albumin 4.5 Globulin 2.5 Albumin/Globulin Ratio 1.8 Urine Color Yellow Urine Appearance Clear Urine pH 6.5 Normal Ur Specific [place] 1.010 Urine Protein 1+ H Urine Glucose (UA) Negative Urine Ketones 1+ H Urine Occult Blood 1+ H Urine Nitrate Negative Urine Bilirubin Negative Urine Urobilinogen 0.2 Ur Leukocyte Esterase 1+ H Urine RBC 1-5/hpf Urine WBC 5-10/hpf H Ur Squamous Epith Cells None seen Urine Bacteria Few (2-10) H Ur Culture Indicated? Specimen cultured Vol Urine Centrifuged 10ml (spun) U Opiates 300ng/mL cut Negative Ur Oxycodone Screen Negative Urine Methadone Screen Negative Ur Barbiturates Screen Negative U Tricyclic Antidepress Negative Ur Phencyclidine Scrn Negative Ur Amphetamines Screen Negative U Methamphetamines Scrn Negative Ur MDMA Scrn (Ecstasy) Negative U Benzodiazepines Scrn Negative Urine Cocaine Screen Negative U Marijuana (THC) Screen Negative Urine Specific [place] Normal Ethyl Alcohol < 10 Ur Creatinine Normal SARS-CoV-2 (PCR) Influenza A (RT-PCR) Influenza B (RT-PCR) RSV (PCR) 09/17/24 09/17/24 12:17 12:17 WBC RBC Hgb Hct MCV MCH MCHC RDW Plt Count Neut % (Auto) Lymph % (Auto) [place] % (Auto) Eos % (Auto) Baso % (Auto) Neut # (Auto) Lymph # (Auto) [place] # (Auto) Eos # (Auto) Baso # (Auto) PT INR APTT Sodium Potassium Chloride Carbon Dioxide BUN Creatinine Estimated GFR BUN/Creatinine Ratio Glucose Calcium Total Bilirubin AST ALT Alkaline Phosphatase Total Creatine Kinase Troponin I Total Protein Albumin Globulin Albumin/Globulin Ratio Urine Color Urine Appearance Urine pH Ur Specific [place] Urine Protein Urine Glucose (UA) Urine Ketones Urine Occult Blood Urine Nitrate Urine Bilirubin Urine Urobilinogen Ur Leukocyte Esterase Urine RBC Urine WBC Ur Squamous Epith Cells Urine Bacteria Ur Culture Indicated? Vol Urine Centrifuged U Opiates 300ng/mL cut Ur Oxycodone Screen Urine Methadone Screen Ur Barbiturates Screen U Tricyclic Antidepress Ur Phencyclidine Scrn Ur Amphetamines Screen U Methamphetamines Scrn Ur MDMA Scrn (Ecstasy) U Benzodiazepines Scrn Urine Cocaine Screen U Marijuana (THC) Screen Urine Specific [place] Ethyl Alcohol Ur Creatinine SARS-CoV-2 (PCR) Cancelled Negative Influenza A (RT-PCR) Flu a negative Influenza B (RT-PCR) Flu b negative RSV (PCR) Negative PFSH Medical History Anxiety History of diarrhea Hyperlipidemia Hypertension Ovarian cyst Surgical History H/O ovarian cystectomy (~2007) H/O repair of rotator cuff (~2016) History of open reduction and internal fixation (ORIF) procedure (~2016) History of total hip arthroplasty (~2013) Social History household members: none Smoking Status: Never smoker alcohol intake: current Assessment & Plan Assessment & Plan narrative: 1. Transient global amnesia. No evidence of stroke or worrisome process. Admit for observation, monitor serial neurologic exams, and likely discharge home tomorrow if clinically stable and doing well. 2. Hypertension. Continue routine amlodipine. Blood pressure is mildly elevated and we will continue to monitor. 3. Hyperlipidemia. Continue routine statin therapy. 4. DVT prophylaxis: Low risk. Encourage ambulation. 5. Code status: Full code. The patient states she has advanced directives regarding further wishes. Plan: -observation -serial neurologic exams -resume routine home medications -likely discharge home tomorrow if doing well Time-Based Coding :: [TOTAL MINUTES] spent with patient and on the chart (including review of chart, obtaining history, exam, reviewing outside data, placing orders, documenting exam and treatment plan, and counseling patient) on [DATE].
[2024-09-18 08:00] VITALS: BP 129/73; PULSE 74; RESP 16; TEMP 36.6; O2SAT 97
[2024-09-18] MEDS: ATORVASTATIN 20 MG TABLET 10 MG PO (08:48)
[2024-09-18] MEDS: AMLODIPINE 5 MG TABLET PO (08:48)
[2024-09-18] MEDS: SODIUM CHLORIDE 0.9% FLUSH 10 ML IV (08:49)
--- NOTE | 2024-09-18 09:33 | CM.DANOTE ---
B DCP Assessment Note pt is a 73yo F admitted for global amnesia, concern for stroke. PCP Padmini Maharaj Payer [employer] MCR and self pay SANITATION DIRECTOR reviewed EMR Per chart review, pt was coming back from trip to [place] when after getting off shuttle bus, business process representative/neighbors noticed some confusion. Per chart review, symptoms have resolved, pt is A/Ox4 (per RN) this morning. anticipate dc home today P: no identified barriers for safe dc home per RN/chart review. anticipate home when stable/today with OP f/u recommended. 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 No History Provided By Patient Prior Living Arrangements House Household Members none Type of transporation used prior to Drives own vehicle admit Independent with ADL's Yes Is patient alert and oriented? Yes Discharge Plan Home Transportation Arrangement friend in POV Referrals Initiated None needed Review Status In Process Please Provide Date Initial DC 09/18/24 Assessment Was Performed Next Review Type Continued Stay Review
--- NOTE | 2024-09-18 11:02 | P.DS_ITS ---
History of Present Illness History of Present Illness Date Patient Seen: 09/18/24 Time Patient Seen: 11:02 Chief complaint: confused, weak Narrative: 73-year-old woman under the primary care of Padmini Maharaj PA-C returned alone from a 6 day trip to [place] with her cousin last night, and while being transported on the shuttle was noted by driver manager's to be mildly confused. When she arrived at her destination she did not recognize the neighbor who was there to pick her up, nor where she was or what was going on. There were no speech or motor problems noted. She was brought to the emergency department where she underwent an unremarkable head and neck CT/CTA and admitted for further management and evaluation. Patient provides much of this history, appearing to have cleared considerably, and feeling that she is essentially back to baseline within about 3 hours of initial presentation. Her daughter Ronaldo corroborates much of this history by phone after hearing it from her mother's neighbors. Discharge Providers Provider Date of admission: 09/17/24 13:19 Discharge Date: 09/18/24 Primary care physician: Padmini Maharaj PA-C Discharge provider: Paty Jarvis MD Summary Hospital Course Hospital Course: 1. Transient global amnesia. No evidence of stroke or worrisome process. Normal serial neurological exams. Stable for discharge, returned to baseline. Follow-up with primary care. 2. Hypertension. Continue routine amlodipine. 3. Hyperlipidemia. Continue routine statin therapy. 4. Hypokalemia. K 3.2 on admission, received replacement, follow up level pending at time of discharge. Unclear etiology. Plan: -dischargehome and follow-up with primary care, Padmini Maharaj. Status at Discharge Cognitive/behavioral status at discharge: at baseline, oriented and calm Functional status at discharge: independent ambulation Overall status at discharge: patient is back to baseline Exam Vital Signs (past 8 hours): - 09/18/24 04:00 09/18/24 08:00 Temperature 97.6 F 97.8 F Pulse Rate 75 74 Respiratory Rate 12 16 Blood Pressure 110/69 129/73 Pulse Oximetry 97 97 Oxygen Flow Rate 0 0 Oxygen Delivery Method Room Air Oxygen Flow Rate 0 Narrative Exam Narrative: She is alert and oriented x3, in no apparent distress. She is able to discuss in normal detail the events of her recent vacation to [place], her late night return to [facility], her several hours sleep in a hotel before catching a 2.5 hour shuttle bus backup here to [place]. Her memory loss appears to be in the 1-3 hour range. She is back to her baseline and seems quite impressively unperturbed that this happened. Heart is regular rate and rhythm without murmur Lungs are clear to auscultation bilaterally Extremities have no ankle edema Neuro: Cranial nerves 2-12 test intact. There is no increased reflexes. There is no asymmetry on muscle testing. Objective Labs 09/17/24 11:56 09/17/24 11:56 Labs: Laboratory Results - last 24 hr 09/17/24 09/17/24 09/17/24 11:56 12:12 12:12 WBC 9.3 RBC 4.66 Hgb 14.3 Hct 42.1 MCV 90.2 MCH 30.6 MCHC 33.9 RDW 14.5 Plt Count 272 Neut % (Auto) 73.4 Lymph % (Auto) 19.2 L [place] % (Auto) 6.2 Eos % (Auto) 0.6 L Baso % (Auto) 0.6 Neut # (Auto) 6800 Lymph # (Auto) 1800 [place] # (Auto) 600 Eos # (Auto) 100 Baso # (Auto) 100 PT 11.4 INR 1.0 APTT 31 Sodium 137 Potassium 3.2 L Chloride 103 Carbon Dioxide 27 BUN 11 Creatinine 0.51 L Estimated GFR > 60 BUN/Creatinine Ratio 21.6 Glucose 106 Calcium 9.1 Total Bilirubin 1.1 AST 30 ALT 25 Alkaline Phosphatase 113 Total Creatine Kinase 137 H Troponin I < 0.012 Total Protein 7.0 Albumin 4.5 Globulin 2.5 Albumin/Globulin Ratio 1.8 Urine Color Yellow Urine Appearance Clear Urine pH 6.5 Normal Ur Specific [place] 1.010 Urine Protein 1+ H Urine Glucose (UA) Negative Urine Ketones 1+ H Urine Occult Blood 1+ H Urine Nitrate Negative Urine Bilirubin Negative Urine Urobilinogen 0.2 Ur Leukocyte Esterase 1+ H Urine RBC 1-5/hpf Urine WBC 5-10/hpf H Ur Squamous Epith Cells None seen Urine Bacteria Few (2-10) H Ur Culture Indicated? Specimen cultured Vol Urine Centrifuged 10ml (spun) U Opiates 300ng/mL cut Negative Ur Oxycodone Screen Negative Urine Methadone Screen Negative Ur Barbiturates Screen Negative U Tricyclic Antidepress Negative Ur Phencyclidine Scrn Negative Ur Amphetamines Screen Negative U Methamphetamines Scrn Negative Ur MDMA Scrn (Ecstasy) Negative U Benzodiazepines Scrn Negative Urine Cocaine Screen Negative U Marijuana (THC) Screen Negative Urine Specific [place] Normal Ethyl Alcohol < 10 Ur Creatinine Normal SARS-CoV-2 (PCR) Influenza A (RT-PCR) Influenza B (RT-PCR) RSV (PCR) 09/17/24 09/17/24 12:17 12:17 WBC RBC Hgb Hct MCV MCH MCHC RDW Plt Count Neut % (Auto) Lymph % (Auto) [place] % (Auto) Eos % (Auto) Baso % (Auto) Neut # (Auto) Lymph # (Auto) [place] # (Auto) Eos # (Auto) Baso # (Auto) PT INR APTT Sodium Potassium Chloride Carbon Dioxide BUN Creatinine Estimated GFR BUN/Creatinine Ratio Glucose Calcium Total Bilirubin AST ALT Alkaline Phosphatase Total Creatine Kinase Troponin I Total Protein Albumin Globulin Albumin/Globulin Ratio Urine Color Urine Appearance Urine pH Ur Specific [place] Urine Protein Urine Glucose (UA) Urine Ketones Urine Occult Blood Urine Nitrate Urine Bilirubin Urine Urobilinogen Ur Leukocyte Esterase Urine RBC Urine WBC Ur Squamous Epith Cells Urine Bacteria Ur Culture Indicated? Vol Urine Centrifuged U Opiates 300ng/mL cut Ur Oxycodone Screen Urine Methadone Screen Ur Barbiturates Screen U Tricyclic Antidepress Ur Phencyclidine Scrn Ur Amphetamines Screen U Methamphetamines Scrn Ur MDMA Scrn (Ecstasy) U Benzodiazepines Scrn Urine Cocaine Screen U Marijuana (THC) Screen Urine Specific [place] Ethyl Alcohol Ur Creatinine SARS-CoV-2 (PCR) Cancelled Negative Influenza A (RT-PCR) Flu a negative Influenza B (RT-PCR) Flu b negative RSV (PCR) Negative [facility] Medical History Anxiety History of diarrhea Hyperlipidemia Hypertension Ovarian cyst Surgical History H/O ovarian cystectomy (~2007) H/O repair of rotator cuff (~2016) History of open reduction and internal fixation (ORIF) procedure (~2016) History of total hip arthroplasty (~2013) Social History household members: none Smoking Status: Never smoker alcohol intake: current Discharge Plan Discharge Plan Patient Disposition: Home Discharge orders & Medications Prescriptions: Continued amlodipine [Norvasc] 5 MG tablet 5 mg PO QDAY Qty: 0 cholecalciferol (vitamin D3) [Vitamin D3] 2,000 UNIT capsule 2,000 unit PO DAILY Qty: 0 atorvastatin 10 mg Tablet 10 mg PO DAILY Follow up/Referrals: Padmini Maharaj PA-C [Primary Care Provider] - Diet/Activity/Treatments Diet: Diet as Tolerated Visit Report/Discharge Packet Stand Alone Forms: Patient Portal/API, Stroke Signs & Symptoms Discharge Data Primary Care Provider: Padmini Maharaj Attending Provider: Bucky Connolly V Admit Date/Time: 09/17/24 13:19
== END 2024-09-18 11:30 | disposition home or self-care (01) ==
LOC: ED 11:42 → AC 13:19
PROVIDERS: Admitting Provider Internal Medicine; Emergency Provider Emergency Medicine; Family Provider Internal Medicine; PCP Student in an Organized Health Care Education/Training Program; Referring Provider Emergency Medicine; Visit Provider Internal Medicine
DX: G45.4 Transient global amnesia (principal); I10 Essential (primary) hypertension; E78.5 Hyperlipidemia, unspecified; E87.6 Hypokalemia; R07.9 Chest pain, unspecified
CPT/HCPCS: 0241U; 36415; 70450; 70496; 70498; 80053; 80305; 80320; 81001; 82550; 82962; 84484; 85025; 85610; 85730; 87077; 87086; 87186; 93005; 93010; 99284; G0378; Q9967